=== PATIENT | female | born 1995 | race Caucasian/White ===

== ENCOUNTER 2020-10-10 13:52 | Observation (INO) | payer OTHER, SELFPAY ==
[2020-10-10 14:13] VITALS: BP 113/64; PULSE 85
[2020-10-10 14:16] VITALS: BP 109/61; PULSE 84
[2020-10-10 14:18] VITALS: BMI 27.6
--- NOTE | 2020-10-10 14:19 | OBADM ---
This patient, Mili Palm, admitted to the OB room OB Post 115 for observation. Patient/family oriented to hospital policies and general routines including ID bracelet, bed and alarms, visiting hours, pain management, procedures, bathroom and other care routines, personal items, smoking policy, room service/diet, and visiting hours. Patient/Family are encouraged to report perceived risks to care and to ask questions if they do not understand what they are told or what they should do.
[2020-10-10 14:26] LABS: Add Urine Microscopic? NO; Appearance Urine Clear (Clear); Bilirubin Urine Negative (Negative); Blood Urine Negative (Negative); Color Urine Yellow (Yellow); Glucose Urine UA Negative (Negative); Ketones Urine Negative (Negative); Leukocyte Esterase Ur Negative LEU/UL (Negative); Nitrate Urine Negative (Negative); Protein Urine Negative (Negative); Specific Grav Ur 1.015 (1.001-1.035); Urobilinogen Urine Negative mg/dL (<2.0)
[2020-10-10 14:31] VITALS: BP 116/56; PULSE 85
--- NOTE | 2020-10-14 11:19 | PM.OBTRLD ---
OB - Triage/Final Diagnosis Visit Information Comments/Additional reasons for admission: I have assessed the risk for this patient, Mili Palm, and determined that she would benefit from observation care. Evaluation Laboratory results: Laboratory Tests 10/10/20 14:08 Urine Color Yellow Urine Appearance Clear Urine pH 6.0 Ur Specific [place] 1.015 Urine Protein Negative Urine Glucose (UA) Negative Urine Ketones Negative Ur Blood (Man) Negative Urine Nitrate Negative Urine Bilirubin Negative Urine Urobilinogen Negative Leukocyte Esterase Rfl Negative Final Diagnosis (1) False labor: Code(s): O47.9 - False labor, unspecified Status: Acute
== END 2020-10-10 15:02 | disposition home or self-care (01) ==
PROVIDERS: Admitting Provider Obstetrics & Gynecology; PCP Family Medicine; Visit Provider Obstetrics & Gynecology
DX: O47.02 False labor before 37 completed weeks of gestation, second trimester (principal); Z3A.23 23 weeks gestation of pregnancy
CPT/HCPCS: 81003; G0378; G0379

== ENCOUNTER 2020-11-01 13:01 | Observation (INO) | payer OTHER, SELFPAY ==
[2020-11-01] VITALS (19 sets, daily range): BP systolic 107–127; BP diastolic 57–67; PULSE 65–119; TEMP 36.8; O2SAT 88–100; BMI 29.5
[2020-11-01 13:52] LABS: Add Urine Microscopic? NO; Appearance Urine Clear (Clear); Bilirubin Urine Negative (Negative); Blood Urine Negative (Negative); Color Urine Yellow (Yellow); Glucose Urine UA Negative (Negative); Ketones Urine Negative (Negative); Leukocyte Esterase Ur Negative LEU/UL (Negative); Nitrate Urine Negative (Negative); Protein Urine Negative (Negative); Urobilinogen Urine Negative mg/dL (<2.0)
--- NOTE | 2020-11-01 13:58 | OBADM ---
This patient, Mili Palm, admitted to the OB room OB Post 116 for observation. Patient/family oriented to hospital policies and general routines including ID bracelet, bed and alarms, visiting hours, pain management, procedures, bathroom and other care routines, personal items, smoking policy, room service/diet, and visiting hours. Patient/Family are encouraged to report perceived risks to care and to ask questions if they do not understand what they are told or what they should do.
[2020-11-01 15:04] LABS: Fetal Fibronectin Negative
[2020-11-01] MEDS: TERBUTALINE SULFATE 1 MG/ML VIAL 0.25 MG SUB-Q (15:26)
--- NOTE | 2020-11-03 07:43 | PM.OBTRLD ---
OB - Triage/Final Diagnosis Visit Information Date of evaluation: 11/01/20 Reason for evaluation: threatened labor Comments/Additional reasons for admission: I have assessed the risk for this patient, Mili Palm, and determined that she would benefit from observation care. Evaluation Laboratory results: Laboratory Tests 11/01/20 11/01/20 13:40 14:32 Urine Color Yellow Urine Appearance Clear Urine pH 6.0 Ur Specific [place] 1.020 Urine Protein Negative Urine Glucose (UA) Negative Urine Ketones Negative Ur Blood (Man) Negative Urine Nitrate Negative Urine Bilirubin Negative Urine Urobilinogen Negative Leukocyte Esterase Rfl Negative Fibronectin Negative
== END 2020-11-01 16:26 | disposition home or self-care (01) ==
LOC: ANHOBPP 13:08
PROVIDERS: Advanced Practice Midwife; Admitting Provider Obstetrics & Gynecology; PCP Family Medicine; Visit Provider Obstetrics & Gynecology
DX: O47.02 False labor before 37 completed weeks of gestation, second trimester (principal); Z3A.26 26 weeks gestation of pregnancy
CPT/HCPCS: 81003; 82731; 96372; G0378; G0379; J3105

== ENCOUNTER 2020-11-20 13:54 | Observation (INO) | payer OTHER, SELFPAY ==
[2020-11-20 14:21] VITALS: BP 109/66; PULSE 80
[2020-11-20 14:31] VITALS: BP 112/58; PULSE 79
[2020-11-20 14:39] LABS: Add Urine Microscopic? YES; Appearance Urine Cloudy (Clear); Bacteria Urine Trace /hpf; Bilirubin Urine Negative (Negative); Blood Urine Negative (Negative); Color Urine Yellow (Yellow); Glucose Urine UA Negative (Negative); Ketones Urine Negative (Negative); Leukocyte Esterase Ur Negative LEU/UL (NEGATIVE); Mucus Urine Rare /lpf; Nitrate Urine Negative (Negative); Protein Urine Negative (Negative); RBC Urine 0-2 /hpf (0-2); Specific Grav Ur 1.016 (1.001-1.035); Squamous Epithelial Cell Urine Moderate /hpf (Few); Urobilinogen Urine Negative mg/dL (<2.0); WBC Urine 0-3 /hpf (0-3)
[2020-11-20 14:42] VITALS: BMI 29.5
[2020-11-20 15:01] VITALS: BP 110/62; PULSE 82
[2020-11-20] MEDS: TERBUTALINE SULFATE 1 MG/ML VIAL 0.25 MG SUB-Q ×2 (15:55→18:27)
[2020-11-20 17:27] LABS: Fetal Fibronectin Positive
[2020-11-20 18:27] VITALS: BP 129/69; PULSE 89
[2020-11-20] MEDS: NIFEdipine 30 MG TAB.ER.24 PO (19:01)
[2020-11-20 19:03] VITALS: BP 137/80; PULSE 122
[2020-11-20 19:31] VITALS: BP 125/67; PULSE 113
--- NOTE | 2020-12-04 11:28 | PM.OBTRLD ---
OB - Triage/Final Diagnosis Visit Information Comments/Additional reasons for admission: I have assessed the risk for this patient, Mili Palm, and determined that she would benefit from observation care. Evaluation Laboratory results: Laboratory Tests 11/20/20 11/20/20 14:28 16:10 Urine Color Yellow Urine Appearance Cloudy H Urine pH 6.0 Ur Specific [place] 1.016 Urine Protein Negative Urine Glucose (UA) Negative Urine Ketones Negative Ur Blood (Man) Negative Urine Nitrate Negative Urine Bilirubin Negative Urine Urobilinogen Negative Ur Leukocyte Esterase Negative Urine RBC 0-2 Urine WBC 0-3 Ur Squamous Epith Cells Moderate H Urine Bacteria Trace Urine Mucus Rare Fibronectin Positive Final Diagnosis (1) Vaginal bleeding during : Code(s): O46.90 - Antepartum hemorrhage, unspecified, unspecified trimester Status: Acute
== END 2020-11-20 19:55 | disposition home or self-care (01) ==
PROVIDERS: Advanced Practice Midwife; Admitting Provider Obstetrics & Gynecology; PCP Family Medicine; Visit Provider Obstetrics & Gynecology
DX: O46.93 Antepartum hemorrhage, unspecified, third trimester (principal); Z3A.29 29 weeks gestation of pregnancy
CPT/HCPCS: 81001; 82731; 87086; 96372; A9270; G0378; G0379; J3105

== ENCOUNTER 2020-11-21 22:04 | Observation (INO) | payer OTHER, SELFPAY ==
[2020-11-21 22:16] VITALS: BP 119/70; PULSE 90
[2020-11-21 22:17] VITALS: BP 113/74; PULSE 97
[2020-11-21 22:31] VITALS: BP 105/75; PULSE 87
[2020-11-21 22:46] VITALS: BP 117/61; PULSE 91
[2020-11-21 23:01] VITALS: BP 109/65; PULSE 86
[2020-11-21 23:16] VITALS: BP 111/62; PULSE 83
[2020-11-21 23:18] LABS: Add Urine Microscopic? NO; Appearance Urine Clear (Clear); Bilirubin Urine Negative (Negative); Blood Urine Negative (Negative); Color Urine Colorless (Yellow); Glucose Urine UA Negative (Negative); Ketones Urine Negative (Negative); Leukocyte Esterase Ur Negative LEU/UL (Negative); Nitrate Urine Negative (Negative); Protein Urine Negative (Negative); Urobilinogen Urine Negative mg/dL (<2.0)
[2020-11-21 23:28] VITALS: BMI 29.3
--- NOTE | 2020-11-21 23:28 | LDADM ---
This patient, Mili Palm, was admitted to OB Post 116 on 11/21/20 at 22:04. Plans for labor, pain management and were discussed with patient. Patient/family oriented to hospital policies and general routines including ID bracelet, bed and alarms, visiting hours, pain management, procedures, bathroom and other care routines, personal items, smoking policy, room service/diet and guest tray routines, infant security routines, and visiting hours. Patient/Family are encouraged to report perceived risks to care and to ask questions if they do not understand what they are told or what they should do. See OBIX for further documentation.
--- NOTE | 2020-12-04 11:33 | P.PNOB_ITS ---
OB - Triage/Final Diagnosis Visit Information Comments/Additional reasons for admission: I have assessed the risk for this patient, Mili Palm, and determined that she would benefit from observation care. Evaluation Laboratory results: Laboratory Tests 11/21/20 22:41 Urine Color Colorless Urine Appearance Clear Urine pH 7.0 Ur Specific [place] 1.010 Urine Protein Negative Urine Glucose (UA) Negative Urine Ketones Negative Ur Blood (Man) Negative Urine Nitrate Negative Urine Bilirubin Negative Urine Urobilinogen Negative Leukocyte Esterase Rfl Negative Final Diagnosis (1) False labor: Code(s): O47.9 - False labor, unspecified Status: Acute
== END 2020-11-21 23:40 | disposition home or self-care (01) ==
PROVIDERS: Advanced Practice Midwife; Admitting Provider Obstetrics & Gynecology; PCP Family Medicine; Visit Provider Obstetrics & Gynecology
DX: O47.9 False labor, unspecified (principal); Z3A.00 Weeks of gestation of pregnancy not specified
CPT/HCPCS: 81003; G0378; G0379

== ENCOUNTER 2020-11-23 17:35 | Observation (INO) | payer OTHER, SELFPAY ==
[2020-11-23 18:01] VITALS: BP 123/72; PULSE 105
[2020-11-23 19:01] VITALS: BP 118/66; PULSE 80
[2020-11-23] MEDS: CYCLOBENZAPRINE HCL 10 MG TABLET PO (19:15)
--- NOTE | 2020-12-25 10:03 | PM.OBTRLD ---
OB - Triage/Final Diagnosis Visit Information Comments/Additional reasons for admission: I have assessed the risk for this patient, Mili Palm, and determined that she would benefit from observation care. Final Diagnosis (1) False labor: Code(s): O47.9 - False labor, unspecified Status: Acute
== END 2020-11-23 19:50 | disposition home or self-care (01) ==
PROVIDERS: Admitting Provider Obstetrics & Gynecology; PCP Family Medicine; Visit Provider Obstetrics & Gynecology
DX: O47.03 False labor before 37 completed weeks of gestation, third trimester (principal); Z3A.30 30 weeks gestation of pregnancy
CPT/HCPCS: A9270; G0378; G0379

== ENCOUNTER 2020-12-22 17:24 | Observation (INO) | payer OTHER, SELFPAY ==
[2020-12-22] VITALS (12 sets, daily range): BP systolic 75–132; BP diastolic 52–84; PULSE 71–95; RESP 18; TEMP 36.4; BMI 31.8
[2020-12-22 18:35] LABS: Add Urine Microscopic? YES; Appearance Urine Cloudy (Clear); Bacteria Urine Trace /hpf; Bilirubin Urine Negative (Negative); Blood Urine Negative (Negative); Color Urine Yellow (Yellow); Glucose Urine UA Negative (Negative); Ketones Urine Negative (Negative); Leukocyte Esterase Ur Negative LEU/UL (NEGATIVE); Mucus Urine Rare /lpf; Nitrate Urine Negative (Negative); Protein Urine Negative (Negative); RBC Urine 0-2 /hpf (0-2); Specific Grav Ur 1.015 (1.001-1.035); Squamous Epithelial Cell Urine Occasional /hpf (Few); WBC Urine 0-3 /hpf (0-3)
[2020-12-22] MEDS: LACTATED RINGERS 1,000 ML 999 ML IV CONT (20:14)
[2020-12-22] MEDS: BETAMETHASONE SOD PHOS/ACETATE 30 MG/5 ML VIAL 12 MG IM (20:19)
[2020-12-22] MEDS: NIFEdipine 30 MG TAB.ER.24 PO (20:24)
[2020-12-23] VITALS: BP 124/64; PULSE 91
--- NOTE | 2020-12-23 06:15 | PC.NURSE ---
Pt states she has felt a few contractions and also had brown spotting when using the bathroom. Pt also stated she is still feeling the baby move. Pt denies any needs at this time.
--- NOTE | 2020-12-23 08:24 | PM.IMHP ---
H&P: HPI History of Present Illness Date/Time: 12/23/20 08:24 Chief Complaint: contractions at 34 weeks Narrative: Pt presented overnight with contractions as frequent as 4-5 minutes. She has history of a term . Baby is IUGR. Received procardia x1 and got first BMTZ last night. This morning she reports contractions only every 15 minutes. small spotting following exams. Good FM. Review of Systems Review of Systems: All systems reviewed & are unremarkable except as noted in HPI and below (HPI) [facility] Family History Family History (Updated 09/26/17 @ 14:38 by DOCTOR UNKNOWN) Mother Diabetes mellitus Family history of blood dyscrasia Hypertension Father Hypertension Social History Social History Smoking status: Never smoker Second hand tobacco smoke exposure: No Alcohol intake: never Meds Home Medications and Allergies Home Medications Medication Instructions Recorded Confirmed Type Daily 1 pkg PO DAILY 10/10/20 12/22/20 History Allergies Allergy/AdvReac Type Severity Reaction Status Date / Time animal dander Allergy Unknown Verified 09/26/17 14:35 No Known Allergies Allergy Unknown Verified 06/23/19 12:08 No Known Allergies Allergy Uncoded 06/23/19 12:08 Vital Signs Vital Signs - 24 hr 12/22/20 18:15 12/22/20 18:30 12/22/20 18:45 Temperature Pulse Rate 95 93 82 Respiratory Rate Blood Pressure 112/76 97/84 L 108/60 12/22/20 19:01 12/22/20 19:07 12/22/20 20:24 Temperature 97.5 F L Pulse Rate 71 81 79 Respiratory Rate 18 Blood Pressure 75/60 L 109/69 110/55 L 12/22/20 20:42 12/22/20 21:49 12/22/20 22:00 Temperature Pulse Rate 79 92 91 Respiratory Rate Blood Pressure 113/65 129/57 L 119/52 L 12/22/20 22:30 12/22/20 23:00 12/22/20 23:30 Temperature Pulse Rate 89 90 86 Respiratory Rate Blood Pressure 122/52 L 125/60 132/74 12/23/20 00:00 Temperature Pulse Rate 91 Respiratory Rate Blood Pressure 124/64 Exam Narrative: Exam Narrative: NAD, normal affect abdomen soft, uterus soft, nontender H&P: Results Labs Labs: Urine 12/22/20 Range/Units 18:04 Urine Color Yellow (Yellow) Urine Appearance Cloudy H (Clear) Urine pH 6.0 (5.0-9.0) Ur Specific [place] 1.015 (1.001-1.035) Urine Protein Negative (Negative) mg/dL Urine Glucose (UA) Negative (Negative) mg/dL Assessment and Plan Assessment and plan (1) contractions: Code(s): O47.9 - False labor, unspecified Status: Acute Additional Plan Cervical change overnight from 1 to 1.5cm, but now contractions minimal and normal frequency for near term. Received BMTZ #1 Stable for DC home. Precautions given. Return if contractions q5 min or less. Will return for second BMTZ tonight.
== END 2020-12-23 09:37 | disposition home or self-care (01) ==
PROVIDERS: Admitting Provider Obstetrics & Gynecology; PCP Family Medicine; Visit Provider Obstetrics & Gynecology
DX: O47.03 False labor before 37 completed weeks of gestation, third trimester (principal); Z3A.34 34 weeks gestation of pregnancy
CPT/HCPCS: 81001; 87081; 87086; 96372; A9270; G0378; G0379; J0702; J7120

== ENCOUNTER 2020-12-23 20:30 | Observation (INO) | payer OTHER, SELFPAY ==
[2020-12-23 20:50] VITALS: BP 110/71; PULSE 81
[2020-12-23 21:00] VITALS: BP 114/67; PULSE 88
[2020-12-23] MEDS: BETAMETHASONE SOD PHOS/ACETATE 30 MG/5 ML VIAL 12 MG IM (21:15)
--- NOTE | 2021-01-02 07:47 | PM.OBTRLD ---
OB - Triage/Final Diagnosis Visit Information Comments/Additional reasons for admission: I have assessed the risk for this patient, Mili Palm, and determined that she would benefit from observation care. Final Diagnosis (1) contractions: Code(s): O47.9 - False labor, unspecified Status: Acute (2) False labor: Code(s): O47.9 - False labor, unspecified Status: Acute
== END 2020-12-23 22:10 | disposition home or self-care (01) ==
PROVIDERS: Admitting Provider Obstetrics & Gynecology; PCP Family Medicine; Visit Provider Obstetrics & Gynecology
DX: O47.03 False labor before 37 completed weeks of gestation, third trimester (principal); Z3A.34 34 weeks gestation of pregnancy
CPT/HCPCS: 96372; G0378; G0379; J0702

== ENCOUNTER 2021-01-01 21:49 | Observation (INO) | payer OTHER, SELFPAY ==
[2021-01-01 22:03] VITALS: BMI 31.8
--- NOTE | 2021-01-01 22:10 | OBADM ---
This patient, Mili Palm, admitted to the OB room OB Post 116 for observation. Patient/family oriented to hospital policies and general routines including ID bracelet, bed and alarms, visiting hours, pain management, procedures, bathroom and other care routines, personal items, smoking policy, room service/diet, and visiting hours. Patient/Family are encouraged to report perceived risks to care and to ask questions if they do not understand what they are told or what they should do. Pt denies leaking or bleeding. Pt feeling movements.
[2021-01-01 22:12] VITALS: BP 120/76; PULSE 103; TEMP 36.3
[2021-01-01] MEDS: NIFEdipine 30 MG TAB.ER.24 PO (22:41)
[2021-01-02 00:10] VITALS: PULSE 102; O2SAT 98
[2021-01-02] MEDS: TERBUTALINE SULFATE 1 MG/ML VIAL 0.25 MG SUB-Q (00:11)
== END 2021-01-02 01:50 | disposition home or self-care (01) ==
PROVIDERS: Admitting Provider Obstetrics & Gynecology; PCP Family Medicine; Visit Provider Obstetrics & Gynecology
DX: O47.03 False labor before 37 completed weeks of gestation, third trimester (principal); Z3A.35 35 weeks gestation of pregnancy
CPT/HCPCS: 96372; A9270; G0378; G0379; J3105

== ENCOUNTER 2021-01-11 14:11 | Observation (INO) | payer OTHER, SELFPAY ==
[2021-01-11 14:23] VITALS: BP 130/81; PULSE 109
[2021-01-11 14:54] VITALS: TEMP 36.6
[2021-01-11 15:10] VITALS: BMI 32.6
--- NOTE | 2021-01-11 15:14 | OBADM ---
This patient, Mili Palm, admitted to the OB room OB Post 117 for observation. Patient/family oriented to hospital policies and general routines including ID bracelet, bed and alarms, visiting hours, pain management, procedures, bathroom and other care routines, personal items, smoking policy, room service/diet, and visiting hours. Patient/Family are encouraged to report perceived risks to care and to ask questions if they do not understand what they are told or what they should do.
--- NOTE | 2021-02-11 20:31 | PM.OBTRLD ---
OB - Triage/Final Diagnosis Visit Information Comments/Additional reasons for admission: I have assessed the risk for this patient, Mili Palm, and determined that she would benefit from observation care. Final Diagnosis (1) Abdominal pain: Code(s): R10.9 - Unspecified abdominal pain Status: Acute
== END 2021-01-11 15:10 | disposition home or self-care (01) ==
PROVIDERS: Admitting Provider Obstetrics & Gynecology; PCP Family Medicine; Visit Provider Obstetrics & Gynecology
DX: O26.893 Other specified pregnancy related conditions, third trimester (principal); R10.9 Unspecified abdominal pain; Z3A.37 37 weeks gestation of pregnancy
CPT/HCPCS: G0378; G0379

== ENCOUNTER 2021-01-19 21:10 | Observation (INO) | payer OTHER, SELFPAY ==
[2021-01-20 01:05] VITALS: BMI 32.5
--- NOTE | 2021-01-20 01:05 | LDADM ---
This patient, Mili Palm, was admitted to Labor/Delivery/Recovery 103 on 01/19/21 at 21:10. Plans for labor, pain management and were discussed with patient. Patient/family oriented to hospital policies and general routines including ID bracelet, bed and alarms, visiting hours, pain management, procedures, bathroom and other care routines, personal items, smoking policy, room service/diet and guest tray routines, security routines, and visiting hours. Patient/Family are encouraged to report perceived risks to care and to ask questions if they do not understand what they are told or what they should do. See OBIX for further documentation.
== END 2021-01-20 01:12 | disposition home or self-care (01) ==
PROVIDERS: Admitting Provider Obstetrics & Gynecology; PCP Family Medicine; Visit Provider Obstetrics & Gynecology
DX: O47.1 False labor at or after 37 completed weeks of gestation (principal); Z3A.38 38 weeks gestation of pregnancy
CPT/HCPCS: G0378; G0379

== ENCOUNTER 2021-01-25 06:42 | Inpatient (IN) | payer OTHER, SELFPAY ==
[2021-01-25] VITALS (83 sets, daily range): BP systolic 76–133; BP diastolic 51–98; PULSE 70–111; RESP 16–18; TEMP 36–37.2; O2SAT 98–100; BMI 32.7
[2021-01-25 07:20] LABS: Basophils Percent Auto 0.3 % (0.2-1.2); Eosinophils Absolute Auto 0.1 K/mm3 (0-0.3); Eosinophils Percent Auto 0.9 % (0-4.4); Hematocrit 36.9 % (37.0-47.0); Hemoglobin 12.1 g/dL (12.0-15.0); Immature Granulocyte Absolute 0.08 K/mm3 (0.00-0.031); Immature Granulocyte Percent A 0.8 % (0-0.5); Lymphocytes Absolute Auto 1.09 K/mm3 (0.9-3.2); Lymphocytes Percent Auto 10.4 % (18.3-44.2); Mean Corpuscular HGB Conc 32.8 g/dl (32-36); Mean Corpuscular Hemoglobin 27.9 pg (26-34); Mean Corpuscular Volume 85.2 fl (80-100); Mean Platelet Volume 10.7 fl (7.4-10.4); Monocytes Absolute Auto 0.4 K/mm3 (0.1-0.6); Monocytes Percent Auto 3.8 % (2.6-8.5); Neutrophils Absolute Auto 8.8 K/mm3 (1.3-6.7); Neutrophils Percent Auto 83.8 % (45.5-73.1); Platelet Count Result 231 k/mm3 (150-375); Red Blood Count 4.33 M/mm3 (4.2-5.4); White Blood Count 10.4 K/mm3 (4.5-10.0)
[2021-01-25] MEDS: LACTATED RINGERS 1,000 ML 125 ML IV CONT (07:24)
[2021-01-25] MEDS: AMPICILLIN 2 GM/NS 100 ML 2 GM/100 ML BAG IVPB (07:24)
[2021-01-25] MEDS: OXYTOCIN 30 UNITS/NS 500 ML 30 UNITS/500 ML BAG IV CONT (07:29)
--- NOTE | 2021-01-25 07:29 | WPDHPUPDATE1 ---
History and Physical Update Update Date/Time: 01/25/21 07:29 AROM - clear. /, reassuring fht's History and Physical has been reviewed, including an updated exam of the patient. There are NO changes in the patient's condition. Risks, benefits, and alternatives have been discussed and questions answered. Patient agrees to proceed with procedure.
--- NOTE | 2021-01-25 07:34 | LDADM ---
This patient, Mili Palm, was admitted to Labor/Delivery/Recovery 104 on 01/25/21 at 06:42. Plans for labor, pain management and were discussed with patient. Patient/family oriented to hospital policies and general routines including ID bracelet, bed and alarms, visiting hours, pain management, procedures, bathroom and other care routines, personal items, smoking policy, room service/diet and guest tray routines, security routines, and visiting hours. Patient/Family are encouraged to report perceived risks to care and to ask questions if they do not understand what they are told or what they should do. See OBIX for further documentation.
[2021-01-25] MEDS: AMPICILLIN 1 GM/NS 50 ML 1 GM/50 ML BAG IVPB (11:19)
--- NOTE | 2021-01-25 13:14 | PM.OBPRVD ---
OB - Delivery Note Procedure Delivery date: 01/25/21 Procedure: Intrapartal events: None Induction method: AROM and per pitocin protocol Delivery monitor: external FHT and external uterine Route of delivery: Laceration Description: Vaginal - 2nd Degree Delivery repair: vicryl Specimen: Yes Quantitative Blood Loss (ml): 212 Anesthesia type: Epidural Disposition: floor Baby Date of : 01/25/21 Time of : 13:47 Weeks of gestation at delivery: 39 gender: Female Weight (pounds): 5 Weight (ounces): 14 score one minute: 9 score five minutes: 9
[2021-01-25] MEDS: OXYTOCIN 30 UNITS/NS 500 ML 30 UNITS/500 ML BAG 125 UNITS IV CONT (13:23)
[2021-01-25] MEDS: BENZOCAINE 20% AER SPR (*SP) 56 GM CAN 1 SPRAY TOPICAL (15:21)
[2021-01-25] MEDS: WITCH HAZEL 40 PADS 1 PAD TOPICAL (15:21)
--- NOTE | 2021-01-25 16:00 | OBPPTRN ---
Patient transferred to post room # 282 via wheelchair). Support person present. Oriented to unit, room, information board, rooming in, admission packet and security measures. Patient verbalizes understanding. PT education and instructions per one to one discussion, mom baby care guide book, no barriers to learning identified, pt and fob both recipients of the instruction.
[2021-01-25] MEDS: LANOLIN (LANSINOH) 7.5 GM CREAM 1 APPLIC TOPICAL (17:55)
[2021-01-25] MEDS: IBUPROFEN 600 MG TABLET PO (17:55)
[2021-01-25] MEDS: DOCUSATE SODIUM 100 MG CAPSULE PO (17:55)
[2021-01-26] MEDS: ACETAMINOPHEN 325 MG TABLET 650 MG PO ×4 (00:30→23:15)
[2021-01-26] MEDS: IBUPROFEN 600 MG TABLET PO ×4 (00:30→23:16)
[2021-01-26 04:31] VITALS: BP 106/64; PULSE 76; RESP 16; TEMP 36.2; O2SAT 98
[2021-01-26 05:15] LABS: Hematocrit 32.1 % (37.0-47.0); Hemoglobin 10.4 g/dL (12.0-15.0)
--- NOTE | 2021-01-26 07:00 | PC.NURSE ---
PT introductions made and plan of care discussed per post , pain management, breast feeding, daily care activities. PT will receive education and instruction this shift per one to one discussion without any barriers to learning noted. Mom baby care guide used as a resource. Recipients of such instructions are fob and pt. Both verbalized understanding of such care
--- NOTE | 2021-01-26 07:29 | PM.OBPNVD ---
OB - PN: Subj Subjective Date/time seen: 01/26/21 07:29 Patient comments: no complaints baby status: doing well OB - PN: Obj Data Labs CBC & Chem 7: 01/26/21 04:12 Labs: Laboratory Results - last 24 hr 01/25/21 01/26/21 07:12 04:12 Hgb 10.4 L Hct 32.1 L Blood Type O Positive Antibody Screen Negative OB - PN A/P Plan day: 1 Plan: routine care Time Spent With Patient Time: Total time spent is greater than 50% in coordination of care (as documented) at patient's floor/unit and/or counseling patient: Review of Systems Review of Systems: All systems reviewed & are unremarkable except as noted in HPI and below Exam Const: General: cooperative Psych: Affect: normal affect Attitude: cooperative Thought process: Normal thought process present Thought content: Yes Normal thought content present Insight: Good insight present (Psych) Judgement: Good judgement present (Psych)
--- NOTE | 2021-01-26 07:44 | WPDANLDPN2 ---
Anes-Prog Note L&D Date/Time: 01/26/21 07:44 Comfortable throughout: labor and delivery Neuraxial method: spinal Epidural/Spinal procedure site: clean & non-tender Neuro status: Neuro function grossly intact. Cardiovascular status: normal Respiratory status: normal Airway patency: baseline Mental status: baseline Post-Op hydration status: normal Vital Signs: Last Vital Signs Temp 97.2 F L 01/26/21 04:31 Pulse 76 01/26/21 04:31 Resp 16 01/26/21 04:31 BP 106/64 01/26/21 04:31 Pulse Ox 98 01/26/21 04:31 Pain score (VAS): 0 I/O: Intake & Output 01/25/21 01/25/21 01/26/21 15:59 23:59 07:59 Intake Total 650 500 Balance 650 500 Post-procedural complaints: none Patient feedback: Patient satisfied with anesthetic care.
[2021-01-26] MEDS: DOCUSATE SODIUM 100 MG CAPSULE PO ×2 (09:00→17:36)
[2021-01-26] MEDS: MULTIVIT/MIN/PREN/FOL AC/IRON TABLET 1 TAB PO (09:00)
[2021-01-26] MEDS: TETANUS,DIPHTHERIA,AC PERTUSSIS ADULT (0.5 ML) BOOSTRIX IM (09:02)
[2021-01-26 09:15] VITALS: PULSE 81; RESP 16; O2SAT 99
[2021-01-26 09:31] VITALS: BP 119/76; PULSE 81; RESP 16; TEMP 36.6; O2SAT 99
[2021-01-26 12:33] LABS: Rapid Plasma Reagin Non-Reactive (NonReactive)
[2021-01-26 12:35] VITALS: BP 126/69; PULSE 69; RESP 16; TEMP 37.3; O2SAT 100
--- NOTE | 2021-01-26 13:15 | PC.NURSE ---
Mother called out for assist with feeding. Mother reports she was given a nipple shield for first feeding and is now able to latch without. Mother was unsuccessful with first child and . Reviewed feeding cues, frequencies, duration of feedings, feeding elimination flow sheet, and signs of adequate intake. Demonstrated stimulation techniques to wake infant for feeding. Assisted with infant to breast. Reviewed positioning/alignment in cross cradle, holding breast in ?U? hold and guided asymmetrical latch on. able to latch correctly. nursed eagerly, with steady draws and frequent swallowing noted. Reviewed signs of a correct latch, effective nursing and suck swallow ratio. would slip to shallow latch, mother reports tenderness. Demonstrated how to adjust latch more deeply while feeding. Mother reports she can feel change in latch and has no tenderness. Nipple care reviewed of lanolin after feedings, warm compresses as needed for nipple discomfort. Mother will freq allow to continue to nurse in a shallow latch. Suggested if she cannot adjust latch while feeding to break latch and re-latch to deeper latch. Discussed nipples will become sore and shallow latch decreases infant intake. Suggested mother stimulate while feeding to increase stimulate, increase intake and to assist with maintaining deep latch. Instructed mother to call out for RN assistance if she is unable to latch infant for feeding or she has discomfort with nursing. Instructed feeding should be initiated three hours from start of last feeding or if feeding cues are noted before. Mother voiced understanding of information shared. Reviewed transition to breast milk, signs of adequate intake, and engorgement/relief. Instructed to call ICP if intake/output less than required. Reviewed regular medications mother is taking. Information provided per Ce[facility]. Reviewed community resources on the [facility] website and in the Mom/Baby guide. Information on outpatient services provided. Mother has no further questions at this time.
[2021-01-26 20:00] VITALS: BP 125/69; PULSE 75; RESP 18; TEMP 36.2
--- NOTE | 2021-01-26 20:00 | PC.NURSE ---
Patient viewed the discharge video Mother & Baby Care, The First Two Weeks online. Patient was given the opportunity and encouraged to ask questions. Patient verbalized understanding of information shared and has been given the mother/baby guide for home reference.
[2021-01-27] MEDS: IBUPROFEN 600 MG TABLET PO (05:42)
[2021-01-27] MEDS: ACETAMINOPHEN 325 MG TABLET 650 MG PO (05:42)
[2021-01-27 07:30] VITALS: BP 104/63; PULSE 82; RESP 16; TEMP 36.8
--- NOTE | 2021-01-27 08:36 | PM.OBPNVD ---
OB - PN: Subj Subjective Date/time seen: 01/27/21 08:36 Patient comments: no complaints baby status: doing well OB - PN: Obj Data Labs CBC & Chem 7: 01/26/21 04:12 Labs: Laboratory Results - last 24 hr 01/25/21 07:12 RPR Non-reactive OB - PN A/P Plan day: 2 Plan: routine care and discharge home Time Spent With Patient Time: Total time spent is greater than 50% in coordination of care (as documented) at patient's floor/unit and/or counseling patient: Review of Systems Review of Systems: All systems reviewed & are unremarkable except as noted in HPI and below Exam Const: General: cooperative Nutritional Appearance: average body habitus Psych: Speech and movement: Normal speech and movement present Affect: normal affect Attitude: cooperative Thought process: Normal thought process present Thought content: Yes Normal thought content present Insight: Good insight present (Psych) Judgement: Good judgement present (Psych)
--- NOTE | 2021-01-27 08:37 | PM.OBDSVD ---
DS: Admitting Diagnosis Admitting Diagnosis Admitting Diagnosis: DAVID OB - DS: Summary OB Procedures : None OB Procedures Intrapartum: Spontaneous Vag Delivery OB Procedures: : None Time Spent with Patient Time attestation: Total time spent providing and/or coordinating discharge services: DS: Data Data Completed and Pending Labs on day of discharge: Labs from last 24 hours 01/25/21 07:12 RPR Non-reactive Discharge Plan Discharge Attending physician on discharge: Pablo Pantoja Discharging Clinician: Stefany Dunn Patient Disposition: Home, Self-Care Activity: pelvic rest Diet: regular Patient Instructions: Antibiotic Form Stand Alone Forms: General Discharge Information Follow-up/Referrals: Pablo Pantoja MD [Physician] - 4 Weeks Discharge Medications: Continued PNV cmb#95-ferrous fumarate-FA [] 28 mg iron- 800 mcg Tablet 1 tablet PO DAILY RF: 0 Date of admission: 01/25/21 06:42 Primary Care Provider: MoraimaBrenda Admitting Provider: Pablo Pantoja Attending physician on admission: Pablo Pantoja Condition: Stable
[2021-01-29 09:45] VITALS: BP 125/79; PULSE 90; RESP 20; TEMP 36.7; O2SAT 100
== END 2021-01-27 11:28 | disposition home or self-care (01) | DRG 560 ==
LOC: ANHLDR 06:45 → ANHOB2 16:25
PROVIDERS: Admitting Provider Obstetrics & Gynecology; PCP Family Medicine; Visit Provider Obstetrics & Gynecology
DX: O36.5930 Maternal care for other known or suspected poor fetal growth, third trimester, not applicable or unspecified (principal); O70.1 Second degree perineal laceration during delivery; O99.824 Streptococcus B carrier state complicating childbirth; O76 Abnormality in fetal heart rate and rhythm complicating labor and delivery; O69.81X0 Labor and delivery complicated by cord around neck, without compression, not applicable or unspecified; Z3A.39 39 weeks gestation of pregnancy; Z37.0 Single live birth
CPT/HCPCS: 36415; 85014; 85018; 85025; 86592; 86850; 86900; 86901; 88307; 90715; A9270; J0290; J2590; J2795; J7120

== ENCOUNTER 2021-11-14 12:39 | Outpatient (CLI) | payer OTHER, SELFPAY ==
--- NOTE | ~2021-11-14 | US_ITS ---
EXAMINATION: US OB <= 14 weeks fetus DATE: 11/14/2021 13:07 INDICATION: Gestational dating TECHNIQUE: Real-time transabdominal obstetric ultrasound. FINDINGS: No prior studies for comparison. The uterus measures 10.3 x 6.3 x 7.7 cm. There is an intrauterine gestational sac, with pole id entified. There are 2 areas of subchorionic hemorrhage measuring 1.5 x 1.3 x 0.5 and 2.1 x 1.5 x 0.5 cm respectively. The crown rump length measures 3.18 cm, which correlates with a estimated gestationa l age of 10 weeks 1 day. heart tones are identified measuring 193 BPM. There is a 1.6 cm olena us luteal cyst of the right ovary. Left ovary is unremarkable. IMPRESSION: 1. SL IUP with an EGA of 10 weeks, 1 days (EDC by current ultrasound of 06/11/2022). 2: Small subchorionic hemorrhages. Recommend attention to these on subsequent examinations. Reviewed, dictated and finalized at location A. [facility] [employer] PRIMARY IMPRESSION: 1. SL IUP with an EGA of 10 weeks, 1 days (EDC by current ultrasound of 06/11/20 22). 2: Small subchorionic hemorrhages. Recommend attention to these on subsequent examinations.
== END 2021-11-14 12:40 | disposition home or self-care (01) ==
PROVIDERS: PCP Family Medicine; Visit Provider Student in an Organized Health Care Education/Training Program
DX: O36.80X0 Pregnancy with inconclusive fetal viability, not applicable or unspecified (principal); Z3A.10 10 weeks gestation of pregnancy
CPT/HCPCS: 76801

== ENCOUNTER 2021-11-17 22:20 | Emergency (ER) | payer OTHER, SELFPAY ==
--- NOTE | 2021-11-17 22:24 | ED.PREGNANCY ---
HPI - General Chief complaint: OB/Uterine Contractions Stated complaint: 10 weeks , bleeding Time Seen by Provider: 11/17/21 22:24 Source: patient Mode of arrival: ambulatory Limitations: no limitations History of Present Illness HPI Narrative: 26-year-old woman with an LMP of 09/06/2021 comes in this evening complaining of some cramping in her pelvis and bleeding bright red blood. She states that was a small amount (?1/2 pad?). It occurred while she was at home this evening. She has had some moderate nausea and sometimes vomiting during this . Ultrasound on 11/14/2020 showed single parsons IUP with an EGA of 10 weeks 1 day and some small subchorionic hemorrhages. She has had no bleeding or spotting prior to today. She had a D&C on 13 Jan 2019 for miscarriage (approx 8 wks). Complaint: vaginal bleeding Onset (ago): hour(s) (1) Pain Consistency: constant Location: pelvis Severity: mild Quality: Cramping Relieving factors: none Exacerbating factors: none Associated symptoms: vaginal bleeding Vaginal discharge: none Vaginal bleeding: light Date of Last Menstrual Period: 09/06/21 Patient : Yes Expected Date of Delivery: 06/13/22 Number of Weeks : 10 OB History - Previous Pregnancies: miscarriage care: followed by OB and previous ultrasound confirms IUP Related Data : 4 Para: 2 Total number of abortions (spontaneous and elective): 1 Home Medications Medication Instructions Recorded Confirmed PNV cmb#95-ferrous fumarate-FA 1 tablet PO DAILY 01/04/21 01/25/21 [] Allergies Allergy/AdvReac Type Severity Reaction Status Date / Time animal dander Allergy Intermediate Itching Verified 11/17/21 22:46 Review of Systems Review of Systems: All systems reviewed & are unremarkable except as noted in HPI and below Constitutional: Constitutional: Denies chills and Denies fever(s) ENT: Denies dysphagia, Denies nasal congestion and Denies sore throat Cardiovascular: Cardiovascular: Denies chest pain and Denies radiating jaw, neck or arm pain Respiratory: Respiratory: Denies cough, Denies dyspnea and Denies wheezing Gastrointestinal: Gastrointestinal: Denies abdominal pain, Denies diarrhea, Reports nausea and Denies vomiting Genitourinary: Genitourinary: Denies hematuria, Denies nocturia, Denies dysuria, Reports pelvic pain (cramping) and Denies vaginal discharge Musculoskeletal: Musculoskeletal: Denies arthralgias and Denies joint swelling Integumentary/Breasts: Skin/Breast: Denies pruritus, Denies erythema and Denies rash Neurologic: Denies vertigo, Denies dizziness and Denies syncope PMFSH Past Medical History Medical History Anemia Generalized headaches History of miscarriage, currently x 1 History of vaginal delivery x2 IUGR (intrauterine growth restriction) 2nd Surgical History Surgical History History of dilation and curettage x 13 Jan 2019 for Miscarriage Family History Family History (Updated 11/08/21 @ 10:39 by Jocelynn Maloney MA) Mother Diabetes mellitus Family history of blood dyscrasia Hypertension Asthma Father Hypertension Alcoholism Diabetes mellitus Depression Daughter Asthma Grandparent Liver cancer Alcoholism Hypertension Heart disease Social History Social History Smoking status: Never smoker Second hand tobacco smoke exposure: No Alcohol intake: never Substance use: never Gender identity (if verbalized by the patient): Female Spiritual care concerns: No Exam Const: General: no acute distress and alert Orientation/consciousness: patient oriented x3 Resp: Effort & Inspection: normal respiratory effort and not labored Auscultation: clear to auscultation bilaterally, no rales,
[2021-11-17 22:32] VITALS: BP 130/81; PULSE 98; RESP 16; TEMP 37; O2SAT 97
[2021-11-17 22:58] LABS: Basophils Absolute Auto 0.02 K/mm3 (0.00-0.10); Basophils Percent Auto 0.3 % (0.0-1.0); Eosinophils Absolute Auto 0.27 K/mm3 (0.02-0.50); Eosinophils Percent Auto 3.4 % (1.0-6.0); Hematocrit 37.9 % (35.0-49.0); Hemoglobin 12.6 g/dL (12.0-15.0); Immature Granulocyte Absolute 0.02 K/mm3 (0.00-0.00); Immature Granulocyte Percent A 0.3 % (0.0-0.0); Lymphocytes Absolute Auto 1.87 K/mm3 (1.10-4.50); Lymphocytes Percent Auto 23.6 % (18.0-42.0); Mean Corpuscular HGB Conc 33.2 g/dL (32.0-36.0); Mean Corpuscular Hemoglobin 29.2 pg (27.0-31.0); Mean Corpuscular Volume 87.9 fL (78.0-102.0); Mean Platelet Volume 10.1 fl (9.2-11.8); Monocytes Percent Auto 5.1 % (2.0-11.0); Neutrophils Absolute Auto 5.3 K/mm3 (1.7-7.2); Neutrophils Percent Auto 67.3 % (50.0-70.0); Platelet Count Result 192 K/mm3 (150-420); Red Blood Count 4.31 M/mm3 (4.20-5.40); Red Cell Distribution Width 13.1 % (11.6-14.4); White Blood Count 7.9 K/mm3 (4.8-10.8)
--- NOTE | 2021-11-17 23:03 | PC.NURSE ---
pelvic observed by dominick floor nurse
[2021-11-17 23:13] LABS: Alanine Aminotransferase 47 U/L (14-59); Albumin Level 3.2 g/dL (3.4-5.0); Alkaline Phosphatase 100 U/L (46-116); Anion Gap 12 mmol/L (8-16); Aspartate Amino Transferase 19 U/L (15-37); Bilirubin,Total 0.2 mg/dL (0.00-1.00); Blood Urea Nitrogen 9 mg/dL (7-18); Calcium 8.9 mg/dL (8.5-10.1); Carbon Dioxide 24 mmol/L (21-32); Chloride 102 mmol/L (98-108); Estimated CRCL calculation 128 ml/min; Estimated Glomerular Filt Rate > 60; Glucose 98 mg/dL (70-99); Osmolality Calculated 284 mOsm/kg (285-295); Sodium 138 mmol/L (136-145)
[2021-11-17 23:20] LABS: Add Urine Microscopic? YES; Appearance Urine Clear (Clear); Bilirubin Urine Negative (Negative); Blood Urine 3+ (Negative); Color Urine Light Yellow (Yellow); Glucose Urine UA Negative (Negative); Ketones Urine 2+ (Negative); Leukocyte Esterase Ur Negative LEU/UL (Negative); Nitrate Urine Negative (Negative); Protein Urine Negative (Negative); Urobilinogen Urine 0.2 mg/dL (0.2-1.0)
[2021-11-17 23:44] LABS: RBC Urine 0-2 /hpf (0-2); Squamous Epithelial Cell Urine Moderate /hpf (Few)
--- NOTE | 2021-11-17 23:58 | PC.NURSE ---
exchange called for dr santos [id number]
--- NOTE | 2021-11-18 00:05 | PC.NURSE ---
dr hernandez returned call for group
[2021-11-18 00:16] VITALS: BP 126/51; PULSE 87; RESP 16; TEMP 36.9; O2SAT 99
== END 2021-11-18 00:17 | disposition home or self-care (01) ==
PROVIDERS: Emergency Provider Emergency Medicine; PCP Family Medicine
DX: O46.90 Antepartum hemorrhage, unspecified, unspecified trimester (principal)
CPT/HCPCS: 36415; 80053; 81001; 84702; 85025; 86850; 86900; 86901; 99284

== ENCOUNTER 2021-11-19 09:07 | Outpatient (CLI) | payer OTHER, SELFPAY ==
--- NOTE | ~2021-11-19 | US_ITS ---
EXAMINATION: US OB <= 14 weeks fetus DATE: 11/19/2021 09:33 INDICATION: Spotting complicating , first trimester. TECHNIQUE: Real-time transabdominal pelvic ultrasound was performed. COMPARISON: Ultrasound 11/14/2021 FINDINGS: The uterus measures 11.0 x 8.3 x 6.2 cm. There is an intrauterine gestational sac. A yolk sac is iden tified. The crown rump length measures 4.0 cm, which correlates with an estimated gestational age of 10 weeks and 6 day(s) (+/-) 1 week(s) and 0 day(s). heart motion is identified measuring 176 beats per minute (bpm) by M-mode Doppler. The right ovary measures 2.6 x 2.9 x 1.9 cm. The left ovary is not visualized. There is no free fluid in the pelvis. IMPRESSION: 1. Single living intrauterine gestation with estimated date of delivery of 06/11/2022 based on the ul trasound from 11/14/2021. Reviewed, dictated and finalized at location [facility]. [facility] [employer] IMPRESSION: 1. Single living intrauterine gestation with estimated date of delivery of 05/17 based on the ultrasound from 11/14/2021.
== END 2021-11-19 09:08 | disposition home or self-care (01) ==
PROVIDERS: PCP Family Medicine; Visit Provider Student in an Organized Health Care Education/Training Program
DX: O26.851 Spotting complicating pregnancy, first trimester (principal); Z3A.00 Weeks of gestation of pregnancy not specified
CPT/HCPCS: 76801

== ENCOUNTER 2021-11-20 11:13 | Outpatient (CLI) | payer OTHER, SELFPAY ==
[2021-11-20 12:25] LABS: Thyroid Stimulating Hormone 0.318 uIU/mL (0.465-4.680)
[2021-11-20 12:33] LABS: HIV 1/2 Ab P24 Ag Result Negative (Negative)
[2021-11-20 12:41] LABS: Hepatitis B Surface Antigen Negative (Negative); Rubella IgG Antibody 9.4 IU/ML
[2021-11-20 12:54] LABS: Hepatitis C Virus Antibody Negative (Negative)
[2021-11-20 18:32] LABS: Vitamin D 25 Hydroxy 27.3 ng/mL
[2021-11-21 08:25] LABS: Rapid Plasma Reagin Non-Reactive (NonReactive)
== END 2021-11-20 11:14 | disposition home or self-care (01) ==
PROVIDERS: PCP Family Medicine; Visit Provider Student in an Organized Health Care Education/Training Program
DX: Z34.90 Encounter for supervision of normal pregnancy, unspecified, unspecified trimester (principal); Z3A.00 Weeks of gestation of pregnancy not specified
CPT/HCPCS: 36415; 82306; 84443; 86592; 86703; 86762; 86787; 86803; 86850; 86900; 86901; 87086; 87088; 87340; G0432

== ENCOUNTER 2021-12-19 12:41 | Outpatient (CLI) | payer OTHER, SELFPAY ==
[2021-12-19 13:55] LABS: Thyroid Stimulating Hormone Reflex 0.41 u/IU/mL (0.36-3.74)
[2021-12-19 13:56] LABS: Free T4 Free Thyroxine 2.05 ng/dL (0.76-1.46)
== END 2021-12-19 12:42 | disposition home or self-care (01) ==
LOC: CHSLAB 12:43
PROVIDERS: PCP Family Medicine; Visit Provider Student in an Organized Health Care Education/Training Program
DX: R79.89 Other specified abnormal findings of blood chemistry (principal)
CPT/HCPCS: 36415; 84439; 84443

== ENCOUNTER 2022-03-14 10:56 | Outpatient (CLI) | payer OTHER, SELFPAY ==
[2022-03-14 12:09] LABS: Basophils Absolute Auto 0.03 K/mm3 (0.00-0.10); Basophils Percent Auto 0.3 % (0.0-1.0); Eosinophils Absolute Auto 0.16 K/mm3 (0.02-0.50); Eosinophils Percent Auto 1.6 % (1.0-6.0); Hematocrit 38.7 % (35.0-49.0); Hemoglobin 12.8 g/dL (12.0-15.0); Immature Granulocyte Absolute 0.11 K/mm3 (0.00-0.00); Immature Granulocyte Percent A 1.1 % (0.0-0.0); Lymphocytes Absolute Auto 1.12 K/mm3 (1.10-4.50); Lymphocytes Percent Auto 11.3 % (18.0-42.0); Mean Corpuscular HGB Conc 33.1 g/dL (32.0-36.0); Mean Corpuscular Hemoglobin 29.8 pg (27.0-31.0); Mean Corpuscular Volume 90.2 fL (78.0-102.0); Mean Platelet Volume 10.3 fl (9.2-11.8); Neutrophils Absolute Auto 8.1 K/mm3 (1.7-7.2); Neutrophils Percent Auto 81.7 % (50.0-70.0); Platelet Count Result 204 K/mm3 (150-420); Red Blood Count 4.29 M/mm3 (4.20-5.40); Red Cell Distribution Width 13.9 % (11.6-14.4); White Blood Count 9.9 K/mm3 (4.8-10.8)
[2022-03-14 12:29] LABS: Glucose 1 Hour PP 50gm Dose 105 mg/dL (70-130)
== END 2022-03-14 10:57 | disposition home or self-care (01) ==
LOC: CHSLAB 10:58
PROVIDERS: Visit Provider Student in an Organized Health Care Education/Training Program
DX: Z34.82 Encounter for supervision of other normal pregnancy, second trimester (principal)
CPT/HCPCS: 36415; 82947; 85025

== ENCOUNTER 2022-03-20 17:04 | Observation (INO) | payer OTHER, SELFPAY ==
[2022-03-20 17:39] VITALS: BP 128/66; PULSE 91; BMI 30.2
[2022-03-20 17:40] VITALS: TEMP 36.6
--- NOTE | 2022-03-20 17:44 | PC.NURSE ---
Dr. Barrera informed of pt's arrival with c/o back pain since Friday night, has had 4 contractions every 3-4 1/2 mins, pt had a history of labor starting at 28 wks with her other pregnancies, but delivered at term. Denies intercourse in the last 24 hrs.
[2022-03-20 17:48] LABS: Appearance Urine Clear (Clear); Bilirubin Urine Negative (Negative); Blood Urine Negative (Negative); Color Urine Yellow (Yellow); Glucose Urine UA Negative (Negative); Ketones Urine Negative (Negative); Leukocyte Esterase Ur Negative LEU/UL (Negative); Nitrate Urine Negative (Negative); Protein Urine Negative (Negative); Specific Grav Ur 1.015 (1.001-1.035); Urobilinogen Urine 0.2 mg/dL (<2.0)
[2022-03-20 17:53] LABS: Squamous Epithelial Cell Urine Rare /hpf (Few); WBC Urine 0-3 /hpf
[2022-03-20 18:00] VITALS: BP 120/63; PULSE 87
[2022-03-20] MEDS: NIFEdipine 10 MG CAPSULE PO (18:02)
[2022-03-20 18:11] LABS: Add Urine Microscopic? NO
[2022-03-20 19:12] VITALS: BP 119/57; PULSE 94
[2022-03-20 19:44] LABS: Fetal Fibronectin Positive
[2022-03-20 20:01] VITALS: BP 100/45; PULSE 87
--- NOTE | 2022-03-20 20:12 | PM.IMHP ---
H&P: HPI History of Present Illness Date/Time: 03/20/22 20:12 Chief Complaint: Contractions Narrative: patient is a 27-year-old para 2 at 27 weeks and 5 days presented to Labor and delivery with complaints of contractions every 5 minutes starting at 2:00 p.m.. Denies any leaking of fluid. Reports positive movement. No bleeding. Her course is significant for having a history of contractions her children were delivered at term. She denied any urinary dysuria. She had been drinking her fluids well. On arrival at labor and delivery she was having contractions which she described as moderate uncomfortable every 4-5 minutes. heart tracing reassuring. She was ordered a fibronectin and her cervix was checked which was external os 1/50% high. She was given a dose of Procardia 10 mg orally. This did decrease the frequency of contractions initially but then she started feeling them again especially in her lower back. Urinalysis normal. She was informed that the fibronectin test was positive and she was informed that this does not predict the incidence of labor. She states that she did have a positive fibronectin In the early 3rd trimester with her last . Review of Systems Review of Systems: All systems reviewed & are unremarkable except as noted in HPI and below Constitutional: Constitutional: Reports no additional constitutional complaints and Denies headache(s) Eyes: Eyes: Denies spots in vision ENT: Reports system reviewed and no additional complaints, except as documented and Denies headache(s) Cardiovascular: Cardiovascular: Denies chest pain and Denies dyspnea Respiratory: Respiratory: Denies dyspnea Gastrointestinal: Gastrointestinal: Reports no additional gastrointestinal complaints Genitourinary: Genitourinary: Reports amenorrhea Musculoskeletal: Musculoskeletal: Reports no additional musculoskeletal complaints Integumentary/Breasts: Skin/Breast: Denies breast mass and Denies rash Neurologic: Denies headache(s) Psychiatric: Psychiatric: Reports no additional psychiatric complaints PMFSH Past Medical History Medical History Anemia Generalized headaches History of miscarriage, currently x 1 History of vaginal delivery x2 IUGR (intrauterine growth restriction) 2nd Vaginal discharge Surgical History Surgical History History of dilation and curettage x 13 Jan 2019 for Miscarriage Family History Family History Mother Diabetes mellitus Family history of blood dyscrasia Hypertension Asthma Father Hypertension Alcoholism Diabetes mellitus Depression Daughter Asthma Grandparent Liver cancer Alcoholism Hypertension Heart disease Social History Social History Smoking status: Never smoker Second hand tobacco smoke exposure: No Alcohol intake: never Substance use: never Gender identity (if verbalized by the patient): Female Spiritual care concerns: No Meds Home Medications and Allergies Home Medications Medication Instructions Recorded Confirmed Type vit no.95-ferrous 1 tablet PO DAILY 01/04/21 03/20/22 History fumarate 28 mg-folic acid 800 mcg tablet () famotidine 20 mg tablet 20 mg PO BID PRN Heartburn 03/20/22 03/20/22 History Allergies Allergy/AdvReac Type Severity Reaction Status Date / Time animal dander Allergy Intermediate Itching Verified 03/13/22 11:04 Vital Signs Vital Signs - 24 hr 03/20/22 17:39 03/20/22 17:39 03/20/22 18:00 Pulse Rate 91 87 Blood Pressure 128/66 120/63 Oxygen Delivery Room Air 03/20/22 19:12 03/20/22 20:01 Pulse Rate 94 87 Blood Pressure 119/57 L 100/45 L Oxygen Delivery
[2022-03-20] MEDS: TERBUTALINE SULFATE 1 MG/ML VIAL 0.25 MG SUB-Q (20:27)
[2022-03-20] MEDS: ACETAMINOPHEN 500 MG TABLET 1000 MG PO (20:27)
[2022-03-20 22:01] VITALS: BP 115/55; PULSE 93
--- NOTE | 2022-04-15 08:32 | P.PNOB_ITS ---
OB - Triage/Final Diagnosis Visit Information Comments/Additional reasons for admission: I have assessed the risk for this patient, Mili Palm, and determined that she would benefit from observation care. Evaluation Laboratory results: Laboratory Tests 03/20/22 03/20/22 17:41 18:06 Urine Color Yellow Urine Appearance Clear Urine pH 7.0 Ur Specific [place] 1.015 Urine Protein Negative Urine Glucose (UA) Negative Urine Ketones Negative Ur Blood (Man) Negative Urine Nitrate Negative Urine Bilirubin Negative Urine Urobilinogen 0.2 Leukocyte Esterase Rfl Negative Urine WBC 0-3 Ur Squamous Epith Cells Rare Fibronectin Positive Final Diagnosis (1) Threatened labor, antepartum: Code(s): O47.00 - False labor before 37 completed weeks of gestation, unspecified trimester Status: Acute
== END 2022-03-20 22:34 | disposition home or self-care (01) ==
PROVIDERS: Obstetrics & Gynecology; Admitting Provider Student in an Organized Health Care Education/Training Program; Visit Provider Student in an Organized Health Care Education/Training Program
DX: O47.02 False labor before 37 completed weeks of gestation, second trimester (principal); Z3A.27 27 weeks gestation of pregnancy
CPT/HCPCS: 81003; 82731; 96372; A9270; G0378; G0379; J3105

== ENCOUNTER 2022-04-02 12:16 | Observation (INO) | payer OTHER, SELFPAY ==
[2022-04-02] VITALS (8 sets, daily range): BP systolic 118; BP diastolic 68; PULSE 88–110; RESP 18; TEMP 36.6; O2SAT 98–100; BMI 29.4
[2022-04-02] MEDS: NIFEdipine 10 MG CAPSULE PO (13:19)
[2022-04-02 13:37] LABS: Appearance Urine Clear (Clear); Bilirubin Urine Negative (Negative); Blood Urine Negative (Negative); Color Urine Yellow (Yellow); Glucose Urine UA Negative (Negative); Ketones Urine Negative (Negative); Leukocyte Esterase Ur Trace LEU/UL (Negative); Nitrate Urine Negative (Negative); Protein Urine Negative (Negative); Urobilinogen Urine 0.2 mg/dL (<2.0)
[2022-04-02 13:42] LABS: Mucus Urine Rare /lpf; RBC Urine 0-2 /hpf (0-2); Squamous Epithelial Cell Urine Rare /hpf (Few); WBC Urine 0-3 /hpf
[2022-04-02 13:53] LABS: Add Urine Microscopic? YES
[2022-04-02] MEDS: TERBUTALINE SULFATE 1 MG/ML VIAL 0.25 MG SUB-Q ×2 (14:23→14:53)
[2022-04-02] MEDS: ACETAMINOPHEN 500 MG TABLET 1000 MG PO (14:52)
[2022-04-02 16:11] LABS: Fetal Fibronectin Negative
--- NOTE | 2022-04-23 17:06 | P.PNOB_ITS ---
OB - Triage/Final Diagnosis Visit Information Comments/Additional reasons for admission: I have assessed the risk for this patient, Mili Palm, and determined that she would benefit from observation care. Evaluation Laboratory results: Laboratory Tests 04/02/22 04/02/22 13:21 15:35 Urine Color Yellow Urine Appearance Clear Urine pH 7.0 Ur Specific [place] 1.020 Urine Protein Negative Urine Glucose (UA) Negative Urine Ketones Negative Ur Blood (Man) Negative Urine Nitrate Negative Urine Bilirubin Negative Urine Urobilinogen 0.2 Leukocyte Esterase Rfl Trace H Urine RBC 0-2 Urine WBC 0-3 Ur Squamous Epith Cells Rare Urine Mucus Rare Fibronectin Negative Final Diagnosis (1) contractions: Code(s): O47.00 - False labor before 37 completed weeks of gestation, unspecified trimester Status: Acute
== END 2022-04-02 16:29 | disposition home or self-care (01) ==
PROVIDERS: Admitting Provider Student in an Organized Health Care Education/Training Program; Visit Provider Student in an Organized Health Care Education/Training Program
DX: O47.03 False labor before 37 completed weeks of gestation, third trimester (principal); Z3A.29 29 weeks gestation of pregnancy
CPT/HCPCS: 81001; 82731; 96372; A9270; G0378; G0379; J3105

== ENCOUNTER 2022-04-17 10:57 | Observation (INO) | payer OTHER, SELFPAY ==
[2022-04-17 11:16] VITALS: BP 122/69; PULSE 116
[2022-04-17 11:21] VITALS: TEMP 36.7
[2022-04-17] MEDS: DEXTROSE 5%/0.45% SOD CHL 1,000 ML 999 ML IV CONT (11:21)
[2022-04-17] MEDS: ONDANSETRON INJ 4 MG/2 ML VIAL IV PUSH (11:22)
[2022-04-17 11:31] VITALS: BP 112/61; PULSE 93
[2022-04-17 11:32] LABS: Appearance Urine Clear (Clear); Bilirubin Urine Negative (Negative); Blood Urine Negative (Negative); Color Urine Yellow (Yellow); Glucose Urine UA Negative (Negative); Ketones Urine Negative (Negative); Leukocyte Esterase Ur Negative LEU/UL (Negative); Nitrate Urine Negative (Negative); Protein Urine Negative (Negative); Specific Grav Ur 1.025 (1.001-1.035); Urobilinogen Urine 0.2 mg/dL (<2.0)
[2022-04-17 11:43] VITALS: BMI 31.0
[2022-04-17 11:46] VITALS: BP 112/51; PULSE 89
[2022-04-17 11:56] LABS: Add Urine Microscopic? NO
--- NOTE | 2022-04-17 12:19 | PC.NURSE ---
1220- Spoke with Dr. Evans, orders to discharge to home as long as patient can keep crackers and water down.
--- NOTE | 2022-04-17 12:20 | PC.NURSE ---
1115- Spoke with Dr. Evans, orders for IV access, fluid bolus and Zofran IV.
--- NOTE | 2022-05-10 13:11 | PM.OBTRLD ---
OB - Triage/Final Diagnosis Visit Information Comments/Additional reasons for admission: I have assessed the risk for this patient, Mili Palm, and determined that she would benefit from observation care. Evaluation Laboratory results: Laboratory Tests 04/17/22 11:13 Urine Color Yellow Urine Appearance Clear Urine pH 6.0 Ur Specific [place] 1.025 Urine Protein Negative Urine Glucose (UA) Negative Urine Ketones Negative Ur Blood (Man) Negative Urine Nitrate Negative Urine Bilirubin Negative Urine Urobilinogen 0.2 Leukocyte Esterase Rfl Negative Final Diagnosis (1) Gastroenteritis: Code(s): K52.9 - Noninfective gastroenteritis and colitis, unspecified Status: Acute
== END 2022-04-17 13:39 | disposition home or self-care (01) ==
PROVIDERS: Admitting Provider Student in an Organized Health Care Education/Training Program; Visit Provider Student in an Organized Health Care Education/Training Program
DX: O99.613 Diseases of the digestive system complicating pregnancy, third trimester (principal); K52.9 Noninfective gastroenteritis and colitis, unspecified; Z3A.31 31 weeks gestation of pregnancy
CPT/HCPCS: 81003; 96361; 96374; G0378; G0379; J2405

== ENCOUNTER 2022-05-05 13:23 | Observation (INO) | payer OTHER, SELFPAY ==
[2022-05-05 13:40] VITALS: BMI 31.4
[2022-05-05 13:46] VITALS: BP 112/63; PULSE 91
[2022-05-05 13:53] LABS: Appearance Urine Clear (Clear); Bilirubin Urine Negative (Negative); Blood Urine Negative (Negative); Color Urine Yellow (Yellow); Glucose Urine UA Negative (Negative); Ketones Urine Negative (Negative); Leukocyte Esterase Ur Negative LEU/UL (Negative); Nitrate Urine Negative (Negative); Protein Urine Negative (Negative)
[2022-05-05 13:55] LABS: Add Urine Microscopic? NO
[2022-05-05 14:01] VITALS: BP 107/51; PULSE 85
[2022-05-05] MEDS: NIFEdipine 10 MG CAPSULE PO (14:25)
[2022-05-05 14:30] VITALS: TEMP 36.6
[2022-05-05 15:17] LABS: Fetal Fibronectin Positive
--- NOTE | 2022-05-24 10:01 | P.PNOB_ITS ---
OB - Triage/Final Diagnosis Visit Information Comments/Additional reasons for admission: I have assessed the risk for this patient, Mili Palm, and determined that she would benefit from observation care. Evaluation Laboratory results: Laboratory Tests 05/05/22 05/05/22 13:47 14:32 Urine Color Yellow Urine Appearance Clear Urine pH 7.0 Ur Specific [place] 1.020 Urine Protein Negative Urine Glucose (UA) Negative Urine Ketones Negative Ur Blood (Man) Negative Urine Nitrate Negative Urine Bilirubin Negative Urine Urobilinogen 1.0 Leukocyte Esterase Rfl Negative Fibronectin Positive Final Diagnosis (1) contractions: Code(s): O47.00 - False labor before 37 completed weeks of gestation, unspecified trimester Status: Acute
== END 2022-05-05 16:19 | disposition home or self-care (01) ==
PROVIDERS: Admitting Provider Student in an Organized Health Care Education/Training Program; Visit Provider Student in an Organized Health Care Education/Training Program
DX: O47.03 False labor before 37 completed weeks of gestation, third trimester (principal); Z3A.34 34 weeks gestation of pregnancy
CPT/HCPCS: 81003; 82731; A9270; G0378; G0379

== ENCOUNTER 2022-05-13 12:24 | Outpatient (CLI) | payer OTHER, SELFPAY ==
[2022-05-13 12:39] LABS: Basophils Absolute Auto 0.03 K/mm3 (0.00-0.10); Basophils Percent Auto 0.3 % (0.0-1.0); Eosinophils Absolute Auto 0.15 K/mm3 (0.02-0.50); Eosinophils Percent Auto 1.5 % (1.0-6.0); Hematocrit 35.9 % (35.0-49.0); Hemoglobin 11.7 g/dL (12.0-15.0); Immature Granulocyte Absolute 0.12 K/mm3 (0.00-0.00); Immature Granulocyte Percent A 1.2 % (0.0-0.0); Lymphocytes Absolute Auto 1.29 K/mm3 (1.10-4.50); Mean Corpuscular HGB Conc 32.6 g/dL (32.0-36.0); Mean Corpuscular Hemoglobin 28.7 pg (27.0-31.0); Mean Corpuscular Volume 88.2 fL (78.0-102.0); Mean Platelet Volume 10.4 fl (9.2-11.8); Monocytes Absolute Auto 0.38 K/mm3 (0.10-0.90); Monocytes Percent Auto 3.8 % (2.0-11.0); Neutrophils Percent Auto 80.2 % (50.0-70.0); Platelet Count Result 211 K/mm3 (150-420); Red Blood Count 4.07 M/mm3 (4.20-5.40); White Blood Count 9.9 K/mm3 (4.8-10.8)
[2022-05-13 13:17] LABS: HIV 1 P24 AG Negative (Negative); HIV 1/2 AB Negative (Negative)
[2022-05-15 16:07] LABS: RPR Screen Non-Reactive (Non-Reactive)
== END 2022-05-13 12:25 | disposition home or self-care (01) ==
PROVIDERS: PCP Student in an Organized Health Care Education/Training Program; Visit Provider Student in an Organized Health Care Education/Training Program
DX: Z34.83 Encounter for supervision of other normal pregnancy, third trimester (principal)
CPT/HCPCS: 36415; 85025; 86592; 86703

== ENCOUNTER 2022-06-06 06:34 | Inpatient (IN) | payer OTHER, SELFPAY ==
[2022-06-06] VITALS (51 sets, daily range): BP systolic 107–118; BP diastolic 45–72; PULSE 58–91; RESP 15–18; TEMP 36.2–37; O2SAT 96–100; BMI 32.1
--- OUTSIDE RECORDS SUMMARY | 2022-06-06 06:40 | XMS_ITS ---
:1995 Author Care Team Providers Name Role Phone SHABBIR SOUSA MD Primary Care Provider [phone] Allergies Code Code System Name Reaction Severity Status Onset NKDA ? Medications Name Status Start Date Stop Date ? ? Aviane 0.1 mg-20 mcg tablet Completed 02/02/20190 12/2020 take 1 tablet by oral route every day [id number]-bygfvpmvrdpxx-jfpquyej 50 mg-325 mg-40 mg tablet Comp leted ? 04/10/2021 TAKE 1-2 TABLET BY MOUTH EVERY 6 HOURS NEEDED HEADACHE N OT TO EXCEED 6/24H cephalexin 500 mg capsule Completed ? 2020 TAKE 1 CAPSULE BY MOUTH TWICE DAILY FOR 7 DAYS Fioricet 50 mg-300 mg-40 mg capsule Completed ? 04/10/2021 Take 1 capsule every 4 hours by oral route. Fiorinal 50 mg-325 mg-40 mg capsule Completed 08/18/2020 04/10/2021 Take 1 capsule every 4 hours by oral route. fluticasone propionate 50 mcg/actuation nasal Completed ? 06/22/2020 spray,suspension ID NOW COVID-19 Test Kit Active ? Not rocio ilable DIRECTED [id number] methylprednisolone 4 mg tablets in a dose pack Completed ? 06/22/2020 metoclopramide 5 mg tablet Active ? Not a vailable TAKE 1 TABLET BY MOUTH EVERY 6 TO 8 HOURS NEEDED nifedipine ER 30 mg tablet,extended release Completed ? 04/10/2021 TAKE 1 TABLET BY MOUTH EVERY DAY nitrofurantoin monohydrate/macrocrystals 100 mg Completed ? 06/22/2020 capsule ondansetron 4 mg disintegrating tablet Active ? Not available DISSOLVE 1 TABLET ON THE TONGUE EVERY 6 HOURS NEED ED FOR NAUSEA OR VOMITING oxycodone-acetaminophen 5 mg-325 mg tablet Completed 01/29
--- OUTSIDE RECORDS SUMMARY | 2022-06-06 06:40 | XMS_ITS ---
:1995 Author Care Team Providers Name Role Phone SHABBIR SOUSA MD Primary Care Provider [phone] Allergies Code Code System Name Reaction Severity Status Onset NKDA ? Medications Name Status Start Date Stop Date ? ? acyclovir 800 mg tablet Completed ? 01/12/20 16 Take 1 tablet every day by oral route. Depo-Provera 150 mg/mL intramuscular suspension Completed ? 01/12/2016 Inject 1 mL every 3 months by intramuscular route. ergocalciferol (vitamin D2) 1,250 mcg (50,000 unit) capsule Comp leted ? 06/04/2019 Take 1 capsule every week by oral route. ferrous sulfate 325 mg (65 mg iron) tablet Completed ? 06/04/2019 Take 1 tablet every day by oral route. Flagyl 500 mg tablet Unknown ? Not availab le Take 1 tablet twice a day by oral route for 7 days. fluconazole 150 mg tablet Unknown ? Not av ailable Take 1 tablet by oral route. fluoxetine 20 mg capsule Completed ? 019 Take 1 capsule every day by oral route. nystatin 100,000 unit/gram topical cream Completed ? 06/04/2019 APPLY TO THE AFFECTED AREA(S) BY TOPICAL ROUTE 2 TIMES PER DAY sertraline 50 mg tablet Completed ? 06/04/20 19 Take 1 tablet every day by oral route. triamcinolone acetonide 0.1 % topical cream Completed ? 06/04/2019 APPLY A THIN LAYER TO THE AFFECTED AREA(S) BY TOPICAL ROUTE 2 T IMES PER DAY Problems Name Status Onset Date Source ? Bacterial Vaginosis Active ? Encounter Herpes Simplex Active ? Encounter Candidiasis Active ? Encounter Vitamin D Deficiency Active ? Encounter
--- OUTSIDE RECORDS SUMMARY | 2022-06-06 06:40 | XMS_ITS ---
:1995 Author Care Team Providers Name Role Phone [place] Florence Primary Care Provider Unavailable Allergies Code Code System Name Reaction Severity Status Onset NKDA ? Medications No Medications Reported Problems Name Status Onset Date Source ? Ecchymosis Active ? Encounter Complicated Ovarian Cyst Active ? Encount er Pain in Pelvis Active ? Encounter Procedures Date Name Performed by ? 02/21/2014 Ultrasound, Pelvic Transabdominal & Info rmation not available Transvaginal 05/02/2014 Ultrasound, Pelvic Transabdominal & Info rmation not available Transvaginal Notes: none Results Lab Results Date Name Specimen Result Interpretation Description Value Range Status Address ? 02/16/2014 Cbc ? Wbc 8.6 3.4-10.8 Final [facility] x10e3/uL x10e3/uL [facility]: [address] [place], [place] ? ? ? Rbc 4.51 3.77-5.28 Final [facility] x10e6/uL x10e6/uL [facility]: [address] [place], [place] ? ? ? Hemoglobin 13.8 g/dL 11.1-15.9 Final [facility] g/dL [facility]: [address] [place], [place] ? ? ? Hematocrit 40.7 % 34.0-46.6 Final [facility]
--- NOTE | 2022-06-06 07:06 | LDADM ---
This patient, Mili Palm, was admitted to Labor/Delivery/Recovery 119 on 06/06/22 at 06:34. Plans for labor, pain management and were discussed with patient. Patient/family oriented to hospital policies and general routines including ID bracelet, bed and alarms, visiting hours, pain management, procedures, bathroom and other care routines, personal items, smoking policy, room service/diet and guest tray routines, security routines, and visiting hours. Patient/Family are encouraged to report perceived risks to care and to ask questions if they do not understand what they are told or what they should do. See [facility] for further documentation.
[2022-06-06] MEDS: LACTATED RINGERS 1,000 ML 125 ML IV CONT (07:11)
[2022-06-06 07:14] LABS: Basophils Absolute Auto 0.1 K/mm3 (0.0-0.1); Basophils Percent Auto 0.5 % (0.2-1.2); Eosinophils Absolute Auto 0.2 K/mm3 (0-0.3); Eosinophils Percent Auto 1.5 % (0-4.4); Hematocrit 36.4 % (37.0-47.0); Immature Granulocyte Absolute 0.11 K/mm3 (0.00-0.031); Immature Granulocyte Percent A 1.1 % (0-0.5); Lymphocytes Absolute Auto 1.35 K/mm3 (0.9-3.2); Lymphocytes Percent Auto 13.3 % (18.3-44.2); Mean Corpuscular Hemoglobin 28.8 pg (26-34); Mean Corpuscular Volume 87.3 fl (80-100); Mean Platelet Volume 10.6 fl (7.4-10.4); Monocytes Absolute Auto 0.5 K/mm3 (0.1-0.6); Monocytes Percent Auto 4.9 % (2.6-8.5); Neutrophils Percent Auto 78.7 % (45.5-73.1); Platelet Count Result 201 k/mm3 (150-375); Red Blood Count 4.17 M/mm3 (4.2-5.4); Red Cell Distribution Width 14.7 % (11.5-14.5); White Blood Count 10.2 K/mm3 (4.5-10.0)
--- NOTE | 2022-06-06 08:37 | PM.IMHP ---
H&P: HPI History of Present Illness Date/Time: 06/06/22 08:37 Chief Complaint: Scheduled elective primary section Narrative: Patient is a 27-year-old LMP 09/06/2021 currently 39 weeks gestation with JUAN ALBERTO 06/13/2022. Patient is dated by LMP consistent with ultrasound on 11/14/2021 at 10 weeks gestation. Patient presents for scheduled elective primary section. During last delivery, patient sustained extensive vaginal lacerations that required prolonged recovery. Patient states that it took her approximately two months to recover and she had significant pain with sitting for a long time afterwards. Despite counseling regarding risks and benefits, patient does not wish to experience a similar situation following this delivery and would like to proceed with a C/S. In general, patient doing well. Reports occasional contractions. Denies vaginal bleeding, leakage of fluid. Reports good movement. Review of Systems Review of Systems: All systems reviewed & are unremarkable except as noted in HPI and below Constitutional: Constitutional: Reports as per HPI and Reports no additional constitutional complaints Eyes: Eyes: Reports as per HPI and Reports no additional eye complaints ENT: Reports system reviewed and no additional complaints, except as documented and Reports as per HPI Cardiovascular: Cardiovascular: Reports as per HPI and Reports no additional cardiovascular complaints Respiratory: Respiratory: Reports as per HPI and Reports no additional respiratory complaints Gastrointestinal: Gastrointestinal: Reports as per HPI and Reports no additional gastrointestinal complaints Genitourinary: Genitourinary: Reports no additional female genitourinary complaints and Reports as per HPI Musculoskeletal: Musculoskeletal: Reports no additional musculoskeletal complaints and Reports as per HPI Integumentary/Breasts: Skin/Breast: Reports system reviewed and no additional complaints, except as docu and Reports as per HPI Neurologic: Reports system reviewed and no additional complaints, except as documented and Reports as per HPI Psychiatric: Psychiatric: Reports no additional psychiatric complaints and Reports as per HPI Endocrine: Endocrine: Reports no additional endocrine complaints and Reports as per HPI Hematologic/Lymphatic: Hematologic/Lymphatic: Reports no additional hematologic/lymphatic complaints and Reports as per HPI Allergic/Immunologic: Allergic/Immunologic: Reports no additional allergic/immunologic complaints and Reports as per HPI PMFSH Past Medical History Medical History Anemia Generalized headaches History of miscarriage, currently x 1 History of vaginal delivery x2 IUGR (intrauterine growth restriction) 2nd Vaginal discharge Surgical History Surgical History History of dilation and curettage x 13 Jan 2019 for Miscarriage Family History Family History Mother Diabetes mellitus Family history of blood dyscrasia Hypertension Asthma Father Hypertension Alcoholism Diabetes mellitus Depression Daughter Asthma Grandparent Liver cancer Alcoholism Hypertension Heart disease Social History Social History Smoking status: Former smoker Second hand tobacco smoke exposure: No Alcohol intake: never Substance use: never Gender identity (if verbalized by the patient): Female Spiritual care concerns: No Meds Home Medications and Allergies Home Medications Medication Instructions Recorded Confirmed Type vit no.95-ferrous 1 tablet PO DAILY 01/04/21 06/06/22 History fumarate 28 mg-folic acid 800 mcg tablet () famotidine 20 mg tablet 20 mg PO BID PRN Heartburn 03/20/22 06/06/22 History acetamin
--- NOTE | 2022-06-06 08:45 | WPDHPUPDATE1 ---
History and Physical Update Update Date/Time: 06/06/22 08:45 History and Physical has been reviewed, including an updated exam of the patient. There are NO changes in the patient's condition. Risks, benefits, and alternatives have been discussed and questions answered. Patient agrees to proceed with procedure.
--- NOTE | 2022-06-06 08:48 | WPDANESEPPF ---
Anes - Initial Pre Proc Eval Procedure: Operation Date: 06/06/22 09:00 Proposed Procedures p Primary Section - Marjan Evans MD Date/Time: 06/06/22 08:48 Surgeon: Marjan Evans MD Pre Op Diagnosis: c/s Patient Data Age: 27 Gender: F Height: 1.63 m Weight: 85 kg Last Vital Signs Temp 36.2 C L 06/06/22 08:34 Pulse 77 06/06/22 08:16 Resp 16 06/06/22 08:34 BP 113/59 L 06/06/22 08:16 O2 Del Method Room Air 06/06/22 07:05 Allergies Allergy/AdvReac Type Severity Reaction Status Date / Time animal dander Allergy Intermediate Itching Verified 06/06/22 06:53 Home Medications Medication Instructions Recorded Confirmed Type vit no.95-ferrous 1 tablet PO DAILY 01/04/21 06/06/22 History fumarate 28 mg-folic acid 800 mcg tablet () famotidine 20 mg tablet 20 mg PO BID PRN Heartburn 03/20/22 06/06/22 History acetaminophen 325 mg tablet 650 mg PO Q6H PRN Pain 04/02/22 06/06/22 History (Tylenol) ondansetron 4 mg disintegrating 4 mg PO PRN 06/06/22 06/06/22 History tablet Laboratory Tests 06/06/22 06/06/22 06/06/22 07:03 07:03 07:03 WBC 10.2 K/mm3 H K/mm3 (4.5-10.0) RBC 4.17 M/mm3 L M/mm3 (4.2-5.4) Hgb 12.0 g/dL g/dL (12.0-15.0) Hct 36.4 % L % (37.0-47.0) MCV 87.3 fl fl (80-100) MCH 28.8 pg pg (26-34) MCHC 33.0 g/dl g/dl (32-36) RDW 14.7 % H % (11.5-14.5) Plt Count 201 k/mm3 k/mm3 (150-375) MPV 10.6 fl H fl (7.4-10.4) Immature Gran % (Auto) 1.1 % H % (0-0.5) Neut % (Auto) 78.7 % H % (45.5-73.1) Lymph % (Auto) 13.3 % L % (18.3-44.2) [place] % (Auto) 4.9 % % (2.6-8.5) Eos % (Auto) 1.5 % % (0-4.4) Baso % (Auto) 0.5 % % (0.2-1.2) Lymph # (Auto) 1.35 K/mm3 K/mm3 (0.9-3.2) [place] # (Auto) 0.5 K/mm3 K/mm3 (0.1-0.6) Eos # (Auto) 0.2 K/mm3 K/mm3 (0-0.3) Baso # (Auto) 0.1 K/mm3 K/mm3 (0.0-0.1) Abs Immat Gran (auto) 0.11 K/mm3 H K/mm3 (0.00-0.031) Absolute Neuts (auto) 8.0 K/mm3 H K/mm3 (1.3-6.7) Absolute Nucleated RBC 0.0 K/mm3 K/mm3 (0.0-0.012) Nucleated RBC % 0.0 % % (0.0-0.2) RPR Pending Blood Type O Positive Antibody Screen Negative Patient hx anesthesia problems: none Family hx anesthesia problems: none Results Review: All pre-operative results and documents have been reviewed as part of the pre-operative evaluation. [facility] Past Medical History Medical History Anemia Generalized headaches History of miscarriage, currently x 1 History of vaginal delivery x2 IUGR (intrauterine growth restriction) 2nd Vaginal discharge Surgical History Surgical History History of dilation and curettage x 13 Jan 2019 for Miscarriage Family History Family History Mother Diabetes mellitus Family history of blood dyscrasia Hypertension Asthma Father Hypertension Alcoholism Diabetes mellitus Depression Daughter Asthma Grandparent Liver cancer Alcoholism Hypertension Heart disease Social History Social History Smoking status: Former smoker Second hand tobacco smoke exposure: No Alcohol intake: never Substance use: never Gender identity (if verbalized by the patient): Female Spiritual care concerns: No Anes - Eval Final PreProcedure Day of Procedure 06/06/22 08:48 Patient weight: obese Heart: regular rate and rhythm Lungs: clear to auscultation Airway: Mallampati scale class II Neurological: alert and oriented Last oral intake: >/= 8 hours ASA classification: II
[2022-06-06] MEDS: ceFAZolin 2 GM/D5W 50 ML 2 GM/50 ML BAG IVPB (09:12)
[2022-06-06] MEDS: KETOROLAC 30 MG/ML VIAL (*BKC) IV PUSH ×2 (10:21→14:05)
--- NOTE | 2022-06-06 10:48 | W.PM.PROC2 ---
Procedure Note - Detailed Date of Procedure 06/06/22 Pre-op Diagnosis IUP at 39w gestation Desires elective primary section Post-op Diagnosis Same Procedure Performed Primary low transverse section via Pfannenstiel Surgeon Marjan Evans MD Insulation Technician Annie Cassidy Anesthesia Spinal Findings Live female in cephalic, right occiput transverse presentation, apgars 8/9, weighing 6 lbs. 3 oz., clear amniotic fluid, normal appearing uterus, ovaries, and fallopian tubes bilaterally Description of Procedure The patient was taken to the operating room, where she self-transferred to the operating room table. Spinal anesthesia was administered and found to be adequate. The patient was placed in dorsal supine position with a leftward tilt. She was prepped and draped in the usual sterile fashion. Spinal anesthesia was tested and found to be adequate. A Pfannenstiel skin incision was made with a scalpel and carried through to underlying layer of fascia with the Bovie. The fascia was incised in the midline and the incision was extended laterally with the use of forceps and Durant scissors. The inferior aspect of the fascial incision was grasped with Jacqui clamps, elevated, and the underlying rectus muscle were dissected off with Durant scissors. Attention was then turned to the superior aspect of the fascial incision, which in a similar manner, was grasped with Jacqui clamps, elevated, and the underlying rectus muscles were also dissected off with Durant scissors. The rectus muscles were in the midline and the peritoneal cavity was entered bluntly. This incision was extended superiorly and inferiorly with good visualization of the bladder and care was taken to avoid blood vessels. A bladder blade was inserted. The vesicouterine peritoneum was identified and incised sharply with Metzenbaum scissors. This incision was extended laterally with Metzenbaum scissors and a bladder flap was created digitally. The bladder blade was replaced. A low-transverse uterine incision was made with a scalpel. This incision was extended laterally with bandage scissors. Amniotomy was performed. Clear amniotic fluid was noted. The infant's head was grasped and gently guided to the level of the uterine incision. The 's head was delivered easily and atraumatically without difficulty followed by the neck, shoulders, and rest of body with gentle fundal pressure. The infant's nose and mouth were suctioned with bulb suction. The was crying spontaneously. The cord was clamped and cut and the was handed off to awaiting nursing staff. A segment of cord was collected for cord gases. Cord blood was also collected. The placenta was then delivered manually with gentle uterine massage. Uterus was left in situ and cleared of all clots and debris. The uterine incision was reapproximated with 0 Vicryl in a running, locked fashion. A second imbricating layer using 0 Monocryl performed. A few pinpoint areas of bleeding were noted inferior to incisio. These areas were made hemostatic with two figure of eight sutures using 2-0 Monocryl and bovie. Excellent hemostasis was noted. On inspection, the uterus, ovaries, and fallopian tubes appeared to be normal bilaterally. The gutters were cleared of all clots and debris. The uterine incision was inspected again and noted to be hemostatic. Hemaderm was applied across the uterine incision. Interceed was also applied across the uterine incision and anterior surface of the uterus. The peritoneum was reapproximated with 2-0 Monocryl. The fascia was then closed with 0 Vicryl in a running fashion. The subcutaneous layer was irrigated with water. Pinpoint areas of bleeding were made hemostatic with Bovie. The subcutaneous layer was reapproximated with 2-0 plain and the skin was then closed with 4-0 Monocryl in a subcuticular fashion. The skin was cleansed and dried. Dermaflex skin adhesive was applied across the incision. A pressure dressing was a
--- NOTE | 2022-06-06 10:54 | PM.OBPRVD ---
OB - Delivery Note Procedure Delivery date: 06/06/22 Procedure: Procedures Operation Date: 06/06/22 09:00 <No data on this case meets the specified criteria> Events: Positive Group B Strep (GBS) Route of delivery: Specimen: Yes (cord blood and cord gases) Quantitative Blood Loss (ml): 270 Anesthesia type: Spinal Disposition: PACU Complications: No immediate complications Baby Date of : 06/06/22 Time of : 09:48 Weeks of gestation at delivery: 39 Infant gender: Female Weight (pounds): 6 Weight (ounces): 3 presentation: vertex position: Right Occiput Transverse Placenta delivery description: Manual Removal Cord Vessel Description: 3 Vessels score one minute: 8 score five minutes: 9 AMG Delivery Billing Delivery Delivery: Delivery Charge
[2022-06-06] MEDS: fentaNYL CITRATE INJ (*CRX) 100 MCG/2 ML VIAL 25 MCG IV PUSH ×3 (11:28→12:07)
[2022-06-06] MEDS: ONDANSETRON INJ 4 MG/2 ML VIAL IV PUSH (11:28)
--- NOTE | 2022-06-06 13:02 | PC.NURSE ---
Report given to RICARDO Basilio
--- NOTE | 2022-06-06 13:05 | PC.NURSE ---
Terese Peralta, SALES INCENTIVE ANALYST gave orders for IV phenegran for 12.5 mg for continued nausea
[2022-06-06] MEDS: PROMETHAZINE HCL 25 MG/ML AMPUL 12.5 MG IV PUSH (13:10)
--- NOTE | 2022-06-06 13:21 | OBPPTRN ---
Patient transferred to post room # 287 via stretcher and moved to bed via maxi air. and Support person present. Oriented to unit, room, information board, rooming in, admission packet and security measures. Pt introductions made and plan of care discussed per post op c section, pain management, breast feeding, daily care activities. PT and spouse both recipients of such instructions and no barriers to learning identified at this time. PT to receive such instructions this shift via one to one discussion, mom baby care guide and demonstrations. Patient verbalizes understanding.
[2022-06-06] MEDS: SIMETHICONE 80 MG TAB.CHEW PO (14:05)
[2022-06-06] MEDS: LANOLIN (LANSINOH) 7.5 GM CREAM 1 APPLIC TOPICAL (14:07)
--- NOTE | 2022-06-06 15:46 | PC.NURSE ---
[id number] Introductions were made, then consulted with patient to assess needs related to . Mother led the conversation with her?plans to feed?her infant and that she is unable to hold her infant to breastfeed or do hand expression related to pain after a section. Resources provided for inpatient and outpatient services using a resource guide and mom/baby guide. Mother voiced understanding of information but doesn't want assistance with skin to skin, hand expression or at this time. Mother pumped her breast and fed her other children and may do that with this one. Encouraged patient to communicate with her nurse if she would like to use a pump. RN encouraged skin to skin with her infant and there was no efforts to place infant skin to skin and visitor held the .
[2022-06-06 15:52] LABS: Rapid Plasma Reagin Non-Reactive (NonReactive)
[2022-06-06] MEDS: HYDROcodone/acetaminophen (*CRX) 5-325 MG TABLET 1 TAB PO ×2 (16:44→20:43)
[2022-06-06] MEDS: DOCUSATE SODIUM 100 MG CAPSULE PO (16:45)
[2022-06-06] MEDS: DEXTROSE 5%/0.45% SOD CHL 1,000 ML 125 ML IV CONT (18:47)
[2022-06-07] MEDS: HYDROcodone/acetaminophen (*CRX) 5-325 MG TABLET 1 TAB PO ×4 (03:04→23:10)
[2022-06-07] MEDS: IBUPROFEN 600 MG TABLET PO ×4 (03:04→23:10)
[2022-06-07] MEDS: SIMETHICONE 80 MG TAB.CHEW PO ×2 (03:05→10:45)
[2022-06-07 05:49] LABS: Basophils Percent Auto 0.4 % (0.2-1.2); Eosinophils Absolute Auto 0.1 K/mm3 (0-0.3); Eosinophils Percent Auto 1.2 % (0-4.4); Hematocrit 30.8 % (37.0-47.0); Hemoglobin 9.6 g/dL (12.0-15.0); Immature Granulocyte Absolute 0.11 K/mm3 (0.00-0.031); Lymphocytes Percent Auto 15.1 % (18.3-44.2); Mean Corpuscular HGB Conc 31.2 g/dl (32-36); Mean Corpuscular Hemoglobin 28.4 pg (26-34); Mean Corpuscular Volume 91.1 fl (80-100); Mean Platelet Volume 11.3 fl (7.4-10.4); Monocytes Absolute Auto 0.7 K/mm3 (0.1-0.6); Monocytes Percent Auto 6.8 % (2.6-8.5); Neutrophils Percent Auto 75.5 % (45.5-73.1); Platelet Count Result 170 k/mm3 (150-375); Red Blood Count 3.38 M/mm3 (4.2-5.4); Red Cell Distribution Width 14.7 % (11.5-14.5); White Blood Count 10.6 K/mm3 (4.5-10.0)
[2022-06-07 08:00] VITALS: PULSE 86; RESP 16; O2SAT 100
[2022-06-07 08:45] VITALS: BP 105/49; PULSE 86; RESP 16; TEMP 36.3; O2SAT 100
[2022-06-07] MEDS: MULTIVIT/MIN/PREN/FOL AC/IRON TABLET 1 TAB PO (10:45)
[2022-06-07] MEDS: POLYSACCHARIDE IRON COMPLEX 150 MG CAPSULE PO ×2 (10:45→16:41)
[2022-06-07] MEDS: DOCUSATE SODIUM 100 MG CAPSULE PO ×2 (10:45→16:41)
--- NOTE | 2022-06-07 11:49 | WPDANLDPN2 ---
Anes-Prog Note L&D Date/Time: 06/07/22 11:49 Comfortable throughout: section Neuraxial method: spinal Epidural/Spinal procedure site: clean & non-tender Neuro status: Neuro function grossly intact. Cardiovascular status: normal Respiratory status: normal Airway patency: baseline Mental status: baseline Post-Op hydration status: normal Vital Signs: Last Vital Signs Temp 36.3 C L 06/07/22 08:45 Pulse 86 06/07/22 08:45 Resp 16 06/07/22 08:45 BP 105/49 L 06/07/22 08:45 Pulse Ox 100 06/07/22 08:45 O2 Del Method Room Air 06/06/22 20:44 Pain score (VAS): 3 I/O: Intake & Output 06/06/22 06/07/22 06/07/22 23:59 07:59 15:59 Intake Total 1720 700 Output Total 1625 1400 Balance 95 -700 Post-procedural complaints: none Patient feedback: Patient satisfied with anesthetic care.
--- NOTE | 2022-06-07 11:49 | WPDANLDNPN2 ---
Anes-Prog Note L&D-Neuraxial Date/Time: 06/07/22 11:49 Neuraxial medications: intrathecal PF morphine Opiod-related complaints: pruritis mild, no treatment Patient feedback: Patient satisfied with post-operative pain management. Comments: Patient stated some nausea after procedure, but was effectively treated with medication
--- NOTE | 2022-06-07 12:08 | PC.NURSE ---
Report received this morning that mother is pumping and only wants to bottle feed today.
--- NOTE | 2022-06-07 15:49 | PM.OBPNVD ---
OB - PN: Subj Subjective Date/time seen: 06/07/22 15:49 Patient doing well. Reports a bit more pain after spinal wore off. Pain reasonably control with pain medications. Patient denies any headache, chest pain, shortness of breath, nausea, or vomiting. Tolerating p.o. diet. Ambulating without difficulty. Voiding well. Passing flatus. Minimal lochia. OB - PN: Obj Data Labs CBC & Chem 7: 06/07/22 04:29 Labs: Laboratory Results - last 24 hr 06/06/22 06/07/22 07:03 04:29 WBC 10.6 H RBC 3.38 L Hgb 9.6 L Hct 30.8 L MCV 91.1 MCH 28.4 MCHC 31.2 L RDW 14.7 H Plt Count 170 MPV 11.3 H Immature Gran % (Auto) 1.0 H Neut % (Auto) 75.5 H Lymph % (Auto) 15.1 L [place] % (Auto) 6.8 Eos % (Auto) 1.2 Baso % (Auto) 0.4 Lymph # (Auto) 1.60 [place] # (Auto) 0.7 H Eos # (Auto) 0.1 Baso # (Auto) 0.0 Abs Immat Gran (auto) 0.11 H Absolute Neuts (auto) 8.0 H Absolute Nucleated RBC 0.0 Nucleated RBC % 0.0 RPR Non-reactive OB - PN A/P Assessment and Plan (1) Delivery by section of full-term : Code(s): O82 - Encounter for delivery without indication Status: Acute Assessment and Plan: POD#1 doing well continue routine postoperative care encourage ambulation and use of IS possible dc home tomorrow Time Spent With Patient Time: Total time spent is greater than 50% in coordination of care (as documented) at patient's floor/unit and/or counseling patient: Review of Systems Review of Systems: All systems reviewed & are unremarkable except as noted in HPI and below Exam Const: General: cooperative, healthy appearing, comfortable and no acute distress GI: Inspection: non-distended GI Palp: Yes Soft to palpation and Yes Tenderness to palpation present (GI) (appropriately) Other: inc covered with bandage, bandage c/d/i Extrem: Right lower extremity: no edema Left lower extremity: no edema Other: no calf tenderness
[2022-06-07 19:40] VITALS: BP 113/70; PULSE 88; RESP 16; TEMP 36.6
[2022-06-07] MEDS: HYDROcodone/acetaminophen (*CRX) 10-325 MG TABLET 1 TAB PO (19:43)
[2022-06-08] MEDS: IBUPROFEN 600 MG TABLET PO ×2 (04:37→13:22)
[2022-06-08] MEDS: HYDROcodone/acetaminophen (*CRX) 5-325 MG TABLET 1 TAB PO ×3 (04:37→13:22)
[2022-06-08 08:00] VITALS: BP 117/63; PULSE 86; RESP 16; TEMP 36.7; O2SAT 100
[2022-06-08] MEDS: DOCUSATE SODIUM 100 MG CAPSULE PO (08:16)
[2022-06-08] MEDS: MULTIVIT/MIN/PREN/FOL AC/IRON TABLET 1 TAB PO (08:16)
[2022-06-08] MEDS: POLYSACCHARIDE IRON COMPLEX 150 MG CAPSULE PO (08:16)
[2022-06-08] MEDS: MEASLES,MUMPS,RUBELLA VACCINE 0.5 ML VIAL SUB-Q (10:26)
--- NOTE | 2022-06-08 11:14 | P.PNOB_ITS ---
OB - PN: Subj Subjective Date/time seen: 06/08/22 11:14 Patient doing well. Minimal pain reasonably controlled medication. Patient denies any headache, chest pain, shortness of breath, nausea, or vomiting. Tolerating p.o. diet. Voiding without difficulty. Ambulating well. Passing flatus. Scant lochia. OB - PN: Obj Data Labs CBC & Chem 7: 06/07/22 04:29 OB - PN A/P Assessment and Plan (1) Delivery by section of full-term infant: Code(s): O82 - Encounter for delivery without indication Status: Acute Assessment and Plan: POD#2 doing well continue routine postoperative care encourage ambulation and use of IS dc home today in stable condition emergency precautions reviewed f/u in office in 2 weeks for postoperative visit Time Spent With Patient Time: Total time spent is greater than 50% in coordination of care (as documented) at patient's floor/unit and/or counseling patient: Review of Systems Review of Systems: All systems reviewed & are unremarkable except as noted in HPI and below Exam Const: General: cooperative, healthy appearing, comfortable and no acute distress GI: Inspection: non-distended GI Palp: Yes Soft to palpation and No Ten derness to palpation present (GI) Other: fundus firm below umbilicus inc well healing, c/d/i Extrem: Right lower extremity: no edema Left lower extremity: no edema Other: no calf tenderness
--- NOTE | 2022-06-08 11:18 | P.DS_ITS ---
DS: Admitting Diagnosis Discharge Date Admitting Diagnosis IUP at 39w gestation DS: Discharge Diagnosis Discharge Diagnosis (1) Delivery by section of full-term infant: Code(s): O82 - Encounter for delivery without indication Status: Acute OB - DS: Summary OB Procedures : None OB Procedures Intrapartum: OB Procedures: : None Peripartum Data Procedures: Procedures Operation Date: 06/06/22 09:00 Actual Procedure Side Surgeon p Section Not Applicable Marjan Evans MD Time Spent with Patient Time attestation: Total time spent providing and/or coordinating discharge services: Discharge Plan Discharge Attending physician on discharge: Marjan Evans Discharging Clinician: Marjan Evans Anticipated Discharge Date/Time: 06/08/22 11:18 Patient Disposition: Home, Self-Care Activity: as tolerated and pelvic rest Diet: regular Discharge Instructions: Call office ([phone]) to schedule the following appointments: 1. Postoperative/wound check in 2 weeks. 2. visit in 4-6 weeks. You may take Ibuprofen 600mg every 6 hours as needed for pain. I have sent a prescription for a stronger pain medication, [place], to your pharmacy. You may take this as prescribed for breakthrough pain (pain that is not controlled with Ibuprofen). No driving for at least two weeks. You also may not drive while taking narcotics. Pain medication may make you constipated. It may be helpful to take an [id number]-[id number] stool softener, such as Colace and/or Senokot, along with the pain medication to help lessen constipation. Call office or go to ED for pain not controlled with medication, headache, chest pain, shortness of breath, fever, chills, persistent nausea or vomiting, severe abdominal pain, heavy vaginal bleeding >2 pads/hour, foul vaginal discharge or odor, any redness near incision, severe pain, pus or drainage from incision site, or problems with your breasts. Patient Instructions: Antibiotic Form Stand Alone Forms: General Discharge Information Follow-up/Referrals: Marjan Evans MD [Primary Care Provider] - Discharge Medications: New hydrocodone-acetaminophen 5-325 mg Tablet 1 - 2 tablet PO Q4-6H PRN (Reason: Moderate Pain (4-6)) Qty: 30 0RF Continued famotidine 20 mg tablet 20 mg PO BID PRN (Reason: Heartburn) PNV cmb#[id number]-ferrous fumarate-FA [] 28 mg iron- 800 mcg Tablet 1 tablet PO DAILY Discontinued ondansetron 4 mg tablet,disintegrating 4 mg PO PRN acetaminophen [Tylenol] 325 mg Tablet 650 mg PO Q6H PRN (Reason: Pain) Date of admission: 06/06/22 06:34 Primary Care Provider: Marjan Evans Admitting Provider: Marjan Evans Attending physician on admission: Marjan Evans Condition: Stable
[2022-06-11 10:55] VITALS: BP 113/68; PULSE 91; RESP 16; TEMP 36.5; O2SAT 99
== END 2022-06-08 13:45 | disposition home or self-care (01) | DRG 540 ==
LOC: ANHLDR 06:38 → ANHOB2 13:30
PROVIDERS: Admitting Provider Student in an Organized Health Care Education/Training Program; PCP Student in an Organized Health Care Education/Training Program; Visit Provider Student in an Organized Health Care Education/Training Program
PROC: 10D00Z1 Extraction of Products of Conception, Low, Open Approach (ICD-10-PCS; CPT 59514; principal; 2022-06-06 09:00)
DX: O82 Encounter for cesarean delivery without indication (principal); Z37.0 Single live birth; Z87.59 Personal history of other complications of pregnancy, childbirth and the puerperium; Z3A.39 39 weeks gestation of pregnancy; Z87.891 Personal history of nicotine dependence
CPT/HCPCS: 36415; 85025; 86592; 86850; 86900; 86901; 90710; A9270; J0131; J0690; J1100; J1885; J2274; J2370; J2405; J2550; J2590; J3010; J7120

== ENCOUNTER 2023-02-18 16:55 | Emergency (ER) | payer OTHER, SELFPAY ==
--- NOTE | ~2023-02-18 | XR_ITS ---
EXAMINATION: XR wrist RT min 3V INDICATION: Right wrist pain TECHNIQUE: Four views of the right wrist are obtained. COMPARISON: None available FINDINGS: No fracture, dislocation, or subluxation. The bones, soft tissues, and joint spaces are nor mal. IMPRESSION: 1. No acute osseous abnormality. Reviewed, dictated and finalized at location F.
[2023-02-18 16:55] VITALS: BP 135/95; PULSE 86; RESP 16; TEMP 36.5; O2SAT 99
--- NOTE | 2023-02-18 17:01 | ED.UPPEXIN ---
HPI - Extremity Injury (Upper) General Chief Complaint: Extremity Injury, Upper Stated Complaint: right wrist pain Time Seen by Provider: 02/18/23 17:00 History of Present Illness HPI narrative: Pt presents with pain in right wrist for a couple of months. Pt says it is worse with certain movements and better in certain positions. Pt denies recent injury. Pt says she broke her right wrist several years ago. Related Data Home Medications Medication Instructions Recorded Confirmed levonorgestrel 21 mcg/24 hours (8 1 device intrauterine ONCE 01/01/23 02/18/23 yrs) 52 mg intrauterine device (Mirena) Allergies Allergy/AdvReac Type Severity Reaction Status Date / Time animal dander Allergy Intermediate Itching Verified 02/18/23 17:12 Review of Systems Review of Systems: All systems reviewed & are unremarkable except as noted in HPI and below PMFSH Past Medical History Medical History Anemia Generalized headaches History of miscarriage, currently x 1 History of vaginal delivery x3 IUGR (intrauterine growth restriction) 2nd Vaginal discharge Surgical History Surgical History History of dilation and curettage x 13 Jan 2019 for Miscarriage Family History Family History Mother Diabetes mellitus Family history of blood dyscrasia Hypertension Asthma Father Hypertension Alcoholism Diabetes mellitus Depression Daughter Asthma Grandparent Liver cancer Alcoholism Hypertension Heart disease Social History Social History Smoking status: Former smoker Second hand tobacco smoke exposure: No Alcohol intake: never Substance use: never Lack of Transportation: No Lack of Food: Never True Current Housing: I Have Housing Concerned About Future Housing: No Difficulty Paying Gas/Electric Bills: No Difficulty Paying for Meds: No Currently Unemployed: No Education: Bachelor's Degree Difficulty w/ Childcare or Family Care: No Gender identity (if verbalized by the patient): Female Spiritual care concerns: No Exam Const: General: healthy appearing and no acute distress Nutritional Appearance: well nourished Orientation/consciousness: patient oriented x3 Limitations: no limitations Neck: Neck: normal visual inspection Resp: Effort & Inspection: normal respiratory effort Cardio: Rate: regular rate Extrem: General: normal to inspection and no clubbing, cyanosis or edema Other: no swelling or bruising or deformity noted. Pt has tenderness to palpation in ulnar wrist and proximal hand. Psych: Mental Status: mental status grossly normal Affect: normal affect Attitude: cooperative Course Vital Signs Vital signs: Vital Signs Temperature 97.7 F 02/18/23 16:55 Pulse Rate 86 02/18/23 16:55 Respiratory Rate 16 02/18/23 16:55 Blood Pressure 135/95 H 02/18/23 16:55 Pulse Oximetry 99 02/18/23 16:55 Oxygen Delivery Room Air 02/18/23 16:55 Temperature 97.7 F 02/18/23 16:55 Pulse Rate 86 02/18/23 16:55 Respiratory Rate 16 02/18/23 16:55 Blood Pressure 135/95 H 02/18/23 16:55 Pulse Oximetry 99 02/18/23 16:55 Oxygen Delivery Room Air 02/18/23 16:55 MDM - Extremity Injury (Upper) MDM Narrative Medical decision making narrative: no recent injury so fx unlikely but should check x ray to rule out occult fx or something structural. If negative will treat as tendonitis and place in splint and immobilize with course of NSAIDS and follow up for further imaging if not improved. Imaging Data My impression: no fx or acute process Discharge Plan Discharge Clinical Impression: Tendonitis Patient Disposition: Home, Self-Care Condition: Stable Instruction
--- NOTE | 2023-02-18 17:33 | PC.NURSE ---
Wrist splint applied as ordered. Distal CMS intact post placement. Pt verbalized understanding of use.
== END 2023-02-18 17:54 | disposition home or self-care (01) ==
PROVIDERS: Emergency Provider Emergency Medicine
DX: M77.8 Other enthesopathies, not elsewhere classified (principal); Z87.891 Personal history of nicotine dependence
CPT/HCPCS: 29125; 73110; 99283

== ENCOUNTER 2023-03-04 13:00 | Outpatient (CLI) | payer OTHER, SELFPAY ==
--- NOTE | ~2023-03-04 | US_ITS ---
EXAMINATION: US pelvic complete w TV DATE: 03/04/2023 13:45 INDICATION: Intra-abdominal and pelvic swelling. Mass. Comparison:No prior studies for comparison. TECHNIQUE: Multiple transabdominal and endovaginal sonographic images of the pelvis performed. FINDINGS: The uterus measures 9.8 x 3.9 x 5.7 cm. The endometrial complex measures 1.7 mm. The right ovary measures 3.6 x 1.6 x 1.8 cm and the left ovary measures 2.3 x 1.3 x 2.9 cm. There ar e small follicles in each ovary. There are small right ovarian cysts, largest measuring 1.8 cm. Wanda l doppler signal in both ovaries. There is no free fluid in the pelvis. There are no abnormal masses seen on either side. IMPRESSION: 1. Small right ovarian cysts, largest measuring 1.8 cm. Reviewed, dictated and finalized at location L.
== END 2023-03-04 13:01 | disposition home or self-care (01) ==
LOC: ANHIMG 13:02
PROVIDERS: Visit Provider Registered Nurse
DX: R19.00 Intra-abdominal and pelvic swelling, mass and lump, unspecified site (principal); N83.201 Unspecified ovarian cyst, right side
CPT/HCPCS: 76830; 76856

== ENCOUNTER 2024-06-30 10:56 | Outpatient (CLI) | payer OTHER, SELFPAY | END 2024-06-30 10:57 | disposition home or self-care (01) | LOC: ANHLAB 11:01 | PROVIDERS: Visit Provider Obstetrics & Gynecology | DX: N91.2 Amenorrhea, unspecified (principal) | CPT/HCPCS: 36415; 84702 ==

== ENCOUNTER 2024-07-02 13:01 | Outpatient (CLI) | payer OTHER, SELFPAY | END 2024-07-02 13:02 | disposition home or self-care (01) | LOC: ANHLAB 13:02 | PROVIDERS: Visit Provider Obstetrics & Gynecology | DX: N91.2 Amenorrhea, unspecified (principal) | CPT/HCPCS: 36415; 84702 ==

== ENCOUNTER 2024-09-14 13:42 | Emergency (ER) | payer OTHER, SELFPAY ==
[2024-09-14 13:43] VITALS: BP 113/56; PULSE 102; RESP 16; TEMP 36.6; O2SAT 99
== END 2024-09-14 19:03 | disposition left against medical advice (07) ==
DX: H92.01 Otalgia, right ear (principal); J02.9 Acute pharyngitis, unspecified; R11.2 Nausea with vomiting, unspecified
CPT/HCPCS: 99199

== ENCOUNTER 2024-09-14 14:17 | Emergency (ER) | payer OTHER, SELFPAY ==
--- NOTE | 2024-09-14 14:21 | ED.URI ---
HPI - URI/Sore Throat General Chief Complaint: Upper Respiratory Infection Stated Complaint: flu symptoms/ear pain Time Seen by Provider: 09/14/24 14:20 Source: patient Mode of arrival: ambulatory Limitations: no limitations History of Present Illness HPI Narrative: Mili is a 29 year old female patient presenting to the clinic today with complaints of flu-like symptoms and right ear pain. She reports her symptoms started 2 days ago. She is 16 weeks . States she is having body aches, chills, cough, sore throat, nasal congestion, nausea, vomiting, and right ear pain. Denies any vaginal discharge or bleeding. Denies any abdominal pain. MD elicited complaint: fever, cough, sore throat, nasal congestion and other (Nausea vomiting) Related Data Home Medications ?Medication ?Instructions ?Recorded ?Confirmed ?Last Taken ?Type levonorgestrel (Mirena) 1 device intrauterine ONCE 01/01/23 02/18/23 01/01/23 History Allergies Allergy/AdvReac Type Severity Reaction Status Date / Time animal dander Allergy Intermediate Itching Verified 09/14/24 13:47 Review of Systems Review of Systems: Pertinent positives per HPI. Patient denies any rash, headache, visual changes, dizziness, cough, shortness of breath, chest pain, palpitations, diarrhea, constipation, abdominal pain, or any urinary issues. [facility] Past Medical History Medical History Anemia Generalized headaches History of miscarriage, currently x 1 History of vaginal delivery x3 IUGR (intrauterine growth restriction) 2nd Vaginal discharge Surgical History Surgical History History of dilation and curettage x 13 Jan 2019 for Miscarriage Family History Family History Mother Diabetes mellitus Family history of blood dyscrasia Hypertension Asthma Father Hypertension Alcoholism Diabetes mellitus Depression Daughter Asthma Grandparent Liver cancer Alcoholism Hypertension Heart disease Social History Social History Smoking status: Former smoker Second hand tobacco smoke exposure: No Alcohol intake: never Substance use: never Lack of Transportation: No Lack of Food: Never True Current Housing: I Have Housing Concerned About Future Housing: No Difficulty Paying Gas/Electric Bills: No Difficulty Paying for Meds: No Currently Unemployed: No Education: Bachelor's Degree Difficulty w/ Childcare or Family Care: No Gender identity (if verbalized by the patient): Female Spiritual care concerns: No Comments At the time of my signature, I reviewed and agree with the nursing past medical, surgical, social, and family history. There is no relevant family history pertinent to the patient complaint. Exam Narrative: General: Well-developed, well nourished, in no apparent distress Head: Normocephalic, atraumatic Eyes: Pupils equally round and reactive to light bilaterally, EOM intact, sclera and conjunctive clear, no discharge, lids normal Ears: Left TMs intact and clear, right TM intact, bulging, red, ear canals clear, no drainage, grossly hearing normal. Nose: Nares patent, clear nasal discharge, no inflammation, no sinus tenderness. Mouth: Oral pharynx red without lesions or masses, good dentition, MMM. Neck: Supple, trachea midline, no enlargement of anterior or posterior cervical nodes, no thyroid masses or goiter palpable. Cardio: Regular rate and rhythm, s1 and s2 normal, no murmur appreciated. Resp: Clear to auscultation bilaterally, no rhonchi, rales, wheezing or rubs Course Course Emergency Course: Portions of this record may have been created with voice recognition software. Level of Care: Express Care Visit Vital Signs Vital signs: Vital Signs Temperature 36.8 C 09/14/24 14:25 Pulse Rate 111 H 09/14/24 14:25 Respiratory Rate 16 09/14/24 14:25 Blood Pressure 117/64 09/14/24 14:25 Pulse Oximetry 99 09/14/24 14:25 Oxygen Delivery Room Air 09/14/24 14:25 Temperature 36.8 C 09/14/24 14:25 Pulse Rate 111 H 09/14/24 14:25 Respiratory Rate 16 09/14/24 14:25 Blood Pressure 117/64 09/14/24 14:25 Pulse Oximetry 99 09/14/24 14:25 Oxygen Delivery Room Air 09/14/24 14:25 Vital signs reviewed MDM - URI/Sore Throat MDM Narrative Medical decision making narrative: At the time of visit patient is resting comfortably on the exam table. Patient appears to be nontoxic. Labs: COVID and influenza testing was performed. Influenza a was positive. COVID testing was negative. Plan: Patient has right otitis media and is influenza A positive. Prescription for amoxicillin and Tamiflu was sent to the pharmacy. Supportive measures were discussed with the patient and they voiced understanding discharge instructions and agrees to treatment plan. Return precautions reviewed Differential Diagnosis Differential diagnosis: Likely upper respiratory infection, otitis media, sinusitis, viral infection, bronchitis, influenza, pharyngitis and other (COVID) Lab Data Labs: Lab Results 09/14/24 Range/Units 14:39 POC Influenza A Ag Positive (Negative) POC Influenza B Ag Negative (Negative) POC SARS CoV-2 Ag Negative (Negative) Discharge Plan Discharge Clinical Impression: Influenza A, Acute right otitis media Patient Disposition: Home, Self-Care Condition: Stable Instructions: Antibiotic Form, Influenza (ED), Ear Infection (ED) Additional Instructions: Influenza A testing is positive in the clinic today. COVID testing was negative Take prescription medications only as prescribed-amoxicillin and Tamiflu Increase fluids and stay well hydrated Tylenol for pain/fever Flonase and OTC antihistamines such as Zyrtec or Claritin as directed Vicks vapor rub to open sinuses Sinus rinses for congestion Cepacol spray, cough drops, throat lozenges, warm tea with honey/lemon, gargle salt water to soothe throat BRAT diet for diarrhea Clear liquids x 24 hours then advance as tolerated for nausea/vomiting Go to the ED if you develop a worsening in your condition- high fever not controlled by Tylenol or Motrin, dehydration, weakness, lethargy, shortness of breath, or chest pain. Follow up with your PCP in 3-5 days if symptoms persist. Approved Medications for Patients Cold and Flu Symptoms --Tylenol (regular or extra Strength) Fever (call if over 101?)--Tylenol (regular or extra Strength) Nasal Drainage/Head Congestion--Chlor-Trimeton, Sudafed, Tavist,Tylenol Sinus Cough--Robitussin, Delsym, Mucinex Sore Throat--Chloraseptic, Cepacol lozenges Allergy Symptoms--Bendryl, Zyrtec, Zyrtec D, Claritin, Claritin D Nausea--Emetrol, Vitamin B6 Tablets, Brittany, Brittany Tea, Preggie Pops, B- Suckers Constipation--Milk of Magnesia, Metamucil, Fiberall, Konsyl, Colace (Docusate Sodium) Diarrhea--Imodium, Kaopectate, Follow BRAT diet: bananas, rice, applesauce, tea/toast Heartburn--Maalox, Mylanta, TUMS, Prilosec OTC, Zantac, Tagamet, Prevacid, Pepcid Hemorrhoids--Tucks Pads, Anusol, Preparation H, warm sitz baths Patient Language: [place] Prescriptions: New amoxicillin 875 mg tablet 875 mg PO Q12H 10 Days Qty: 20 0RF oseltamivir [Tamiflu] 75 mg capsule 75 mg PO Q12H 5 Days Qty: 10 0RF No Action naproxen [Naprosyn] 500 mg tablet 500 mg PO BID Qty: 20 0RF Mirena 21 mcg/24 hours (8 yrs) 52 mg intrauterine device 1 device intrauterine ONCE Patient Comments: Inserted 01/01/23 Rx Instructions: Inserted 01/01/2023 Follow-up/Referrals: PHYSICIAN,SECURITY PATROL OFFICER [Primary Care Provider] - Stand Alone Forms: Work/School Release IP Time of Disposition: 14:34 Quality NIHSS Nursing Documentation ED NIHSS nursing documentation: reviewed/agree
[2024-09-14 14:25] VITALS: BP 117/64; PULSE 111; RESP 16; TEMP 36.8; O2SAT 99
[2024-09-14 14:41] LABS: EDCOVIDSCREEN Negative (Negative); EDINFLUASCREEN Positive (Negative); EDINFLUBSCREEN Negative (Negative)
== END 2024-09-14 14:40 | disposition home or self-care (01) ==
PROVIDERS: Emergency Provider Nurse Practitioner Family
DX: J10.1 Influenza due to other identified influenza virus with other respiratory manifestations (principal); H66.91 Otitis media, unspecified, right ear; Z20.822 Contact with and (suspected) exposure to COVID-19; Z87.891 Personal history of nicotine dependence
CPT/HCPCS: 87426; 87804; 99213; G0463

== ENCOUNTER 2024-12-16 17:28 | Observation (INO) | payer OTHER, SELFPAY ==
[2024-12-16] VITALS (11 sets, daily range): BP systolic 112–133; BP diastolic 60–66; PULSE 79–100; RESP 16; TEMP 37.1; O2SAT 99–100; BMI 31.9
--- OUTSIDE RECORDS SUMMARY | 2024-12-16 17:35 | XMS_ITS | Data Portability ---
Author Organization SHANDA Sergei HERNANDEZ Address [address] [place] [address] Care Team Providers Care Manager Insurance Name Role Phone BRENDA SOUSA Primary Care Provider Assessment Encounter Date Assessment Date Assessment LastModified by Organization Details LastModified Time 06/04/2019 06/04/2019 Patient advised to call prn and was reminded to get a flu shot this fall. [email or web address] Not available 06/05/2019 23:37:38 Plan of Treatment Reminders Order Date Submit Date Provider Last Modified By Organization Details Last Modified Time Details Appointments None recorded. Lab CBC w/ auto diff 2018 019 [facility], [facility] [address], [place], [address], 9 20:09:11 iron + total iron-bindin g capacity (TIBC), serum 2018 019 LANDRY LABTOBY, [facility] [place], [facility] [address], [place], [address], 9 20:09:12 lipid panel, serum 2015 016 LANDRY [facility]TOBY, [facility] Adonis, [address], [place], [address], 6 06:19:31 CMP, serum or plasma 2015 016 LANDRY LABTOBY, [facility] tr[facility] Lamb, [address], [place], [address], 6 06:19:30 CBC 2015 016 LANDRY [facility], [facility] [facility], [address], [place], [address], 6 06:19:29 vitamin D, 25-hydroxy, total, serum 2015 016 [facility], [address] [place] [address], [address], [place], [address], 6 06:19:32 TSH, serum or plasma 2015 016 [facility], [address] [facility], [address], [place], [address], 6 06:19:32 Referral general surgeon referral 2018 019 maileva Not available 9 14:27:34 Procedures None recorded. Surgeries None recorded. Imaging None recorded. Medication Orders sertraline 50 mg tablet 2018 019 [facility] [address] [facility][id number], [address] [facility], [place], [place], [id number], 9 16:37:53 fluoxetine 20 mg capsule 2018 019 [facility] #[id number], [address] [facility], [place], [place], [id number], 9 16:38:01 ferrous sulfate 325 mg (65 mg iron) tablet 2018 019 [facility] [address] [facility] #[id number], [address] [facility], [place], [place], [id number], 9 16:38:09 nystatin 100,000 unit/gram topical cream 2015 016 [facility] Not available 9 16:38:49 triamcinolo ne acetonide 0.1 % topical cream 2015 016 con[facility] 63 Not available 9 16:38:44 Patient TargetsNo targets recorded. Patient Instructions Encounter Date Encounter Id Patient Instructions Last Modified By Organization Details Last Modified Time 11/18/2018 [id number] hemorrhoids: car e instructions [email or web address] Not available 11/18/2018 15:23:11 iron deficiency anemia: care instructions [email or web address] Not available 11/18/2018 15:23:11 01/29/2019 [id number] learning about mood disorders [email or web address] Not available 01/29/2019 16:52:11 Reason for Referral General Surgeon Referral for Hemorrhoids Referring Physician: Brenda Sousa, Family Medicine, Encounter Date: 11/18/2018 Results Created Date Observation Date Name Description Value Unit Range Abnormal Flag Note LastModifiedBy Organization Detail LastModifiedTime 01/12/20 16 01/13/2016 CBC WBC 6.4 x10e3 /uL 3.4-10 .8 Not Available [facility] ([facility]) [address] [place], [address], 01/13/2016 06:19:29 01/12/20 16 01/13/2016 CBC RBC 4.52 x10e6 /uL 3.77-5 .28 Not Available [facility] ([facility]) [address] [place], [address], 01/13/2016 06:19:29 01/12/20 16 01/13/2016 CBC hemoglobin 13.8 g/dL 11.1-1 5.9 Not Available [facility] ([facility]) [address] [place], [address], 01/13/2016 06:19:29 01/12/20 16 01/13/2016 CBC hematocrit 40.6 % 34.0-4 6.6 Not Available [facility] ([facility]) [address] [place], [address], 01/13/2016 06:19:29 01/12/20 16 01/13/2016 CBC MCV 90 fL 79-97 Not Available [facility] ([facility]) [address] [place], [address], 01/13/2016 06:19:29 01/12/20 16 01/13/2016 CBC MCH 30.5 pg 26.6-3 3.0 Not Available [facility] ([facility]) [address] [place], [address], 01/13/2016 06:19:29 01/12/20 16 01/13/2016 CBC MCHC 34.0 g/dL 31.5-3 5.7 Not Available [facility] ([facility]) [address] [place], [address], 01/13/2016 06:19:29 01/12/20 16 01/13/2016 CBC RDW 12.5 % 12.3-1 5.4 Not Available [facility] ([facility]) [address] [place], [address], 01/13/2016 06:19:29 01/12/20 16 01/13/2016 CBC platelets 194 x10e3 /uL 150-37 9 Not Available [facility] ([facility]) [address] [place], [address], 01/13/2016 06:19:29 01/12/20 16 01/13/2016 CBC neutrophils 72 % Not Avai lable [facility] ([facility]) [address] [place], [address], 01/13/2016 06:19:29 01/12/20 16 01/13/2016 CBC lymphs 18 % Not Available [facility] ([facility]) [address] [place], [address], 01/13/2016 06:19:29 01/12/20 16 01/13/2016 CBC monocytes 5 % Not Availa ble [facility] ([facility]) [address] [place], [address], 01/13/2016 06:19:29 01/12/20 16 01/13/2016 CBC eos 4 % Not Available [facility] ([facility]) [address] [facility] [place], [address], 01/13/2016 06:19:29 01/12/20 16 01/13/2016 CBC basos 1 % Not Available [facility] ([facility]) [address] [facility] [place], [address], 01/13/2016 06:19:29 01/12/20 16 01/13/2016 CBC immature cells SERVICE DISPATCHER Not Available [facility]) [address] [facility] [place], [address], 01/13/2016 06:19:29 01/12/20 16 01/13/2016 CBC neutrophils (absolute) 4.6 x10e3 /uL 1.4-7. 0 Not Available [facility] ([facility]) [address] [facility] [place], [address], 01/13/2016 06:19:29 01/12/20 16 01/13/2016 CBC lymphs (absolute) 1.2 x10e3 /uL 0.7-3. 1 Not Available [facility] ([facility]) [address] [facility] [place], [address], 01/13/2016 06:19:29 01/12/2001/13/2016 CBC monocytes(ab solute) 0.3 x10e3 /uL 0.1-0. 9 Not Available [facility] ([facility]) [address] [facility] [place], [address], 01/13/2016 06:19:29 01/12/20 16 01/13/2016 CBC eos (absolute) 0.3 x10e3 /uL 0.0-0. 4 Not Available [facility] ([facility]) [address] [place], [address], 01/13/2016 06:19:29 01/12/20 16 01/13/2016 CBC baso (absolute) 0.0 x10e3 /uL 0.0-0. 2 Not Available [facility] ([facility]) [address] [place], [address], 01/13/2016 06:19:29 01/12/20 16 01/13/2016 CBC immature granulocytes 0 % Not Available [facility] ([facility]) [address] [place], [address], 01/13/2016 06:19:29 01/12/20 16 01/13/2016 CBC immature grans (abs) 0.0 x10e3 /uL 0.0-0. 1 Not Available [facility] ([facility]) [address] [place], [address], 01/13/2016 06:19:29 01/12/20 16 01/13/2016 CBC NRBC SERVICE DISPATCHER Not Available [facility] ([facility]) [address] [place], [address], 01/13/2016 06:19:29 01/12/2001/13/2016 CBC hematology comments: SERVICE DISPATCHER Not Available [facility] ([facility]) [address] [place], [address], 01/13/2016 06:19:29 01/12/2001/13/2016 CMP, serum or plasm a glucose, serum 85 mg/dL 65-99 Not Available [facility] ([facility]) [address] [place], [address], 01/13/2016 06:19:30 01/12/2001/13/2016 CMP, serum or plasm a BUN 8 mg/dL 6-20 Not Available [facility] ([facility]) [address] [place], [address], 01/13/2016 06:19:30 01/12/2001/1201/13/2016 CMP, serum or plasm a creatinine, serum 0.61 mg/dL 0.57-1 .00 Not Available [facility] ([facility]) [address] [place], [address], 01/13/2016 06:19:30 01/12/20 16 01/13/2016 CMP, serum or plasm a eGFR if nonafricn AM 129 mL/mi n/1.7 3 >59 Not Available [facility] ([facility]) [address] [place], [address], 01/13/2016 06:19:30 01/12/20 16 01/13/2016 CMP, serum or plasm a eGFR if africn AM 149 mL/mi n/1.7 3 >59 Not Available [facility] ([facility]) [address] [place], [address], 01/13/2016 06:19:30 01/12/20 16 01/13/2016 CMP, serum or plasm a BUN/creatini ne ratio 13 8-20 Not Available [facility] ([facility]) [address] [place], [address], 01/13/2016 06:19:30 01/12/20 16 01/13/2016 CMP, serum or plasm a sodium, serum 140 mmol/ L 134-14 4 Not Available [facility] ([facility]) [address] [place], [address], 01/13/2016 06:19:30 01/12/2001/13/2016 CMP, serum or plasm a potassium, serum 4.0 mmol/ L 3.5-5. 2 Not Available [facility] ([facility]) [address] [place], [address], 01/13/2016 06:19:30 01/12/20 16 01/13/2016 CMP, serum or plasm a chloride, serum 102 mmol/ L 97-108 Not Available [facility] ([facility]) [address] [facility], [address], 01/13/2016 06:19:30 01/12/20 16 01/13/2016 CMP, serum or plasm a carbon dioxide, total 21 mmol/ L 18 Not Available [facility] [address] [facility] [place], [address], 01/13/2016 06:19:30 01/12/2001/13/2016 CMP, serum or plasm a calcium, serum 9.3 mg/dL 8.7-10 .2 Not Available [facility] ([facility]) [address] [facility] [place], [address], 01/13/2016 06:19:30 01/12/20 16 01/13/2016 CMP, serum or plasm a protein, total, serum 6.9 g/dL 6.0-8. 5 Not Available [facility] ([facility]) [address] [facility] [place], [address], 01/13/2016 06:19:30 01/12/2001/13/2016 CMP, serum or plasm a albumin, serum 4.3 g/dL 3.5-5. 5 Not Available [facility] ([facility]) [address] [facility], [place], [address], 01/13/2016 06:19:30 01/12/2001/13/2016 CMP, serum or plasm a globulin, total 2.6 g/dL 1.5-4. 5 Not Available [facility] ([facility]) [address] [facility] [place], [address], 01/13/2016 06:19:30 01/12/2001/13/2016 CMP, serum or plasm a A/G ratio 1.7 1.1-2. 5 Not Available [facility] ([facility]) [address] [facility] [place], [address], 01/13/2016 06:19:30 01/12/2001/13/2016 CMP, serum or plasm a bilirubin, total 0.7 mg/dL 0.0-1. 2 Not Available [facility] ([facility]) [address] [facility] [place], [address], 01/13/2016 06:19:30 01/12/20 16 01/13/2016 CMP, serum or plasm a alkaline phosphatase, S 86 IU/L 39-117 Not Available [facility] ([facility]) [address] [facility], [place], [address], 01/13/2016 06:19:30 01/12/20 16 01/13/2016 CMP, serum or plasm a AST (SGOT) 20 IU/L 0-40 Not Available [facility] ([facility] [address] [facility], [place], [address], 01/13/2016 06:19:30 01/12/2001/13/2016 CMP, serum or plasm a ALT (SGPT) 21 IU/L 0-32 Not Available [facility] ([facility] [address] [facility], [place], [address], 01/13/2016 06:19:30 01/12/20 16 01/13/2016 lipid panel , serum cholesterol, total 173 mg/dL 100-19 9 Not Available [facility] ([facility]) [address] [facility] [place], [address], 01/13/2016 06:19:31 01/12/2001/13/2016 lipid panel , serum triglyceride s 68 mg/dL 0-149 Not Available [facility] ([facility]) [address] [facility] [place], [address], 01/13/2016 06:19:31 01/12/2001/13/2016 lipid panel , serum HDL cholesterol 49 mg/dL >39 ACCOR DING TO ATP-I II GUIDE LINES , HDL-C >59 MG/DL IS CONSI DERED A NEGAT WHITNEY RISK FACTO R FOR CHD. Not Available [facility] ([facility]) [address] [place], [address], 01/13/2016 06:19:31 01/12/20 16 01/13/2016 lipid panel , serum VLDL cholesterol yousif 14 mg/dL 5-40 Not Available [facility] ([facility] [address] [place], [address], 01/13/2016 06:19:31 01/12/20 16 01/13/2016 lipid panel , serum LDL cholesterol calc 110 mg/dL 0-99 above high normal Not Available [facility] ([facility]) [address] [place], [address], 01/13/2016 06:19:31 01/12/20 16 01/13/2016 lipid panel , serum comment: SERVICE DISPATCHER Not Available [facility] ([facility]) [address] [facility] [place], [address], 01/13/2016 06:19:31 01/12/2001/13/2016 lipid panel , serum T. chol/HDL ratio 3.5 ratio _unit s 0.0-4. 4 T. CHOL/ HDL RATIO MEN WOMEN 1/2 AVG.R ISK 3.4 3.3 AVG.R ISK 5.0 4.4 2X AVG.R ISK 9.6 7.1 3X AVG.R ISK 23.4 11.0 Not Available [facility] ([facility]) [address] [facility] [place], [address], 01/13/2016 06:19:31 01/12/20 16 01/13/2016 TSH, serum or plasm a TSH 1.100 uIU/m L 0.450- 4.500 Not Available [facility] ([facility]) [address] [facility] [place], [address], 01/13/2016 06:19:32 01/12/20 16 01/13/2016 vitam in D, 25-hy droxy , total , serum vitamin D, 25-hydroxy 9.7 NG/mL 30.0-1 00.0 below low normal VITAM IN D DEFIC IENCY HAS BEEN DEFIN ED BY THE INSTI T[facility] OF MEDIC INE AND AN ENDOC RINE SOCIE TY PRACT ICE GUIDE LINE A LEVEL OF SERUM 25-OH VITAM IN D LESS THAN 20 NG/ML (1,2) . THE ENDOC RINE SOCIE TY WENT ON TO FURTH ER DEFIN E VITAM IN D INSUF FICIE NCY A LEVEL BETWE EN 21 AND 29 NG/ML (2). 1. IOM (INST IT[facility] OF MEDIC INE). 2009. DIETA RY REFER ENCE INTAK ES FOR CALCI UM AND D. ZAHRA ARREOLA DC: THE [facility] PRESS . 2. MARITZA Davis MF, AVELINA DACOSTA NC, YAMIL OFF-F ERRAR I ZAMBRANO, ET AL. EVALU ATION , TREAT MENT, AND PREVE NTION OF VITAM IN D DEFIC IENCY : AN ENDOC RINE SOCIE TY CLINI YOUSIF PRACT ICE GUIDE LINE. JCEM. 2010; 96(7) :1911 -30. Not Available [facility] ([facility]) [address] [facility], [place], [address], 01/13/2016 06:19:32 11/19/19 19 11/19/2018 CBC w/ auto diff WBC TNP x10e3 /uL No laven aicha top tube submi tted. Not Available [facility] ([facility]) [address] [facility], [place], [address], 11/19/2018 20:09:11 11/19/1911/19/2018 CBC w/ auto diff RBC TNP Test not perfo rmed Not Available [facility] ([facility]) [address] [place], [address], 11/19/2018 20:09:11 11/19/1911/19/2018 CBC w/ auto diff hemoglobin TNP Test not perfo rmed Not Available [facility] ([facility]) [address] [facility], [place], [address], 11/19/2018 20:09:11 11/19/19 19 11/19/2018 CBC w/ auto diff hematocrit TNP Test not perfo rmed Not Available [facility] ([facility]) [address] [place], [address], 11/19/2018 20:09:11 11/19/19 19 11/19/2018 CBC w/ auto diff MCV SERVICE DISPATCHER Not Available [facility] ([facility]) [address] [place], [address], 11/19/2018 20:09:11 11/19/19 19 11/19/2018 CBC w/ auto diff MCH SERVICE DISPATCHER Not Available [facility] ([facility]) [address] [place], [address], 11/19/2018 20:09:11 11/19/19 19 11/19/2018 CBC w/ auto diff MCHC SERVICE DISPATCHER Not Available [facility] ([facility]) [address] [place], [address], 11/19/2018 20:09:11 11/19/19 19 11/19/2018 CBC w/ auto diff RDW SERVICE DISPATCHER Not Available [facility] ([facility]) [address] [place], [address], 11/19/2018 20:09:11 11/19/19 19 11/19/2018 CBC w/ auto diff platelets TNP Test not perfo rmed Not Available [facility] ([facility]) [address] [place], [address], 11/19/2018 20:09:11 11/19/19 19 11/19/2018 CBC w/ auto diff neutrophils TNP Test not perfo rmed Not Available [facility] ([facility]) [address] [place] [address], [address], 11/19/2018 20:09:11 11/19/19 19 11/19/2018 CBC w/ auto diff lymphs TNP Test not perfo rmed Not Available [facility] ([facility]) [address] [place], [address], 11/19/2018 20:09:11 11/19/19 19 11/19/2018 CBC w/ auto diff monocytes TNP Test not perfo rmed Not Available [facility] ([facility]) [address] [place], [address], 11/19/2018 20:09:11 11/19/19 19 11/19/2018 CBC w/ auto diff eos TNP Test not perfo rmed Not Available [facility] ([facility]) [address] [place], [address], 11/19/2018 20:09:11 11/19/1911/19/2018 CBC w/ auto diff basos SERVICE DISPATCHER Not Available [facility] ([facility]) [address] [place], [address], 11/19/2018 20:09:11 11/19/1911/19/2018 CBC w/ auto diff immature cells SERVICE DISPATCHER Not Available [facility] ([facility]) [address] [place], [address], 11/19/2018 20:09:11 11/19/1911/19/2018 CBC w/ auto diff neutrophils (absolute) SERVICE DISPATCHER Not Available [facility] [address] [place], [address], 11/19/2018 20:09:11 11/19/1911/19/2018 CBC w/ auto diff lymphs (absolute) TNP Test not perfo rmed Not Available [facility] ([facility]) [address] [place], [address], 11/19/2018 20:09:11 11/19/1911/19/2018 CBC w/ auto diff monocytes(ab solute) SERVICE DISPATCHER Not Available [facility] ([facility]) [address] [place], [address], 11/19/2018 20:09:11 11/19/19 19 11/19/2018 CBC w/ auto diff eos (absolute) TNP Test not perfo rmed Not Available [facility] ([facility]) [address] [place], [address], 11/19/2018 20:09:11 11/19/19 19 11/19/2018 CBC w/ auto diff baso (absolute) TNP Test not perfo rmed Not Available [facility] ([facility]) [address] [place], [address], 11/19/2018 20:09:11 11/19/1911/19/2018 CBC w/ auto diff immature granulocytes SERVICE DISPATCHER Not Available [facility] [address] [place], [address], 11/19/2018 20:09:11 11/19/19 19 11/19/2018 CBC w/ auto diff immature grans (abs) SERVICE DISPATCHER Not Available [facility] [address] [place], [address], 11/19/2018 20:09:11 11/19/1911/19/2018 CBC w/ auto diff NRBC SERVICE DISPATCHER Not Available [facility] ([facility]) [address] [place], [address], 11/19/2018 20:09:11 11/19/1911/19/2018 CBC w/ auto diff hematology comments: SERVICE DISPATCHER Not Available [facility] ([facility]) [address] [place], [address], 11/19/2018 20:09:11 11/19/1911/19/2018 iron + total iron- taylor ng capac ity (TIBC ), serum iron bind.cap.(TI BC) 319 ug/dL 250-45 0 Not Available [facility] ([facility]) [address] [place], [address], 11/19/2018 20:09:12 11/19/19 19 11/19/2018 iron + total iron- taylor ng capac ity (TIBC ), serum UIBC 277 ug/dL 131-42 5 Not Available [facility] ([facility]) [address] [place], [address], 11/19/2018 20:09:12 11/19/19 19 11/19/2018 iron + total iron- taylor ng capac ity (TIBC ), serum iron 42 ug/dL 27-159 Not Available [facility] ([facility]) [address] [place], [address], 11/19/2018 20:09:12 11/19/19 19 11/19/2018 iron + total iron- taylor ng capac ity (TIBC ), serum iron saturation 13 % 15-55 below low normal Not Available [facility] ([facility]) [address] [place], [address], 11/19/2018 20:09:12 11/19/19 19 11/19/2018 speci men statu s repor t specimen status report TNP No laven aicha top tube submi tted. TEST: [id number] CBC With Diffe renti al/Pl atele t Not Available [facility] ([facility]) [address] [place], [address], 11/19/2018 20:09:12 11/26/1911/26/2018 CBC w/ auto diff WBC 6.9 x10e3 /uL 3.4-10 .8 Not Available [facility] ([facility]) [address] [place], [address], 11/26/2018 09:22:29 11/26/1911/26/2018 CBC w/ auto diff RBC 4.64 x10e6 /uL 3.77-5 .28 Not Available [facility] ([facility]) [address] [place], [address], 11/26/2018 09:22:29 11/26/19 19 11/26/2018 CBC w/ auto diff hemoglobin 13.1 g/dL 11.1-1 5.9 Not Available [facility] ([facility]) [address] [place], [address], 11/26/2018 09:22:29 11/26/19 19 11/26/2018 CBC w/ auto diff hematocrit 39.0 % 34.0-4 6.6 Not Available [facility] ([facility] [address] [facility], [place], [address], 11/26/2018 09:22:29 11/26/19 19 11/26/2018 CBC w/ auto diff MCV 84 fL 79-97 Not Available [facility] ([facility] [address] [place], [address], 11/26/2018 09:22:29 11/26/19 19 11/26/2018 CBC w/ auto diff MCH 28.2 pg 26.6-3 3.0 Not Available [facility] ([facility]) [address] [place], [address], 11/26/2018 09:22:29 11/26/19 19 11/26/2018 CBC w/ auto diff MCHC 33.6 g/dL 31.5-3 5.7 Not Available [facility] ([facility]) [address] [place], [address], 11/26/2018 09:22:29 11/26/19 19 11/26/2018 CBC w/ auto diff RDW 14.5 % 12.3-1 5.4 Not Available [facility] ([facility] [address] [place], [address], 11/26/2018 09:22:29 11/26/19 19 11/26/2018 CBC w/ auto diff platelets 241 x10e3 /uL 150-37 9 Not Available [facility] ([facility]) [address] [place], [address], 11/26/2018 09:22:29 11/26/19 19 11/26/2018 CBC w/ auto diff neutrophils 70 % not estab. Not Available [facility] ([facility] [address] [facility], [place], [address], 11/26/2018 09:22:29 11/26/19 19 11/26/2018 CBC w/ auto diff lymphs 19 % not estab. Not Available [facility] ([facility] [address] [facility], [place], [address], 11/26/2018 09:22:29 11/26/19 19 11/26/2018 CBC w/ auto diff monocytes 6 % not estab. Not Available [facility] ([facility] [address] [facility], [place], [address], 11/26/2018 09:22:29 11/26/19 19 11/26/2018 CBC w/ auto diff eos 5 % not estab. Not Available [facility] ([facility] [address] [facility], [place], [address], 11/26/2018 09:22:29 11/26/19 19 11/26/2018 CBC w/ auto diff basos 0 % not estab. Not Available [facility] ([facility] [address] [facility], [place], [address], 11/26/2018 09:22:29 11/26/1911/26/2018 CBC w/ auto diff immature cells SERVICE DISPATCHER Not Available [facility] [address] [facility], [place], [address], 11/26/2018 09:22:29 11/26/1911/26/2018 CBC w/ auto diff neutrophils (absolute) 4.8 x10e3 /uL 1.4-7. 0 Not Available [facility] ([facility] [address] [facility], [place], [address], 11/26/2018 09:22:29 11/26/19 19 11/26/2018 CBC w/ auto diff lymphs (absolute) 1.3 x10e3 /uL 0.7-3. 1 Not Available [facility] ([facility] [address] [facility], [place], [address], 11/26/2018 09:22:29 11/26/19 19 11/26/2018 CBC w/ auto diff monocytes(ab solute) 0.4 x10e3 /uL 0.1-0. 9 Not Available [facility] ([facility] [address] [place], [address], 11/26/2018 09:22:29 11/26/19 19 11/26/2018 CBC w/ auto diff eos (absolute) 0.3 x10e3 /uL 0.0-0. 4 Not Available [facility] ([facility] [address] [facility], [place], [address], 11/26/2018 09:22:29 11/26/19 19 11/26/2018 CBC w/ auto diff baso (absolute) 0.0 x10e3 /uL 0.0-0. 2 Not Available [facility] ([facility] [address] [place], [address], 11/26/2018 09:22:29 11/26/19 19 11/26/2018 CBC w/ auto diff immature granulocytes 0 % not estab. Not Available [facility] ([facility] [address] [place], [address], 11/26/2018 09:22:29 11/26/1911/26/2018 CBC w/ auto diff immature grans (abs) 0.0 x10e3 /uL 0.0-0. 1 Not Available [facility] ([facility] [address] [place], [address], 11/26/2018 09:22:29 11/26/19 19 11/26/2018 CBC w/ auto diff NRBC SERVICE DISPATCHER Not Available [facility] ([facility] [address] [facility], [place], [address], 11/26/2018 09:22:29 11/26/19 19 11/26/2018 CBC w/ auto diff hematology comments: SERVICE DISPATCHER Not Available [facility] ([facility] [address] [facility], [place], [address], 11/26/2018 09:22:29 09/25/19 17 XR, knee No observ ation record ed. [email or web address] Not Available 09/15 17:43:46 11/15/19 22 11/14/2021 US, abdom en No observ ation record ed. 57 [address] [facility], [place], [address], 11/15/2021 08:45:40 11/20/19 22 11/19/2021 US, obste tric No observ ation record ed. [address], [place], [address], 11/19/2021 11:01:58 Result Notes None recorded. Problems Name Problem SNOMED Code Status Onset Date Resolution Date Notes Provider Name and Address Organization Details Recorded Time Superficial injury of wrist 733642341 Active Elmer Terrell PA-C Attn: Accounting ,[address] [facility], [place], [address] , [facility] 5 17:39:20 Eruption 852141075 Active Little Hernandez PA-C Attn: Accounting ,[address] [facility], [place], [address] , [facility] 6 11:08:56 Fatigue 34083017 Active Little Hernandez PA-C Attn: Accounting ,[address] [facility], [place], [address] , [facility] 6 11:08:56 Vitamin D deficiency 95540200 Active Little Hernandez PA-C Attn: Accounting ,[address] [facility], [place], [address] , [place] [facility] 6 13:29:43 Pain in pelvis 83181391 Active Angelesoscar Leger [place] null, [place] - [facility] 5 10:27:55 Bacterial vaginosis 101090246 Active [place] momin[place] [facility] 5 14:40:42 Candidiasis 22723494 Active Milton momin, [place] - [facility] 5 21:55:19 Herpes simplex 33812182 Active [place] momin[place] [facility] 5 21:55:19 Problem Notes None recorded. Procedures Surgical History Date Name Laterality Status Provider Name and Address Organization Details Recorded Time 5 Depo Injection completed Milton Carrero [place] - [facility] 10/04/2014 10:57:26 Imaging Results Imaging Date Name Status LastModified by Organiz ation Details LastModified Time 09/25/2016 XR, knee completed [email or web address] Information n ot available 09/25/2016 17:43:46 11/14/2021 US, abdomen completed [facility] [address] [facility] [address], [place], [address], 11/15/2021 08:45:40 11/19/2021 US, obstetric completed [facility] [address] [facility] [address], [place], [address], 11/19/2021 11:01:58 Procedure Notes None recorded. Medical Equipment None Reported. Allergies No known drug allergies Medications Name Sig Start Date Stop Date Status Note LastModified by Organization Details LastModified Time Prescriptio n - New active Not Available Not Available Not Available fluconazole 150 mg tablet Take 1 tablet by oral route. 2014 active Not Available Not Available Not Avai lable triamcinolo ne acetonide 0.1 % topical cream APPLY A THIN LAYER TO THE AFFECTED AREA(S) BY TOPICAL ROUTE 2 TIMES PER DAY 06/04 completed Not Available Not Available Not Available acyclovir 800 mg tablet Take 1 tablet every day by oral route. 01/11 completed Not Available Not Available Not Available Depo-Spinning Doffer a 150 mg/mL intramuscul ar suspension Inject 1 mL every 3 months by intramusc ular route. 01/11 completed Not Available Not Available Not Available Flagyl 500 mg tablet Take 1 tablet twice a day by oral route for 7 days. 2014 active Not Available Not Available Not Avai lable ferrous sulfate 325 mg (65 mg iron) tablet Take 1 tablet every day by oral route. 06/04 completed Not Available Not Available Not Available nystatin 100,000 unit/gram topical cream APPLY TO THE AFFECTED AREA(S) BY TOPICAL ROUTE 2 TIMES PER DAY 06/04 completed Not Available Not Available Not Available ergocalcife rol (vitamin D2) 1,250 mcg (50,000 unit) capsule Take 1 capsule every week by oral route. 06/04 completed Not Available Not Available Not Available fluoxetine 20 mg capsule Take 1 capsule every day by oral route. 06/04 completed Not Available Not Available Not Available sertraline 50 mg tablet Take 1 tablet every day by oral route. 06/04 completed Not Available Not Available Not Available Vitals Date Recorded Body height Body mass index (BMI) Body weight Oxygen saturation Oxygen saturation in Arterial blood by Pulse oximetry Heart rate Systolic blood pressure Diastolic blood pressure Provider Name and Address Organization Details Last Updated DateTime 9 162.56 cm 25.1 kg/m2 18031.5 9 g 99 % 99 % 59 /min 102 mm[Hg] 62 mm[Hg] Betty Pollock MA [place] - [facility] 9 14:47:22 Date Recorded Body height Oxygen saturation Oxygen saturation in Arterial blood by Pulse oximetry Heart rate Body temperature Systolic blood pressure Diastolic blood pressure Provider Name and Address Organization Details Last Updated DateTime 9 162.56 cm 98 % 98 % 85 /min 98.6 [degF] 106 mm[Hg] 58 mm[Hg] Betty Pollock MA [place] - [facility] 9 16:21:58 Date Recorded Body height Oxygen saturation Oxygen saturation in Arterial blood by Pulse oximetry Heart rate Respiratory rate Body temperature Systolic blood pressure Diastolic blood pressure Provider Name and Address Organization Details Last Updated DateTime 9 162.56 cm 96 % 96 % 104 /min 18 /min 98.4 [degF] 110 mm[Hg] 62 mm[Hg] Virginia Zamudio RN [facility] 9 16:28:56 Date Recorded Body temperature Heart rate Respiratory rate Body mass index (BMI) Body height Body weight Systolic blood pressure Diastolic blood pressure Provider Name and Address Organization Details Last Updated DateTime 6 98 [degF] 76 /min 18 /min 21.9 kg/m2 163.83 cm 93426.6 50393 g 84 mm[Hg] 44 mm[Hg] Elke Medel MA [facility] 6 10:41:06 Social History Question Answer Notes LastModified by Organizat ion Details LastModified Time Tobacco Smoking Status Never Smoker Angeles Leger MA [facility], [facility] 10/04/2014 10:32:59 Do You Have An Advance Directive? No [email or web address] Information not available 10/04/2014 What Is Your Level Of Alcohol Consumption? Occasional Information not available 10/04/2014 Is Blood Transfusion Acceptable In An Emergency? Yes [email or web address] Information not available 10/04/2014 What Is Your Level Of Caffeine Consumption? Moderate [email or web address] Information not available 10/04/2014 Are You Currently Employed? Yes Information not available 10/04/2014 What Type Of Diet Are You Following? 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 With Others [email or web address] Information not available 10/04/2014 Marital Status Single Informatio n not available 01/12/2016 What Was The Date Of Your Most Recent Tobacco Screening? 01/29/2019 Information not available 04/08/2019 How Many Children Do You Have? 0 [email or web address] Information not available 10/04/2014 Performs Monthly Self-breast Exam? Yes [email or web address] Information not available 10/04/2014 Do You Use Protection During Sex? No [email or web address] Information not available 10/04/2014 What Is Your Relationship Status? Single [email or web address] Information not available 10/04/2014 Seat Belts Used Routinely Yes Information not available 10/04/2014 Are You Sexually Active? Yes [email or web address] Information not available 10/04/2014 Smoke Alarm In Home Yes Information not available 01/12/2016 General Stress Level High [email or web address] Information not available 10/04/2014 Do You Use Sunscreen Routinely? Yes [email or web address] Information not available 10/04/2014 Sex: Unknown Functional Status Question Answer Note LastModified by Organizat ion Details LastModified Time What is your exercise level? Occasional [email or web address] Information not available 10/04/2014 Mental Status None recorded. Family History Relationship Description Onset Age of this Age Resolved Age Notes LastModified by Organization Details LastModified Time Mother Diabetes mellitus [email or web address] Not available 2015 10:51:04 Maternal Grandmother Heart disease [email or web address] Not available 2015 10:51:04 Medical History Condition Response Coronary Artery Disease N Kidney Cyst N Blood Diseases N Hyperthyroidism N Blood disorders N Blood Transfusion N MRSA N Emphysema N Depression N COPD N Blood Clots N Pneumonia N Premature N Peripheral Arterial Disease N Edema N TIA N Headaches/Migraines N Anxiety Disorder N Obesity N Polyps N Infertility N Acid Reflux (GERD) N Hematuria N Stroke N Neck Injury N Polio N Hospital Admission other than N Neurologic Disorder N Other Sleep Disorders N Rheumatoid Arthritis N Fibromyalgia N Abdominal Aortic Aneurysm Repair N Kidney Disease N Heart Conditions N Heart Disease/Heart Problems N Hospitalizations N Brain Tumors N Acne N Skin Problems N Eating Disorder N Meningitis N Constipation N Tuberculosis N Cerebral Palsy N Myocardial Infarction N Asthma N Substance Abuse N Peripheral Vascular Disease N Vertigo Y Sleep Disorder N Cirrhosis N Pulmonary Embolism N Chicken Pox Y Hematologic Disease N Flomax Use Past or Present N Anxiety/Depression N Thyroid Disease N Colon Cancer N Lung Disease N Glaucoma N Developmental or Behavioral Disorders N Bipolar N Pacemaker N Diverticulitis/Diverticulosis N Orthopedic Problems N Anesthesia Complications N Orthotics N Head Injury/Concussion N Congenital Anomalies N Fischer Bite N Chronic Kidney Disease N Endometriosis N Liver Disease N Schizophrenia N Dialysis N Speech Delay N Chronic Obstructive Pulmonary Disease N Parkinson's Disease N Thyroid Problems N GI Problems Y Developmental Delay N Anemia N Multiple Sclerosis N Immune System Disorder N Colon Polyps N Heart Attack (IA) N Diabetes N Cardiomyopathy N Blood Transfusions N Heart Problems/Murmur N Eye Trauma N Congestive Heart Failure (CHF) N Valvular Heart Disease N Hyperlipidemia N Double Vision N Abuse/Domestic Violence N Hepatitis B N Lupus N Epilepsy/Seizures N Reflux/GERD N Aneurysm N Heart Disease N Bronchitis N Pre-Eclampsia N Hypertension N Heart Failure N Other N Gout N High Blood Pressure N Atrial Fibrillation N Kidney Stones N Head Trauma/Injury Y Congenital Heart Disease N Spine Problems N Gastrointestinal Disease N Lung Mass N Sinusitis N Obstructive Sleep Apnea N Muscle, Joint, or Bone Problems N Autoimmune disease N Vision or Eye Problems N Arthritis N Blood Clot N Cancer N Seasonal allergies N Leg or Foot Ulcers N Raynaud's Disease N Aortic Aneurysm N Arrhythmia N Headaches Y Heart Problems N Ambloypia N Ear or Hearing Problems Y Hyperparathyroidism N Migraines N Artificial Joints N Kidney or Bladder Problems N NSAID Use Y Encephalitis N PTSD N Ulcers N Prostate Hypertrophy N Bleeding Disorder N AIDS/HIV N Urinary Tract Infection Y Back Problems N Allergies N Atrial Flutter N GERD/Reflux N Hepatitis N Autism Spectrum Disorder (ASD) N Breast Cancer N Hernia N Hypothyroidism N Breast Problem N Genitourinary Disease N Deep Vein Thrombosis N Varicose Veins N Cystic Fibrosis N Hearing Loss N Developmental Problems N Carotid Disease N Vitamin D Deficiency N ADHD N Bladder or Kidney Problems N High Cholesterol N Meniers N Valvular Abnormalities N Psychiatric/Mental Health Condition N Organ Transplant N Foot Deformity N Allergies/Hayfever N Dyslipidemia N Hyponatremia N Diabetic Eye Disease N Osteoporosis/Osteopenia N Back Pain N Proteinuria N Mental Illness N Neurological Problems N Ovarian Cancer N Bedwetting N Seizures/Epilepsy N Kidney Failure N Ocular trauma N Diverticulitis N Dementia N Sleep Apnea N Mental Problems N Warfarin Management N Osteoporosis N Gynecological History Statement/Question Response Flow Moderate Sexually Active? Y Menses Monthly Y STIs/STDs N Duration of Flow (days) 5 Sexual Problems? N Age at Menarche 11 Current Control Method Condoms LMP Definite Desired Control Method Other Obstetrics History GPAL:G 0 P 0 0 0 0 Type Value Multiple Births 0 Full Term 0 Induced 0 Spontaneous 0 Premature 0 Living 0 Ectopics 0 Total 0 Immunizations Vaccine Type Date Status Note Provider Nam e and Address Organization Details Recorded Time Influenza, split virus, quadrivalent, PF 06/15/2014 completed SHANDA Christianson - [facility] 10/04/2014 10:46:43 Past Encounters Encounter ID Performer Location Encounter Start Date Encounter Closed Date Diagnosis/Indication Diagnosis SNOMED-CT Code Diagnosis ICD10 Code Diagnosis Note [id number] 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) [address] [place] [address] 10/04/2014 10:00:57 10/04/2014 12:51:38 Bacterial vaginosis 499218187 -Flagyl 500mg BID x 7d -Advise against douching, limit number of sexual partners, encourage safe sex practices, ie condom use -Education regarding BV signs and symptoms Family sulema nning surveillance 073339368 Contracept ion education 599399269 Contraception care 234110925 [id number] [facility] (Adult Med) [address] [place] [address] 01/12/2016 10:26:45 01/12/2016 11:09:44 Eruption 211742012 R21 Advised to mix creams together and apply BID x 7 days and then stop for 4 days and can reapply for another 7 days RTC if no improvemen t Fatigue 99484068 R53.83 Adult heal th examination 854512674 Z00.01 21YO female here to establish care. [id number] Brenda Sousa MD [facility] [address] [place] [address] 11/18/2018 14:24:47 11/23/2018 08:08:38 Hemorrhoids 46080936 K64.9 Iron defic iency anemia 80359071 D50.9 Moderate r ecurrent major depression 93241116 F33.1 [id number] Crystal Rolle MA [facility] [address] [place] [address] 11/25/2018 10:33:13 12/08/2018 03:46:20 [id number] Brenda Sousa MD [facility] [address] [place] [address] 01/29/2019 15:51:25 02/09/2019 10:03:42 Depressive disorder 10505088 F32.89 will stop fluoxetine and start sertraline [id number] Brenda Sousa MD [facility] [address] [place] [address] 06/04/2019 16:03:28 06/07/2019 10:59:13 Adult health examination 731325419 Z00.00 Standardiz ed adult depression screening tool completed [id number] 51196 Z13.89 Health Concerns Section Related Observation LastModified by Organization Detai ls LastModified Time None Recorded Concern Status LastModified by Organization Details LastModified Time None Recorded Advance Directives Directive N: Payers Encounter Date Sequence Insurance Name Policy Number Policy Moralez Covered Member ID Moralez Member ID Guarantor Name 01/12/2016 1 [facility] PRIOR TO 03/15/2021 (MEDICAID REPLACEMENT - HMO) Mili Mcmahon [id number] Mili Mcmahon 11/18/2018 1 [facility] PRIOR TO 03/15/2021 (MEDICAID REPLACEMENT - HMO) Mili Mcmahon [id number] Mili Mcmahon 11/25/2018 1 [facility] PRIOR TO 03/15/2021 (MEDICAID REPLACEMENT - HMO) Mili Mcmahon [id number] Mili Mcmahon 01/29/2019 1 [facility] PRIOR TO 03/15/2021 (MEDICAID REPLACEMENT - HMO) Mili Mcmahon [id number] Mili Mcmahon 06/04/2019 1 [facility] PRIOR TO 03/15/2021 (MEDICAID REPLACEMENT - HMO) Mili Mcmahon [id number] iMli Mcmahon Notes Date Note Type Note Provider Name and Address Organization Details Recorded Time 01/12/2016 text/html Rash/Skin LesionReported bypatient.Location:a renetta (back of left arm by shoulder); thighs (right upper thigh) Quality:itchy;red;fl aking;single(one in each spot);increasing in size Severity:mild Duration:has noted for >3 months Onset/Timing:abrupt onset Context:no new detergents or skin products; no one else with similar rash;scratching Associated Symptoms:no fever; no cold symptoms; no nausea; no vomiting; no diarrhea; no urinary symptoms; no chills; no fatigue; no change in weight Here to establish care Little Hernandez PA-C Attn: Accounting,[address] [place], [address], [place] - [facility] 01/12/2016 11:09:35 11/18/2018 text/html Discussed causes and treatment for hemorrhoids, and will refer patient for surgical excision. Brenda Sousa MD Attn: Accounting,[address] [place], [address], [facility] 11/22/2018 23:39:16 11/18/2018 text/html AnemiaReported bypatient.Severity:M icrocytic (MCV<80) Duration:constant Timing:gradual Context:patient of menstruating age; could also have GI blood loss. Associated Symptoms:no chest pain; no vomiting; no melena; no blood in stool; no excessive sweating; normal nails; tolerant of cold; no nonfood cravings; no behavior problems; no symptoms of peripheral neuropathy; normal balance; no jaundice; no pallor; no weight loss;shortness of breath;shortness of breath during exertion;nausea mild;weakness;fatigu e;general malaise;poor concentrationAnxiety /DepressionReported bypatient.Quality:mo od worse;increased anxiety Severity:denies suicidal ideations; able to maintain relationships;interf erence with household activities;interfere nce with sleep;interference with work Duration:symptoms lasting over 2 weeks Onset/Timing:gradual Context:family problems;trouble at work;ETOH use Modifying Factors:social support; medications as directed Associated Symptoms:denies homicidal ideations; no visual/auditory hallucinations;emoti onal lability;depression; anhedonia;feeling guilty;inability to make decisions;low self-esteem;pessimis m;decreased effectiveness/produc tivity;shortness of breath Brenda Sousa MD Attn: Accounting,[address] [facility], [place], [address], [facility] 11/22/2018 23:39:16 01/29/2019 text/html Anxiety/Depressi onRe ported bypatient.Quality:mo od worse Severity:denies suicidal ideations; able to maintain relationships;interf erence with household activities;interfere nce with sleep Duration:symptoms lasting over 2 weeks Onset/Timing:gradual Context:major life stressors;family problems;trouble at work Modifying Factors:counselling; medications as directed Associated Symptoms:denies homicidal ideations; no crying spells;anxiety;depre ssion;restlessness/a gitation;sleep disturbances;anhedon ia;anxiety with muscle tension Brenda Sousa MD Attn: Accounting,[address] [place], [address], [facility] 02/09/2019 01:30:30 OBGyn Episode No OBEpisode recorded.
--- OUTSIDE RECORDS SUMMARY | 2024-12-16 17:35 | XMS_ITS | Clinical Summary ---
Author Organization [facility] Address [address] [place] [address] Care Team Providers Care Retail Inventory Control Clerk Name Role Phone Brenda Fisher MD Primary Care Provider [phone] [facility] [place],non-owned Affiliates and Associated Physician Practices is amultiple site organization consisting of ambulatory clinics and hospital sitesin [place], [place], [place] and [place]. This disclosure is being madepursuant to the Care Everywhere program and may not contain all information available regarding this patient. Last updated 18.[employer] [place] Allergies No known active allergies Medications * Be aware that medications may not be up to date on this document. Alwaysverify current medications with the patient. Medication Sig Dispensed Refills Start Date End Date Status Levonorgest-Eth Estrad 91-Day (LOSEASONIQUE PO) Take by mouth daily. 08/21/2010 Active Active Problems Problem Noted Date Diagnosed Date Murmur 08/21/2010 Social History Tobacco Use Types Packs/Day Years Used Date Smoking Tobacco: Never Assessed Sex and Gender Information Value Date Recorded Sex Assigned at Not on file Gender Identity Not on file Sexual Orientation Not on file Last Filed Vital Signs Vital Sign Reading Time Taken Comments Blood Pressure 106/58 08/21/2010 10:46 AM [facility] Pulse 88 08/21/2010 10:46 AM [facility] Temperature - - Respiratory Rate 28 08/21/2010 10:46 AM [facility] Oxygen Saturation - - Inhaled Oxygen Concentration - - Weight 54.7 kg (120 lb 9.5 oz) 08/21/2010 10:46 AM [facility] Height 164.3 cm (5' 4.69 ) 08/21/2010 10:46 AM [facility] Body Mass Index 20.26 08/21/2010 10:46 AM [facility] Plan of Treatment Health Maintenance Due Date Last Done Comments HIV SCREENING 2009 HEPATITIS C SCREENING 01/02/2012 DTAP/TDAP/TD VACCINES (1 - Tdap) 2013 HEPATITIS B VACCINE (1 of 3 - 19+ 3-dose series) 2013 COVID-19 VACCINE (1 - 2023-2 5 season) 2024 DEPRESSION SCREENING 09/15/2024 INFLUENZA VACCINE (Season Ended) 2025 ZOSTER VACCINE (1 of 2) 01/07/2044 HIB VACCINE Aged Out No longer eligi ble based on patient's age to complete this topic HPV VACCINE Aged Out No longer eligi ble based on patient's age to complete this topic MENINGOCOCCAL (Group B) VACC INE SHARED DECISION-MAKING Aged Out No longer eligibl e based on patient's age to complete this topic MENINGOCOCCAL GROUPS A/C/Y/W VACCINE Aged Out No longer eligible b ased on patient's age to complete this topic PNEUMOCOCCAL VACCINE Aged Out No long er eligible based on patient's age to complete this topic Care Teams Retail Inventory Control Clerk Relationship Specialty Start Date End Date Brenda Fisher MD [address] [place] [address] [facility] - General 04/02/21
--- OUTSIDE RECORDS SUMMARY | 2024-12-16 17:36 | XMS_ITS | Clinical Summary ---
Author Organization [facility] Address [address] [place] [address] Phone Care Team Providers Care Cloth Wire Weaver Name Role Phone Unavailable Primary Care Provider Unavailabl e Social History Tobacco Use Types Packs/Day Years Used Date Smoking Tobacco: Never Assessed Comments Unknown Sex and Gender Information Value Date Recorded Sex Assigned at Not on file Legal Sex Female 10:52 PM CDT Gender Identity Not on file Sexual Orientation Not on file Plan of Treatment Health Maintenance Due Date Last Done Comments DTAP/TDAP/TD VACCINES (1 - Tdap) 2013 HEPATITIS B VACCINES (1 of 3 - 19+ 3-dose series) 2013 PAP SMEAR 2015 CERVICAL CANCER SCREENING 01/07/2024 HPV/Cotest (30-65) 01/07/2024 PAP SMEAR 01/07/2024 INFLUENZA VACCINE (#1) 2024 HPV VACCINES Aged Out No longer eligi ble based on patient's age to complete this topic Insurance [facility] MEDICAID
--- OUTSIDE RECORDS SUMMARY | 2024-12-16 17:36 | XMS_ITS | Data Portability ---
Author Organization [facility] Address [address] [place] [address] [place] [address] Care Team Providers Care Moss Gatherer Name Role Phone SHABBIR SOUSA Primary Care Provider Assessment Encounter Date Assessment Date Assessment LastModified by Organization Details LastModified Time 09/23/2024 09/23/2024 Patient is ___weeks . Discussed plan. Not available 09/23/2024 10:00:38 10/15/2024 10/15/2024 Patient is ___weeks . Discussed plan. Not available 10/15/2024 12:10:47 11/09/2024 11/09/2024 Patient is ___weeks . Discussed plan. Not available 11/09/2024 10:05:51 12/06/2024 12/06/2024 Patient is ___weeks . Discussed plan. Not available 12/06/2024 09:40:15 Plan of Treatment Reminders Order Date Submit Date Provider Last Modified By Organization Details Last Modified Time Details Appointments U/S OB GROWTH 2024 09:00A M ULTRASOUND Not available Not available Not available OB ROUTINE 2024 09:30A M Pablo PANTOJA MD Not available Not available Not available Lab None recorde d. Referral None recorde d. Procedures None recorde d. Surgeries None recorde d. Imaging US, obstetr ic, 2nd or 3rd trimest er 2024 025 [email or web address] [address], [address], [place], [address], 10/14/2024 20:48:58 Medication Orders None recorde d. Patient TargetsNo targets recorded. Patient InstructionsNo instructions recorded. Reason for Referral None Reported. Results Created Date Observation Date Name Description Value Unit Range Abnormal Flag Note LastModifiedBy Organization Detail LastModifiedTime 09/02/20 24 09/02/2024 [UNIT Y] ANEUP LOIDY NIPT fraction 10.2% normal Not Available [facility] [address] [facility], [place], [address], 09/02/2024 02:39:33 09/02/20 24 09/02/2024 [UNIT Y] ANEUP LOIDY NIPT 22Q11.2 microdeletio n LOW RISK <1 in 10,000 normal Not Available [facility] [address] [facility], [place], [address], 09/02/2024 02:39:33 09/02/20 24 09/02/2024 [UNIT Y] ANEUP LOIDY NIPT sex chromosome aneuploidy NOT DETECT ED normal Not Available [facility] [address] [facility], [place], [address], 09/02/2024 02:39:33 09/02/20 24 09/02/2024 [UNIT Y] ANEUP LOIDY NIPT monosomy X LOW RISK <1 in 10,000 normal Not Available [facility] [address] [facility], [place], [address], 09/02/2024 02:39:33 09/02/20 24 09/02/2024 [UNIT Y] ANEUP LOIDY NIPT trisomy 13 LOW RISK <1 in 10,000 normal Not Available [facility] [address] [place], [address], 09/02/2024 02:39:33 09/02/20 24 09/02/2024 [UNIT Y] ANEUP LOIDY NIPT trisomy 18 LOW RISK <1 in 10,000 normal Not Available [facility] [address] [place], [address], 09/02/2024 02:39:33 09/02/20 24 09/02/2024 [UNIT Y] ANEUP LOIDY NIPT trisomy 21 LOW RISK <1 in 10,000 normal Not Available [facility] [address], [place], [address], 09/02/2024 02:39:33 09/02/20 24 09/02/2024 [UNIT Y] ANEUP LOIDY NIPT sex FEMALE normal Not Available [facility] [address], [place], [address], 09/02/2024 02:39:33 09/02/20 24 09/02/2024 [UNIT Y] ANEUP LOIDY NIPT gestation SINGLE TON normal Not Available [facility] [address] [facility], [place], [address], 09/02/2024 02:39:33 09/02/20 24 09/02/2024 [UNIT Y] ANEUP LOIDY NIPT for detailed report, see pdf See PDF normal Not Available [facility] [address] [facility], [place], [address], 09/02/2024 02:39:33 09/06/20 24 09/06/2024 [UNIT Y] TEA Charles sickle cell disease/beta -thalassemia /hemoglobino pathies carrier screen NEGATI VE normal Not Available [facility] [address] [facility], [place], [address], 09/06/2024 22:05:17 09/06/20 24 09/06/2024 [UNIT Y] TEA Charles alpha-thalas semia carrier screen NEGATI VE normal Not Available [facility] [address] [facility], [place], [address], 09/06/2024 22:05:17 09/06/20 24 09/06/2024 [UNIT Y] TEA Charles cystic fibrosis carrier screen NEGATI VE normal Not Available [facility] [address] [facility], [place], [address], 09/06/2024 22:05:17 09/06/20 24 09/06/2024 [UNIT Y] TEA Charles spinal muscular atrophy carrier screen NEGATI VE 2 SMN1 copies , SNP not presen t normal Not Available [facility] [address], [place], [address], 09/06/2024 22:05:17 09/06/20 24 09/06/2024 [UNIT Y] TEA Charles for detailed report, see pdf See PDF normal Not Available [facility], [place], [address], 09/06/2024 22:05:17 08/26/20 24 08/26/2024 CBC W/DIF F WBC 10.9 10'3/ uL 3.5-10 .5 high Not Available [facility] (Lab) [address] , [place], [address], 08/27/2024 13:32:48 08/26/20 24 08/26/2024 CBC W/DIF F RBC 4.64 10'6/ uL (based on docume nted legal sex) 3.80-5 .20 Not Available [facility] (Lab) [address], [place], [address], 08/27/2024 13:32:48 08/26/20 24 08/26/2024 CBC W/DIF F HGB 13.2 g/dL (based on docume nted legal sex) 11.6-1 5.4 Not Available [facility] (Lab) [address] [facility], [place], [address], 08/27/2024 13:32:48 08/26/20 24 08/26/2024 CBC W/DIF F HCT 40.9 % (based on docume nted legal sex) 34.0-4 5.0 Not Available [facility] (Lab) [address] , [place], [address], 08/27/2024 13:32:48 08/26/20 24 08/26/2024 CBC W/DIF F MCV 88.1 fL 80.0-9 9.0 Not Available [facility] (Lab) [address], [place], [address], 08/27/2024 13:32:48 08/26/20 24 08/26/2024 CBC W/DIF F MCH 28.4 pg 27.0-3 4.0 Not Available [facility] (Lab) [address], [place], [address], 08/27/2024 13:32:48 08/26/20 24 08/26/2024 CBC W/DIF F MCHC 32.3 g/dL 32.0-3 5.5 Not Available [facility] (Lab) [address], [place], [address], 08/27/2024 13:32:48 08/26/20 24 08/26/2024 CBC W/DIF F RDW 13.1 % 11.0-1 5.0 Not Available [facility] (Lab) [address], [place], [address], 08/27/2024 13:32:48 08/26/20 24 08/26/2024 CBC W/DIF F plt 249 10'3/ uL 150-40 0 Not Available [facility] (Lab) [address], [place], [address], 08/27/2024 13:32:48 08/26/20 24 08/26/2024 CBC W/DIF F MPV 11.6 fL 8.8-12 .1 Not Available [facility] (Lab) [address], [place], [address], 08/27/2024 13:32:48 08/26/20 24 08/26/2024 CBC W/DIF F NRBC's 0.0 % 0.0 Not Available [facility] (Lab) [address] [facility], [place], [address], 08/27/2024 13:32:48 08/26/20 24 08/26/2024 CBC W/DIF F absolute NRBCs 0.0 10'3/ uL no refere nce range establ ished Not Available [facility] (Lab) [address] [facility], [place], [address], 08/27/2024 13:32:48 08/26/20 24 08/26/2024 CBC W/DIF F neutrophils 82.1 % 34.0-7 3.0 high Not Available [facility] (Lab) [address] [facility], [place], [address], 08/27/2024 13:32:48 08/26/20 24 08/26/2024 CBC W/DIF F lymphocytes 11.9 % 15.0-5 0.0 low Not Available [facility] (Lab) [address] [facility], [place], [address], 08/27/2024 13:32:48 08/26/20 24 08/26/2024 CBC W/DIF F monocytes 3.9 % 1.0-15 .0 Not Available [facility] (Lab) [address] [facility], [place], [address], 08/27/2024 13:32:48 08/26/20 24 08/26/2024 CBC W/DIF F eosinophils 1.6 % 0.0-8. 0 Not Available [facility] (Lab) [address] [facility], [place], [address], 08/27/2024 13:32:48 08/26/20 24 08/26/2024 CBC W/DIF F basophils 0.3 % 0.0-2. 0 Not Available [facility] (Lab) [address] [place], [address], 08/27/2024 13:32:48 08/26/20 24 08/26/2024 CBC W/DIF F immature granulocytes 0.2 % no define d refere nce range Not Available [facility] (Lab) [address] [facility], [place], [address], 08/27/2024 13:32:48 08/26/20 24 08/26/2024 CBC W/DIF F absolute neutrophils 9.0 10'3/ uL 1.5-8. 0 high Not Available [facility] (Lab) [address] [facility], [place], [address], 08/27/2024 13:32:48 08/26/20 24 08/26/2024 CBC W/DIF F absolute lymphocytes 1.3 10'3/ uL 1.0-4. 0 Not Available [facility] (Lab) [address] [facility], [place], [address], 08/27/2024 13:32:48 08/26/20 24 08/26/2024 CBC W/DIF F absolute monocytes 0.4 10'3/ uL 0.2-1. 0 Not Available [facility] (Lab) [address] [facility], [place], [address], 08/27/2024 13:32:48 08/26/20 24 08/26/2024 CBC W/DIF F absolute eosinophils 0.2 10'3/ uL 0.0-0. 6 Not Available [facility] (Lab) [address] [place], [address], 08/27/2024 13:32:48 08/26/20 24 08/26/2024 CBC W/DIF F absolute basophils 0.0 10'3/ uL 0.0-0. 3 Not Available [facility] (Lab) [address] [place], [address], 08/27/2024 13:32:48 08/26/20 24 08/26/2024 CBC W/DIF F absolute immature granulocytes 0.0 10'3/ uL 0.00-0 .10 08/27 2:25 AM: P indic ates parti al resul ts on a panel have been relea sed. Addit ional resul ts will follo w. 08/27 2:25 AM: This resul t has been final verif ied. No addit ional or nuñez ed resul ts are expec amanda. Not Available [facility] (Lab) [address], [place], [address], 08/27/2024 13:32:48 08/26/20 24 08/26/2024 HEPAT ITIS C ANTIB FRANSISCO SCREE N, REFLE X TO CONFI RMATI ON hepatitis C antibody Non-re active non-re active Antib odies to HCV Not Detec amanda, does not exclu de the possi bilit y of expos ure to HCV. Not Available [facility] (Lab) [address], [place], [address], 08/27/2024 13:32:48 08/26/20 24 08/26/2024 HEPAT ITIS B SURFA CE ANTIG EN hepatitis B surface antigen Non-re active non-re active This assay was perfo rmed using [employer] ratio n reage nts and test kits. Value s obtai dilip with other assay metho ds or kits canno t be used inter joaquin gainesy . Not Available [facility] (Lab) [address], [place], [address], 08/27/2024 13:32:49 08/26/20 24 08/26/2024 HIV 1/2 ANTIG EN/AN TIBOD Y, REFLE X CONFI RMATI ON HIV antigen/anti body Nonrea ctive nonrea ctive HIV-1 antig en and HIV-1 /HIV- 2 antib odies were not detec amanda. No labor atory evide nce of HIV infec tion. Not Available [facility] (Lab) [address], [place], [address], 08/27/2024 13:32:49 08/26/20 24 08/26/2024 RUBEL LA IGG ANTIB FRANSISCO, QUANT rubella antibodies, IgG Reacti ve reacti ve Not Available [facility] (Lab) [address], [place], [address], 08/27/2024 13:32:49 08/26/20 24 08/26/2024 RUBEL LA IGG ANTIB FRANSISCO, QUANT rubella antibodies, IgG quant 18.3 IU/mL >=10 Non-r eacti ve (Non- Immun e) <10 IU/mL React kelly (Immu ne) > or = 10 IU/mL Not Available [facility] (Lab) [address] [facility], [place], [address], 08/27/2024 13:32:49 08/26/20 24 08/26/2024 HEMOG LOBIN A1C hemoglobin A1C 5.2 % 4.0-5. 6 The Ameri can [employer] [facility] [employer] i[employer] n recom mends that a prima ry goal of thera py shoul d be a HBA1C of < 7% and that physi cians shoul d reeva luate the treat ment regim en in patie nts with HBA1C value s consi stent ly > 8%. <5.7% Wanda l 5.7 - 6.4% Incre ased risk for diabe shelby >=6.5 % Diagn ostic of diabe shelby <7.0% Goal of thera py >8.0% Actio n sugge sted Not Available [facility] (Lab) [address] [facility], [place], [address], 08/27/2024 13:32:50 08/26/20 24 08/26/2024 TYPE/ RH/SC REEN ABO/Rh type O POS Not Available [facility] (Lab) [address] [facility], [place], [address], 08/27/2024 13:32:50 08/26/20 24 08/26/2024 TYPE/ RH/SC REEN antibody screen NEG Not Available [facility] (Lab) [address] [facility], [place], [address], 08/27/2024 13:32:50 08/26/20 24 08/26/2024 TYPE/ RH/SC REEN exp date 2023 23:59 Not Available [facility] (Lab) [address] [facility], [place], [address], 08/27/2024 13:32:50 08/26/20 24 08/26/2024 RPR SCREE N, REFLE X TITER /CONF IRMAT ION RPR screen Nonrea ctive nonrea ctive Not Available [facility] (Lab) [address] [facility], [place], [address], 08/27/2024 13:32:50 08/26/20 24 08/26/2024 CULTU RE: URINE result report SEE RESULT S BELOW Test: Cultu re: Urine Speci men Sourc e: Urine - Clean Catch Speci men Type: Urine Speci men Date: 08/26 1014 Resul t Date: 08/28 0614 Resul t Statu s: Final resul t Abnor mal: No Resul ting Lab: [facility] [address] [facility] [place] [address] Tel: CULTU RE ----- ----- ----- --- No growt h in 1 day (dete ction level of 10,00 0 colon ies / ml.) Not Available [facility] (Lab) [address] [facility], [place], [address], 08/28/2024 07:20:51 08/26/20 24 08/26/2024 drug scree n, urine Amphetamines : negati ve Not Available [facility] [address], [place], [address], 08/26/2024 10:37:34 08/26/20 24 08/26/2024 drug scree n, urine Cannabinoids : negati ve Not Available [facility] [address], [place], [address], 08/26/2024 10:37:34 08/26/20 24 08/26/2024 drug scree n, urine Cocaine: negati ve Not Available [facility] [address], [place], [address], 08/26/2024 10:37:34 08/26/20 24 08/26/2024 drug scree n, urine Opiates: negati ve Not Available [facility] [address], [place], [address], 08/26/2024 10:37:34 08/26/20 24 08/26/2024 drug scree n, urine Phenocyclidi ne: negati ve Not Available [facility] [address], [place], [address], 08/26/2024 10:37:34 08/26/20 24 08/26/2024 drug scree n, urine Barbiturates : negati ve Not Available [facility] [address], [place], [address], 08/26/2024 10:37:34 08/26/20 24 08/26/2024 drug scree n, urine Benzodiazepi chris: negati ve Not Available [facility] [address], [place], [address], 08/26/2024 10:37:34 08/26/20 24 08/26/2024 drug scree n, urine Ethanol: negati ve Not Available [facility] [address], [place], [address], 08/26/2024 10:37:34 08/26/20 24 08/26/2024 drug scree n, urine Hallucinogen s: negati ve Not Available [facility] [address], [place], [address], 08/26/2024 10:37:34 08/26/20 24 08/26/2024 drug scree n, urine Inhalants: negati ve Not Available [facility] [address], [place], [address], 08/26/2024 10:37:34 08/26/20 24 08/26/2024 drug scree n, urine Anabolic Steroids: negati ve Not Available [facility] [address], [place], [address], 08/26/2024 10:37:34 12/07/19 25 12/06/2024 HEMAT OCRIT (HCT) HCT 35.8 % (based on docume nted legal sex) 34.0-4 5.0 Not Available [facility] (Lab) [address] [facility], [place], [address], 12/07/2024 12:58:43 12/07/19 25 12/06/2024 HEMOG LOBIN (HGB) HGB 11.2 g/dL (based on docume nted legal sex) 11.6-1 5.4 low Not Available [facility] (Lab) [address] [facility], [place], [address], 12/07/2024 12:58:44 12/07/19 25 12/06/2024 GTT - GESTA BOBBI L LES Charles, ACOG OB glucose, 1 hour screen 102 mg/dL 70-135 Not Available [facility] (Lab) [address] [place], [address], 12/07/2024 12:58:44 12/07/19 25 12/06/2024 HIV 1/2 ANTIG EN/AN TIBOD Y, REFLE X CONFI RMATI ON HIV antigen/anti body Nonrea ctive nonrea ctive HIV-1 antig en and HIV-1 /HIV- 2 antib odies were not detec amanda. No labor atory evide nce of HIV infec tion. Not Available [facility] (Lab) [address] [facility], [place], [address], 12/07/2024 12:58:45 12/07/19 25 12/06/2024 RPR SCREE N, REFLE X TITER /CONF IRMAT ION RPR qualitative Nonrea ctive nonrea ctive Not Available [facility] (Lab) [address], [place], [address], 12/07/2024 12:58:45 08/26/20 24 08/26/2024 US, obste tric, nucha l trans lucen cy No observ ation record ed. [email or web address] [facility] [address], [place], [address], 08/26/2024 12:20:16 08/26/20 24 08/26/2024 US, obste tric, nucha l trans lucen cy No observ ation record ed. [email or web address] [address], [place], [address], 08/26/2024 20:51:22 10/14/19 25 10/14/2024 US, obste tric, 2nd or 3rd trime ster No observ ation record ed. [email or web address] [facility] [address], [place], [address], 10/14/2024 12:36:34 10/14/19 25 10/14/2024 US, obste tric, 2nd or 3rd trime ster No observ ation record ed. [email or web address] [address], [place], [address], 10/14/2024 21:46:52 Result Notes None recorded. Problems Name Problem SNOMED Code Status Onset Date Resolution Date Notes Provider Name and Address Organization Details Recorded Time Complica tion of pregnanc y, childbir th and/or puerperi [id number] Completed 201709/19/2020 Oth diseases and conditio ns compl preg/chl dbrth;Re corded Elsewher e: No Locat ion: [facility] S ource: EHR Behavioral Geneticist ramírez: N Practi ce ID: [id number] Bernard lable Time: 03:45:00 PM Annie Lehman MD [address], [place], [address], [facility] 1 11:19:26 Antenata l screenin g Completed 201709/19/2020 Encounte r for antenata l screenin g for nuchal transluc ency;Rec orded Elsewher e: No Locat ion: [facility] S ource: EHR Behavioral Geneticist ramírez: Araceli Kelly ce ID: [id number] Bernard lable Time: 02:30:00 PM Annie Lehman MD [address], [place], [address], [facility] 1 11:19:56 Bartholi nitis [id number] Completed 201809/19/2020 Other diseases of Bartholi n's gland;Re corded Elsewher e: No [facility]at [facility] S ource: EHR Behavioral Geneticist ramírez: Araceli Kelly ce ID: [id number] Bernard lable Time: 11:00:00 AM Annie Lehman MD [address], [place], [address], [facility] 1 11:17:48 Pregnanc y, childbir th and puerperi um finding Completed 201709/19/2020 Encntr for suprvsn of normal first preg, third trimeste r;Record ed Elsewher e: No Locat ion: [facility] S ource: EHR Behavioral Geneticist ramírez: Araceli Kelly ce ID: [id number] Bernard lable Time: 04:00:00 PM Annie Lehman MD [address], [place], [address], [facility] 1 11:19:01 Pregnanc y, childbir th and puerperi um finding Completed 201709/19/2020 Encounte r for supervis ion of normal 1st pregnanc y, 1st trimeste r;Record ed Elsewher e: No [facility]at [facility] S ource: EHR Behavioral Geneticist ramírez: Araceli Kelly ce ID: [id number] Bernard lable Time: 03:00:00 PM Annie Lehman MD [address], [place], [address], [facility] 11:18:57 Missed miscarri age [id number] Completed 201809/19/2020 Missed ;Recorde d Elsewher e: No Locat ion: [facility] S ource: EHR Behavioral Geneticist ramírez: N Josieti ce ID: [id number] Bernard lable Time: 02:00:00 PM Annie Lehman MD [address], [place], [address], [facility] 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 11:19:14 Spotting per vagina in pregnanc y [id number] Completed 201709/19/2020 Spotting complica ting pregnanc y, second trimeste r;Record ed Elsewher e: No Locat ion: [facility] S ource: EHR Behavioral Geneticist ramírez: N Josieti ce ID: 0001 Bernard lable Time: 02:15:00 PM Annie Lehman MD [address], [place], [address], [facility] 11:19:16 Placenta previa [id number] Completed 201709/19/2020 Placenta previa specifie d as w/o hemor, second trimeste r;Record ed Elsewher e: No Locat ion: [facility] S ource: EHR Behavioral Geneticist ramírez: N Practi ce ID: [id number] Bernard lable Time: 01:00:00 PM Annie Lehman MD [address], [place], [address], [facility] 11:18:52 Increase d frequenc y of urinatio n [id number] Completed 201909/19/2020 Frequenc y of micturit ion;Amandeep rded Elsewher e: No Locat ion: [facility] S ource: EHR Behavioral Geneticist ramírez: N Practi ce ID: [id number] Bernard lable Time: 02:30:00 PM Annie Lehman MD [address], [place], [address], [facility] 11:18:33 Gestatio n period, 8 weeks [id number] Completed 201809/19/2020 8 weeks gestatio n of pregnanc y;Record ed Elsewher e: No Locat ion: [facility] S ource: EHR Behavioral Geneticist ramírez: N Practi ce ID: [id number] Bernard lable Time: 02:00:00 PM Annie Lehman MD [address], [place], [address], [facility] 11:18:28 Normal pregnanc y in multigra andrzej [id number] 20311 Completed 201709/19/2020 Encounte r for supervis ion of other normal pregnanc y, 3rd trimeste r;Record ed Elsewher e: No Locat ion: [facility] S ource: EHR Behavioral Geneticist ramírez: N Practi ce ID: [id number] Bernard lable Time: 02:00:00 PM Annie Lehman MD [address], [place], [address], [facility] 11:18:49 Antenata l screenin g for malforma tion Completed 201709/19/2020 Encounte r for antenata l screenin g for malforma tions;Pr actice ID: [id number] Annie Lehman MD [address], [place], [address], [facility] 11:19:53 Gestatio n period, 18 weeks [id number] Completed 201709/19/2020 18 weeks gestatio n of pregnanc y;Practi ce ID: 0001 Annie Lehman MD [address], [place], [address], [facility] 11:18:12 Gestatio n period, 17 weeks [id number] Completed 201709/19/2020 17 weeks gestatio n of pregnanc y;Practi ce ID: 0001 Annie Lehman MD [address], [place], [address], [facility] 11:18:10 Pregnanc y, childbir th and puerperi um finding Completed 201709/19/2020 Encntr for suprvsn of normal first preg, second trimeste r;Practi ce ID: 0001 Annie Lehman MD [address], [place], [address], [facility] 11:18:59 Gestatio n period, 24 weeks [id number] Completed 201709/19/2020 24 weeks gestatio n of pregnanc y;Record ed Elsewher e: No Locat ion: [facility] S ource: EHR Behavioral Geneticist ramírez: N Practi ce ID: [id number] Bernard lable Time: 01:00:00 PM Annie Lehman MD [address], [place], [address], [facility] 11:18:15 Gestatio n period, 27 weeks [id number] Completed 201709/19/2020 27 weeks gestatio n of pregnanc y;Record ed Elsewher e: No Locat ion: [facility] S ource: EHR Behavioral Geneticist ramírez: N Josieti ce ID: 0001 Bernard lable Time: 03:15:00 PM Annie Lehman MD [address], [place], [address], [facility] 11:18:19 Pregnanc y detectio n examinat ion Completed 201809/19/2020 Encounte r for pregnanc y test, result positive ;Recorde d Elsewher e: No Locat ion: [facility] S ource: E[facility] Behavioral Geneticist ramírez: N Josieti ce ID: [id number] Bernard lable Time: 02:00:00 PM Annie Lehman MD [address], [place], [address], [facility] 11:18:54 Uses combined oral contrace ption [id number] Completed 201809/19/2020 Encounte r for surveill ance of contrace ptive pills;Re corded Elsewher e: No Locat ion: [facility] S ource: E[facility] Behavioral Geneticist ramírez: N Josieti ce ID: [id number] Bernard lable Time: 10:45:00 AM Annie Lehman MD [address], [place], [address], [facility] 11:18:02 Lochia finding Completed 201709/19/2020 Encounte r for routine postpart um follow-u p;Record ed Elsewher e: No Locat ion: [facility] S ource: EHR Behavioral Geneticist ramírez: N Practi ce ID: [id number] Bernard lable Time: 01:15:00 PM Annie Lehman MD [address], [place], [address], [facility] 11:18:43 Rubella screenin g status [id number] Completed 201709/19/2020 Encounte r for antenata l screenin g, unspecif ied;Amandeep rded Elsewher e: No [facility]at [facility]: [facility] S ource: EHR Behavioral Geneticist ramírez: N Practi ce ID: 0001 Bernard lable Time: 03:30:00 PM Annie Lehman MD [address], [place], [address], [facility] 11:19:07 Prematur e labor [id number] Completed 201709/19/2020 labor without delivery , second trimeste r;Practi ce ID: 0001 Annie Lehman MD [address], [place], [address], [facility] 11:19:05 False labor before 37 complete d weeks of gestatio n [id number] 0315899 Completed 201709/19/2020 False labor before 37 complete d weeks of gest, second tri;Prac michel ID: 0001 Annie Lehman MD [address], [place], [address], [facility] 11:18:07 Gestatio n period, 26 weeks [id number] Completed 201709/19/2020 26 weeks gestatio n of pregnanc y;Practi ce ID: 0001 Annie Lehman MD [address], [place], [address], [facility] 11:18:17 Syphilis test finding [id number] Completed 201809/19/2020 Encntr screen for infectio ns w sexl mode of transmis s;Record ed Elsewher e: No Locat ion: [facility] S ource: EHR Behavioral Geneticist ramírez: N Practi ce ID: 0001 Bernard lable Time: 02:00:00 PM Annie Lehman MD [address], [place], [address], [facility] 11:19:18 Disorder of perineum Completed 201709/19/2020 Anogenit al (venerea l) warts;Re corded Elsewher e: No [facility]: EHR Behavioral Geneticist ramírez: N Practi ce ID: 0001 Bernard lable Time: 08:45:00 AM Annie Lehman MD [address], [place], [address], [facility] 1 11:19:29 Cardiac arrhythm ia Completed 201709/19/2020 Prematur e contract ion;Amandeep rded Elsewher e: No Locat ion: [facility] S ource: EHR Behavioral Geneticist ramírez: N Practi ce ID: 0001 Bernard lable Time: 08:45:00 AM Annie Lehman MD [address], [place], [address], [facility] 1 11:17:56 Pregnanc y, childbir th and puerperi um finding Completed 201709/19/2020 Oth pregnanc y related conditio ns, second trimeste r;Practi ce ID: 0001 Annie Lehman MD [address], [place], [address], [facility] 11:17:54 Infectio n screenin g Completed 201809/19/2020 Encounte r for screenin g for oth infec/pa rastc diseases ;Recorde d Elsewher e: No Locat ion: [facility] S ource: EHR Behavioral Geneticist ramírez: N Practi ce ID: 0001 Bernard lable Time: 02:00:00 PM Annie Lehman MD [address], [place], [address], [facility] 11:18:36 Pregnanc y, childbir th and puerperi um finding Completed 201709/19/2020 Oth pregnanc y related conditio ns, third trimeste r;Practi ce ID: 0001 Annie Lehman MD [address], [place], [address], [facility] 11:17:59 Gestatio n period, 36 weeks [id number] Completed 201709/19/2020 36 weeks gestatio n of pregnanc y;Practi ce ID: 0001 Annie Lehman MD [address], [place], [address], [facility] 11:18:22 False labor at or after 37 complete d weeks of gestatio n [id number] Completed 201709/19/2020 False labor at or after 37 complete d weeks of gestatio n;Practi ce ID: 0001 Annie Lehman MD [address], [place], [address], [facility] 11:18:04 Gestatio n period, 37 weeks 29889064 Completed 201709/19/2020 37 weeks gestatio n of pregnanc y;Practi ce ID: 0001 Annie Lehman MD [address], [place], [address], [facility] 11:18:24 Lacerati on of female perineum Completed 201709/19/2020 Second degree perineal lacerati on during delivery ;Practic e ID: 0001 Annie Lehman MD [address], [place], [address], [facility] 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 13:56:59 Single live [id number] Completed 201709/19/2020 Single live ;Pr actice ID: 0001 Annie Lehman MD [address], [place], [address], [facility] 11:19:11 Gestatio n period, 39 weeks 22715875 Completed 201709/19/2020 39 weeks gestatio n of pregnanc y;Practi ce ID: 0001 Annie Lehman MD [address], [place], [address], [facility] 11:18:26 Secondar y amenorrh ea [id number] Completed 201809/19/2020 Secondar y amenorrh ea;Recor ded Elsewher e: No [facility]: EHR Behavioral Geneticist ramírez: N Practi ce ID: 0001 Bernard lable Time: 02:00:00 PM Annie Lehman MD [address], [place], [address], [facility] 11:19:09 Pregnanc y 96806588 Completed 201902/01/2021 Mary Moreland [facility], [facility] 4 10:07:10 growth restrict ion 33293239 Completed 2020 weekly doppler, antenata l testing at 32wks Eneida [facility]enstieh l [facility], [facility] 10:52:12 False labor 288021117 Completed Procardi a 30mg Eneida [facility]enstieh l [facility], [facility] 10:52:12 Abdomina l pain 71461825 Completed Eneida Bohnenstieh l [facility], [facility] 10:52:12 growth restrict ion 21629238 Completed 202003/14/2021 weekly doppler, antenata l testing at 32wks Jayna Rivas [facility] 1 13:57:01 Pregnanc y 26098786 Active 2023 Mary Moreland [facility] 4 10:07:10 Deliveri es by 231432230 Active to repeat Israel Pantoja MD [address], [place], [address], [facility] 4 10:34:35 Migraine 43711716 Active Israel Pantoja MD [address], [place], [address], [facility] 4 10:34:47 Problem Notes None recorded. Procedures Surgical History Date Name Laterality Status Provider Name and Address Organization Details Recorded Time 3 Date of Last Pap Smear completed Mary Moreland [facility] 07/27/2024 14:36:52 2 Caesarean Section completed Mary Moreland [facility] 07/27/2024 14:40:18 9 Dilation and Curettage completed Sharri Monahan [facility] 06/22/2020 11:59:28 Imaging Results Imaging Date Name Status LastModified by Organization Details LastModified Time 08/26/2024 US, obstetric, nuchal translucency completed [email or web address] [address], [place], [address], 08/26/2024 12:20:16 08/26/2024 US, obstetric, nuchal translucency completed [email or web address], [place], [address], 08/26/2024 20:51:22 10/14/2024 US, obstetric, 2nd or 3rd trimester completed [email or web address] [address], [place], [address], 10/14/2024 12:36:34 10/14/2024 US, obstetric, 2nd or 3rd trimester completed [email or web address], [place], [address], 10/14/2024 21:46:52 Procedure Notes None recorded. Medical Equipment None Reported. Allergies No known drug allergies Medications Name Sig Start Date Stop Date Status Note LastModified by Organization Details LastModified Time Aviane 0.1 mg-20 mcg tablet take 1 tablet by oral route every day 11/16 completed Prescrib ed Elsewher e: No Locat ion: [facility] odify By: jones perera DateTime : 02/03/20 02:30:00 PM Not Available Not Available Not Available Fiorinal 50 mg-325 mg-40 mg capsule Take 1 capsule every 4 hours by oral route. 04/10 completed Stefany gave patient written script Not Available Not Available Not Available nifedipin e ER 30 mg tablet,ex tended release TAKE 1 TABLET BY MOUTH EVERY DAY 04/10 completed Not Available Not Available Not Available sulfameth oxazole 800 mg-trimet hoprim 160 mg tablet take 1 tablet by oral route every 12 hours 06/22 completed Not Available Not Available Not Available butalbita l-acetami nophen-ca ffeine 50 mg-325 mg-40 mg tablet TAKE 1 TABLET BY MOUTH EVERY 4 HOURS NEEDED active Not Available Not Available No t Available Macrobid 100 mg capsule take 1 capsule by oral route every 12 hours for 7 days with food 2024 active Not Available Not Available Not Avai lable oxycodone -acetamin ophen 5 mg-325 mg tablet take 1 tablet by oral route every 4-6 hours as needed 11/16 completed Prescrib ed Elsewher e: No Locat ion: [facility] odify By: yusuf Fajardo er DateTime : 01/30/20 10:10:19 AM Not Available Not Available Not Available amoxicill in 875 mg tablet TAKE 1 TABLET BY MOUTH EVERY 12 HOURS FOR 10 DAYS 10/15 completed Not Available Not Available Not Available metoclopr amide 5 mg tablet TAKE 1 TABLET BY MOUTH EVERY 6 TO 8 HOURS NEEDED 07/27 completed Not Available Not Available Not Available phenazopy ridine 100 mg tablet take 1 tablet by oral route 3 times every day after meals as needed 06/22 completed Not Available Not Available Not Available cephalexi n 500 mg capsule TAKE 1 CAPSULE BY MOUTH TWICE DAILY FOR 7 DAYS 11/16 completed Not Available Not Available Not Available Tylenol 325 mg tablet take 1 tablet by oral route every 4 hours as needed 01/29 completed Prescrib elliott greenberg: Yes Loca tion: [facility] odify By: yusuf pack DateTime : 10/23/19 03:30:00 PM Not Available Not Available Not Available methylpre dnisolone 4 mg tablets in a dose pack 06/22 completed Not Available Not Available Not Available ondansetr on 4 mg disintegr ating tablet DISSOLVE 1 TABLET ON THE TONGUE EVERY 6 HOURS NEEDED FOR NAUSEA OR VOMITING 07/27 completed Not Available Not Available Not Available fluticaso ne propionat e 50 mcg/actua tion nasal spray,vineet pension 06/22 completed Not Available Not Available Not Available sertralin e 50 mg tablet TAKE 1 TABLET BY MOUTH EVERY DAY 07/27 completed Not Available Not Available Not Available metoclopr amide 10 mg tablet TAKE 1 TABLET BY MOUTH FOUR TIMES DAILY active Not Available Not Available No t Available Tylenol active Not Available Not Avail able Not Available active Not Available Not Avai lable Not Available Fioricet 50 mg-300 mg-40 mg capsule Take 1 capsule every 4 hours by oral route. 04/10 completed Not Available Not Available Not Available ID NOW COVID-19 Test Kit DIRECTED [id number] 07/27 completed Not Available Not Available Not Available Vitals Date Recorded Body height Body mass index (BMI) Body weight Systolic blood pressure Diastolic blood pressure Provider Name and Address Organization Details Last Updated DateTime 09/23/2024 162.56 cm 28.7 kg/m2 21008.92 579 g 115 mm[Hg] 69 mm[Hg] [facility] 10:01:46 Date Recorded Body height Body mass index (BMI) Body weight Systolic blood pressure Diastolic blood pressure Provider Name and Address Organization Details Last Updated DateTime 10/15/2024 162.56 cm 30.2 kg/m2 50242.25 712 g 114 mm[Hg] 71 mm[Hg] [facility] 12:11:32 Date Recorded Body weight Systolic blood pressure Diastolic blood pressure Provider Name and Address Organization Details Last Updated DateTime 11/09/2024 58598.8113 4 g 110 mm[Hg] 71 mm[Hg] [facility] 11/09/2024 10:06:30 Date Recorded Body height Body mass index (BMI) Body weight Systolic blood pressure Diastolic blood pressure Provider Name and Address Organization Details Last Updated DateTime 12/06/2024 162.56 cm 33 kg/m2 45765.74 g 124 mm[Hg] 80 mm[Hg] [facility] 09:42:02 Social History Question Answer Notes LastModified by Organizat ion Details LastModified Time Tobacco Smoking Status Never Smoker Bertha Merchant [facility] 11/23/2020 18:10:39 Do You Have An Advance Directive? No Information not available 11/23/2020 What Is Your Level Of Alcohol Consumption? None [id number] Information not available 07/18/2020 Are You Blind Or Do You Have Difficulty Seeing? No Information not available 11/23/2020 What Is Your Level Of Caffeine Consumption? Occasional Information not available 07/27/2024 How Much Tobacco Do You Chew? None Information not available 11/23/2020 In The 14 Days Before Symptom Onset, Have You Had Close Contact With A Laboratory-[facility] COVID-19 While That Case Was Ill? No Information not available 11/23/2020 In The 14 Days Before Symptom Onset, Have You Had Close Contact With A Person Who Is Under Investigation For COVID-19 While That Person Was Ill? No Information not available 11/23/2020 Have You Been To An Area Known To Be High Risk For COVID-19? No Information not available 11/23/2020 Are You Deaf Or Do You Have Serious Difficulty Hearing? No Information not available 11/23/2020 What Type Of Diet Are You Following? REGULAR Information not available 11/23/2020 Do You Or Have You Ever Used E-cigarettes Or Vape? Never Used Electronic Cigarettes Information not available 11/23/2020 What Is The Highest Grade Or Level Of School You Have Completed Or The Highest Degree You Have Received? [id number] Information not available 11/23/2020 What Is Your Occupation? None Information not available 11/23/2020 Are There Any Guns Present In Your Home? Yes Information not available 11/23/2020 What Was The Date Of Your Most Recent Tobacco Screening? 04/10/2021 [email or web address] Information not available 04/10/2021 Do You Use Protection During Sex? No Information not available 07/27/2024 Do You Use Your Seat Belt Or Car Seat Routinely? Yes Information not available 11/23/2020 Do You Have Smoke And Carbon Monoxide Detectors In Your Home? Yes Information not available 11/23/2020 Do You Or Have You Ever Used Smokeless Tobacco? Never Used Smokeless Tobacco Information not available 11/23/2020 How Much Tobacco Do You Smoke? No [email or web address] Information not available 08/18/2020 Do You Feel Stressed (tense, Restless, Nervous, Or Anxious, Or Unable To Sleep At Night)? [id number] Information not available 11/23/2020 Do You Use Any Illicit Or Recreational Drugs? No Information not available 11/23/2020 Do You Use Sunscreen Routinely? Yes Information not available 11/23/2020 Have You Used IV Drugs? No Information not available 11/23/2020 Sex: Unknown Functional Status Question Answer Note LastModified by Organizat ion Details LastModified Time Are you able to walk? YESWOREST [email or web address] Information not available 11/23/2020 What is your exercise level? Occasional Information not available 07/27/2024 Mental Status None recorded. Family History Relationship Description Onset Age of this Age Resolved Age Notes LastModified by Organization Details LastModified Time Mother Diabetes mellitus jgumber Not available 2019 11:58:11 Mother Hypercholest erolemia jgumber Not available 2019 11:58:27 Mother Asthma jgumber Not available 11:58:38 Mother Hypertensive disorder jgumber Not available 2019 11:58:51 Father Diabetes mellitus jgumber Not available 2019 11:58:11 Father Hypercholest erolemia jgumber Not available 2019 11:58:27 Father Hypertensive disorder jgumber Not available 2019 11:58:51 Medical History Condition Response Allergies (Food, seasonal, environmental ) N Other Y Drug/Latex Allergies/Reactions N Blood Transfusion N Breast Cancer N Dermatologic Disorders N Lung Disease N Defects or Inherited Disease N Breast Problem N Gestational Diabetes N Hematologic disorders N Anesthesia Complications N History of STI N Deep Vein Thrombosis N Polycystic ovary syndrome N Anxiety Disorder N Autoimmune disease N Arthritis N Polyps N Infertility N Acid Reflux (GERD) N History of abnormal pap N Cancer N Varicosities N Stroke N Neurologic/Epilepsy N Endometriosis N High Cholesterol N Fibromyalgia N Headaches N Kidney Disease N Heart Problems N Thyroid Problems N Kidney or Bladder Problems N GI Problems N Eating Disorder N Anemia N Art (IVF or FET) N Psychiatric Illness N Ovarian Cancer N Diabetes N Pulmonary (TB, Asthma) N Hepatitis/Liver Disease N No Past Medical History N Eczema N Urinary Tract Infection N Abuse/Domestic Violence N Asthma N Trauma/Violence N Depression/ depression N Heart Disease N Pre-Eclampsia N Hypertension N Osteoporosis N Thrombophilias N Gynecological History Statement/Question Response Abnormal Pap N Date of LMP On BCP's at Conception? N N Was last menstrual period normal N STIs/STDs N HPV Vaccine N Duration of Flow (days) 5 Current Control Method Age at First Child 24 Are cycles usually normal Y Sexually Active? Y BCPs Menses Monthly Y Age of first menstrual cycle 12 Date of Last Pap Smear 09/15/2022 Sexual Problems? N Desired Control Method None LMP Unknown N Obstetrics History GPAL:G 6 P 3 0 2 3 Type Value Full Term 3 Spontaneous 2 Living 3 Total 6 Past Encounters Encounter ID Performer Location Encounter Start Date Encounter Closed Date Diagnosis/Indication Diagnosis SNOMED-CT Code Diagnosis ICD10 Code Diagnosis Note [id number] [address],[place] [address] 06/15/2020 10:20:01 06/15/2020 14:43:05 [id number] Sofía Thurman [facility] [address],[place] [address] 06/22/2020 16:23:42 06/23/2020 15:45:21 Gynecologic examination 63605348 Z01.419 test positive 741164383 Z32.01 Risk factors addressed: Tobacco Cessation, Safe Sexual Practices, environmen lisa, work hazards, travel restrictio ns, seat belt use.Eat a health well balanced diet, avoid alcohol, tobacco, and street drugs. Engage in daily low impact exercise, avoid temperatur e extremes, and cat, rodent, and bird feces.Avoi d travel to areas where zika virus is a concern.Fi rst look offered to patient. First look accepted by patient and will be scheduled. Sequential Screen handout given and discussed with patient.Ch ildbirth classes recommende d.New OB sheet given. If previous , counseling .Pt verbalizes that she understand s the importance of above instructio ns.All questions were answered. Patient reminded to have annual well woman examinatio n and address [place] . [id number] [facility] [address],[place] [address] 07/18/2020 16:32:57 07/18/2020 17:24:28 screening 190115335 Z36.82 Z36.0 Z36.89 [id number] Israel Pantoja MD [facility] [address],[place] [address] 07/18/2020 16:34:01 07/20/2020 15:12:33 Routine care 585471044 Z34.90 [id number] Stefany Dunn CNM [facility] [address],[place] [address] 08/18/2020 15:50:48 08/18/2020 17:07:09 Routine care 375214064 Z34.92 [id number] [facility] [address],[place] [address] 08/18/2020 15:51:57 08/21/2020 09:09:37 [id number] [facility] [address],[place] [address] 09/19/2020 09:30:24 09/19/2020 12:49:24 screening for malformation 194182115 Z36.3 [id number] Annie Lehman MD [facility] [address],[place] [address] 09/19/2020 09:30:56 09/19/2020 11:51:19 Routine care 269425412 Z34.92 [id number] [facility] [address],[place] [address] 10/26/2020 10:28:47 10/26/2020 11:27:30 Small for gestational age fetus 592865696 O36.5920 Z3A.26 [id number] Israel Pantoja MD [facility] [address],[place] [address] 10/26/2020 10:29:24 10/26/2020 12:33:48 Routine care 005563369 Z34.90 [id number] [facility] [address],[place] [address] 11/02/2020 16:25:34 11/03/2020 12:03:37 Small for gestational age fetus 107426506 O36.5920 Z3A.27 [id number] [facility] [address],[place] [address] 11/09/2020 16:47:44 11/09/2020 17:49:54 Small for gestational age fetus 085330373 O36.5920 [id number] [facility] [address],[place] [address] 11/16/2020 16:34:04 11/16/2020 17:26:44 Poor growth affecting management 394271239 O36.5930 Z3A.29 [id number] Israel Pantoja MD [facility] [address],[place] [address] 11/16/2020 16:34:20 11/17/2020 19:03:36 Routine care 022078960 Z34.90 [id number] [facility] [address],[place] [address] 11/23/2020 16:23:32 11/24/2020 14:38:24 Poor growth affecting management 689954682 O36.5930 Z3A.30 [id number] Israel Pantoja MD [facility] [address],[place] [address] 11/23/2020 16:24:03 11/24/2020 14:38:55 Routine care 035887585 Z34.90 [id number] [facility] [address],[place] [address] 11/30/2020 16:49:04 11/30/2020 17:25:15 Poor growth affecting management 858110599 O36.5930 Z3A.31 [id number] Israel Pantoja MD [facility] [address],[place] [address] 11/30/2020 16:49:26 12/01/2020 15:25:48 Routine care 443655037 Z34.90 [id number] [facility] [address],[place] [address] 12/07/2020 16:08:59 12/07/2020 17:00:30 Poor growth affecting management 700951103 O36.5930 Z3A.32 [id number] Eneida Fung [facility] [address],[place] [address] 12/07/2020 16:09:19 12/07/2020 17:29:59 growth restriction 16401676 O35.8XX9 [id number] [facility] [address],[place] [address] 12/07/2020 16:09:36 12/09/2020 15:24:29 Routine care 602938608 Z34.90 [id number] Eneida Fung [facility] [address],[place] [address] 12/11/2020 16:59:41 12/13/2020 09:34:50 growth restriction 29532412 O35.8XX9 [id number] Megan [facility] [address],[place] [address] 12/14/2020 15:44:09 12/14/2020 16:36:54 Poor growth affecting management 304724952 O36.5930 Z3A.33 [id number] Eneida Fung [facility] [address],[place] [address] 12/14/2020 15:44:31 12/14/2020 17:19:55 growth restriction 29213019 O35.8XX9 [id number] Israel Pantoja MD [facility] [address],[place] [address] 12/14/2020 15:44:47 12/18/2020 13:50:18 Routine care 129903729 Z34.90 [id number] Eneida Fung [facility] [address],[place] [address] 12/21/2020 16:22:14 12/21/2020 17:10:49 growth restriction 64016257 O35.8XX9 [id number] [facility] [address],[place] [address] 12/21/2020 16:22:28 12/24/2020 21:37:00 Small for gestational age fetus 465280900 O36.5930 Z3A.34 [id number] Israel Pantoja MD [facility] [address],[place] [address] 12/21/2020 16:22:59 12/24/2020 21:37:30 Routine care 726100824 Z34.90 [id number] Eneida Fung [facility] [address],[place] [address] 12/25/2020 16:51:50 12/25/2020 17:59:43 growth restriction 57505980 O35.8XX9 [id number] Eneida Fung [facility] [address],[place] [address] 12/28/2020 16:15:35 12/28/2020 17:19:26 growth restriction 60761801 O35.8XX9 [id number] [facility] [address],[place] [address] 12/28/2020 16:16:08 12/28/2020 17:25:29 Small for gestational age fetus 134499214 O36.5930 Z3A.35 [id number] Israel Pantoja MD [facility] [address],[place] [address] 12/28/2020 16:16:32 12/29/2020 14:52:26 Routine care 266526446 Z34.90 [id number] Eneida Fung [facility] [address],[place] [address] 01/01/2021 16:58:49 01/01/2021 18:11:56 growth restriction 06329930 O35.8XX9 [id number] Eneida Fung [facility] [address],[place] [address] 01/04/2021 16:07:28 01/04/2021 17:20:24 growth restriction 36217377 O35.8XX9 [id number] [facility] [address],[place] [address] 01/04/2021 16:07:46 01/04/2021 17:13:46 Small for gestational age fetus 696598931 O36.5930 Z3A.36 [id number] Israel Pantoja MD [facility] [address],[place] [address] 01/04/2021 16:07:58 01/05/2021 09:53:26 Routine care [id number] Z34.90 [id number] [facility] [address],[place] [address] 01/11/2021 16:17:56 01/11/2021 17:07:33 Small for gestational age fetus [id number] O36.5930 Z3A.37 [id number] [facility] [address],[place] [address] 01/15/2021 17:03:59 01/15/2021 22:05:32 growth restriction [id number] O35.8XX9 [id number] [facility] [address],[place] [address] 01/18/2021 16:33:29 01/18/2021 17:05:26 growth restriction [id number] O35.8XX9 [id number] [facility] [address],[place] [address] 01/18/2021 16:34:27 01/19/2021 14:56:37 Small for gestational age fetus [id number] O36.5930 Z3A.38 [id number] Israel Pantoja MD [facility] [address],[place] [address] 01/18/2021 16:34:52 01/19/2021 14:57:18 Routine care [id number] Z34.90 [id number] [facility] [address],[place] [address] 01/19/2021 14:23:41 01/19/2021 15:15:00 Small for gestational age fetus [id number] O36.5930 Z3A.38 [id number] [facility] [address],[place] [address] 1 01/22/2021 13:57:45 01/22/2021 14:46:08 growth restriction [id number] O35.8XX9 [id number] Sofía Thurman [facility] [address],[place] [address] 03/01/2021 16:08:40 03/02/2021 15:27:21 state [id number] Z39.2 Continue to watch for signs/symp toms of post depression . Return one year from last pap smear for a well woman exam. Not interested in contracept ion at this time. Patient received above instructio ns, and questions have been answered. If you have any questions please call or respond to this email. Patient was made aware of the patient portal and may obtain a paper copy of today's plan if desired Mixed anxi ety and depressive disorder [id number] F41.8 Discussed options and pt would like to start zoloft. No thoughts of harming herself or others. If any worsening of symptoms she will notify us right away. RTC in 2 weeks for med check. [id number] [facility] [address],[place] [address] 03/15/2021 11:58:16 03/15/2021 12:22:02 Mixed anxiety and depressive disorder [id number] F41.8 Pt unsure if there is any improvemen t but definitely not worse. No thoughts of harming herself or others. Pt would like to continue at current dose and see how she is doing at 1 month. Will plan return visit in [id number] [facility] [address],[place] [address] 04/10/2021 12:47:01 04/12/2021 14:14:59 Mixed anxiety and depressive disorder [id number] F41.8 Pt very happy with improvemen t and would like to continue with current dose of zoloft. She will let us know if any worsening of symptoms. [id number] Megan Kearns [facility] [address],[place] [address] 07/27/2024 13:44:10 07/27/2024 14:10:06 screening [id number] Z36.87 Z3A.08 [id number] Israel Pantoja MD [facility] [address],[place] [address] 07/27/2024 13:45:40 07/27/2024 15:05:53 Amenorrhea [id number] N91.2 this patient is a 29-year-ol d female who presents for amenorrhea . She is a positive test. Ultrasound revealed a 1st trimester gestation. Patient has no complaints . We talked about early care. Talked about genetic screening. We talked about her ultrasound results. We talked about the 12 week ultrasound that has genetic screening components . She was given recommenda tions on exercise, diet, over-the-c ounter medication s. We reviewed her obstetric history. We reviewed her medical history. We reviewed her social history. She will begin routine care at her next visit. [id number] Megan Kearns [facility] [address],[place] [address] 08/26/2024 09:19:11 08/26/2024 09:52:33 screening [id number] Z36.82 Z3A.13 [id number] Israel Pantoja MD [facility] [address],[place] [address] 08/26/2024 09:19:23 08/26/2024 10:53:29 Migraine [id number] G43.909 Routine an tenatal care [id number] Z34.90 [id number] Israel Pantoja MD [facility] [address],[place] [address] 09/23/2024 09:34:38 09/23/2024 10:25:36 Routine care [id number] Z34.90 [id number] Madhavi Tapia [facility] [address],[place] [address] 10/14/2024 09:27:39 10/14/2024 10:46:12 screening for malformation [id number] Z36.3 Z3A.20 [id number] Israel Pantoja MD [facility] [address],[place] [address] 10/15/2024 12:02:23 10/15/2024 12:39:49 Routine care [id number] Z34.90 [id number] Israel Pantoja MD [facility] [address],[place] [address] 11/09/2024 09:31:35 11/09/2024 10:13:11 Routine care [id number] Z34.90 [id number] Israel Pantoja MD [facility] [address],[place] [address] 12/06/2024 09:25:31 12/06/2024 10:05:53 Routine care [id number] Z34.90 Health Concerns Section Related Observation LastModified by Organization Detai ls LastModified Time None Recorded Concern Status LastModified by Organization Details LastModified Time None Recorded Advance Directives Directive N: Payers Encounter Date Sequence Insurance Name Policy Number Policy Moralez Covered Member ID Moralez Member ID Guarantor Name 09/23/2024 1 [facility] ON OR AFTER 03/15/21 (MEDICAID REPLACEMENT - HMO) Mili Mcmahon [id number] Mili Mcmahon 10/14/2024 1 [facility] - DOS ON OR AFTER 21 (MEDICAID REPLACEMENT - HMO) Mili Mcmahon [id number] Mili Mcmahon 10/15/2024 1 [facility] - DOS ON OR AFTER 21 (MEDICAID REPLACEMENT - HMO) Mili Mcmhaon [id number] Mili Mcmahon 11/09/2024 1 [facility] - DOS ON OR AFTER 21 (MEDICAID REPLACEMENT - HMO) Mili Mcmahon [id number] Mili Mcmahon 12/06/2024 1 [facility] - DOS ON OR AFTER 21 (MEDICAID REPLACEMENT - HMO) Mili Mcmahon [id number] Mili Mcmahon OBGyn Episode Ob Episode Information Episode Created Date Number of Fetuses Patient Bloodtype Patient rh Status Prepregnancy Weight lbs Domestic Partner Domestic Partner Phone Father Name Bilingual Office Assistant Status 06/22/20 20 1 CLOSED Fetus Data First Name Last Name Admitted to NICU Weight (g) Sex Living Outcome Pediatric Complications Fetus ID Race Codes Race Delivery Type 2891.64 9 F Full Term [id number] Vaginal Delivery Nico Calculation Initial Nico Date Initial Exam Date Initial Exam Provider Initial Ultrasound Date Last Menstrual Period Date Ultra Sound Weeks Gestation 0 Eighteen To Twenty Week Nico Update Ultra Sound Date Fundal Height At Umbil Quickening Date Ultra Sound Latest Weeks Gestation Final Nico Confirmed By Final Nico Confirmed Date Final Nico Date Ultra Sound Latest Days Gestation 0 0 Menstrual History Last Menstrual Date Menses Monthly On Bcp Conception Prior Menses Frequency Hcg Plus Date Menarche Onset Age Delivery Information Delivery Date Delivery Type Labor Anesthesia Weeks Gestation Incision Type Labor Labor Length Hrs Delivered By Post Complications Tubal Sterilization Discharge Date Comments 8 39 Amylia + GBS Discharge Information Feeding Method Contraceptive Method Maternal HG B and HCT Levels Ob Episode Information Episode Created Date Number of Fetuses Patient Bloodtype Patient rh Status Prepregnancy Weight lbs Domestic Partner Domestic Partner Phone Father Name Bilingual Office Assistant Status 06/22/20 20 1 CLOSED Fetus Data First Name Last Name Admitted to NICU Weight (g) Sex Living Outcome Pediatric Complications Fetus ID Race Codes Race Delivery Type , Spontane ous [id number] Nico Calculation Initial Nico Date Initial Exam Date Initial Exam Provider Initial Ultrasound Date Last Menstrual Period Date Ultra Sound Weeks Gestation 0 Eighteen To Twenty Week Nico Update Ultra Sound Date Fundal Height At Umbil Quickening Date Ultra Sound Latest Weeks Gestation Final Nico Confirmed By Final Nico Confirmed Date Final Nico Date Ultra Sound Latest Days Gestation 0 0 Menstrual History Last Menstrual Date Menses Monthly On Bcp Conception Prior Menses Frequency Hcg Plus Date Menarche Onset Age Delivery Information Delivery Date Delivery Type Labor Anesthesia Weeks Gestation Incision Type Labor Labor Length Hrs Delivered By Post Complications Tubal Sterilization Discharge Date Comments 9 Discharge Information Feeding Method Contraceptive Method Maternal HG B and HCT Levels Ob Episode Information Episode Created Date Number of Fetuses Patient Bloodtype Patient rh Status Prepregnancy Weight lbs Domestic Partner Domestic Partner Phone Father Name Bilingual Office Assistant Status 07/18/20 20 1 O Positive 165 CLOSED Fetus Data First Name Last Name Admitted to NICU Weight (g) Sex Living Outcome Pediatric Complications Fetus ID Race Codes Race Delivery Type 2608.15 4 F true Full Term 5868 Vaginal Delivery Problems Problem Notes possible hemorrha ge Problem Name Start Date End Date Resolution Snomed Code Not e growth restriction 10/26/2020 [id number] weekly doppler, testing at 32wks False labor [id number] Procardi a 30mg Abdominal pain [id number] Nico Calculation Initial Nico Date Initial Exam Date Initial Exam Provider Initial Ultrasound Date Last Menstrual Period Date Ultra Sound Weeks Gestation 02/01/2021 07/18/2020 06/15/202004/2704/27/2020 7 Eighteen To Twenty Week Nico Update Ultra Sound Date Fundal Height At Umbil Quickening Date Ultra Sound Latest Weeks Gestation Final Nico Confirmed By Final Nico Confirmed Date Final Nico Date Ultra Sound Latest Days Gestation 0 [email or web address] 09/19/2020 02/02/20 21 0 Pre- Flowsheet Flowsheet Date 06/15/2020 Donahue Score Blood Edema Fundus Height Fundus Units Glucose Ketones Leukocytes Nitrite Labor Signs Protein Cervic Dilation Cervic Effacement Cervic Station Type Weight in lbs Pre/Post Dialysis Refused BP Diastolic BP Location Tested BP Systolic BP Type Fetus Heart Rate Present Fetus Movement Comments Flowsheet Date 07/18/2020 Donahue Score Blood Edema Fundus Height Fundus Units Glucose Ketones Leukocytes Nitrite Labor Signs Protein Cervic Dilation Cervic Effacement Cervic Station 12 Type Weight in lbs Pre/Post Dialysis Refused Weight 162.114908601660 BP Diastolic BP Location Tested BP Systolic BP Type 81 R arm 126 sitting Fetus Heart Rate Present A 173 Fetus Movement Comments this patient is a 25-year-ol d 3 para 1011 at 11 weeks and 5 days gestation who presents for initial care. She had a genetic screening ultrasound today. That was normal. She had her blood drawn. She has no worrisome history is. She had a term vaginal previously. We will begin routine care. Flowsheet Date 08/18/2020 Donahue Score Blood Edema Fundus Height Fundus Units Glucose Ketones Leukocytes Nitrite Labor Signs Protein Cervic Dilation Cervic Effacement Cervic Station Type Weight in lbs Pre/Post Dialysis Refused BP Diastolic BP Location Tested BP Systolic BP Type Fetus Heart Rate Present Fetus Movement Comments Flowsheet Date 08/18/2020 Donahue Score Blood Edema Fundus Height Fundus Units Glucose Ketones Leukocytes Nitrite Labor Signs Protein Cervic Dilation Cervic Effacement Cervic Station neg none trace Type Weight in lbs Pre/Post Dialysis Refused Weight 161.600136936165 BP Diastolic BP Location Tested BP Systolic BP Type 77 123 Fetus Heart Rate Present Fetus Movement A Yes Comments patient is having cramping, migraines, nausea and vomiting, gender us (female) martinez not resolved with tylenol will try fioricet rx given copy in chart doing well reviewed precautions Flowsheet Date 09/19/2020 Donahue Score Blood Edema Fundus Height Fundus Units Glucose Ketones Leukocytes Nitrite Labor Signs Protein Cervic Dilation Cervic Effacement Cervic Station Type Weight in lbs Pre/Post Dialysis Refused BP Diastolic BP Location Tested BP Systolic BP Type Fetus Heart Rate Present Fetus Movement Comments Flowsheet Date 09/19/2020 Donahue Score Blood Edema Fundus Height Fundus Units Glucose Ketones Leukocytes Nitrite Labor Signs Protein Cervic Dilation Cervic Effacement Cervic Station neg none 22 trace Type Weight in lbs Pre/Post Dialysis Refused Weight 163.611210106296 BP Diastolic BP Location Tested BP Systolic BP Type 72 110 Fetus Heart Rate Present A 155 Fetus Movement A Yes Comments Doing well. Anatomy US today complete and wnl except sacral spine suboptimal, will repeat next visit to complete. Repeating urine culture and sequential 2 today. Flowsheet Date 10/26/2020 Donahue Score Blood Edema Fundus Height Fundus Units Glucose Ketones Leukocytes Nitrite Labor Signs Protein Cervic Dilation Cervic Effacement Cervic Station Type Weight in lbs Pre/Post Dialysis Refused BP Diastolic BP Location Tested BP Systolic BP Type Fetus Heart Rate Present Fetus Movement Comments Flowsheet Date 10/26/2020 Donahue Score Blood Edema Fundus Height Fundus Units Glucose Ketones Leukocytes Nitrite Labor Signs Protein Cervic Dilation Cervic Effacement Cervic Station 26 trace Type Weight in lbs Pre/Post Dialysis Refused Weight 173.416460884234 BP Diastolic BP Location Tested BP Systolic BP Type 72 R arm 114 sitting Fetus Heart Rate Present A 145 Fetus Movement A Yes Comments mild, early onset growth res triction, to do Weekly Doppler flow studies and repeat growth in 3 weeks. Flowsheet Date 11/02/2020 Donahue Score Blood Edema Fundus Height Fundus Units Glucose Ketones Leukocytes Nitrite Labor Signs Protein Cervic Dilation Cervic Effacement Cervic Station Type Weight in lbs Pre/Post Dialysis Refused BP Diastolic BP Location Tested BP Systolic BP Type Fetus Heart Rate Present Fetus Movement Comments Flowsheet Date 11/09/2020 Donahue Score Blood Edema Fundus Height Fundus Units Glucose Ketones Leukocytes Nitrite Labor Signs Protein Cervic Dilation Cervic Effacement Cervic Station Type Weight in lbs Pre/Post Dialysis Refused BP Diastolic BP Location Tested BP Systolic BP Type Fetus Heart Rate Present Fetus Movement Comments Flowsheet Date 11/16/2020 Donahue Score Blood Edema Fundus Height Fundus Units Glucose Ketones Leukocytes Nitrite Labor Signs Protein Cervic Dilation Cervic Effacement Cervic Station Type Weight in lbs Pre/Post Dialysis Refused BP Diastolic BP Location Tested BP Systolic BP Type Fetus Heart Rate Present Fetus Movement Comments Flowsheet Date 11/16/2020 Donahue Score Blood Edema Fundus Height Fundus Units Glucose Ketones Leukocytes Nitrite Labor Signs Protein Cervic Dilation Cervic Effacement Cervic Station 29 trace Type Weight in lbs Pre/Post Dialysis Refused Weight 178.483026264598 BP Diastolic BP Location Tested BP Systolic BP Type 84 R arm 126 sitting Fetus Heart Rate Present A 147 Fetus Movement Comments occasional cramping, normal BPP, normal Dopplers, to follow up in 1 week Flowsheet Date 11/23/2020 Donahue Score Blood Edema Fundus Height Fundus Units Glucose Ketones Leukocytes Nitrite Labor Signs Protein Cervic Dilation Cervic Effacement Cervic Station Type Weight in lbs Pre/Post Dialysis Refused BP Diastolic BP Location Tested BP Systolic BP Type Fetus Heart Rate Present Fetus Movement Comments Flowsheet Date 11/23/2020 Donahue Score Blood Edema Fundus Height Fundus Units Glucose Ketones Leukocytes Nitrite Labor Signs Protein Cervic Dilation Cervic Effacement Cervic Station 30 trace Type Weight in lbs Pre/Post Dialysis Refused Weight 178.354008690114 BP Diastolic BP Location Tested BP Systolic BP Type 77 R arm 134 sitting Fetus Heart Rate Present A 144 Fetus Movement A Yes Comments patient is experience intens e cramping and abdominal pain. She was sent to Labor and delivery and evaluated there. Flowsheet Date 11/30/2020 Donahue Score Blood Edema Fundus Height Fundus Units Glucose Ketones Leukocytes Nitrite Labor Signs Protein Cervic Dilation Cervic Effacement Cervic Station Type Weight in lbs Pre/Post Dialysis Refused BP Diastolic BP Location Tested BP Systolic BP Type Fetus Heart Rate Present Fetus Movement Comments Flowsheet Date 11/30/2020 Donahue Score Blood Edema Fundus Height Fundus Units Glucose Ketones Leukocytes Nitrite Labor Signs Protein Cervic Dilation Cervic Effacement Cervic Station 31 trace Type Weight in lbs Pre/Post Dialysis Refused Weight 179.872241603750 BP Diastolic BP Location Tested BP Systolic BP Type 74 R arm 136 sitting Fetus Heart Rate Present A 145 Fetus Movement A Yes Comments has appropriate follow-up fo r growth restriction, continue testing, weekly Dopplers, growth ultrasound Flowsheet Date 12/07/2020 Donahue Score Blood Edema Fundus Height Fundus Units Glucose Ketones Leukocytes Nitrite Labor Signs Protein Cervic Dilation Cervic Effacement Cervic Station Type Weight in lbs Pre/Post Dialysis Refused BP Diastolic BP Location Tested BP Systolic BP Type Fetus Heart Rate Present Fetus Movement Comments Flowsheet Date 12/07/2020 Donahue Score Blood Edema Fundus Height Fundus Units Glucose Ketones Leukocytes Nitrite Labor Signs Protein Cervic Dilation Cervic Effacement Cervic Station Type Weight in lbs Pre/Post Dialysis Refused BP Diastolic BP Location Tested BP Systolic BP Type Fetus Heart Rate Present Fetus Movement Comments Flowsheet Date 12/07/2020 Donahue Score Blood Edema Fundus Height Fundus Units Glucose Ketones Leukocytes Nitrite Labor Signs Protein Cervic Dilation Cervic Effacement Cervic Station neg trace 32 trace Type Weight in lbs Pre/Post Dialysis Refused Weight 180.265930603394 BP Diastolic BP Location Tested BP Systolic BP Type 83 127 Fetus Heart Rate Present A 145 Fetus Movement A Yes Comments Persisting contractions, irr egular, considered increasing Procardia, did not given the growth restriction issue. Good movement, weekly Dopplers, serial growth. Flowsheet Date 12/11/2020 Donahue Score Blood Edema Fundus Height Fundus Units Glucose Ketones Leukocytes Nitrite Labor Signs Protein Cervic Dilation Cervic Effacement Cervic Station Type Weight in lbs Pre/Post Dialysis Refused BP Diastolic BP Location Tested BP Systolic BP Type Fetus Heart Rate Present Fetus Movement Comments Flowsheet Date 12/14/2020 Donahue Score Blood Edema Fundus Height Fundus Units Glucose Ketones Leukocytes Nitrite Labor Signs Protein Cervic Dilation Cervic Effacement Cervic Station Type Weight in lbs Pre/Post Dialysis Refused BP Diastolic BP Location Tested BP Systolic BP Type Fetus Heart Rate Present Fetus Movement Comments Flowsheet Date 12/14/2020 Donahue Score Blood Edema Fundus Height Fundus Units Glucose Ketones Leukocytes Nitrite Labor Signs Protein Cervic Dilation Cervic Effacement Cervic Station Type Weight in lbs Pre/Post Dialysis Refused BP Diastolic BP Location Tested BP Systolic BP Type Fetus Heart Rate Present Fetus Movement Comments Flowsheet Date 12/14/2020 Donahue Score Blood Edema Fundus Height Fundus Units Glucose Ketones Leukocytes Nitrite Labor Signs Protein Cervic Dilation Cervic Effacement Cervic Station 33 trace Type Weight in lbs Pre/Post Dialysis Refused Weight 183.844254363656 BP Diastolic BP Location Tested BP Systolic BP Type 75 118 Fetus Heart Rate Present A 145 Fetus Movement A Yes Comments +1 GLUCOSE. Flowsheet Date 12/21/2020 Donahue Score Blood Edema Fundus Height Fundus Units Glucose Ketones Leukocytes Nitrite Labor Signs Protein Cervic Dilation Cervic Effacement Cervic Station Type Weight in lbs Pre/Post Dialysis Refused BP Diastolic BP Location Tested BP Systolic BP Type Fetus Heart Rate Present Fetus Movement Comments Flowsheet Date 12/21/2020 Donahue Score Blood Edema Fundus Height Fundus Units Glucose Ketones Leukocytes Nitrite Labor Signs Protein Cervic Dilation Cervic Effacement Cervic Station Type Weight in lbs Pre/Post Dialysis Refused BP Diastolic BP Location Tested BP Systolic BP Type Fetus Heart Rate Present Fetus Movement Comments Flowsheet Date 12/21/2020 Donahue Score Blood Edema Fundus Height Fundus Units Glucose Ketones Leukocytes Nitrite Labor Signs Protein Cervic Dilation Cervic Effacement Cervic Station neg trace 34 trace Type Weight in lbs Pre/Post Dialysis Refused Weight 184.938831681948 BP Diastolic BP Location Tested BP Systolic BP Type 77 120 Fetus Heart Rate Present A 145 Fetus Movement A Yes Comments Normal Dopplers, normal BPP, Normal nst Flowsheet Date 12/25/2020 Donahue Score Blood Edema Fundus Height Fundus Units Glucose Ketones Leukocytes Nitrite Labor Signs Protein Cervic Dilation Cervic Effacement Cervic Station Type Weight in lbs Pre/Post Dialysis Refused BP Diastolic BP Location Tested BP Systolic BP Type Fetus Heart Rate Present Fetus Movement Comments Flowsheet Date 12/28/2020 Donahue Score Blood Edema Fundus Height Fundus Units Glucose Ketones Leukocytes Nitrite Labor Signs Protein Cervic Dilation Cervic Effacement Cervic Station Type Weight in lbs Pre/Post Dialysis Refused BP Diastolic BP Location Tested BP Systolic BP Type Fetus Heart Rate Present Fetus Movement Comments Flowsheet Date 12/28/2020 Donahue Score Blood Edema Fundus Height Fundus Units Glucose Ketones Leukocytes Nitrite Labor Signs Protein Cervic Dilation Cervic Effacement Cervic Station Type Weight in lbs Pre/Post Dialysis Refused BP Diastolic BP Location Tested BP Systolic BP Type Fetus Heart Rate Present Fetus Movement Comments Flowsheet Date 12/28/2020 Donahue Score Blood Edema Fundus Height Fundus Units Glucose Ketones Leukocytes Nitrite Labor Signs Protein Cervic Dilation Cervic Effacement Cervic Station 36 trace Type Weight in lbs Pre/Post Dialysis Refused Weight 185.789692460696 BP Diastolic BP Location Tested BP Systolic BP Type 87 R arm 131 sitting Fetus Heart Rate Present A 140 Fetus Movement A Yes Comments BP, normal SHASTA, normal Doppl er flow study of umbilical artery Flowsheet Date 01/01/2021 Donahue Score Blood Edema Fundus Height Fundus Units Glucose Ketones Leukocytes Nitrite Labor Signs Protein Cervic Dilation Cervic Effacement Cervic Station Type Weight in lbs Pre/Post Dialysis Refused BP Diastolic BP Location Tested BP Systolic BP Type Fetus Heart Rate Present Fetus Movement Comments Flowsheet Date 01/04/2021 Donahue Score Blood Edema Fundus Height Fundus Units Glucose Ketones Leukocytes Nitrite Labor Signs Protein Cervic Dilation Cervic Effacement Cervic Station Type Weight in lbs Pre/Post Dialysis Refused BP Diastolic BP Location Tested BP Systolic BP Type Fetus Heart Rate Present Fetus Movement Comments Flowsheet Date 01/04/2021 Donahue Score Blood Edema Fundus Height Fundus Units Glucose Ketones Leukocytes Nitrite Labor Signs Protein Cervic Dilation Cervic Effacement Cervic Station Type Weight in lbs Pre/Post Dialysis Refused BP Diastolic BP Location Tested BP Systolic BP Type Fetus Heart Rate Present Fetus Movement Comments Flowsheet Date 01/04/2021 Donahue Score Blood Edema Fundus Height Fundus Units Glucose Ketones Leukocytes Nitrite Labor Signs Protein Cervic Dilation Cervic Effacement Cervic Station 36 trace Type Weight in lbs Pre/Post Dialysis Refused Weight 190.364564529770 BP Diastolic BP Location Tested BP Systolic BP Type 75 R arm 125 sitting Fetus Heart Rate Present A 133 Fetus Movement A Yes Comments Flowsheet Date 01/11/2021 Donahue Score Blood Edema Fundus Height Fundus Units Glucose Ketones Leukocytes Nitrite Labor Signs Protein Cervic Dilation Cervic Effacement Cervic Station Type Weight in lbs Pre/Post Dialysis Refused BP Diastolic BP Location Tested BP Systolic BP Type Fetus Heart Rate Present Fetus Movement Comments Flowsheet Date 01/15/2021 Donahue Score Blood Edema Fundus Height Fundus Units Glucose Ketones Leukocytes Nitrite Labor Signs Protein Cervic Dilation Cervic Effacement Cervic Station Type Weight in lbs Pre/Post Dialysis Refused BP Diastolic BP Location Tested BP Systolic BP Type Fetus Heart Rate Present Fetus Movement Comments Flowsheet Date 01/18/2021 Donahue Score Blood Edema Fundus Height Fundus Units Glucose Ketones Leukocytes Nitrite Labor Signs Protein Cervic Dilation Cervic Effacement Cervic Station Type Weight in lbs Pre/Post Dialysis Refused BP Diastolic BP Location Tested BP Systolic BP Type Fetus Heart Rate Present Fetus Movement Comments Flowsheet Date 01/18/2021 Donahue Score Blood Edema Fundus Height Fundus Units Glucose Ketones Leukocytes Nitrite Labor Signs Protein Cervic Dilation Cervic Effacement Cervic Station Type Weight in lbs Pre/Post Dialysis Refused BP Diastolic BP Location Tested BP Systolic BP Type Fetus Heart Rate Present Fetus Movement Comments Flowsheet Date 01/18/2021 Donahue Score Blood Edema Fundus Height Fundus Units Glucose Ketones Leukocytes Nitrite Labor Signs Protein Cervic Dilation Cervic Effacement Cervic Station 38 trace Type Weight in lbs Pre/Post Dialysis Refused Weight 190.160766492137 BP Diastolic BP Location Tested BP Systolic BP Type 81 R arm 127 sitting Fetus Heart Rate Present A 145 Fetus Movement A Yes Comments Growth restricted, normal BP P today. Membrane stripped, induction scheduled for 39 weeks. Flowsheet Date 01/19/2021 Donahue Score Blood Edema Fundus Height Fundus Units Glucose Ketones Leukocytes Nitrite Labor Signs Protein Cervic Dilation Cervic Effacement Cervic Station Type Weight in lbs Pre/Post Dialysis Refused BP Diastolic BP Location Tested BP Systolic BP Type Fetus Heart Rate Present Fetus Movement Comments Flowsheet Date 01/22/2021 Donahue Score Blood Edema Fundus Height Fundus Units Glucose Ketones Leukocytes Nitrite Labor Signs Protein Cervic Dilation Cervic Effacement Cervic Station Type Weight in lbs Pre/Post Dialysis Refused BP Diastolic BP Location Tested BP Systolic BP Type Fetus Heart Rate Present Fetus Movement Comments Menstrual History Last Menstrual Date Menses Monthly On Bcp Conception Prior Menses Frequency Hcg Plus Date Menarche Onset Age 0804/27/2020 Genetic Screening And Infection History Question Response Note Mental Retardation/Autism false Patient's Age Will Be 35 Years Or Older At Estim ated Date of Delivery false Thalassemia (Comoran, Mozambican, Mediterranean, Or Background): MCV < 80 false Neural Tube Defect (Meningomyelocele, Spina Bifi da, Or Anencephaly) false Congenital Heart Defect false Down Syndrome false Kevin-Sachs (eg, Congregation, Cajun, Romansh-Sutton) f alse Sj Disease false Sickle Cell Disease Or Trait () false Hemophilia Or Other Blood Disorders false Muscular Dystrophy false Cystic Fibrosis false Traverse's Chorea false Intellectual Disability/Autism false If Yes, Was Person Tested For Fragile X? false Other Inherited Genetic Or Chromosomal Disorder false Maternal Metabolic Disorder (eg, Type 1 Diabetes , PKU) false Patient Or Baby's Father Had A Child With Defects Not Listed Above false Recurrent Loss, Or A Stillbirth false Medications (including Suppl ements, Vitamins, Herbs, OTC Drugs), Illicit/Recreational Drugs, Alcohol false If Yes, Agent(s) And Strength/Dosage false Any Other Genetic History false Live With Someone With TB Or Exposed To TB false Patient Or Partner Has History Of Genital Herpes false Rash Or Viral Illness Since Last Menstrual Perio d false History Of STD, Gonorrhea, Chlamydia, HPV, Syphi lis false Other Infection History false History of HIV false History of Hepatitis false Prior GBS-infected child false Hemoglobinopathy Or Carrier false Other Structural Defect false Recent Travel History Outside of Country false Delivery Information Delivery Date Delivery Type Labor Anesthesia Weeks Gestation Incision Type Labor Labor Length Hrs Delivered By Post Complications Tubal Sterilization Discharge Date Comments 1 Induce d Regional-Ep idural 39 false Israel Pantoja MD IUGR & Gbs+ Discharge Information Feeding Method Contraceptive Method Maternal HG B and HCT Levels Breast Ob Episode Information Episode Created Date Number of Fetuses Patient Bloodtype Patient rh Status Prepregnancy Weight lbs Domestic Partner Domestic Partner Phone Father Name Bilingual Office Assistant Status 07/27/20 24 1 CLOSED Fetus Data First Name Last Name Admitted to NICU Weight (g) Sex Living Outcome Pediatric Complications Fetus ID Race Codes Race Delivery Type M Full Term [id number] Primary Nico Calculation Initial Nico Date Initial Exam Date Initial Exam Provider Initial Ultrasound Date Last Menstrual Period Date Ultra Sound Weeks Gestation 0 Eighteen To Twenty Week Nico Update Ultra Sound Date Fundal Height At Umbil Quickening Date Ultra Sound Latest Weeks Gestation Final Nico Confirmed By Final Nico Confirmed Date Final Nico Date Ultra Sound Latest Days Gestation 0 0 Menstrual History Last Menstrual Date Menses Monthly On Bcp Conception Prior Menses Frequency Hcg Plus Date Menarche Onset Age Delivery Information Delivery Date Delivery Type Labor Anesthesia Weeks Gestation Incision Type Labor Labor Length Hrs Delivered By Post Complications Tubal Sterilization Discharge Date Comments 2 Discharge Information Feeding Method Contraceptive Method Maternal HG B and HCT Levels Ob Episode Information Episode Created Date Number of Fetuses Patient Bloodtype Patient rh Status Prepregnancy Weight lbs Domestic Partner Domestic Partner Phone Father Name Bilingual Office Assistant Status 08/26/20 24 1 O Positive 171 Moise OPEN Fetus Data First Name Last Name Admitted to NICU Weight (g) Sex Living Outcome Pediatric Complications Fetus ID Race Codes Race Delivery Type [id number] Problems Problem Notes Problem Name Start Date End Date Resolution Snomed Code Not e Deliveries by [id number] to repeat Migraine [id number] Nico Calculation Initial Nico Date Initial Exam Date Initial Exam Provider Initial Ultrasound Date Last Menstrual Period Date Ultra Sound Weeks Gestation 03/02/2025 08/26/2024 07/27/2024 8 Eighteen To Twenty Week Nico Update Ultra Sound Date Fundal Height At Umbil Quickening Date Ultra Sound Latest Weeks Gestation Final Nico Confirmed By Final Nico Confirmed Date Final Nico Date Ultra Sound Latest Days Gestation 0 03/02/20 25 0 Pre-danii Flowsheet Flowsheet Date 08/26/2024 Donahue Score Blood Edema Fundus Height Fundus Units Glucose Ketones Leukocytes Nitrite Labor Signs Protein Cervic Dilation Cervic Effacement Cervic Station Type Weight in lbs Pre/Post Dialysis Refused Weight 169.708628253797 BP Diastolic BP Location Tested BP Systolic BP Type 78 L arm 129 sitting Fetus Heart Rate Present Fetus Movement A No Comments this patient is a 29-year-ol d multiparous female at 12 weeks' gestation who presents for initial care. She has a history of term vaginal births. Her medical, surgical, obstetric history is unremarkable. She is vaccinated. She was given precautions recommendations for . We talked about vaccines in . Talked about care in detail. She is having genetic testing. She had a normal 12 week ultrasound. To begin routine care. Flowsheet Date 09/23/2024 Donahue Score Blood Edema Fundus Height Fundus Units Glucose Ketones Leukocytes Nitrite Labor Signs Protein Cervic Dilation Cervic Effacement Cervic Station Type Weight in lbs Pre/Post Dialysis Refused 167.748614132601 BP Diastolic BP Location Tested BP Systolic BP Type 69 L arm 115 sitting Fetus Heart Rate Present A 145 Fetus Movement A No Comments no complaints, no problems, routine care, no contractions, no vaginal bleeding, no loss of fluid, no cramping Flowsheet Date 10/14/2024 Donahue Score Blood Edema Fundus Height Fundus Units Glucose Ketones Leukocytes Nitrite Labor Signs Protein Cervic Dilation Cervic Effacement Cervic Station Type Weight in lbs Pre/Post Dialysis Refused BP Diastolic BP Location Tested BP Systolic BP Type Fetus Heart Rate Present Fetus Movement Comments Flowsheet Date 10/15/2024 Donahue Score Blood Edema Fundus Height Fundus Units Glucose Ketones Leukocytes Nitrite Labor Signs Protein Cervic Dilation Cervic Effacement Cervic Station Type Weight in lbs Pre/Post Dialysis Refused 176.955399025308 BP Diastolic BP Location Tested BP Systolic BP Type 71 L arm 114 sitting Fetus Heart Rate Present A 144 Fetus Movement A Yes Comments no complaints, no problems, routine care, no contractions, no vaginal bleeding, no loss of fluid, no cramping Flowsheet Date 11/09/2024 Donahue Score Blood Edema Fundus Height Fundus Units Glucose Ketones Leukocytes Nitrite Labor Signs Protein Cervic Dilation Cervic Effacement Cervic Station 24 cm Type Weight in lbs Pre/Post Dialysis Refused 182.410929418126 BP Diastolic BP Location Tested BP Systolic BP Type 71 L arm 110 sitting Fetus Heart Rate Present A 155 Present Fetus Movement A Yes Comments no complaints, no problems, routine care, no contractions, no vaginal bleeding, no loss of fluid, no cramping Flowsheet Date 12/06/2024 Donahue Score Blood Edema Fundus Height Fundus Units Glucose Ketones Leukocytes Nitrite Labor Signs Protein Cervic Dilation Cervic Effacement Cervic Station Type Weight in lbs Pre/Post Dialysis Refused Weight 192.250602764270 BP Diastolic BP Location Tested BP Systolic BP Type 80 L arm 124 sitting Fetus Heart Rate Present A 152 Present Fetus Movement A Yes Comments no complaints, no problems, routine care, no contractions, no vaginal bleeding, no loss of fluid, no cramping periumbilical pain, given precautions/aa remedies Menstrual History Last Menstrual Date Menses Monthly On Bcp Conception Prior Menses Frequency Hcg Plus Date Menarche Onset Age true Delivery Information Delivery Date Delivery Type Labor Anesthesia Weeks Gestation Incision Type Labor Labor Length Hrs Delivered By Post Complications Tubal Sterilization Discharge Date Comments Discharge Information Feeding Method Contraceptive Method Maternal HG B and HCT Levels Ob Episode Information Episode Created Date Number of Fetuses Patient Bloodtype Patient rh Status Prepregnancy Weight lbs Domestic Partner Domestic Partner Phone Father Name Bilingual Office Assistant Status 07/27/20 24 1 CLOSED Fetus Data First Name Last Name Admitted to NICU Weight (g) Sex Living Outcome Pediatric Complications Fetus ID Race Codes Race Delivery Type , Spontane ous [id number] Nico Calculation Initial Nico Date Initial Exam Date Initial Exam Provider Initial Ultrasound Date Last Menstrual Period Date Ultra Sound Weeks Gestation 0 Eighteen To Twenty Week Nico Update Ultra Sound Date Fundal Height At Umbil Quickening Date Ultra Sound Latest Weeks Gestation Final Nico Confirmed By Final Nico Confirmed Date Final Nico Date Ultra Sound Latest Days Gestation 0 0 Menstrual History Last Menstrual Date Menses Monthly On Bcp Conception Prior Menses Frequency Hcg Plus Date Menarche Onset Age Delivery Information Delivery Date Delivery Type Labor Anesthesia Weeks Gestation Incision Type Labor Labor Length Hrs Delivered By Post Complications Tubal Sterilization Discharge Date Comments 4 Discharge Information Feeding Method Contraceptive Method Maternal HG B and HCT Levels
--- NOTE | 2024-12-16 18:09 | OBADM ---
This patient, Mili Palm, admitted to the OB room 116 for observation. Patient/family oriented to hospital policies and general routines including ID bracelet, bed and alarms, visiting hours, pain management, procedures, bathroom and other care routines, personal items, smoking policy, room service/diet, and visiting hours. Patient/Family are encouraged to report perceived risks to care and to ask questions if they do not understand what they are told or what they should do.
[2024-12-16 18:46] LABS: OBXCEM ROM Plus Negative (Negative)
[2024-12-16 19:23] LABS: Add Urine Microscopic? NO; Appearance Urine Clear (Clear); Bilirubin Urine Negative (Negative); Blood Urine Negative (Negative); Color Urine Yellow (Yellow); Glucose Urine UA Negative (Negative); Ketones Urine Negative (Negative); Leukocyte Esterase Ur Negative LEU/UL (Negative); Nitrate Urine Negative (Negative); Protein Urine Negative (Negative); Specific Grav Ur 1.014 (1.001-1.035); Urobilinogen Urine 0.2 mg/dL (<2.0)
--- NOTE | 2024-12-16 19:27 | PC.NURSE ---
1926- RN called MD and notified him of pts arrival to unit. RN reported that pt is a with a due date of 03/02, pts c/o contractions/cramping for that past week that have become increasingly more uncomfortable since approx 1500 today, rated 8/10 by patient. RN reported pt is currently being treated for a UTI with macrobid. RN reported FHT's and contraction pattern. Orders received.
[2024-12-16] MEDS: TERBUTALINE SULFATE 1 MG/ML VIAL 0.25 MG SUB-Q (19:40)
[2024-12-16] MEDS: NIFEdipine 30 MG TAB.ER.24 PO (19:40)
--- NOTE | 2025-01-12 09:13 | PM.OBTRLD ---
OB - Triage/Final Diagnosis Visit Information Comments/Additional reasons for admission: I have assessed the risk for this patient, Mili Palm, and determined that she would benefit from observation care. Evaluation Laboratory results: Laboratory Tests 12/16/24 12/16/24 18:19 18:45 Urine Color Yellow Urine Appearance Clear Urine pH 6.0 Ur Specific [place] 1.014 Urine Protein Negative Urine Glucose (UA) Negative Urine Ketones Negative Ur Blood (Man) Negative Urine Nitrate Negative Urine Bilirubin Negative Urine Urobilinogen 0.2 Ur Leukocyte Esterase Negative Membranes Rupture Rom plus negative Final Diagnosis (1) False labor: Code(s): O47.9 - False labor, unspecified Status: Acute
== END 2024-12-16 20:22 | disposition home or self-care (01) ==
PROVIDERS: Admitting Provider Obstetrics & Gynecology; Visit Provider Obstetrics & Gynecology
DX: O47.03 False labor before 37 completed weeks of gestation, third trimester (principal); Z3A.39 39 weeks gestation of pregnancy
CPT/HCPCS: 81003; 84112; 96372; A9270; G0378; G0379; J3105

== ENCOUNTER 2024-12-17 16:03 | Outpatient (RCR) | payer OTHER, SELFPAY ==
--- NOTE | ~2024-12-17 | US_ITS ---
EXAMINATION: US OB BPP wo non-stress DATE: 12/17/2024 18:31 CDT INDICATION: Decelerations TECHNIQUE: Real-time transabdominal obstetric ultrasound. FINDINGS: There is a single intrauterine gestation in vertex presentation. The placenta is posterior. The tip of the placenta measures 4.7 cm from the cervix. cardiac activity and movement is noted with a heart rate of 141 beats per minute. Biophysical profile: breathin of 2 movement: 2 of 2 tone: 2 of 2 Amniotic fluid pocket: 2 of 2 Total score: 8 of 8 Deepest vertical pocket of amniotic fluid measures 5.8 cm IMPRESSION: 1. Single intrauterine gestation in vertex presentation. 2: Total biophysical profile score of 8 out of 8. Reviewed, dictated and finalized at location A.
[2024-12-17 17:11] VITALS: BP 112/58; PULSE 95
--- NOTE | 2024-12-17 18:00 | PC.NURSE ---
Called Dr. Pantoja with pt status. Informed of BPP of 04/22 and reactive tracing. January D/C home.
== END 2025-02-07 08:29 | disposition home or self-care (01) ==
LOC: ANHOBOP 16:03
PROVIDERS: Visit Provider Obstetrics & Gynecology
DX: O36.8310 Maternal care for abnormalities of the fetal heart rate or rhythm, first trimester, not applicable or unspecified (principal); Z3A.00 Weeks of gestation of pregnancy not specified
CPT/HCPCS: 59025; 76819

== ENCOUNTER 2024-12-24 13:41 | Observation (INO) | payer OTHER, SELFPAY ==
--- OUTSIDE RECORDS SUMMARY | 2024-12-24 13:49 | XMS_ITS | Clinical Summary ---
Author Organization [facility] Address [address] [place] [address] Care Team Providers Care Industrial Maintenance Repairer Helper Name Role Phone Brenda Fisher MD Primary Care Provider [phone] Source Comments [facility],non-owned Affiliates and Associated Physician Practices is amultiple site organization consisting of ambulatory clinics and hospital sitesin [place], [place], [place] and [place]. This disclosure is being madepursuant to the Care Everywhere program and may not contain all information available regarding this patient. Last updated 18.[facility] Allergies No known active allergies Medications * [...] Comments Blood Pressure 106/58 08/21/2010 10:46 AM CHIEF YEOMAN Pulse 88 08/21/2010 10:46 AM CHIEF YEOMAN Temperature - - Respiratory Rate 28 08/21/2010 10:46 AM CHIEF YEOMAN Oxygen Saturation - - Inhaled Oxygen Concentration - - Weight 54.7 kg (120 lb 9.5 oz) 08/21/2010 10:46 AM CHIEF YEOMAN Height 164.3 cm (5' 4.69 ) 08/21/2010 10:46 AM Lazara [place] Body Mass Index 20.26 08/21/2010 10:46 AM CHIEF YEOMAN Plan of Treatment Health Maintenance Due Date [...] age to complete this topic Care Teams Industrial Maintenance Repairer Helper Relationship Specialty Start Date End Date Brenda Fisher MD [address] [place] [id number] [facility] - General 04/02/21
--- OUTSIDE RECORDS SUMMARY | 2024-12-24 13:49 | XMS_ITS | Data Portability ---
Author Organization SHANDA Sergei HERNANDEZ Address [address] [place] [address] Care Team Providers Care Platinumsmith Name Role Phone BRENDA SOUSA Primary Care Provider Assessment Encounter Date Assessment Date Assessment LastModified by Organization Details LastModified Time 06/04/2019 06/04/2019 Patient advised to call prn and was reminded to get a flu shot this fall. [email or web address] Not available 06/05/2019 23:37:38 Plan of Treatment Reminders Order Date Submit Date Provider Last Modified By Organization Details Last Modified Time Details Appointments None recorded. Lab CBC w/ auto diff 2018 019 [facility], [facility], [facility] [address], [place], [address], 9 20:09:11 iron + total iron-bindin g capacity (TIBC), serum 2018 019 LANDRY LABTOBY, [facility] Adon[facility], [facility] [address], [place], [address], 9 20:09:12 lipid panel, serum 2015 016 [facility], [facility] Adonis, [address], [place], [address], 6 06:19:31 CMP, serum or plasma 2015 016 LANDRY [facility]TOBY, [facility] [address], [address], [place], [address], 6 06:19:30 CBC 2015 016 [facility], [facility], [address], [place], [address], 6 06:19:29 vitamin D, 25-hydroxy, total, serum 2015 016 [facility], [address] [place] [address], [address], [place], [address], 6 06:19:32 TSH, serum or plasma 2015 016 [facility], [address] [facility], [address], [place], [address], 6 06:19:32 Referral general surgeon referral 2018 019 mailede Not available 9 14:27:34 Procedures None recorded. Surgeries None recorded. Imaging None recorded. Medication Orders sertraline 50 mg tablet 2018 019 connor [id number], [address], [place], [place], [id number], 9 16:37:53 fluoxetine 20 mg capsule 2018 019 [facility]6477, [address], [place], [place], [id number], 9 16:38:01 ferrous sulfate 325 mg (65 mg iron) tablet 2018 019 connor 63 [facility]57111, [address], [place], [place], [id number], 9 16:38:09 nystatin 100,000 unit/gram topical cream 2015 016 laur[facility]attle 63 Not available 9 16:38:49 triamcinolo ne acetonide 0.1 % topical cream 2015 016 connor 63 Not available 9 16:38:44 Patient TargetsNo targets recorded. Patient Instructions Encounter Date Encounter Id Patient Instructions Last Modified By Organization Details Last Modified Time 11/18/2018 [id number] hemorrhoids: car e instructions [email or web address] Not available 11/18/2018 15:23:11 iron deficiency anemia: care instructions [email or web address] Not available 11/18/2018 15:23:11 01/29/2019 [id number] learning about mood disorders [email or web address] Not available 01/29/2019 16:52:11 Reason for Referral General Surgeon Referral for Hemorrhoids Referring Physician: Brenda Sousa, Family Medicine, Encounter Date: 11/18/2018 Results Created Date Observation Date Name Description Value Unit Range Abnormal Flag Note LastModifiedBy Organization Detail LastModifiedTime 01/12/20 16 01/13/2016 CBC WBC 6.4 x10e3 /uL 3.4-10 .8 Not Available [facility] ([facility]) [address] [place], [address], 01/13/2016 06:19:29 01/12/20 16 01/13/2016 CBC RBC 4.52 x10e6 /uL 3.77-5 .28 Not Available [facility] ([facility]) [address] [place], [address], 01/13/2016 06:19:29 01/12/20 16 01/13/2016 CBC hemoglobin 13.8 g/dL 11.1-1 5.9 Not Available [facility] ([facility]) [address] [place], [address], 01/13/2016 06:19:29 01/12/20 16 01/13/2016 CBC hematocrit 40.6 % 34.0-4 6.6 Not Available [facility] ([facility]) [address] [place], [address], 01/13/2016 06:19:29 01/12/20 16 01/13/2016 CBC MCV 90 fL 79-97 Not Available [facility] ([facility]) [address] [place], [address], 01/13/2016 06:19:29 01/12/20 16 01/13/2016 CBC MCH 30.5 pg 26.6-3 3.0 Not Available [facility] ([facility]) [address] [place], [address], 01/13/2016 06:19:29 01/12/20 16 01/13/2016 CBC MCHC 34.0 g/dL 31.5-3 5.7 Not Available [facility] ([facility]) [address] [place], [address], 01/13/2016 06:19:29 01/12/20 16 01/13/2016 CBC RDW 12.5 % 12.3-1 5.4 Not Available [facility] ([facility]) [address] [place], [address], 01/13/2016 06:19:29 01/12/20 16 01/13/2016 CBC platelets 194 x10e3 /uL 150-37 9 Not Available [facility] ([facility]) [address] [place], [address], 01/13/2016 06:19:29 01/12/20 16 01/13/2016 CBC neutrophils 72 % Not Avai lable [facility] ([facility]) [address] [place], [address], 01/13/2016 06:19:29 01/12/20 16 01/13/2016 CBC lymphs 18 % Not Available [facility] ([facility]) [address] [place], [address], 01/13/2016 06:19:29 01/12/20 16 01/13/2016 CBC monocytes 5 % Not Availa ble [facility] ([facility]) [address] [place], [address], 01/13/2016 06:19:29 01/12/20 16 01/13/2016 CBC eos 4 % Not Available [facility] ([facility]) [address] [facility] [place], [address], 01/13/2016 06:19:29 01/12/20 16 01/13/2016 CBC basos 1 % Not Available [facility] ([facility]) [address] [facility] [place], [address], 01/13/2016 06:19:29 01/12/20 16 01/13/2016 CBC immature cells SHELF FILLER Not Available [facility] ([facility]) [address] [facility] [place], [address], 01/13/2016 06:19:29 01/12/20 16 01/13/2016 CBC neutrophils (absolute) 4.6 x10e3 /uL 1.4-7. 0 Not Available [facility] ([facility]) [address] [facility] [place], [address], 01/13/2016 06:19:29 01/12/20 16 01/13/2016 CBC lymphs (absolute) 1.2 x10e3 /uL 0.7-3. 1 Not Available [facility] ([facility]) [address] [facility] [place], [address], 01/13/2016 06:19:29 01/12/2001/13/2016 CBC monocytes(ab solute) 0.3 x10e3 /uL 0.1-0. 9 Not Available [facility] ([facility]) [address] [facility] [place], [address], 01/13/2016 06:19:29 01/12/20 16 01/13/2016 CBC eos (absolute) 0.3 x10e3 /uL 0.0-0. 4 Not Available [facility] ([facility]) [address] [place], [address], 01/13/2016 06:19:29 01/12/20 16 01/13/2016 CBC baso (absolute) 0.0 x10e3 /uL 0.0-0. 2 Not Available [facility] ([facility]) [address] [place], [address], 01/13/2016 06:19:29 01/12/20 16 01/13/2016 CBC immature granulocytes 0 % Not Available [facility] ([facility]) [address] [place], [address], 01/13/2016 06:19:29 01/12/20 16 01/13/2016 CBC immature grans (abs) 0.0 x10e3 /uL 0.0-0. 1 Not Available [facility] ([facility]) [address] [place], [address], 01/13/2016 06:19:29 01/12/20 16 01/13/2016 CBC NRBC SHELF FILLER Not Available [facility] ([facility]) [address] [place], [address], 01/13/2016 06:19:29 01/12/2001/13/2016 CBC hematology comments: SHELF FILLER Not Available [facility] ([facility]) [address] [place], [address], 01/13/2016 06:19:29 01/12/2001/13/2016 CMP, serum or plasm a glucose, serum 85 mg/dL 65-99 Not Available [facility] ([facility]) [address] [place], [address], 01/13/2016 06:19:30 01/12/2001/13/2016 CMP, serum or plasm a BUN 8 mg/dL 6-20 Not Available [facility] ([facility]) [address] [place], [address], 01/13/2016 06:19:30 01/12/2001/1201/13/2016 CMP, serum or plasm a creatinine, serum 0.61 mg/dL 0.57-1 .00 Not Available [facility] ([facility]) [address] [place], [address], 01/13/2016 06:19:30 01/12/20 16 01/13/2016 CMP, serum or plasm a eGFR if nonafricn AM 129 mL/mi n/1.7 3 >59 Not Available [facility] ([facility]) [address] [place], [address], 01/13/2016 06:19:30 01/12/20 16 01/13/2016 CMP, serum or plasm a eGFR if africn AM 149 mL/mi n/1.7 3 >59 Not Available [facility] ([facility]) [address] [place], [address], 01/13/2016 06:19:30 01/12/20 16 01/13/2016 CMP, serum or plasm a BUN/creatini ne ratio 13 8-20 Not Available [facility] ([facility]) [address] [place], [address], 01/13/2016 06:19:30 01/12/20 16 01/13/2016 CMP, serum or plasm a sodium, serum 140 mmol/ L 134-14 4 Not Available [facility] ([facility]) [address] [place], [address], 01/13/2016 06:19:30 01/12/2001/13/2016 CMP, serum or plasm a potassium, serum 4.0 mmol/ L 3.5-5. 2 Not Available [facility] ([facility]) [address] [place], [address], 01/13/2016 06:19:30 01/12/20 16 01/13/2016 CMP, serum or plasm a chloride, serum 102 mmol/ L 97-108 Not Available [facility] ([facility]) [address] [place], [address], 01/13/2016 06:19:30 01/12/20 16 01/13/2016 CMP, serum or plasm a carbon dioxide, total 21 mmol/ L 18 Not Available [facility] ([facility]) [address] [facility] [place], [address], 01/13/2016 06:19:30 01/12/2001/13/2016 CMP, serum or plasm a calcium, serum 9.3 mg/dL 8.7-10 .2 Not Available [facility] ([facility]) [address] [facility] [place], [address], 01/13/2016 06:19:30 01/12/20 16 01/13/2016 CMP, serum or plasm a protein, total, serum 6.9 g/dL 6.0-8. 5 Not Available [facility] ([facility]) [address] [facility] [place], [address], 01/13/2016 06:19:30 01/12/2001/13/2016 CMP, serum or plasm a albumin, serum 4.3 g/dL 3.5-5. 5 Not Available [facility] ([facility]) [address] [facility] [place], [address], 01/13/2016 06:19:30 01/12/2001/13/2016 CMP, serum or plasm a globulin, total 2.6 g/dL 1.5-4. 5 Not Available [facility] ([facility]) [address] [facility] [place], [address], 01/13/2016 06:19:30 01/12/2001/13/2016 CMP, serum or plasm a A/G ratio 1.7 1.1-2. 5 Not Available [facility] ([facility]) [address] [facility] [place], [address], 01/13/2016 06:19:30 01/12/2001/13/2016 CMP, serum or plasm a bilirubin, total 0.7 mg/dL 0.0-1. 2 Not Available [facility] ([facility]) [address] [facility] [place], [address], 01/13/2016 06:19:30 01/12/20 16 01/13/2016 CMP, serum or plasm a alkaline phosphatase, S 86 IU/L 39-117 Not Available [facility] ([facility]) [address] [facility] [place], [address], 01/13/2016 06:19:30 01/12/20 16 01/13/2016 CMP, serum or plasm a AST (SGOT) 20 IU/L 0-40 Not Available [facility] ([facility]) [address] [facility] [place], [address], 01/13/2016 06:19:30 01/12/2001/13/2016 CMP, serum or plasm a ALT (SGPT) 21 IU/L 0-32 Not Available [facility] ([facility]) [address] [facility] [place], [address], 01/13/2016 06:19:30 01/12/20 16 01/13/2016 lipid panel , serum cholesterol, total 173 mg/dL 100-19 9 Not Available [facility] ([facility]) [address] [facility] [place], [address], 01/13/2016 06:19:31 01/12/2001/13/2016 lipid panel , serum triglyceride s 68 mg/dL 0-149 Not Available [facility] ([facility]) [address] [facility] [place], [address], 01/13/2016 06:19:31 01/12/2001/13/2016 lipid panel , serum HDL cholesterol 49 mg/dL >39 ACCOR DING TO ATP-I II GUIDE LINES , HDL-C >59 MG/DL IS CONSI DERED A NEGAT WHITNEY RISK FACTO R FOR CHD. Not Available [facility] ([facility]) [address] [place], [address], 01/13/2016 06:19:31 01/12/20 16 01/13/2016 lipid panel , serum VLDL cholesterol yousif 14 mg/dL 5-40 Not Available [facility] ([facility]) [address] [place], [address], 01/13/2016 06:19:31 01/12/20 16 01/13/2016 lipid panel , serum LDL cholesterol calc 110 mg/dL 0-99 above high normal Not Available [facility] ([facility]) [address] [place], [address], 01/13/2016 06:19:31 01/12/20 16 01/13/2016 lipid panel , serum comment: SHELF FILLER Not Available [facility] ([facility]) [address] [facility] [place], [address], 01/13/2016 06:19:31 01/12/2001/13/2016 lipid panel , serum T. chol/HDL ratio 3.5 ratio _unit s 0.0-4. 4 T. CHOL/ HDL RATIO MEN WOMEN 1/2 AVG.R ISK 3.4 3.3 AVG.R ISK 5.0 4.4 2X AVG.R ISK 9.6 7.1 3X AVG.R ISK 23.4 11.0 Not Available [facility] ([facility]) [address] [facility] [place], [address], 01/13/2016 06:19:31 01/12/20 16 01/13/2016 TSH, serum or plasm a TSH 1.100 uIU/m L 0.450- 4.500 Not Available [facility] ([facility]) [address] [facility] [place], [address], 01/13/2016 06:19:32 01/12/20 16 01/13/2016 vitam in [...] [facility]OL[facility] [place]: [facility] PR[facility] . 2. MARITZA Davis MF, AVELINA DACOSTA [place], YAMIL OFF-F ERRAR I ZAMBRANO, ET AL. EVALU ATION , TREAT MENT, AND PREVE NTION OF VITAM IN D DEFIC IENCY : AN ENDOC RINE SOCIE TY CLINI YOUSIF PRACT ICE GUIDE LINE. JCEM. 2010; 96(7) :1911 -30. Not Available [facility] ([facility]) [address] [facility] [place], [address], 01/13/2016 06:19:32 11/19/19 19 11/19/2018 CBC w/ auto diff WBC TNP x10e3 /uL No laven aicha top tube submi tted. Not Available [facility] ([facility]) [address] [facility] [place], [address], 11/19/2018 20:09:11 11/19/1911/19/2018 CBC w/ auto diff RBC TNP Test not perfo rmed Not Available [facility] ([facility]) [address] [place], [address], 11/19/2018 20:09:11 11/19/1911/19/2018 CBC w/ auto diff hemoglobin TNP Test not perfo rmed Not Available [facility] ([facility]) [address] [facility] [place], [address], 11/19/2018 20:09:11 11/19/19 19 11/19/2018 CBC w/ auto diff hematocrit TNP Test not perfo rmed Not Available [facility] ([facility]) [address] [place], [address], 11/19/2018 20:09:11 11/19/19 19 11/19/2018 CBC w/ auto diff MCV SHELF FILLER Not Available [facility] ([facility]) [address] [place], [address], 11/19/2018 20:09:11 11/19/19 19 11/19/2018 CBC w/ auto diff MCH SHELF FILLER Not Available [facility] ([facility]) [address] [place], [address], 11/19/2018 20:09:11 11/19/19 19 11/19/2018 CBC w/ auto diff MCHC SHELF FILLER Not Available [facility] ([facility]) [address] [place], [address], 11/19/2018 20:09:11 11/19/19 19 11/19/2018 CBC w/ auto diff RDW SHELF FILLER Not Available [facility] ([facility]) [address] [place], [address], 11/19/2018 20:09:11 11/19/19 19 11/19/2018 CBC w/ auto diff platelets TNP Test not perfo rmed Not Available [facility] ([facility]) [address] [place], [address], 11/19/2018 20:09:11 11/19/19 19 11/19/2018 CBC w/ auto diff neutrophils TNP Test not perfo rmed Not Available [facility] ([facility]) [address] [place] [address], [address], 11/19/2018 20:09:11 11/19/19 19 11/19/2018 CBC w/ auto diff lymphs TNP Test not perfo rmed Not Available [facility] ([facility]) [address] [place], [address], 11/19/2018 20:09:11 11/19/19 19 11/19/2018 CBC w/ auto diff monocytes TNP Test not perfo rmed Not Available [facility] ([facility]) [address] [place], [address], 11/19/2018 20:09:11 11/19/19 19 11/19/2018 CBC w/ auto diff eos TNP Test not perfo rmed Not Available [facility] ([facility]) [address] [place], [address], 11/19/2018 20:09:11 11/19/1911/19/2018 CBC w/ auto diff basos SHELF FILLER Not Available [facility] ([facility]) [address] [place], [address], 11/19/2018 20:09:11 11/19/1911/19/2018 CBC w/ auto diff immature cells SHELF FILLER Not Available [facility] ([facility]) [address] [place], [address], 11/19/2018 20:09:11 11/19/1911/19/2018 CBC w/ auto diff neutrophils (absolute) SHELF FILLER Not Available [facility] ([facility]) [address] [place], [address], 11/19/2018 20:09:11 11/19/1911/19/2018 CBC w/ auto diff lymphs (absolute) TNP Test not perfo rmed Not Available [facility] ([facility]) [address] [place], [address], 11/19/2018 20:09:11 11/19/1911/19/2018 CBC w/ auto diff monocytes(ab solute) SHELF FILLER Not Available [facility] ([facility]) [address] [place], [address], 11/19/2018 20:09:11 11/19/19 19 11/19/2018 CBC w/ auto diff eos (absolute) TNP Test not perfo rmed Not Available [facility] ([facility]) [address] [place], [address], 11/19/2018 20:09:11 11/19/19 19 11/19/2018 CBC w/ auto diff baso (absolute) TNP Test not perfo rmed Not Available [facility] ([facility]) [address] [place], [address], 11/19/2018 20:09:11 11/19/1911/19/2018 CBC w/ auto diff immature granulocytes SHELF FILLER Not Available [facility] ([facility]) [address] [place], [address], 11/19/2018 20:09:11 11/19/19 19 11/19/2018 CBC w/ auto diff immature grans (abs) SHELF FILLER Not Available [facility] ([facility]) [address] [place], [address], 11/19/2018 20:09:11 11/19/1911/19/2018 CBC w/ auto diff NRBC SHELF FILLER Not Available [facility] ([facility]) [address] [place], [address], 11/19/2018 20:09:11 11/19/1911/19/2018 CBC w/ auto diff hematology comments: SHELF FILLER Not Available [facility] ([facility]) [address] [place], [address], 11/19/2018 20:09:11 11/19/1911/19/2018 iron + total iron- taylor ng capac ity (TIBC ), serum iron bind.cap.(TI BC) 319 ug/dL 250-45 0 Not Available [facility] ([facility]) [address] [place], [address], 11/19/2018 20:09:12 11/19/19 19 11/19/2018 iron + total iron- taylor ng capac ity (TIBC ), serum UIBC 277 ug/dL 131-42 5 Not Available [facility] ([facility]) [address] [place], [address], 11/19/2018 20:09:12 11/19/19 19 11/19/2018 iron + total iron- taylor ng capac ity (TIBC ), serum iron 42 ug/dL 27-159 Not Available [facility] ([facility]) [address] [place], [address], 11/19/2018 20:09:12 11/19/19 19 11/19/2018 iron + total iron- taylor ng capac ity (TIBC ), serum iron saturation 13 % 15-55 below low normal Not Available [facility] ([facility]) [address] [place], [address], 11/19/2018 20:09:12 11/19/19 19 11/19/2018 speci men statu s repor t specimen status report TNP No laven aicha top tube submi tted. TEST: 61592 [id number] CBC With Diffe renti al/Pl atele t Not Available [facility] ([facility]) [address] [place], [address], 11/19/2018 20:09:12 11/26/1911/26/2018 CBC w/ auto diff WBC 6.9 x10e3 /uL 3.4-10 .8 Not Available [facility] ([facility]) [address] [place], [address], 11/26/2018 09:22:29 11/26/1911/26/2018 CBC w/ auto diff RBC 4.64 x10e6 /uL 3.77-5 .28 Not Available [facility] ([facility]) [address] [place], [address], 11/26/2018 09:22:29 11/26/19 19 11/26/2018 CBC w/ auto diff hemoglobin 13.1 g/dL 11.1-1 5.9 Not Available [facility] ([facility]) [address] [place], [address], 11/26/2018 09:22:29 11/26/19 19 11/26/2018 CBC w/ auto diff hematocrit 39.0 % 34.0-4 6.6 Not Available [facility] ([facility]) [address] [facility] [place], [address], 11/26/2018 09:22:29 11/26/19 19 11/26/2018 CBC w/ auto diff MCV 84 fL 79-97 Not Available [facility] ([facility]) [address] [place], [address], 11/26/2018 09:22:29 11/26/19 19 11/26/2018 CBC w/ auto diff MCH 28.2 pg 26.6-3 3.0 Not Available [facility] ([facility]) [address] [place], [address], 11/26/2018 09:22:29 11/26/19 19 11/26/2018 CBC w/ auto diff MCHC 33.6 g/dL 31.5-3 5.7 Not Available [facility] ([facility]) [address] [place], [address], 11/26/2018 09:22:29 11/26/19 19 11/26/2018 CBC w/ auto diff RDW 14.5 % 12.3-1 5.4 Not Available [facility] ([facility]) [address] [place], [address], 11/26/2018 09:22:29 11/26/19 19 11/26/2018 CBC w/ auto diff platelets 241 x10e3 /uL 150-37 9 Not Available [facility] ([facility]) [address] [place], [address], 11/26/2018 09:22:29 11/26/19 19 11/26/2018 CBC w/ auto diff neutrophils 70 % not estab. Not Available [facility] ([facility]) [address] [facility] [place], [address], 11/26/2018 09:22:29 11/26/19 19 11/26/2018 CBC w/ auto diff lymphs 19 % not estab. Not Available [facility] ([facility]) [address] [facility] [place], [address], 11/26/2018 09:22:29 11/26/19 19 11/26/2018 CBC w/ auto diff monocytes 6 % not estab. Not Available [facility] ([facility]) [address] [facility] [place], [address], 11/26/2018 09:22:29 11/26/19 19 11/26/2018 CBC w/ auto diff eos 5 % not estab. Not Available [facility] ([facility]) [address] [facility] [place], [address], 11/26/2018 09:22:29 11/26/19 19 11/26/2018 CBC w/ auto diff basos 0 % not estab. Not Available [facility] ([facility]) [address] [facility] [place], [address], 11/26/2018 09:22:29 11/26/1911/26/2018 CBC w/ auto diff immature cells SHELF FILLER Not Available [facility] ([facility]) [address] [facility] [place], [address], 11/26/2018 09:22:29 11/26/1911/26/2018 CBC w/ auto diff neutrophils (absolute) 4.8 x10e3 /uL 1.4-7. 0 Not Available [facility] ([facility]) [address] [facility] [place], [address], 11/26/2018 09:22:29 11/26/19 19 11/26/2018 CBC w/ auto diff lymphs (absolute) 1.3 x10e3 /uL 0.7-3. 1 Not Available [facility] ([facility]) [address] [facility] [place], [address], 11/26/2018 09:22:29 11/26/19 19 11/26/2018 CBC w/ auto diff monocytes(ab solute) 0.4 x10e3 /uL 0.1-0. 9 Not Available [facility] ([facility]) [address] [place], [address], 11/26/2018 09:22:29 11/26/19 19 11/26/2018 CBC w/ auto diff eos (absolute) 0.3 x10e3 /uL 0.0-0. 4 Not Available [facility] ([facility]) [address] [facility] [place], [address], 11/26/2018 09:22:29 11/26/19 19 11/26/2018 CBC w/ auto diff baso (absolute) 0.0 x10e3 /uL 0.0-0. 2 Not Available [facility] ([facility]) [address] [place], [address], 11/26/2018 09:22:29 11/26/19 19 11/26/2018 CBC w/ auto diff immature granulocytes 0 % not estab. Not Available [facility] ([facility]) [address] [place], [address], 11/26/2018 09:22:29 11/26/1911/26/2018 CBC w/ auto diff immature grans (abs) 0.0 x10e3 /uL 0.0-0. 1 Not Available [facility] ([facility]) [address] [place], [address], 11/26/2018 09:22:29 11/26/19 19 11/26/2018 CBC w/ auto diff NRBC SHELF FILLER Not Available [facility] ([facility]) [address] [facility], [place], [address], 11/26/2018 09:22:29 11/26/19 19 11/26/2018 CBC w/ auto diff hematology comments: SHELF FILLER Not Available [facility] ([facility]) [address] [facility], [place], [address], 11/26/2018 09:22:29 09/25/19 17 XR, knee No observ ation record ed. [email or web address] Not Available 09/15 17:43:46 11/15/19 22 11/14/2021 US, abdom en No observ ation record ed. [address] [facility], [place], [address], 11/15/2021 08:45:40 11/20/19 22 11/19/2021 US, obste tric No observ ation record ed. [address], [place], [address], 11/19/2021 11:01:58 Result Notes None recorded. Problems Name Problem SNOMED Code Status Onset Date Resolution Date Notes Provider Name and Address Organization Details Recorded Time Superficial injury of wrist 401870341 Active Elmer Terrell PA-C Attn: Accounting ,[address] [facility], [place], [address] , [facility] 5 17:39:20 Eruption 967791874 Active Little Hernandez PA-C Attn: Accounting ,[address] [facility], [place], [address] , [facility] 6 11:08:56 Fatigue 96166717 Active Little Hernandez PA-C Attn: Accounting ,[address] [facility], [place], [address] , [facility] 6 11:08:56 Vitamin D deficiency 21881891 Active Little Hernandez PA-C Attn: Accounting ,[address] [facility], [place], [address] , [place] - [facility] 6 13:29:43 Pain in pelvis 98957528 Active Angelesoscar Leger MA null, [place] - [facility] 5 10:27:55 Bacterial vaginosis 422078450 Active [place] momin[place] [facility] 5 14:40:42 Candidiasis 39465640 Active Milton momin, [place] - [facility] 5 21:55:19 Herpes simplex 16310207 Active [place] momin[place] [facility] 5 21:55:19 Problem Notes None recorded. Procedures Surgical History Date Name Laterality Status Provider Name and Address Organization Details Recorded Time 5 Depo Injection completed [place] Carrero [place] [facility] 10/04/2014 10:57:26 Imaging Results Imaging Date Name Status LastModified by Organiz ation Details LastModified Time 09/25/2016 XR, knee completed [email or web address] Information n ot available 09/25/2016 17:43:46 11/14/2021 US, abdomen completed [facility] [address] [facility] [address], [address], 11/15/2021 08:45:40 11/19/2021 US, obstetric completed [facility] [address] [facility] [address], [place], [address], 11/19/2021 11:01:58 Procedure Notes None recorded. Medical [...] completed Not Available Not Available Not Available Depo-Deputy Bailiff a 150 mg/mL intramuscul ar suspension Inject [...] Updated DateTime 9 162.56 cm 25.1 kg/m2 31116.5 9 g 99 % 99 % 59 /min 102 mm[Hg] 62 mm[Hg] Betty Pollock [place] - [facility] 9 14:47:22 Date Recorded Body [...] 110 mm[Hg] 62 mm[Hg] Virginia Zamudio RN [facility] 9 16:28:56 Date Recorded Body temperature Heart rate Respiratory rate Body mass index (BMI) Body height Body weight Systolic blood pressure Diastolic blood pressure Provider Name and Address Organization Details Last Updated DateTime 6 98 [degF] 76 /min 18 /min 21.9 kg/m2 163.83 cm 84442.6 82381 g 84 mm[Hg] 44 mm[Hg] Elke Medel MA [facility] 6 10:41:06 Social History Question Answer Notes LastModified by Organizat ion Details LastModified Time Tobacco Smoking Status Never Smoker Angeles Leger MA [facility], [facility] 10/04/2014 10:32:59 Do You Have An Advance Directive? No [email or web address] Information not available 10/04/2014 What Is Your Level Of Alcohol Consumption? Occasional [email or web address] Information not available 10/04/2014 Is Blood Transfusion Acceptable In An Emergency? Yes [email or web address] Information not available 10/04/2014 What Is Your Level Of Caffeine Consumption? Moderate [email or web address] Information not available 10/04/2014 Are You Currently Employed? Yes [email or web address] Information not available 10/04/2014 What Type Of Diet Are You Following? 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 With Others [email or web address] Information not available 10/04/2014 Marital Status Single Informatio n not available 01/12/2016 What Was The Date Of Your Most Recent Tobacco Screening? 01/29/2019 Information not available 04/08/2019 How Many Children Do You Have? 0 [email or web address] Information not available 10/04/2014 Performs Monthly Self-breast Exam? Yes [email or web address] Information not available 10/04/2014 Do You Use Protection During Sex? No [email or web address] Information not available 10/04/2014 What Is Your Relationship Status? Single Information not available 10/04/2014 Seat Belts Used Routinely Yes Information not available 10/04/2014 Are You Sexually Active? Yes [email or web address] Information not available 10/04/2014 Smoke Alarm In Home Yes Information not available 01/12/2016 General Stress Level High [email or web address] Information not available 10/04/2014 Do You Use Sunscreen Routinely? Yes [email or web address] Information not available 10/04/2014 Sex: Unknown Functional Status Question Answer Note LastModified by Organizat ion Details LastModified Time What is your exercise level? Occasional Information not available 10/04/2014 Mental Status None recorded. Family History Relationship Description Onset Age of this Age Resolved Age Notes LastModified by Organization Details LastModified Time Mother Diabetes mellitus [email or web address] Not available 2015 10:51:04 Maternal Grandmother Heart disease [email or web address] Not available 2015 10:51:04 Medical History Condition Response Coronary Artery Disease N Blood Diseases N Kidney Cyst N Hyperthyroidism N Blood Transfusion N MRSA N Blood disorders N Emphysema N COPD N Blood Clots N Depression N Pneumonia N Peripheral Arterial Disease N Premature N Edema N TIA N Headaches/Migraines N Anxiety Disorder N Obesity N Infertility N Polyps N Acid Reflux (GERD) N Hematuria N Stroke N Neck Injury N Polio N Hospital Admission other than N Neurologic Disorder N Other Sleep Disorders N Rheumatoid Arthritis N Fibromyalgia N Abdominal Aortic Aneurysm Repair N Kidney Disease N Heart Conditions N Heart Disease/Heart Problems N Hospitalizations N Brain Tumors N Acne N Eating Disorder N Skin Problems N Constipation N Meningitis N Tuberculosis N Cerebral Palsy N Myocardial Infarction N Asthma N Substance Abuse N Peripheral Vascular Disease N Vertigo Y Sleep Disorder N Cirrhosis N Pulmonary Embolism N Chicken Pox Y Flomax Use Past or Present N Hematologic Disease N Anxiety/Depression N Thyroid Disease N Colon Cancer N Glaucoma N Lung Disease N Developmental or Behavioral Disorders N Bipolar N Pacemaker N Diverticulitis/Diverticulosis N Anesthesia Complications N Orthopedic Problems N Orthotics N Head Injury/Concussion N Congenital Anomalies N Fischer Bite N Chronic Kidney Disease N Endometriosis N Liver Disease N Dialysis N Schizophrenia N Speech Delay N Chronic Obstructive Pulmonary Disease N Parkinson's Disease N Thyroid Problems N GI Problems Y Developmental Delay N Anemia N Immune System Disorder N Multiple Sclerosis N Colon Polyps N Heart Attack ([place]) N Diabetes N Cardiomyopathy N Blood Transfusions N Heart Problems/Murmur N Eye Trauma N Congestive Heart Failure (CHF) N Valvular Heart Disease N Hyperlipidemia N Double Vision N Abuse/Domestic Violence N Hepatitis B N Lupus N Epilepsy/Seizures N Reflux/GERD N Aneurysm N Bronchitis N Heart Disease N Hypertension N Pre-Eclampsia N Heart Failure N Other N Gout [...] N Kidney Failure N Ocular trauma N Dementia N Diverticulitis N Sleep Apnea N Mental Problems N [...] SNOMED-CT Code Diagnosis ICD10 Code Diagnosis Note [id number] Milton Wilkinson (OCCUPATIONAL THERAPIST AIDE) [address] [place] [address] 10/04/2014 10:00:57 10/04/2014 12:51:38 Bacterial vaginosis 450475526 -Flagyl 500mg BID x 7d -Advise against douching, limit number of sexual partners, encourage safe sex practices, ie condom use -Education regarding BV signs and symptoms Family sulema nning surveillance 314193237 Contracept ion education 448003970 Contraception care 872572544 192267 [facility] (Adult Med) [address] [place] [address] 01/12/2016 10:26:45 01/12/2016 11:09:44 Eruption 668776021 R21 Advised to mix creams together and apply BID x 7 days and then stop for 4 days and can reapply for another 7 days RTC if no improvemen t Fatigue 06784100 R53.83 Adult heal th examination 291264418 Z00.01 21YO female here to establish care. [id number] Brenda Sousa MD [facility] [address] [place] [address] 11/18/2018 14:24:47 11/23/2018 08:08:38 Hemorrhoids 52285640 K64.9 Iron defic iency anemia 70623546 D50.9 Moderate r ecurrent major depression 14030643 F33.1 [id number] Crystal Rolle MA [facility] [address] [place] [address] 11/25/2018 10:33:13 12/08/2018 03:46:20 [id number] Brenda Suosa MD [facility] [address] [place] [address] 01/29/2019 15:51:25 02/09/2019 10:03:42 Depressive disorder 31454645 F32.89 will stop fluoxetine and start sertraline [id number] Brenda Sousa MD [facility] [address] [place] [address] 06/04/2019 16:03:28 06/07/2019 10:59:13 Adult health examination 905564100 Z00.00 Standardiz ed adult depression screening tool completed [id number] 64603 Z13.89 Health Concerns Section Related Observation LastModified by Organization Detai ls LastModified Time None Recorded Concern Status LastModified by Organization Details LastModified Time None Recorded Advance Directives Directive N: Payers Encounter Date Sequence Insurance Name Policy Number Policy Moralez Covered Member ID Moralez Member ID Guarantor Name 01/12/2016 1 [facility] PRIOR TO 03/15/2021 (MEDICAID REPLACEMENT - HMO) Mili Mcmahon [id number] Mili Mcmahon 11/18/2018 1 [facility] PRIOR TO 03/15/2021 (MEDICAID REPLACEMENT - HMO) Mili Mcmahon [id number] Mili Mcmahon 11/25/2018 1 [facility] PRIOR TO 03/15/2021 (MEDICAID REPLACEMENT - HMO) Mili Mcmahon [id number] Mili Mcmahon 01/29/2019 1 [facility] PRIOR TO 03/15/2021 (MEDICAID REPLACEMENT - HMO) Mili Mcmahon [id number] Mili Mcmahon 06/04/2019 1 [facility] PRIOR TO 03/15/2021 (MEDICAID REPLACEMENT - HMO) Mili Mcmahon [id number] Mili Mcmahon Notes Date Note Type Note Provider [...] establish care Little Hernandez PA-C Attn: Accounting,[address] [place], [address], [place] [facility] 01/12/2016 11:09:35 11/18/2018 text/html Discussed causes and treatment for hemorrhoids, and will refer patient for surgical excision. Brenda Sousa MD Attn: Accounting,[address] [place], [address], [facility] 11/22/2018 23:39:16 11/18/2018 text/html AnemiaReported bypatient.Severity:M icrocytic [...] of breath Brenda Sousa MD Attn: Accounting,[address] [facility], [place], [address], [facility] 11/22/2018 23:39:16 01/29/2019 text/html Anxiety/Depressi onRe ported bypatient.Quality:mo od worse Severity:denies suicidal ideations; able to maintain relationships;interf erence with household activities;interfere nce with sleep Duration:symptoms lasting over 2 weeks Onset/Timing:gradual Context:major life stressors;family problems;trouble at work Modifying Factors:counselling; medications as directed Associated Symptoms:denies homicidal ideations; no crying spells;anxiety;depre ssion;restlessness/a gitation;sleep disturbances;anhedon ia;anxiety with muscle tension Brenda Sousa MD Attn: Accounting,[address] [place], [address], [facility] 02/09/2019 01:30:30 OBGyn Episode No OBEpisode recorded.
--- OUTSIDE RECORDS SUMMARY | 2024-12-24 13:50 | XMS_ITS | Clinical Summary ---
Author Organization [facility] Address [address] [place] [phone] Phone Care Team Providers Care Rod Greaser Name Role Phone Unavailable Primary Care Provider [...] of 3 - 19+ 3-dose series) 2013 HPV/Cotest (21-29) 2015 PAP SMEAR 2015 CERVICAL CANCER SCREENING 01/07/2024 HPV/Cotest (30-65) 01/07/2024 PAP SMEAR 01/07/2024 INFLUENZA VACCINE (#1) 2024 HPV VACCINES Aged Out No longer eligi ble based on patient's age to complete this topic Insurance [facility] MEDICAID
--- OUTSIDE RECORDS SUMMARY | 2024-12-24 13:50 | XMS_ITS | Data Portability ---
Author Organization 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 Discussed plan. Not available 12/06/2024 09:40:15 12/21/2024 12/21/2024 Patient is ___weeks . Discussed plan. Not available 12/21/2024 10:56:55 Plan of Treatment Reminders Order Date Submit Date Provider Last Modified By Organization Details Last Modified Time Details Appointments OB ROUTINE 2024 11:15A Karmen PANTOJA MD Not available Not available Not available Lab None recorded. Referral None recorded. Procedures None recorded. Surgeries None recorded. Imaging US, obstetric , follow-up 2024 025 [email or web address] [address], [address], [place], [address], 12/21/2024 14:13:15 non-stres s test 2024 025 [email or web address] [address], [address], [place], [address], 12/17/2024 17:44:24 Medication Orders Procardia XL 60 mg tablet,ex tended release 2024 025 [email or web address] [id number], [address], [place], [id number], 12/21/2024 11:35:01 Patient TargetsNo targets recorded. Patient InstructionsNo instructions recorded. Reason for Referral None Reported. Results Created Date Observation Date Name Description Value Unit Range Abnormal Flag Note LastModifiedBy Organization Detail LastModifiedTime 12/07/1912/06/2024 HEMAT OCRIT (HCT) HCT 35.8 % (based on docume nted legal sex) 34.0-[address] [facility] (Lab) [address], [place], [address], 12/07/2024 12:58:43 12/07/19 25 12/06/2024 HEMOG LOBIN (HGB) HGB 11.2 g/dL (based on docume nted legal sex) 11.6-[address] [facility] (Lab) [address] [place], [address], 12/07/2024 12:58:44 12/07/19 25 12/06/2024 GTT - GESTA BOBBI L LES Charles, ACOG OB glucose, 1 hour screen 102 mg/dL 70-135 Not Available [facility] (Lab) [address] [place], [address], 12/07/2024 12:58:44 12/07/1912/06/2024 HIV 1/2 ANTIG EN/AN TIBOD Y, REFLE X CONFI RMATI ON HIV antigen/anti body Nonrea ctive nonrea ctive HIV-1 antig en and HIV-1 /HIV- 2 antib odies were not detec amanda. No labor atory evide nce of HIV infec tion. Not Available [facility] (Lab) [address] [place], [address], 12/07/2024 12:58:45 12/07/19 25 12/06/2024 RPR SCREE N, REFLE X TITER /CONF IRMAT ION RPR qualitative Nonrea ctive nonrea ctive Not Available [facility] (Lab) [address], [place], [address], 12/07/2024 12:58:45 12/18/19 25 12/17/2024 non-s tress test No observ ation record ed. [email or web address] [address], [place], [address], 12/17/2024 17:43:48 12/18/19 25 12/17/2024 non-s tress test No observ ation record ed. [address] [address], [place], [address], 12/21/2024 14:44:42 12/18/19 25 12/17/2024 US, obste tric, bioph ysica l profi le No observ ation record ed. [address] [address], [place], [address], 12/20/2024 15:26:26 12/18/19 25 12/17/2024 US, obste tric, bioph ysica l profi le No observ ation record ed. [address] [address], [place], [address], 12/20/2024 15:26:43 12/22/19 25 12/21/2024 US, obste tric, follo w-up No observ ation record ed. [email or web address] [address], [place], [address], 12/21/2024 14:11:47 12/22/19 25 12/21/2024 US, obste tric, follo w-up No observ ation record ed. [email or web address] [address], [place], [address], 12/21/2024 22:22:13 12/22/19 12/17/2024 non-s tress test No observ ation record ed. [email or web address] [address], [place], [address], 12/21/2024 18:48:58 Result Notes None recorded. Problems Name Problem SNOMED Code Status Onset Date Resolution Date Notes Provider Name and Address Organization Details Recorded Time Complica tion of pregnanc y, childbir th and/or puerperi um [id number] Completed 201709/19/2020 Oth diseases and conditio ns compl preg/chl dbrth;Re corded Elsewher e: No [facility]: EHR Felt Machine Mechanic ramírez: N Practi ce ID: 0001 Bernard lable Time: 03:45:00 PM Annie Lehman MD [address], [place], [address], [facility] 1 11:19:26 Antenata l screenin g Completed 201709/19/2020 Encounte r for antenata l screenin g for nuchal transluc ency;Rec orded Elsewher e: No [facility]at ion: [facility] S ource: EHR Felt Machine Mechanic ramírez: N Practi ce ID: 0001 Bernard lable Time: 02:30:00 PM Annie Lehman MD [address], [place], [address], [facility] 11:19:56 Bartholi nitis 8351249 Completed 201809/19/2020 Other diseases of Bartholi n's gland;Re corded Elsewher e: No Locat ion: [facility] S ource: EHR Felt Machine Mechanic ramírez: N Practi ce ID: 0001 Bernard lable Time: 11:00:00 AM Annie Lehman MD [address], [place], [address], [facility] 1 11:17:48 Pregnanc y, childbir th and puerperi um finding Completed 201709/19/2020 Encntr for suprvsn of normal first preg, third trimeste r;Record ed Elsewher e: No Locat ion: [facility] greenberg [facility] S ource: EHR Felt Machine Mechanic ramírez: N Josieti ce ID: 0001 Bernard lable Time: 04:00:00 PM Annie Lehman MD [address], [place], [address], [facility] 1 11:19:01 Pregnanc y, childbir th and puerperi um finding Completed 201709/19/2020 Encounte r for supervis ion of normal 1st pregnanc y, 1st trimeste r;Record ed Elsewher e: No Locat ion: [facility] S ource: EHR Felt Machine Mechanic ramírez: N Leticia ce ID: 0001 Bernard lable Time: 03:00:00 PM Annie Lehman MD [address], [place], [address], [facility] 1 11:18:57 Missed miscarri age [id number] Completed 201809/19/2020 Missed ;Recorde d Elsewher e: No Locat ion: [facility] S ource: EHR Felt Machine Mechanic ramírez: N Josieti ce ID: 0001 Bernard lable Time: 02:00:00 PM Annie Lehman MD [address], [place], [address], [facility] [address] 11:18:[address] Concept Completed 201809/19/2020 Encntr for rn obgyn exam (general ) (routine ) w/o abn findings ;Recorde d Elsewher e: No Locat ion: [facility] S ource: EHR Felt Machine Mechanic ramírez: N Practi ce ID: 0001 Bernard lable Time: 02:00:00 PM Annie Lehman MD [address], [place], [address], [facility] 1 11:19:14 Spotting per vagina in pregnanc y 860361060 Completed 201709/19/2020 Spotting complica ting pregnanc y, second trimeste r;Record ed Elsewher e: No [facility]at ion[facility]: EHR Felt Machine Mechanic ramírez: N Practi ce ID: 0001 Bernard lable Time: 02:15:00 PM Annie Lehman MD [address], [place], [address], [facility] 1 11:19:16 Placenta previa 03824534 Completed 201709/19/2020 Placenta previa specifie d as w/o hemor, second trimeste r;Record ed Elsewher e: No Locat ion: [facility] S ource: EHR Felt Machine Mechanic ramírez: N Practi ce ID: 0001 Bernard lable Time: 01:00:00 PM Annie Lehman MD [address], [place], [address], [facility] 11:18:52 Increase d frequenc y of urinatio n 245852205 Completed 201909/19/2020 Frequenc y of micturit ion;Amandeep rded Elsewher e: No Locat ion: [facility] S ource: EHR Felt Machine Mechanic ramírez: N Practi ce ID: 0001 Bernard lable Time: 02:30:00 PM Annie Lehman MD [address], [place], [address], [facility] 1 11:18:33 Gestatio n period, 8 weeks 16069175 Completed 201809/19/2020 8 weeks gestatio n of pregnanc y;Record ed Elsewher e: No Locat ion: [facility] S ource: EHR Felt Machine Mechanic ramírez: N Practi ce ID: 0001 Bernard lable Time: 02:00:[address] PM MD [address], [place], [address], [facility] 11:18:28 Normal pregnanc y in multigra andrzej [id number] 41823 Completed 201709/19/2020 Encounte r for supervis ion of other normal pregnanc y, 3rd trimeste r;Record ed Elsewher e: No Locat ion: [facility] S ource: EHR Felt Machine Mechanic ramírez: N Practi ce ID: 0001 Bernard lable Time: 02:00:00 PM Annie Lehman MD [address], [place], [address], [facility] 11:18:49 Antenata l screenin g for malforma tion Completed 201709/19/2020 Encounte r for antenata l screenin g for malforma tions;Pr actice ID: 0001 Annie Lehman MD [address], [place], [address], [facility] 11:19:53 Gestatio n period, 18 weeks 14251830 Completed 201709/19/2020 18 weeks gestatio n of pregnanc y;Practi ce ID: [address], [place], [address], [facility] 11:18:12 Gestatio n period, 17 weeks 36440484 Completed 201709/19/2020 17 weeks gestatio n of pregnanc y;Practi ce ID: 0001 Annie Lehman MD [address], [place], [address], [facility] 11:18:10 Pregnanc y, childbir th and puerperi um finding Completed 201709/19/2020 Encntr for suprvsn of normal first preg, second trimeste r;Practi ce ID: 0001 Annie Lehman MD [address], [place], [address], [facility] 11:18:59 Gestatio n period, 24 weeks 101058868 Completed 201709/19/2020 24 weeks gestatio n of pregnanc y;Record ed Elsewher e: No Locat ion: [facility] S ource: EHR Felt Machine Mechanic ramírez: N Josieti ce ID: 0001 Bernard lable Time: 01:00:00 PM Annie Lehman MD [address], [place], [address], [facility] 11:18:15 Gestatio n period, 27 weeks 14826719 Completed 201709/19/2020 27 weeks gestatio n of pregnanc y;Record ed Elsewher e: No Locat ion: [facility] S ource: EHR Felt Machine Mechanic ramírez: N Josieti ce ID: 0001 Bernard lable Time: 03:15:00 PM Annie Lehman MD [address], [place], [address], [facility] 11:18:19 Pregnanc y detectio n examinat ion Completed 201809/19/2020 Encounte r for pregnanc y test, result positive ;Recorde d Elsewher e: No Locat ion: [facility] S ource: EHR Felt Machine Mechanic ramírez: N Leticia ce ID: 0001 Bernard lable Time: 02:00:00 PM Annie Lehman MD [address], [place], [address], [facility] 11:18:54 Uses combined oral contrace ption 860362124 Completed 201809/19/2020 Encounte r for surveill ance of contrace ptive pills;Re corded Elsewher e: No Locat ion: [facility] S ource: EHR Felt Machine Mechanic ramírez: N Josieti ce ID: 0001 Bernard lable Time: 10:45:00 AM Annie Lehman MD [address], [place], [address], [facility] 11:18:02 Lochia finding Completed 201709/19/2020 Encounte r for routine postpart um follow-u p;Record ed Elsewher e: No Locat ion: [facility] S ource: EHR Felt Machine Mechanic ramírez: N Josieti ce ID: 0001 Bernard lable Time: 01:15:00 PM Annie Lehman MD [address], [place], [address], [facility] 11:18:43 Rubella screenin g status 004671797 Completed 201709/19/2020 Encounte r for antenata l screenin g, unspecif ied;Amandeep rded Elsewher e: No Locat ion: [facility] S ource: EHR Felt Machine Mechanic ramírez: N Josieti ce ID: 0001 Bernard lable Time: 03:30:[address] PM MD [address], [place], [address], [facility] 11:19:07 Prematur e labor 5044702 Completed 201709/19/2020 labor without delivery , second trimeste r;Practi ce ID: 0001 Annie Lehman MD [address], [place], [address], [facility] 11:19:05 False labor before 37 complete d weeks of gestatio n [id number] 3130869 Completed 201709/19/2020 False labor before 37 complete d weeks of gest, second tri;Prac michel ID: [address], [place], [address], [facility] 11:18:07 Gestatio n period, 26 weeks 44752327 Completed 201709/19/2020 26 weeks gestatio n of pregnanc y;Practi ce ID: 0001 Annie Lehman MD [address], [place], [address], [facility] 11:18:17 Syphilis test finding 302455588 Completed 201809/19/2020 Encntr screen for infectio ns w sexl mode of transmis s;Record ed Elsewher e: No Locat ion: [facility] S ource: EHR Felt Machine Mechanic ramírez: N Practi ce ID: 0001 Bernard lable Time: 02:00:00 PM Annie Lehman MD [address], [place], [address], [facility] 11:19:18 Disorder of perineum Completed 201709/19/2020 Anogenit al (venerea l) warts;Re corded Elsewher e: No [facility]at [facility]: EHR Felt Machine Mechanic ramírez: N Practi ce ID: 0001 Bernard lable Time: 08:45:00 AM Annie Lehman MD [address], [place], [address], [facility] 11:19:29 Cardiac arrhythm ia Completed 201709/19/2020 Prematur e contract ion;Amandeep rded Elsewher e: No Locat ion: [facility] S ource: EHR Felt Machine Mechanic ramírez: N Practi ce ID: 0001 Bernard lable Time: 08:45:00 AM Annie Lehman MD [address], [place], [address], [facility] 11:17:56 Pregnanc y, childbir th and puerperi um finding Completed 201709/19/2020 Oth pregnanc y related conditio ns, second trimeste r;Practi ce ID: 0001 Annie Lehman MD [address], [place], [address], [facility] 11:17:54 Infectio n screenin g Completed 201809/19/2020 Encounte r for screenin g for oth infec/pa rastc diseases ;Recorde d Elsewher e: No Locat ion: [facility]te greenberg [facility] S ource: EHR Felt Machine Mechanic ramírez: N Practi ce ID: 0001 Bernard lable Time: 02:00:00 PM Annie Lehman MD [address], [place], [address], [facility] 11:18:36 Pregnanc y, childbir th and puerperi um finding Completed 201709/19/2020 Oth pregnanc y related conditio ns, third trimeste r;Practi ce ID: [address], [place], [address], [facility] 11:17:59 Gestatio n period, 36 weeks 55336688 Completed 201709/19/2020 36 weeks gestatio n of pregnanc y;Practi ce ID: [address], [place], [address], [facility] 11:18:22 False labor at or after 37 complete d weeks of gestatio n 580192996 Completed 201709/19/2020 False labor at or after 37 complete d weeks of gestatio n;Practi ce ID: [address], [place], [address], [facility] 11:18:04 Gestatio n period, 37 weeks 12551073 Completed 201709/19/2020 37 weeks gestatio n of pregnanc y;Practi ce ID: [address], [place], [address], [facility] 11:18:24 Lacerati on of female perineum Completed 201709/19/2020 Second degree perineal lacerati on during delivery ;Practic e ID: 0001 Annie Lehman MD [address], [place], [address], [facility] 11:18:40 Group B streptoc occus infectio n [facility] [id number] Completed 201703/14/2021 Streptoc occus B carrier state complica [facility];Pract ice ID: 0001 Jayna Rivas merrill, [facility] 13:56:59 Single live [id number] Completed 201709/19/2020 Single live ;Pr actice ID: 0001 Annie Lehman MD [address], [place], [address], [facility] 11:19:11 Gestatio n period, 39 weeks 26612770 Completed 201709/19/2020 39 weeks gestatio n of pregnanc y;Practi ce ID: 0001 Annie Lehman MD [address], [place], [address], [facility] 11:18:26 Secondar y amenorrh ea 425568206 Completed 201809/19/2020 Secondar y amenorrh ea;Recor ded Elsewher e: No Locat ion: [facility]te green[facility] S ource: EHR Felt Machine Mechanic ramírez: N Practi ce ID: 0001 Bernard lable Time: 02:00:00 PM Annie Lehman MD [address], [place], [address], [facility] 01/05/202 1 11:19:09 Pregnanc y 51438726 Completed 201902/01/2021 Mary Moreland null, [facility] 4 10:07:10 growth restrict ion 51384335 Completed 2020 weekly doppler, antenata l testing at 32wks Eneida Howardnstieh l null, [facility] 1 10:52:12 False labor 094943619 Completed Procardi a 30mg Eneida Howardnstieh l null, [facility] 1 10:52:12 Abdomina l pain 51866433 Completed Eneida Leenstieh l null, [facility] 1 10:52:12 growth restrict ion 89409718 Completed 202003/14/2021 weekly doppler, antenata l testing at 32wks Jyana Rivas null, [facility] 1 13:57:01 Pregnanc y 72807538 Active 2023 Mary Moreland [facility], [facility] 4 10:07:10 Deliveri es by 470218156 Active to repeat Israel Pantoja MD [address], [place], [address], [facility] 4 10:34:35 Migraine 77113599 Active Israel Pantoja MD [address], [place], [address], [facility] 4 10:34:47 Problem Notes None recorded. Procedures Surgical History Date Name Laterality Status Provider Name and Address Organization Details Recorded Time 3 Date of Last Pap Smear completed Mary Moreland [facility] 07/27/2024 14:36:52 2 Caesarean Section completed Mary Moreland [facility] 07/27/2024 14:40:18 9 Dilation and Curettage completed Sharri Monahan [facility] 06/22/2020 11:59:28 Imaging Results Imaging Date Name Status LastModified by Organiz ation Details LastModified Time 12/17/2024 non-stress test completed [email or web address] [address], [place], [address], 12/17/2024 17:43:48 12/17/2024 non-stress test completed [address] [place] [address], [address], 12/21/2024 14:44:42 12/17/2024 US, obstetric, biophysical profile completed [address], [address], 12/20/2024 15:26:26 12/17/2024 US, obstetric, biophysical profile completed [address] [place] [address], [address], 12/20/2024 15:26:43 12/21/2024 US, obstetric, follow-up completed [email or web address] [address], [place], [address], 12/21/2024 14:11:47 12/21/2024 US, obstetric, follow-up completed [email or web address] [address], [place], [address], 12/21/2024 22:22:13 12/17/2024 non-stress test completed [email or web address] [address], [place], [address], 12/21/2024 18:48:58 Procedure Notes None recorded. Medical Equipment None Reported. Allergies No known drug allergies Medications Name Sig Start Date Stop Date Status Note LastModified by Organization Details LastModified Time nifedipin e ER 30 mg tablet,ex tended release 24 hr TAKE 1 TABLET BY MOUTH DAILY active Not Available Not Available No t Available Aviane 0.1 mg-20 mcg tablet take 1 tablet by oral route every day 11/16 completed [facility] No Locat ion: [facility] odify By: jones perera DateTime : 02/03/20 [...] Not Available Not Available No t Available oxycodone -acetamin ophen 5 mg-325 mg tablet take 1 tablet by oral route every 4-6 hours as needed 11/16 completed [facility]: No Locat ion: [facility] odify By: yusuf Fajardo er DateTime : 01/30/20 10:10:19 AM Not Available Not Available Not Available amoxicill in 875 mg tablet TAKE 1 TABLET BY MOUTH EVERY 12 HOURS FOR 10 DAYS 10/15 completed Not Available Not Available Not Available Procardia XL 60 mg tablet,ex tended release Take 1 tablet every day by oral route. 2024 active Not Available Not Available Not Avai lable metoclopr amide 5 mg tablet TAKE 1 TABLET BY MOUTH EVERY 6 TO 8 HOURS NEEDED 07/27 completed Not Available Not Available Not Available nifedipin e 10 mg capsule Take 1 capsule every day by oral route. active Not Available Not Available No t Available phenazopy ridine 100 mg tablet take [...] 4 hours as needed 01/29 completed Prescrib ed Elsewher e: Yes Loca tion: [facility] odify By: yusuf pack DateTime : 10/23/19 18 03:30:00 PM Not Available Not Available Not [...] 1 TABLET BY MOUTH FOUR TIMES DAILY 12/21 completed Not Available Not Available Not Available nitrofura ntoin monohydra te/macroc rystals 100 mg capsule TAKE 1 CAPSULE BY MOUTH EVERY 12 HOURS WITH FOOD FOR 7 DAYS 12/21 completed Not Available Not Available Not Available Tylenol active Not Available Not Avail able Not Available active Not Available Not Avai lable Not Available Fioricet 50 mg-300 mg-40 mg capsule Take 1 capsule every 4 hours by oral route. 04/10 completed Not Available Not Available Not Available ID NOW COVID-19 Test Kit DIRECTED [id number] 07/27 completed Not Available Not Available Not Available Vitals Date Recorded Body height Body mass index (BMI) Body weight Systolic blood pressure Diastolic blood pressure Provider Name and Address Organization Details Last Updated DateTime 12/06/2024 162.56 cm 33 kg/m2 12080.74 g 124 mm[Hg] 80 mm[Hg] Mary Moreland [place] - [facility] 5 09:42:02 Date Recorded Body weight Systolic blood pressure Diastolic blood pressure Provider Name and Address Organization Details Last Updated DateTime 12/17/2024 52530.3274 1 g 120 mm[Hg] 71 mm[Hg] [facility] 12/17/2024 16:20:08 Date Recorded Body height Body mass index (BMI) Body weight Systolic blood pressure Diastolic blood pressure Provider Name and Address Organization Details Last Updated DateTime 12/17/2024 162.56 cm 33.1 kg/m2 20256.33 g 120 mm[Hg] 71 mm[Hg] Aubree Encarnaciontz [facility] 17:42:06 Date Recorded Body height Body mass index (BMI) Body weight Systolic blood pressure Diastolic blood pressure Provider Name and Address Organization Details Last Updated DateTime 12/21/2024 162.56 cm 33.3 kg/m2 96524.92 g 122 mm[Hg] 75 mm[Hg] Mary [facility] 11:00:28 Social History Question Answer Notes LastModified by TextDiggerizat ion Details LastModified Time Tobacco Smoking Status Never Smoker Bertha Merchant [facility] 11/23/2020 18:10:39 Do You Have An Advance Directive? No Information not available 11/23/2020 What Is Your Level Of Alcohol Consumption? None [id number] Information not available 07/18/2020 Are You Blind Or Do You Have Difficulty Seeing? No Information not available 11/23/2020 What Is Your Level Of Caffeine Consumption? Occasional Information not available 07/27/2024 How Much Tobacco Do You Chew? None Information not available 11/23/2020 In The 14 Days Before Symptom Onset, Have You Had Close Contact With A Laboratory-confir med COVID-19 While That Case Was Ill? No [...] Or The Highest Degree You Have Received? [id number] Information not available 11/23/2020 What Is Your Occupation? None Information not available 11/23/2020 Are There Any Guns Present In Your Home? Yes Information not available 11/23/2020 What Was The Date Of Your Most Recent Tobacco Screening? 04/10/2021 [email or web address] Information not available 04/10/2021 Do You Use [...] How Much Tobacco Do You Smoke? No [email or web address] Information not available 08/18/2020 Do You Feel Stressed (tense, Restless, Nervous, Or Anxious, Or Unable To Sleep At Night)? [id number] Information not available 11/23/2020 Do You Use Any Illicit Or Recreational Drugs? Yes Information not available 12/21/2024 Do You Use Sunscreen Routinely? Yes Information not available 11/23/2020 Have You Used IV Drugs? No Information not available 11/23/2020 Sex: Unknown Functional Status Question Answer Note LastModified by Organizat ion Details LastModified Time Are you able to walk? YESWOREST Information not available 11/23/2020 What is your [...] (Food, seasonal, environmental ) N Other Y Breast Cancer N Drug/Latex Allergies/Reactions N Blood Transfusion N Dermatologic Disorders N Lung Disease N Defects or Inherited Disease N Breast Problem N Gestational Diabetes N Hematologic disorders N Anesthesia Complications N History of STI N Deep Vein Thrombosis N Polycystic ovary syndrome N Anxiety Disorder N Autoimmune disease N Arthritis N Infertility N Polyps N Acid Reflux (GERD) N History of abnormal pap N Cancer N Stroke N Varicosities N Neurologic/Epilepsy N Endometriosis N High Cholesterol N Headaches N Fibromyalgia N Kidney Disease N Heart Problems N Kidney or Bladder Problems N Thyroid Problems N GI Problems N Eating Disorder [...] SNOMED-CT Code Diagnosis ICD10 Code Diagnosis Note [id number] [facility] [address],[place] [address] 06/15/2020 10:20:01 06/15/2020 14:43:05 [id number] Sofía Thurman [facility] [address],[place] [address] 06/22/2020 16:23:42 06/23/2020 15:45:21 Gynecologic examination 78084661 Z01.419 test positive 773851581 Z32.01 Risk factors addressed: Tobacco Cessation, Safe [...] annual well woman examinatio n and [facility] [id number] [facility] [address],[place] [address] 07/18/2020 16:32:57 07/18/2020 17:24:28 screening 924706425 Z36.82 Z36.0 Z36.89 [id number] Israel Pantoja MD [facility] [address],[place] [address] 07/18/2020 16:34:01 07/20/2020 15:12:33 Routine care [id number] Z34.90 [id number] Stefany Dunn CNM [facility] [address],[place] [address] 08/18/2020 15:50:48 08/18/2020 17:07:09 Routine care 512842636 Z34.92 [id number] [facility] [address],[place] [address] 08/18/2020 15:51:57 08/21/2020 09:09:37 [id number] [facility] [address],[place] [address] 09/19/2020 09:30:24 09/19/2020 12:49:24 screening for malformation 151417998 Z36.3 52036 Annie Lehman MD [facility] [address],[place] [address] 09/19/2020 09:30:56 09/19/2020 11:51:19 Routine care 279469170 Z34.92 [id number] [facility] [address],[place] [address] 10/26/2020 10:28:47 10/26/2020 11:27:30 Small for gestational age fetus 381709487 O36.5920 Z3A.26 [id number] Israel Pantoja MD [facility] [address],[place] [address] 10/26/2020 10:29:24 10/26/2020 12:33:48 Routine care 570285272 Z34.90 [id number] [facility] [address],[place] [address] 11/02/2020 16:25:34 11/03/2020 12:03:37 Small for gestational age fetus 978719757 O36.5920 Z3A.27 10764 [facility] [address],[place] [address] 11/09/2020 16:47:44 11/09/2020 17:49:54 Small for gestational age fetus 216147761 O36.5920 37637 [facility] [address],[place] [address] 11/16/2020 16:34:04 11/16/2020 17:26:44 Poor growth affecting management 747328623 O36.5930 Z3A.29 11024 Israel Pantoja MD [facility] [address],[place] [address] 11/16/2020 16:34:20 11/17/2020 19:03:36 Routine care 386713709 Z34.90 47061 [facility] [address],[place] [address] 11/23/2020 16:23:32 11/24/2020 14:38:24 Poor growth affecting management 585734495 O36.5930 Z3A.30 20335 Israel Pantoja MD [facility] [address],[place] [address] 1 11/23/2020 16:24:03 11/24/2020 14:38:55 Routine care 021904059 Z34.90 [id number] [facility] [address],[place] [address] 11/30/2020 16:49:04 11/30/2020 17:25:15 Poor growth affecting management 075876831 O36.5930 Z3A.31 [id number] Israel Pantoja MD [facility] [address],[place] [address] 11/30/2020 16:49:26 12/01/2020 15:25:48 Routine care 969544578 Z34.90 10135 [facility] [address],[place] [address] 12/07/2020 16:08:59 12/07/2020 17:00:30 Poor growth affecting management 695567233 O36.5930 Z3A.32 [id number] Eneida Fung [facility] [address],[place] [address] 12/07/2020 16:09:19 12/07/2020 17:29:59 growth restriction 13571676 O35.8XX9 80162 [facility] [address],[place] [address] 12/07/2020 16:09:36 12/09/2020 15:24:29 Routine care 847853747 Z34.90 45076 Eneida Fung [facility] [address],[place] [address] 12/11/2020 16:59:41 12/13/2020 09:34:50 growth restriction 02918005 O35.8XX9 41149 Megan Kearns [facility] [address],[place] [address] 12/14/2020 15:44:09 12/14/2020 16:36:54 Poor growth affecting management 420489245 O36.5930 Z3A.33 02846 Eneida Fung [facility] [address],[place] [address] 12/14/2020 15:44:31 12/14/2020 17:19:55 growth restriction 03269278 O35.8XX9 [id number] Israel Pantoja MD [facility] [address],[place] [address] 1 12/14/2020 15:44:47 12/18/2020 13:50:18 Routine care 293063277 Z34.90 [id number] Eneida Fung [facility] [address],[place] [address] 12/21/2020 16:22:14 12/21/2020 17:10:49 growth restriction 59661249 O35.8XX9 [id number] [facility] [address],[place] [address] 12/21/2020 16:22:28 12/24/2020 21:37:00 Small for gestational age fetus [id number] O36.5930 Z3A.34 [id number] Israel Pantoja MD [facility] [address],[place] [address] 12/21/2020 16:22:59 12/24/2020 21:37:30 Routine care 765674201 Z34.90 [id number] Eneida Fung [facility] [address],[place] [address] 12/25/2020 16:51:50 12/25/2020 17:59:43 growth restriction 80513907 O35.8XX9 70668 Eneida Fung [facility] [address],[place] [address] 1 12/28/2020 16:15:35 12/28/2020 17:19:26 growth restriction 43310472 O35.8XX9 71900 [facility] [address],[place] [address] 12/28/2020 16:16:08 12/28/2020 17:25:29 Small for gestational age fetus 231923309 O36.5930 Z3A.35 [id number] Israel Pantoja MD [facility] [address],[place] [address] 1 12/28/2020 16:16:32 12/29/2020 14:52:26 Routine care 441346247 Z34.90 [id number] Eneida Fung [facility] [address],[place] [address] 01/01/2021 16:58:49 01/01/2021 18:11:56 growth restriction 35045512 O35.8XX9 [id number] Eneida Fung [facility] [address],[place] [address] 01/04/2021 16:07:28 01/04/2021 17:20:24 growth restriction 55121921 O35.8XX9 07252 [facility] [address],[place] [address] 01/04/2021 16:07:46 01/04/2021 17:13:46 Small for gestational age fetus 467099159 O36.5930 Z3A.36 [id number] Israel Pantoja MD [facility] [address],[place] [address] 01/04/2021 16:07:58 01/05/2021 09:53:26 Routine care 950350817 Z34.90 13866 Madhavi [facility] [address],[place] [address] 01/11/2021 16:17:56 01/11/2021 17:07:33 Small for gestational age fetus 095086022 O36.5930 Z3A.37 56366 [facility] [address],[place] [address] 01/15/2021 17:03:59 01/15/2021 22:05:32 growth restriction 23358669 O35.8XX9 [id number] [facility] [address],[place] [address] 1 01/18/2021 16:33:29 01/18/2021 17:05:26 growth restriction 93509774 O35.8XX9 [id number] [facility] [address],[place] [address] 01/18/2021 16:34:27 01/19/2021 14:56:37 Small for gestational age fetus 910331479 O36.5930 Z3A.38 53115 Israel Pantoja MD [facility] [address],[place] [address] 01/18/2021 16:34:52 01/19/2021 14:57:18 Routine care 826271120 Z34.90 [id number] [facility] [address],[place] [address] 01/19/2021 14:23:41 01/19/2021 15:15:00 Small for gestational age fetus 101306872 O36.5930 Z3A.38 01202 [facility] [address],[place] [address] 01/22/2021 13:57:45 01/22/2021 14:46:08 growth restriction 44355140 O35.8XX9 50692 Sofía Masonremi [facility] [address],[place] [address] 03/01/2021 16:08:40 03/02/2021 15:27:21 state 54914114 Z39.2 Continue to watch for signs/symp toms [...] desired Mixed anxi ety and depressive disorder 251946278 F41.8 Discussed options and pt would like to start zoloft. No thoughts of harming herself or others. If any worsening of symptoms she will notify us right away. RTC in 2 weeks for med check. [address] [facility] [address],[place] [address] 03/15/2021 11:58:16 03/15/2021 12:22:02 Mixed anxiety and depressive disorder 096197180 F41.8 Pt unsure if there is any improvemen t but definitely not worse. No thoughts of harming herself or others. Pt would like to continue at current dose and see how she is doing at 1 month. Will plan return visit in 2 weeks. [id number] [facility] [address],[place] [address] 04/10/2021 12:47:01 04/12/2021 14:14:59 Mixed anxiety and depressive disorder 462608031 F41.8 Pt very happy with improvemen t and would like to continue with current dose of zoloft. She will let us know if any worsening of symptoms. [id number] Megan eKarns [facility] [address],[place] [address] 07/27/2024 13:44:10 07/27/2024 14:10:06 screening 310329969 Z36.87 Z3A.08 [id number] Israel Pantoja MD [facility] [address],[place] [address] 07/27/2024 13:45:40 07/27/2024 15:05:53 Amenorrhea 04607796 N91.2 this patient is a 29-year-ol d [...] begin routine care at her next visit. [id number] Megan [facility] [address],[place] [address] 08/26/2024 09:19:11 08/26/2024 09:52:33 screening 916188901 Z36.82 Z3A.13 [id number] Israel Pantoja MD [facility] [address],[place] [address] 08/26/2024 09:19:23 08/26/2024 10:53:29 Migraine 44258209 G43.909 Routine an tenatal care 168783567 Z34.90 [id number] Israel Pantoja MD [facility] [address],[place] [address] 09/23/2024 09:34:38 09/23/2024 10:25:36 Routine care 398427962 Z34.90 [id number] Madhavi [facility] [address],[place] [address] 10/14/2024 09:27:39 10/14/2024 10:46:12 screening for malformation 603768440 Z36.3 Z3A.20 [id number] Israel Pantoja MD [facility] [address],[place] [address] 10/15/2024 12:02:23 10/15/2024 12:39:49 Routine care 981838415 Z34.90 [id number] Israel Pantoja MD [facility] [address],[place] [address] 11/09/2024 09:31:35 11/09/2024 10:13:11 Routine care 765366875 Z34.90 [id number] Israel Pantoja MD [facility] [address],[place] [address] 12/06/2024 09:25:31 12/06/2024 10:05:53 Routine care 898337169 Z34.90 [id number] Israel Pantoja MD [facility] [address],[place] [address] 12/17/2024 15:40:56 12/20/2024 15:31:57 [id number] Aubreeevgeny Jones [facility] [address],[place] [address] 12/17/2024 16:40:24 12/20/2024 06:37:18 -induced hypertension 85786758 O13.9 [id number] Madhavi Tapia [facility] [address],[place] [address] 12/21/2024 09:37:11 12/21/2024 10:33:41 Uterine size for dates discrepancy 486984301 O26.843 Z3A.29 [id number] Israel Pantoja MD [facility] [address],[place] [address] 12/21/2024 09:37:30 12/21/2024 11:39:05 labor without delivery [id number] 8305401 O60.03 Health Concerns Section Related Observation LastModified by Organization Detai ls LastModified Time None Recorded Concern Status LastModified by Organization Details LastModified Time None Recorded Advance Directives Directive N: Payers Encounter Date Sequence Insurance Name Policy Number Policy Moralez Covered Member ID Moralez Member ID Guarantor Name 12/06/2024 1 [facility] ON OR AFTER 03/15/21 (MEDICAID REPLACEMENT - HMO) Mili Mcmahon [id number] Mili Mcmahon 12/17/2024 1 [facility] - DOS ON OR AFTER 21 (MEDICAID REPLACEMENT - HMO) Mili Mcmahon [id number] Mili Mcmahon 12/17/2024 1 [facility] - DOS ON OR AFTER 21 (MEDICAID REPLACEMENT - HMO) Mili Mcmahon [id number] Mili Mcmahon 12/21/2024 1 [facility] ON OR AFTER 03/15/21 (MEDICAID REPLACEMENT - HMO) Mili Mcmahon [id number] Mili Mcmahon 12/21/2024 1 [facility] ON OR AFTER 03/15/21 (MEDICAID REPLACEMENT - HMO) Mili Mcmahon [id number] Mili Mcmahon OBGyn Episode Ob Episode Information Episode Created Date Number of Fetuses Patient Bloodtype Patient rh Status Prepregnancy Weight lbs Domestic Partner Domestic Partner Phone Father Name Cissp Status 06/22/20 1 CLOSED Fetus Data First Name Last [...] Domestic Partner Domestic Partner Phone Father Name Cissp Status 06/22/20 20 1 CLOSED Fetus Data [...] Domestic Partner Domestic Partner Phone Father Name Cissp Status 07/18/20 20 1 O Positive 165 CLOSED Fetus Data First Name Last Name Admitted to NICU Weight (g) Sex Living Outcome Pediatric Complications Fetus ID Race Codes Race Delivery Type 2608.15 4 F true Full Term [id number] Vaginal Delivery Problems Problem Notes possible hemorrha ge Problem Name Start Date End Date Resolution Snomed Code Not e growth restriction 10/26/2020 13640717 weekly doppler, testing at 32wks False labor 238430814 Procardi a 30mg Abdominal pain 99566735 Nico Calculation Initial Nico Date Initial Exam Date Initial Exam Provider Initial Ultrasound Date Last Menstrual Period Date Ultra Sound Weeks Gestation 02/01/2021 07/18/2020 06/15/2020 04/27/2020 7 Eighteen To Twenty Week Nico Update Ultra Sound Date Fundal Height At Umbil Quickening Date Ultra Sound Latest Weeks Gestation Final Nico Confirmed By Final Nico Confirmed Date Final Nico Date Ultra Sound Latest Days Gestation 0 [email or web address] 09/19/2020 02/02/20 21 0 Pre- Flowsheet Flowsheet [...] Weight in lbs Pre/Post Dialysis Refused Weight 162.805164036034 BP Diastolic BP Location Tested BP Systolic [...] Weight in lbs Pre/Post Dialysis Refused Weight 161.365133210832 BP Diastolic BP Location Tested BP Systolic [...] Weight in lbs Pre/Post Dialysis Refused Weight 163.079751920876 BP Diastolic BP Location Tested BP Systolic [...] Weight in lbs Pre/Post Dialysis Refused Weight 173.254151823213 BP Diastolic BP Location Tested BP Systolic [...] Weight in lbs Pre/Post Dialysis Refused Weight 178.577069552350 BP Diastolic BP Location Tested BP Systolic [...] Weight in lbs Pre/Post Dialysis Refused Weight 178.085745151483 BP Diastolic BP Location Tested BP Systolic [...] Weight in lbs Pre/Post Dialysis Refused Weight 179.389041357997 BP Diastolic BP Location Tested BP Systolic [...] Weight in lbs Pre/Post Dialysis Refused Weight 180.665296227275 BP Diastolic BP Location Tested BP Systolic [...] Weight in lbs Pre/Post Dialysis Refused Weight 183.831352553402 BP Diastolic BP Location Tested BP Systolic [...] Weight in lbs Pre/Post Dialysis Refused Weight 184.014228780210 BP Diastolic BP Location Tested BP Systolic [...] Weight in lbs Pre/Post Dialysis Refused Weight 185.453615888694 BP Diastolic BP Location Tested BP Systolic [...] Weight in lbs Pre/Post Dialysis Refused Weight 190.364729484878 BP Diastolic BP Location Tested BP Systolic [...] Weight in lbs Pre/Post Dialysis Refused Weight 190.773968144564 BP Diastolic BP Location Tested BP Systolic [...] Estim ated Date of Delivery false Thalassemia (Sinhala, Turkish, Mediterranean, Or Background): MCV < 80 false Neural Tube Defect (Meningomyelocele, Spina Bifi da, Or Anencephaly) false Congenital Heart Defect false Down Syndrome false Kevin-Sachs (eg, Christian, Cajun, Syriac-[place]) f alse Sj Disease false Sickle Cell Disease Or Trait () false Hemophilia Or Other Blood Disorders false Muscular Dystrophy false Cystic Fibrosis false Gilroy's Chorea false Intellectual Disability/Autism false If Yes, [...] Domestic Partner Domestic Partner Phone Father Name Cissp Status 07/27/20 24 1 CLOSED Fetus Data First Name Last Name Admitted to NICU Weight (g) Sex Living Outcome Pediatric Complications Fetus ID Race Codes Race Delivery Type M Full Term [id number] Primary Nico Calculation Initial Nico Date Initial [...] Domestic Partner Domestic Partner Phone Father Name Cissp Status 08/26/20 24 1 O Positive 171 Moise OPEN Fetus Data First Name Last Name Admitted to NICU Weight (g) Sex Living Outcome Pediatric Complications Fetus ID Race Codes Race Delivery Type [id number] Problems Problem Notes Problem Name Start Date End Date Resolution Snomed Code Not e Deliveries by to repeat Migraine [id number] Nico Calculation Initial Nico Date Initial Exam [...] Latest Days Gestation 0 03/02/20 25 0 Pre- Flowsheet Flowsheet Date 08/26/2024 Donahue Score Blood Edema Fundus Height Fundus Units Glucose Ketones Leukocytes Nitrite Labor Signs Protein Cervic Dilation Cervic Effacement Cervic Station Type Weight in lbs Pre/Post Dialysis Refused Weight 169.923056596861 BP Diastolic BP Location Tested BP Systolic [...] Type Weight in lbs Pre/Post Dialysis Refused 167.411384816857 BP Diastolic BP Location Tested BP Systolic [...] Type Weight in lbs Pre/Post Dialysis Refused 176.030630563339 BP Diastolic BP Location Tested BP Systolic [...] Type Weight in lbs Pre/Post Dialysis Refused 182.429734462621 BP Diastolic BP Location Tested BP Systolic [...] Weight in lbs Pre/Post Dialysis Refused Weight 192.444444493537 BP Diastolic BP Location Tested BP Systolic BP Type 80 L arm 124 sitting Fetus Heart Rate Present A 152 Present Fetus Movement A Yes Comments no complaints, no problems, routine care, no contractions, no vaginal bleeding, no loss of fluid, no cramping periumbilical pain, given precautions/aa remedies Flowsheet Date 12/17/2024 Donahue Score Blood Edema Fundus Height Fundus Units Glucose Ketones Leukocytes Nitrite Labor Signs Protein Cervic Dilation Cervic Effacement Cervic Station Type Weight in lbs Pre/Post Dialysis Refused 193.00339994473 BP Diastolic BP Location Tested BP Systolic BP Type 71 L arm 120 sitting Fetus Heart Rate Present Fetus Movement A Yes Comments Flowsheet Date 12/17/2024 Donahue Score Blood Edema Fundus Height Fundus Units Glucose Ketones Leukocytes Nitrite Labor Signs Protein Cervic Dilation Cervic Effacement Cervic Station Type Weight in lbs Pre/Post Dialysis Refused Weight 193.275392341883 BP Diastolic BP Location Tested BP Systolic BP Type 71 120 Fetus Heart Rate Present Fetus Movement Comments Flowsheet Date 12/21/2024 Donahue Score Blood Edema Fundus Height Fundus Units Glucose Ketones Leukocytes Nitrite Labor Signs Protein Cervic Dilation Cervic Effacement Cervic Station Type Weight in lbs Pre/Post Dialysis Refused BP Diastolic BP Location Tested BP Systolic BP Type Fetus Heart Rate Present Fetus Movement Comments Flowsheet Date 12/21/2024 Donahue Score Blood Edema Fundus Height Fundus Units Glucose Ketones Leukocytes Nitrite Labor Signs Protein Cervic Dilation Cervic Effacement Cervic Station Type Weight in lbs Pre/Post Dialysis Refused Weight 194.231717534605 BP Diastolic BP Location Tested BP Systolic BP Type 75 L arm 122 sitting Fetus Heart Rate Present A 145 Fetus Movement A Yes Comments discussed precautions for mo re bleeding, bright red spotting recently. Speculum exam performed. No blood observed. Normal ultrasound today. To increase Procardia for contractions. Menstrual History Last Menstrual Date Menses Monthly [...] Domestic Partner Domestic Partner Phone Father Name Cissp Status 07/27/20 24 1 CLOSED Fetus Data First Name Last Name Admitted to NICU Weight (g) Sex Living Outcome Pediatric Complications Fetus ID Race Codes Race Delivery Type , Spontane ous [id number] Nico Calculation Initial Nico Date Initial Exam [...]
[2024-12-24 14:03] VITALS: BP 124/54; PULSE 97
[2024-12-24 14:16] VITALS: BP 115/59; PULSE 104
[2024-12-24 14:31] VITALS: BP 114/57; PULSE 100
== END 2024-12-24 15:16 | disposition home or self-care (01) ==
PROVIDERS: Admitting Provider Obstetrics & Gynecology; Visit Provider Obstetrics & Gynecology
DX: O47.9 False labor, unspecified (principal); Z3A.00 Weeks of gestation of pregnancy not specified
CPT/HCPCS: 59025; G0378; G0379

== ENCOUNTER 2025-01-01 19:04 | Observation (INO) | payer OTHER, SELFPAY ==
--- OUTSIDE RECORDS SUMMARY | 2025-01-01 19:11 | XMS_ITS | Data Portability ---
Author Organization SHANDA Sergei HERNANDEZ Address [address] [place] [address] Care Team Providers Care Heart Surgeon Name Role Phone BRENDA SOUSA Primary Care Provider Assessment Encounter Date Assessment Date Assessment LastModified by Organization Details LastModified Time 06/04/2019 06/04/2019 Patient advised to call prn and was reminded to get a flu shot this fall. [email or web address] Not available 06/05/2019 23:37:38 Plan of Treatment Reminders Order Date Submit Date Provider Last Modified By Organization Details Last Modified Time Details Appointments None recorded. Lab CBC w/ auto diff 2018 019 [facility], [facility] [address], [place], [address], 9 20:09:11 iron + total iron-bindin g capacity (TIBC), serum 2018 019 LANDRY LABTOBY, [facility] Adon[facility], [facility] [address], [place], [address], 9 20:09:12 lipid panel, serum 2015 016 LANDRY [facility]BY, [facility] Adonis, [address], [place], [address], 6 06:19:31 CMP, serum or plasma 2015 016 LANDRY LABTOBY, [facility] tr[facility] [address], [address], [place], [address], 6 06:19:30 CBC 2015 016 LANDRY [facility] [place], [facility] [facility], [address], [place], [address], 6 06:19:29 vitamin D, 25-hydroxy, total, serum [address] [facility], [address] [place] [address], [address], [place], [address], 6 06:19:32 TSH, serum or plasma [address] [facility], [address] [facility], [address], [place], [address], 6 06:19:32 Referral general surgeon referral 2018 019 [email or web address] Not available 9 14:27:34 Procedures None recorded. Surgeries None recorded. Imaging None recorded. Medication Orders sertraline 50 mg tablet 2018 019 connor [address] [facility] #[id number], [address] [facility], [place], [id number], 9 16:37:53 fluoxetine 20 mg capsule 2018 019 [facility] #[id number], [address] [facility], [place], [place], [id number], 9 16:38:01 ferrous sulfate 325 mg (65 mg iron) tablet 2018 019 connor 63 [facility] #[id number], [address] [facility], [place], [place], [id number], 9 16:38:09 nystatin 100,000 unit/gram topical cream 2015 016 [email or web address] Not available 9 16:38:49 triamcinolo ne acetonide 0.1 % topical cream 2015 016 connor 63 Not available 9 16:38:44 Patient TargetsNo targets recorded. Patient Instructions Encounter Date Encounter Id Patient Instructions Last Modified By Organization Details Last Modified Time 11/18/2018 [id number] hemorrhoids: car e instructions [email or web address] Not available 11/18/2018 15:23:11 iron deficiency anemia: care instructions [email or web address] Not available 11/18/2018 15:23:11 01/29/2019 [id number] learning about mood disorders [email or web address] Not available 01/29/2019 16:52:11 Reason for Referral General Surgeon Referral for Hemorrhoids Referring Physician: Brenda Sousa, Family Medicine, Encounter Date: 11/18/2018 Results Created Date Observation Date Name Description Value Unit Range Abnormal Flag Note LastModifiedBy Organization Detail LastModifiedTime 01/12/20 16 01/13/2016 CBC WBC 6.4 x10e3 /uL 3.4-10 .8 Not Available [facility] ([facility]) [address] [place], [address], 01/13/2016 06:19:29 01/12/20 16 01/13/2016 CBC RBC 4.52 x10e6 /uL 3.77-5 .28 Not Available [facility] ([facility]) [address] [place], [address], 01/13/2016 06:19:29 01/12/20 16 01/13/2016 CBC hemoglobin 13.8 g/dL 11.1-1 5.9 Not Available [facility] ([facility]) [address] [place], [address], 01/13/2016 06:19:29 01/12/20 16 01/13/2016 CBC hematocrit 40.6 % 34.0-4 6.6 Not Available [facility] ([facility]) [address] [place], [address], 01/13/2016 06:19:29 01/12/20 16 01/13/2016 CBC MCV 90 fL 79-97 Not Available [facility] ([facility]) [address] [place], [address], 01/13/2016 06:19:29 01/12/20 16 01/13/2016 CBC MCH 30.5 pg 26.6-3 3.0 Not Available [facility] ([facility]) [address] [place], [address], 01/13/2016 06:19:29 01/12/20 16 01/13/2016 CBC MCHC 34.0 g/dL 31.5-3 5.7 Not Available [facility] ([facility]) [address] [place], [address], 01/13/2016 06:19:29 01/12/20 16 01/13/2016 CBC RDW 12.5 % 12.3-1 5.4 Not Available [facility] ([facility]) [address] [place], [address], 01/13/2016 06:19:29 01/12/20 16 01/13/2016 CBC platelets 194 x10e3 /uL 150-37 9 Not Available [facility] ([facility]) [address] [place], [address], 01/13/2016 06:19:29 01/12/20 16 01/13/2016 CBC neutrophils 72 % Not Avai lable [facility] ([facility]) [address] [place], [address], 01/13/2016 06:19:29 01/12/20 16 01/13/2016 CBC lymphs 18 % Not Available [facility] ([facility]) [address] [place], [address], 01/13/2016 06:19:29 01/12/20 16 01/13/2016 CBC monocytes 5 % Not Availa ble [facility] ([facility]) [address] [place], [address], 01/13/2016 06:19:29 01/12/20 16 01/13/2016 CBC eos 4 % Not Available [facility] ([facility]) [address] [facility] [place], [address], 01/13/2016 06:19:29 01/12/20 16 01/13/2016 CBC basos 1 % Not Available [facility] ([facility]) [address] [facility] [place], [address], 01/13/2016 06:19:29 01/12/20 16 01/13/2016 CBC immature cells EXECUTIVE PRODUCER Not Available [facility] ([facility]) [address] [facility] [place], [address], 01/13/2016 06:19:29 01/12/20 16 01/13/2016 CBC neutrophils (absolute) 4.6 x10e3 /uL 1.4-7. 0 Not Available [facility] ([facility]) [address] [facility] [place], [address], 01/13/2016 06:19:29 01/12/20 16 01/13/2016 CBC lymphs (absolute) 1.2 x10e3 /uL 0.7-3. 1 Not Available [facility] ([facility]) [address] [facility] [place], [address], 01/13/2016 06:19:29 01/12/2001/13/2016 CBC monocytes(ab solute) 0.3 x10e3 /uL 0.1-0. 9 Not Available [facility] ([facility]) [address] [facility] [place], [address], 01/13/2016 06:19:29 01/12/20 16 01/13/2016 CBC eos (absolute) 0.3 x10e3 /uL 0.0-0. 4 Not Available [facility] ([facility]) [address] [place], [address], 01/13/2016 06:19:29 01/12/20 16 01/13/2016 CBC baso (absolute) 0.0 x10e3 /uL 0.0-0. 2 Not Available [facility] ([facility]) [address] [place], [address], 01/13/2016 06:19:29 01/12/20 16 01/13/2016 CBC immature granulocytes 0 % Not Available [facility] ([facility]) [address] [place], [address], 01/13/2016 06:19:29 01/12/20 16 01/13/2016 CBC immature grans (abs) 0.0 x10e3 /uL 0.0-0. 1 Not Available [facility] ([facility]) [address] [place], [address], 01/13/2016 06:19:29 01/12/20 16 01/13/2016 CBC NRBC EXECUTIVE PRODUCER Not Available [facility] ([facility]) [address] [place], [address], 01/13/2016 06:19:29 01/12/2001/13/2016 CBC hematology comments: EXECUTIVE PRODUCER Not Available [facility] ([facility]) [address] [place], [address], 01/13/2016 06:19:29 01/12/2001/13/2016 CMP, serum or plasm a glucose, serum 85 mg/dL 65-99 Not Available [facility] ([facility]) [address] [place], [address], 01/13/2016 06:19:30 01/12/2001/13/2016 CMP, serum or plasm a BUN 8 mg/dL 6-20 Not Available [facility] ([facility]) [address] [place], [address], 01/13/2016 06:19:30 01/12/2001/1201/13/2016 CMP, serum or plasm a creatinine, serum 0.61 mg/dL 0.57-1 .00 Not Available [facility] ([facility]) [address] [place], [address], 01/13/2016 06:19:30 01/12/20 16 01/13/2016 CMP, serum or plasm a eGFR if nonafricn AM 129 mL/mi n/1.7 3 >59 Not Available [facility] ([facility]) [address] [place], [address], 01/13/2016 06:19:30 01/12/20 16 01/13/2016 CMP, serum or plasm a eGFR if africn AM 149 mL/mi n/1.7 3 >59 Not Available [facility] ([facility]) [address] [place], [address], 01/13/2016 06:19:30 01/12/20 16 01/13/2016 CMP, serum or plasm a BUN/creatini ne ratio 13 8-20 Not Available [facility] ([facility]) [address] [place], [address], 01/13/2016 06:19:30 01/12/20 16 01/13/2016 CMP, serum or plasm a sodium, serum 140 mmol/ L 134-14 4 Not Available [facility] ([facility]) [address] [place], [address], 01/13/2016 06:19:30 01/12/2001/13/2016 CMP, serum or plasm a potassium, serum 4.0 mmol/ L 3.5-5. 2 Not Available [facility] ([facility]) [address] [place], [address], 01/13/2016 06:19:30 01/12/20 16 01/13/2016 CMP, serum or plasm a chloride, serum 102 mmol/ L 97-108 Not Available [facility] ([facility]) [address] [place], [address], 01/13/2016 06:19:30 01/12/20 16 01/13/2016 CMP, serum or plasm a carbon dioxide, total 21 mmol/ L 18 Not Available [facility] ([facility] [address] [facility] [place], [address], 01/13/2016 06:19:30 01/12/2001/13/2016 CMP, serum or plasm a calcium, serum 9.3 mg/dL 8.7-10 .2 Not Available [facility] ([facility]) [address] [facility] [place], [address], 01/13/2016 06:19:30 01/12/20 16 01/13/2016 CMP, serum or plasm a protein, total, serum 6.9 g/dL 6.0-8. 5 Not Available [facility] ([facility]) [address] [facility] [place], [address], 01/13/2016 06:19:30 01/12/2001/13/2016 CMP, serum or plasm a albumin, serum 4.3 g/dL 3.5-5. 5 Not Available [facility] ([facility]) [address] [facility] [place], [address], 01/13/2016 06:19:30 01/12/2001/13/2016 CMP, serum or plasm a globulin, total 2.6 g/dL 1.5-4. 5 Not Available [facility] ([facility]) [address] [facility] [place], [address], 01/13/2016 06:19:30 01/12/2001/13/2016 CMP, serum or plasm a A/G ratio 1.7 1.1-2. 5 Not Available [facility] ([facility]) [address] [facility] [place], [address], 01/13/2016 06:19:30 01/12/2001/13/2016 CMP, serum or plasm a bilirubin, total 0.7 mg/dL 0.0-1. 2 Not Available [facility] ([facility]) [address] [facility] [place], [address], 01/13/2016 06:19:30 01/12/20 16 01/13/2016 CMP, serum or plasm a alkaline phosphatase, S 86 IU/L 39-117 Not Available [facility] ([facility]) [address] [facility], [place], [address], 01/13/2016 06:19:30 01/12/20 16 01/13/2016 CMP, serum or plasm a AST (SGOT) 20 IU/L 0-40 Not Available [facility] ([facility]) [address] [facility], [place], [address], 01/13/2016 06:19:30 01/12/2001/13/2016 CMP, serum or plasm a ALT (SGPT) 21 IU/L 0-32 Not Available [facility] ([facility]) [address] [facility] [place], [address], 01/13/2016 06:19:30 01/12/20 16 01/13/2016 lipid panel , serum cholesterol, total 173 mg/dL 100-19 9 Not Available [facility] ([facility]) [address] [facility] [place], [address], 01/13/2016 06:19:31 01/12/2001/13/2016 lipid panel , serum triglyceride s 68 mg/dL 0-149 Not Available [facility] ([facility]) [address] [facility] [place], [address], 01/13/2016 06:19:31 01/12/2001/13/2016 lipid panel , serum HDL cholesterol 49 mg/dL >39 ACCOR DING TO ATP-I II GUIDE LINES , HDL-C >59 MG/DL IS CONSI DERED A NEGAT WHITNEY RISK FACTO R FOR CHD. Not Available [facility] ([facility]) [address] [place], [address], 01/13/2016 06:19:31 01/12/20 16 01/13/2016 lipid panel , serum VLDL cholesterol yousif 14 mg/dL 5-40 Not Available [facility] ([facility]) [address] [place], [address], 01/13/2016 06:19:31 01/12/20 16 01/13/2016 lipid panel , serum LDL cholesterol calc 110 mg/dL 0-99 above high normal Not Available [facility] ([facility]) [address] [place], [address], 01/13/2016 06:19:31 01/12/20 16 01/13/2016 lipid panel , serum comment: EXECUTIVE PRODUCER Not Available [facility] ([facility]) [address] [facility] [place], [address], 01/13/2016 06:19:31 01/12/2001/13/2016 lipid panel , serum T. chol/HDL ratio 3.5 ratio _unit s 0.0-4. 4 T. CHOL/ HDL RATIO MEN WOMEN 1/2 AVG.R ISK 3.4 3.3 AVG.R ISK 5.0 4.4 2X AVG.R ISK 9.6 7.1 3X AVG.R ISK 23.4 11.0 Not Available [facility] ([facility]) [address] [facility] [place], [address], 01/13/2016 06:19:31 01/12/20 16 01/13/2016 TSH, serum or plasm a TSH 1.100 uIU/m L 0.450- 4.500 Not Available [facility] ([facility]) [address] [facility] [place], [address], 01/13/2016 06:19:32 01/12/20 16 01/13/2016 vitam in [...] [facility] ZAHRA ARREOLA DC: [facility] . 2. MARITZA Davis MF, AVELINA DACOSTA NC, YAMIL OFF-F ERRAR I ZAMBRANO, ET AL. EVALU ATION , TREAT MENT, AND PREVE NTION OF VITAM IN D DEFIC IENCY : AN ENDOC RINE SOCIE TY CLINI YOUSIF PRACT ICE GUIDE LINE. JCEM. 2010; 96(7) :1911 -30. Not Available [facility] ([facility]) [address] [facility] [place], [address], 01/13/2016 06:19:32 11/19/19 19 11/19/2018 CBC w/ auto diff WBC TNP x10e3 /uL No laven aicha top tube submi tted. Not Available [facility] ([facility]) [address] [facility] [place], [address], 11/19/2018 20:09:11 11/19/1911/19/2018 CBC w/ auto diff RBC TNP Test not perfo rmed Not Available [facility] ([facility]) [address] [place], [address], 11/19/2018 20:09:11 11/19/1911/19/2018 CBC w/ auto diff hemoglobin TNP Test not perfo rmed Not Available [facility] ([facility]) [address] [facility] [place], [address], 11/19/2018 20:09:11 11/19/19 19 11/19/2018 CBC w/ auto diff hematocrit TNP Test not perfo rmed Not Available [facility] ([facility]) [address] [place], [address], 11/19/2018 20:09:11 11/19/19 19 11/19/2018 CBC w/ auto diff MCV EXECUTIVE PRODUCER Not Available [facility] ([facility]) [address] [place], [address], 11/19/2018 20:09:11 11/19/19 19 11/19/2018 CBC w/ auto diff MCH EXECUTIVE PRODUCER Not Available [facility] ([facility]) [address] [place], [address], 11/19/2018 20:09:11 11/19/19 19 11/19/2018 CBC w/ auto diff MCHC EXECUTIVE PRODUCER Not Available [facility] ([facility]) [address] [place], [address], 11/19/2018 20:09:11 11/19/19 19 11/19/2018 CBC w/ auto diff RDW EXECUTIVE PRODUCER Not Available [facility] ([facility]) [address] [place], [address], 11/19/2018 20:09:11 11/19/19 19 11/19/2018 CBC w/ auto diff platelets TNP Test not perfo rmed Not Available [facility] ([facility]) [address] [place], [address], 11/19/2018 20:09:11 11/19/19 19 11/19/2018 CBC w/ auto diff neutrophils TNP Test not perfo rmed Not Available [facility] ([facility]) [address] [place] [address], [address], 11/19/2018 20:09:11 11/19/19 19 11/19/2018 CBC w/ auto diff lymphs TNP Test not perfo rmed Not Available [facility] ([facility]) [address] [place], [address], 11/19/2018 20:09:11 11/19/19 19 11/19/2018 CBC w/ auto diff monocytes TNP Test not perfo rmed Not Available [facility] ([facility]) [address] [place], [address], 11/19/2018 20:09:11 11/19/19 19 11/19/2018 CBC w/ auto diff eos TNP Test not perfo rmed Not Available [facility] ([facility]) [address] [place], [address], 11/19/2018 20:09:11 11/19/1911/19/2018 CBC w/ auto diff basos EXECUTIVE PRODUCER Not Available [facility] ([facility]) [address] [place], [address], 11/19/2018 20:09:11 11/19/1911/19/2018 CBC w/ auto diff immature cells EXECUTIVE PRODUCER Not Available [facility] ([facility]) [address] [place], [address], 11/19/2018 20:09:11 11/19/1911/19/2018 CBC w/ auto diff neutrophils (absolute) EXECUTIVE PRODUCER Not Available [facility] ([facility]) [address] [place], [address], 11/19/2018 20:09:11 11/19/1911/19/2018 CBC w/ auto diff lymphs (absolute) TNP Test not perfo rmed Not Available [facility] ([facility]) [address] [place], [address], 11/19/2018 20:09:11 11/19/1911/19/2018 CBC w/ auto diff monocytes(ab solute) EXECUTIVE PRODUCER Not Available [facility] ([facility]) [address] [place], [address], 11/19/2018 20:09:11 11/19/19 19 11/19/2018 CBC w/ auto diff eos (absolute) TNP Test not perfo rmed Not Available [facility] ([facility]) [address] [place], [address], 11/19/2018 20:09:11 11/19/19 19 11/19/2018 CBC w/ auto diff baso (absolute) TNP Test not perfo rmed Not Available [facility] ([facility]) [address] [place], [address], 11/19/2018 20:09:11 11/19/1911/19/2018 CBC w/ auto diff immature granulocytes EXECUTIVE PRODUCER Not Available [facility] ([facility]) [address] [place], [address], 11/19/2018 20:09:11 11/19/19 19 11/19/2018 CBC w/ auto diff immature grans (abs) EXECUTIVE PRODUCER Not Available [facility] ([facility]) [address] [place], [address], 11/19/2018 20:09:11 11/19/1911/19/2018 CBC w/ auto diff NRBC EXECUTIVE PRODUCER Not Available [facility] ([facility]) [address] [place], [address], 11/19/2018 20:09:11 11/19/1911/19/2018 CBC w/ auto diff hematology comments: EXECUTIVE PRODUCER Not Available [facility] ([facility]) [address] [place], [address], 11/19/2018 20:09:11 11/19/1911/19/2018 iron + total iron- taylor ng capac ity (TIBC ), serum iron bind.cap.(TI BC) 319 ug/dL 250-45 0 Not Available [facility] ([facility]) [address] [place], [address], 11/19/2018 20:09:12 11/19/19 19 11/19/2018 iron + total iron- taylor ng capac ity (TIBC ), serum UIBC 277 ug/dL 131-42 5 Not Available [facility] ([facility]) [address] [place], [address], 11/19/2018 20:09:12 11/19/19 19 11/19/2018 iron + total iron- taylor ng capac ity (TIBC ), serum iron 42 ug/dL 27-159 Not Available [facility] ([facility]) [address] [place], [address], 11/19/2018 20:09:12 11/19/19 19 11/19/2018 iron + total iron- taylor ng capac ity (TIBC ), serum iron saturation 13 % 15-55 below low normal Not Available [facility] ([facility]) [address] [place], [address], 11/19/2018 20:09:12 11/19/19 19 11/19/2018 speci men statu s repor t specimen status report TNP No laven aicha top tube submi tted. TEST: [id number] CBC With Diffe renti al/Pl atele t Not Available [facility] ([facility]) [address] [place], [address], 11/19/2018 20:09:12 11/26/1911/26/2018 CBC w/ auto diff WBC 6.9 x10e3 /uL 3.4-10 .8 Not Available [facility] ([facility]) [address] [place], [address], 11/26/2018 09:22:29 11/26/1911/26/2018 CBC w/ auto diff RBC 4.64 x10e6 /uL 3.77-5 .28 Not Available [facility] ([facility]) [address] [place], [address], 11/26/2018 09:22:29 11/26/19 19 11/26/2018 CBC w/ auto diff hemoglobin 13.1 g/dL 11.1-1 5.9 Not Available [facility] ([facility]) [address] [place], [address], 11/26/2018 09:22:29 11/26/19 19 11/26/2018 CBC w/ auto diff hematocrit 39.0 % 34.0-4 6.6 Not Available [facility] ([facility]) [address] [facility] [place], [address], 11/26/2018 09:22:29 11/26/19 19 11/26/2018 CBC w/ auto diff MCV 84 fL 79-97 Not Available [facility] ([facility]) [address] [place], [address], 11/26/2018 09:22:29 11/26/19 19 11/26/2018 CBC w/ auto diff MCH 28.2 pg 26.6-3 3.0 Not Available [facility] ([facility]) [address] [place], [address], 11/26/2018 09:22:29 11/26/19 19 11/26/2018 CBC w/ auto diff MCHC 33.6 g/dL 31.5-3 5.7 Not Available [facility] ([facility]) [address] [place], [address], 11/26/2018 09:22:29 11/26/19 19 11/26/2018 CBC w/ auto diff RDW 14.5 % 12.3-1 5.4 Not Available [facility] ([facility]) [address] [place], [address], 11/26/2018 09:22:29 11/26/19 19 11/26/2018 CBC w/ auto diff platelets 241 x10e3 /uL 150-37 9 Not Available [facility] ([facility]) [address] [place], [address], 11/26/2018 09:22:29 11/26/19 19 11/26/2018 CBC w/ auto diff neutrophils 70 % not estab. Not Available [facility] ([facility]) [address] [facility] [place], [address], 11/26/2018 09:22:29 11/26/19 19 11/26/2018 CBC w/ auto diff lymphs 19 % not estab. Not Available [facility] ([facility]) [address] [facility], [place], [address], 11/26/2018 09:22:29 11/26/19 19 11/26/2018 CBC w/ auto diff monocytes 6 % not estab. Not Available [facility] ([facility]) [address] [facility] [place], [address], 11/26/2018 09:22:29 11/26/19 19 11/26/2018 CBC w/ auto diff eos 5 % not estab. Not Available [facility] ([facility]) [address] [facility], [place], [address], 11/26/2018 09:22:29 11/26/19 19 11/26/2018 CBC w/ auto diff basos 0 % not estab. Not Available [facility] ([facility]) [address] [facility], [place], [address], 11/26/2018 09:22:29 11/26/1911/26/2018 CBC w/ auto diff immature cells EXECUTIVE PRODUCER Not Available [facility] ([facility]) [address] [facility], [place], [address], 11/26/2018 09:22:29 11/26/1911/26/2018 CBC w/ auto diff neutrophils (absolute) 4.8 x10e3 /uL 1.4-7. 0 Not Available [facility] ([facility]) [address] [facility] [place], [address], 11/26/2018 09:22:29 11/26/19 19 11/26/2018 CBC w/ auto diff lymphs (absolute) 1.3 x10e3 /uL 0.7-3. 1 Not Available [facility] ([facility]) [address] [facility] [place], [address], 11/26/2018 09:22:29 11/26/19 19 11/26/2018 CBC w/ auto diff monocytes(ab solute) 0.4 x10e3 /uL 0.1-0. 9 Not Available [facility] ([facility]) [address] [place], [address], 11/26/2018 09:22:29 11/26/19 19 11/26/2018 CBC w/ auto diff eos (absolute) 0.3 x10e3 /uL 0.0-0. 4 Not Available [facility] ([facility]) [address] [facility] [place], [address], 11/26/2018 09:22:29 11/26/19 19 11/26/2018 CBC w/ auto diff baso (absolute) 0.0 x10e3 /uL 0.0-0. 2 Not Available [facility] ([facility]) [address] [place], [address], 11/26/2018 09:22:29 11/26/19 19 11/26/2018 CBC w/ auto diff immature granulocytes 0 % not estab. Not Available [facility] ([facility]) [address] [place], [address], 11/26/2018 09:22:29 11/26/1911/26/2018 CBC w/ auto diff immature grans (abs) 0.0 x10e3 /uL 0.0-0. 1 Not Available [facility] ([facility]) [address] [place], [address], 11/26/2018 09:22:29 11/26/19 19 11/26/2018 CBC w/ auto diff NRBC EXECUTIVE PRODUCER Not Available [facility] ([facility]) [address] [facility] [place], [address], 11/26/2018 09:22:29 11/26/19 19 11/26/2018 CBC w/ auto diff hematology comments: EXECUTIVE PRODUCER Not Available [facility] ([facility]) [address] [facility], [place], [address], 11/26/2018 09:22:29 09/25/19 17 XR, knee No observ ation record ed. [email or web address] Not Available 09/15 17:43:46 11/15/19 22 11/14/2021 US, abdom en No observ ation record ed. [address] [facility], [place], [address], 11/15/2021 08:45:40 11/20/19 22 11/19/2021 US, obste tric No observ ation record ed. [address], [place], [address], 11/19/2021 11:01:58 Result Notes None recorded. Problems Name Problem SNOMED Code Status Onset Date Resolution Date Notes Provider Name and Address Organization Details Recorded Time Superficial injury of wrist 618074411 Active Elmer Terrell PA-C Attn: Accounting ,[address] [facility], [place], [address] , [facility] 5 17:39:20 Eruption [id number] Active Little Hernandez PA-C Attn: Accounting ,[address] [facility], [place], [address] , [facility] 6 11:08:56 Fatigue 00815995 Active Little Hernandez PA-C Attn: Accounting ,[address] [facility], [place], [address] , [facility] [facility] 6 11:08:56 Vitamin D deficiency 05495137 Active Little Hernandez PA-C Attn: Accounting ,[address] [facility], [place], [address] , [place] - [facility] 6 13:29:43 Pain in pelvis 31837451 Active Angelesoscar Leger MA null, [place] [facility] 5 10:27:55 Bacterial vaginosis 402827234 Active [place] momin, [place] [facility] 5 14:40:42 Candidiasis 87886749 Active Milton momin, [place] - [facility] 5 21:55:19 Herpes simplex 15131238 Active [place] moimn, [place] [facility] 5 21:55:19 Problem Notes None recorded. Procedures Surgical History Date Name Laterality Status Provider Name and Address Organization Details Recorded Time 5 Depo Injection completed Milton Carrero [place] - [facility] 10/04/2014 10:57:26 Imaging Results Imaging Date Name Status LastModified by Organiz ation Details LastModified Time 09/25/2016 XR, knee completed [email or web address] Information n ot available 09/25/2016 17:43:46 11/14/2021 US, abdomen completed [facility] [address], [address], 11/15/2021 08:45:40 11/19/2021 US, obstetric [facility] [address], [place], [address], 11/19/2021 11:01:58 Procedure Notes None recorded. Medical [...] completed Not Available Not Available Not Available Depo-Budget Specialist a 150 mg/mL intramuscul ar suspension Inject [...] Updated DateTime 9 162.56 cm 25.1 kg/m2 80113.5 9 g 99 % 99 % 59 /min 102 mm[Hg] 62 mm[Hg] Betty Pollock [place] - [facility] 9 14:47:22 Date Recorded Body [...] 110 mm[Hg] 62 mm[Hg] Virginia Zamudio RN [facility] 9 16:28:56 Date Recorded Body temperature Heart rate Respiratory rate Body mass index (BMI) Body height Body weight Systolic blood pressure Diastolic blood pressure Provider Name and Address Organization Details Last Updated DateTime 6 98 [degF] 76 /min 18 /min 21.9 kg/m2 163.83 cm 20335.6 04430 g 84 mm[Hg] 44 mm[Hg] Elke Medel MA [facility] 6 10:41:06 Social History Question Answer Notes LastModified by Organizat ion Details LastModified Time Tobacco Smoking Status Never Smoker Angeles Leger MA [facility], [facility] 10/04/2014 10:32:59 Do You Have An Advance Directive? No [email or web address] Information not available 10/04/2014 What Is Your Level Of Alcohol Consumption? Occasional [email or web address] Information not available 10/04/2014 Is Blood Transfusion Acceptable In An Emergency? Yes [email or web address] Information not available 10/04/2014 What Is Your Level Of Caffeine Consumption? Moderate [email or web address] Information not available 10/04/2014 Are You Currently Employed? Yes [email or web address] Information not available 10/04/2014 What Type Of Diet Are You Following? REGULAR [email or web address] Information not available 10/04/2014 Education 12 [email or web address] Information no t available 10/04/2014 What Is Your Occupation? [employer] [email or web address] Information not available 10/04/2014 Live Alone Or With Others? With Others [email or web address] Information not available 10/04/2014 Marital Status Single Informatio n not available 01/12/2016 What Was The Date Of Your Most Recent Tobacco Screening? 01/29/2019 Information not available 04/08/2019 How Many Children Do You Have? 0 [email or web address] Information not available 10/04/2014 Performs Monthly Self-breast Exam? Yes [email or web address] Information not available 10/04/2014 Do You Use Protection During Sex? No [email or web address] Information not available 10/04/2014 What Is Your Relationship Status? Single Information not available 10/04/2014 Seat Belts Used Routinely Yes [email or web address] Information not available 10/04/2014 Are You Sexually Active? Yes [email or web address] Information not available 10/04/2014 Smoke Alarm In Home Yes Information not available 01/12/2016 General Stress Level High [email or web address] Information not available 10/04/2014 Do You Use Sunscreen Routinely? Yes [email or web address] Information not available 10/04/2014 Sex: Unknown Functional Status Question Answer Note LastModified by Organizat ion Details LastModified Time What is your exercise level? Occasional [email or web address] Information not available 10/04/2014 Mental Status None recorded. Family History Relationship Description Onset Age of this Age Resolved Age Notes LastModified by Organization Details LastModified Time Mother Diabetes mellitus [email or web address] Not available 2015 10:51:04 Maternal Grandmother Heart disease eewig Not available 2015 10:51:04 Medical History Condition Response Coronary Artery Disease N Blood Diseases N Kidney Cyst N Hyperthyroidism N Blood disorders N MRSA N Blood Transfusion N Emphysema N Blood Clots N COPD N Depression N Pneumonia N Peripheral Arterial [...] Sclerosis N Colon Polyps N Heart Attack ([place]) N Diabetes N Cardiomyopathy N Blood Transfusions [...] SNOMED-CT Code Diagnosis ICD10 Code Diagnosis Note [id number] Milton Wilkinson (BLEND TECHNICIAN) [address] [place] [address] 10/04/2014 10:00:57 10/04/2014 12:51:38 Bacterial vaginosis 629165094 -Flagyl 500mg BID x 7d -Advise against douching, limit number of sexual partners, encourage safe sex practices, ie condom use -Education regarding BV signs and symptoms Family sulema nning surveillance 587604480 Contracept ion education 322794411 Contraception care [id number] [id number] [facility] (Adult Med) [address] [place] [address] 01/12/2016 10:26:45 01/12/2016 11:09:44 Eruption 367787399 R21 Advised to mix creams together and apply BID x 7 days and then stop for 4 days and can reapply for another 7 days RTC if no improvemen t Fatigue 94774283 R53.83 Adult heal th examination 607962997 Z00.01 21YO female here to establish care. [id number] Brenda Sousa MD [facility] [address] [place] [address] 11/18/2018 14:24:47 11/23/2018 08:08:38 Hemorrhoids 06151017 K64.9 Iron defic iency anemia 86970493 D50.9 Moderate r ecurrent major depression 87209010 F33.1 [id number] Crystal Rolel MA [facility] [address] [place] [address] 11/25/2018 10:33:13 12/08/2018 03:46:20 [id number] Brenda Sousa MD [facility] [address] [place] [address] 01/29/2019 15:51:25 02/09/2019 10:03:42 Depressive disorder 83742957 F32.89 will stop fluoxetine and start sertraline [id number] Brenda Sousa MD [facility] [address] [place] [address] 06/04/2019 16:03:28 06/07/2019 10:59:13 Adult health examination 157225246 Z00.00 Standardiz ed adult depression screening tool completed [id number] 59970 Z13.89 Health Concerns Section Related Observation LastModified by Organization Detai ls LastModified Time None Recorded Concern Status LastModified by Organization Details LastModified Time None Recorded Advance Directives Directive N: Payers Encounter Date Sequence Insurance Name Policy Number Policy Moralez Covered Member ID Moralez Member ID Guarantor Name 01/12/2016 1 [employer] PRIOR TO 03/15/2021 (MEDICAID REPLACEMENT - HMO) Mili Mcmahon [id number] Mili Mcmahon 11/18/2018 1 [employer] PRIOR TO 03/15/2021 (MEDICAID REPLACEMENT - HMO) Mili Mcmahon [id number] Mili Mcmahon 11/25/2018 1 [employer] PRIOR TO 03/15/2021 (MEDICAID REPLACEMENT - HMO) Mili Mcmahon [id number] Mili Mcmahon 01/29/2019 1 [employer] PRIOR TO 03/15/2021 (MEDICAID REPLACEMENT - HMO) Mili Mcmahon [id number] Mili Mcmahon 06/04/2019 1 [employer] PRIOR TO 03/15/2021 (MEDICAID REPLACEMENT - HMO) Mili Mcmahon [id number] Mili Mcmhaon Notes Date Note Type Note Provider Name [...] establish care Little Hernandez PA-C Attn: Accounting,[address] [place], [address], [place] - [facility] 01/12/2016 11:09:35 11/18/2018 text/html Discussed causes and treatment for hemorrhoids, and will refer patient for surgical excision. Brenda Sousa MD Attn: Accounting,[address] [place], [address], [facility] 11/22/2018 23:39:16 11/18/2018 text/html [...] of breath Brenda Sousa MD Attn: Accounting,[address] [facility], [place], [address], [facility] 11/22/2018 23:39:16 01/29/2019 text/html Anxiety/Depressi onRe ported bypatient.Quality:mo od worse Severity:denies suicidal ideations; able to maintain relationships;interf erence with household activities;interfere nce with sleep Duration:symptoms lasting over 2 weeks Onset/Timing:gradual Context:major life stressors;family problems;trouble at work Modifying Factors:counselling; medications as directed Associated Symptoms:denies homicidal ideations; no crying spells;anxiety;depre ssion;restlessness/a gitation;sleep disturbances;anhedon ia;anxiety with muscle tension Brenda Sousa MD Attn: Accounting,[address] [place], [address], [facility] - [facility] 02/09/2019 01:30:30 OBGyn Episode No OBEpisode recorded.
--- OUTSIDE RECORDS SUMMARY | 2025-01-01 19:11 | XMS_ITS | Clinical Summary ---
Author Organization [facility] Address [address] [place] [address] Care Team Providers Care Security And Compliance Analyst Name Role Phone Brenda Fisher MD Primary Care Provider [phone] Source Comments [facility],non-owned Affiliates and Associated Physician Practices is amultiple site organization consisting of ambulatory clinics and hospital sitesin [place], [place], [place] and [place]. This disclosure is being madepursuant to the Care Everywhere program and may not contain all information available regarding this patient. Last updated [email or web address] Allergies No known active allergies Medications * Be aware that medications may not be up to date on this document. Alwaysverify current medications with the patient. Levonorgest-Eth Estrad 91-Day (LOSEASONIQUE PO) Take by mouth daily. 08/21/2010 Active Active Problems Problem Noted Date Diagnosed Date Murmur 08/21/2010 Social History Tobacco Use Types Packs/Day Years Used Date Smoking Tobacco: Never Assessed Comments Unknown Sex and Gender Information Value Date Recorded Sex Assigned at Not on file Legal Sex Female 8:42 AM TELEPHONE AD TAKER Gender Identity Not on file Sexual Orientation Not on file Last Filed Vital Signs Vital Sign Reading Time Taken Comments Blood Pressure 106/58 08/21/2010 10:46 AM TELEPHONE AD TAKER Pulse 88 08/21/2010 10:46 AM TELEPHONE AD TAKER Temperature - - Respiratory Rate 28 08/21/2010 10:46 AM TELEPHONE AD TAKER Oxygen Saturation - - Inhaled Oxygen Concentration - - Weight 54.7 kg (120 lb 9.5 oz) 08/21/2010 10:46 AM TELEPHONE AD TAKER Height 164.3 cm (5' 4.69 ) 08/21/2010 10:46 AM C Body Mass Index 20.26 08/21/2010 10:46 AM TELEPHONE AD TAKER Plan of Treatment Health Maintenance Due Date [...] patient's age to complete this topic Insurance [place] [facility] [place] [address] [facility] Care Teams Security And Compliance Analyst Relationship Specialty Start Date End Date Brenda Fisher MD [address] [place] [phone] PCP - General 04/02/21
--- OUTSIDE RECORDS SUMMARY | 2025-01-01 19:12 | XMS_ITS | Data Portability ---
Author Organization [facility] Address [address] [place] [address] [place] [address] Care Team Providers Care Weatherization Specialist Name Role Phone SHABBIR SOUSA Primary Care Provider [phone] Assessment Encounter Date Assessment Date Assessment LastModified by Organization Details LastModified Time 12/21/2024 12/21/2024 Patient is ___weeks . Discussed plan. Not available 12/21/2024 10:56:55 12/28/2024 12/28/2024 Patient is ___weeks . Discussed plan. Not available 12/28/2024 12:54:25 Plan of Treatment Reminders Order Date Submit Date Provider Last Modified By Organization Details Last Modified Time Details Appointments OB ROUTINE 2024 03:30P Karmen PANTOJA MD Not available Not available Not available Lab None recorded. Referral None recorded. Procedures None recorded. Surgeries None recorded. Imaging US, obstetric , follow-up 2024 025 [email or web address] [address], [address], [place], [address], 12/21/2024 14:13:15 non-stres s test 2024 025 [email or web address] [address], [address], [place], [address], 12/17/2024 17:44:24 Medication Orders Procardia XL 60 mg tablet,ex tended release 2024 025 [email or web address] [id number], [address], [place], [id number], 12/21/2024 11:35:01 Patient TargetsNo targets recorded. Patient InstructionsNo instructions recorded. Reason for Referral None Reported. Results Created Date Observation Date Name Description Value Unit Range Abnormal Flag Note LastModifiedBy Organization Detail LastModifiedTime 12/07/1912/06/2024 HEMAT OCRIT (HCT) HCT 35.8 % (based on docume nted legal sex) 34.0-4 5.0 Not Available [facility] (Lab) [address], [place], [address], 12/07/2024 12:58:43 12/07/19 25 12/06/2024 HEMOG LOBIN (HGB) HGB 11.2 g/dL (based on docume nted legal sex) 11.6-1 5.4 low Not Available [facility] (Lab) [address] [place], [address], 12/07/2024 12:58:44 12/07/19 25 12/06/2024 GTT - GESTA BOBBI L LES Charles, ACOG OB glucose, 1 hour screen 102 mg/dL 70-135 Not Available [facility] (Lab) [address] [place], [address], 12/07/2024 12:58:44 12/07/1912/06/2024 HIV 1/2 ANTIG EN/AN TIBOD Y, REFLE X CONFI RMATI ON HIV antigen/anti body Nonrea ctive nonrea ctive HIV-1 antig en and HIV-1 /HIV- 2 antib odies were not detec amanda. No labor atory evide nce of HIV infec tion. Not Available [facility] (Lab) [address] [place], [address], 12/07/2024 12:58:45 12/07/19 25 12/06/2024 RPR SCREE N, REFLE X TITER /CONF IRMAT ION RPR qualitative Nonrea ctive nonrea ctive Not Available [facility] (Lab) [address], [place], [address], 12/07/2024 12:58:45 12/18/19 25 12/17/2024 non-s tress test No observ ation record ed. [email or web address] [place] [address], [place], [address], 12/17/2024 17:43:48 12/18/19 25 12/17/2024 non-s tress test No observ ation record ed. [address] [address], [place], [address], 12/21/2024 14:44:42 12/18/19 25 12/17/2024 US, obste tric, bioph ysica l profi le No observ ation record ed. [address] [address], [place], [address], 12/20/2024 15:26:26 12/18/19 25 12/17/2024 US, obste tric, bioph ysica l profi le No observ ation record ed. [address] [address], [place], [address], 12/20/2024 15:26:43 12/22/19 25 12/21/2024 US, obste tric, follo w-up No observ ation record ed. [email or web address] [place] [address], [place], [address], 12/21/2024 14:11:47 12/22/19 25 12/21/2024 US, obste tric, follo w-up No observ ation record ed. [email or web address] [address], [place], [address], 12/21/2024 22:22:13 12/22/19 12/17/2024 non-s tress test No observ ation record ed. [email or web address] [place] [address], [place], [address], 12/21/2024 18:48:58 Result Notes None recorded. Problems Name Problem SNOMED Code Status Onset Date Resolution Date Notes Provider Name and Address Organization Details Recorded Time Complica tion of pregnanc y, childbir th and/or puerperi um [id number] Completed 201709/19/2020 Oth diseases and conditio ns compl preg/chl dbrth;Re corded Elsewher e: No [facility] our[facility]: EHR Crawler Crane Operator ramírez: N Practi ce ID: 0001 Bernard lable Time: 03:45:00 PM Annie Lehman MD [address], [place], [address], [facility] 1 11:19:26 Antenata l screenin g Completed 201709/19/2020 Encounte r for antenata l screenin g for nuchal transluc ency;Rec orded Elsewher e: No [facility]at [facility] S ource: EHR Crawler Crane Operator ramírez: N Practi ce ID: 0001 Bernard lable Time: 02:30:00 PM Annie Lehman MD [address], [place], [address], [facility] 11:19:56 Bartholi nitis 4919120 Completed 201809/19/2020 Other diseases of Bartholi n's gland;Re corded Elsewher e: No Locat ion: [facility] S ource: EHR Crawler Crane Operator ramírez: N Practi ce ID: 0001 Bernard lable Time: 11:00:00 AM Annie Lehman MD [address], [place], [address], [facility] 1 11:17:48 Pregnanc y, childbir th and puerperi um finding Completed 201709/19/2020 Encntr for suprvsn of normal first preg, third trimeste r;Record ed Elsewher e: No Locat ion: Annette green[facility] S ource: EHR Crawler Crane Operator ramírez: N Josieti ce ID: 0001 Bernard lable Time: 04:00:00 PM Annie Lehman MD [address], [place], [address], [facility] 1 11:19:01 Pregnanc y, childbir th and puerperi um finding Completed 201709/19/2020 Encounte r for supervis ion of normal 1st pregnanc y, 1st trimeste r;Record ed Elsewher e: No Locat ion: [facility] S ource: EHR Crawler Crane Operator ramírez: N Leticia ce ID: 0001 Bernard lable Time: 03:00:00 PM Annie Lehman MD [address], [place], [address], [facility] 1 11:18:57 Missed miscarri age [id number] Completed 201809/19/2020 Missed ;Recorde d Elsewher e: No Locat ion: [facility] S ource: EHR Crawler Crane Operator ramírez: N Josieti ce ID: 0001 Bernard lable Time: 02:00:00 PM Annie Lehman MD [address], [place], [address], [facility] 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 1 11:19:14 Spotting per vagina in pregnanc y 649615576 Completed 201709/19/2020 Spotting complica ting pregnanc y, second trimeste r;Record ed Elsewher e: No [facility]: EHR Crawler Crane Operator ramírez: N Practi ce ID: 0001 Bernard lable Time: 02:15:00 PM Annie Lehman MD [address], [place], [address], [facility] 1 11:19:16 Placenta previa 98236357 Completed 201709/19/2020 Placenta previa specifie d as w/o hemor, second trimeste r;Record ed Elsewher e: No Locat ion: [facility] S ource: EHR Crawler Crane Operator ramírez: N Practi ce ID: 0001 Bernard lable Time: 01:00:00 PM Annie Lheman MD [address], [place], [address], [facility] 11:18:52 Increase d frequenc y of urinatio n 899838351 Completed 201909/19/2020 Frequenc y of micturit ion;Amandeep rded Elsewher e: No Locat ion: [facility] S ource: EHR Crawler Crane Operator ramírez: N Practi ce ID: 0001 Bernard lable Time: 02:30:00 PM Annie Lehmna MD [address], [place], [address], [facility] 1 11:18:33 Gestatio n period, 8 weeks 78353450 Completed 201809/19/2020 8 weeks gestatio n of pregnanc y;Record ed Elsewher e: No Locat ion: [facility] S ource: EHR Crawler Crane Operator ramírez: N Practi ce ID: 0001 Bernard lable Time: 02:00:[address] PM MD [address], [place], [address], [facility] 11:18:28 Normal pregnanc y in multigra andrzej [id number] 79058 Completed 201709/19/2020 Encounte r for supervis ion of other normal pregnanc y, 3rd trimeste r;Record ed Elsewher e: No Locat ion: [facility] S ource: EHR Crawler Crane Operator ramírez: N Practi ce ID: 0001 Bernard lable Time: 02:00:00 PM Annie Lehman MD [address], [place], [address], [facility] 11:18:49 Antenata l screenin g for malforma tion Completed 201709/19/2020 Encounte r for antenata l screenin g for malforma tions;Pr actice ID: 0001 Annie Lehman MD [address], [place], [address], [facility] 11:19:53 Gestatio n period, 18 weeks 36073544 Completed 201709/19/2020 18 weeks gestatio n of pregnanc y;Practi ce ID: [address], [place], [address], [facility] 11:18:12 Gestatio n period, 17 weeks 59185627 Completed 201709/19/2020 17 weeks gestatio n of pregnanc y;Practi ce ID: 0001 Annie Lehman MD [address], [place], [address], [facility] 11:18:10 Pregnanc y, childbir th and puerperi um finding Completed 201709/19/2020 Encntr for suprvsn of normal first preg, second trimeste r;Practi ce ID: 0001 Annie Lehman MD [address], [place], [address], [facility] 11:18:59 Gestatio n period, 24 weeks 006205340 Completed 201709/19/2020 24 weeks gestatio n of pregnanc y;Record ed Elsewher e: No Locat ion: [facility] S ource: EHR Crawler Crane Operator ramírez: N Josieti ce ID: 0001 Bernard lable Time: 01:00:00 PM Annie Lehman MD [address], [place], [address], [facility] 11:18:15 Gestatio n period, 27 weeks 40589004 Completed 201709/19/2020 27 weeks gestatio n of pregnanc y;Record ed Elsewher e: No Locat ion: [facility] S ource: EHR Crawler Crane Operator ramírez: N Josieti ce ID: 0001 Bernard lable Time: 03:15:00 PM Annie Lehman MD [address], [place], [address], [facility] 11:18:19 Pregnanc y detectio n examinat ion Completed 201809/19/2020 Encounte r for pregnanc y test, result positive ;Recorde d Elsewher e: No Locat ion: [facility] S ource: EHR Crawler Crane Operator ramírez: N Leticia ce ID: 0001 Bernard lable Time: 02:00:00 PM Annie Lehman MD [address], [place], [address], [facility] 11:18:54 Uses combined oral contrace ption 272107069 Completed 201809/19/2020 Encounte r for surveill ance of contrace ptive pills;Re corded Elsewher e: No Locat ion: [facility] S ource: EHR Crawler Crane Operator ramírez: N Josieti ce ID: 0001 Bernard lable Time: 10:45:00 AM Annei Lehman MD [address], [place], [address], [facility] 11:18:02 Lochia finding Completed 201709/19/2020 Encounte r for routine postpart um follow-u p;Record ed Elsewher e: No Locat ion: [facility] S ource: EHR Crawler Crane Operator ramírez: N Josieti ce ID: 0001 Bernard lable Time: 01:15:00 PM Annie Lehman MD [address], [place], [address], [facility] 11:18:43 Rubella screenin g status 205117593 Completed 201709/19/2020 Encounte r for antenata l screenin g, unspecif ied;Amandeep rded Elsewher e: No Locat ion: [facility] S ource: EHR Crawler Crane Operator ramírez: N Josieti ce ID: 0001 Bernard lable Time: 03:30:[address] PM MD [address], [place], [address], [facility] 11:19:07 Prematur e labor 2708716 Completed 201709/19/2020 labor without delivery , second trimeste r;Practi ce ID: 0001 Annie Lehman MD [address], [place], [address], [facility] 11:19:05 False labor before 37 complete d weeks of gestatio n [id number] 2173782 Completed 201709/19/2020 False labor before 37 complete d weeks of gest, second tri;Prac michel ID: [address], [place], [address], [facility] 11:18:07 Gestatio n period, 26 weeks 20690332 Completed 201709/19/2020 26 weeks gestatio n of pregnanc y;Practi ce ID: 0001 Annie Lehman MD [address], [place], [address], [facility] 11:18:17 Syphilis test finding 020751538 Completed 201809/19/2020 Encntr screen for infectio ns w sexl mode of transmis s;Record ed Elsewher e: No Locat ion: [facility] S ource: EHR Crawler Crane Operator ramírez: N Practi ce ID: 0001 Bernard lable Time: 02:00:00 PM Annie Lehman MD [address], [place], [address], [facility] 11:19:18 Disorder of perineum Completed 201709/19/2020 Anogenit al (venerea l) warts;Re corded Elsewher e: No [facility]: EHR Crawler Crane Operator ramírez: N Practi ce ID: 0001 Bernard lable Time: 08:45:00 AM Annie Lehman MD [address], [place], [address], [facility] 11:19:29 Cardiac arrhythm ia Completed 201709/19/2020 Prematur e contract ion;Amandeep rded Elsewher e: No Locat ion: [facility] S ource: EHR Crawler Crane Operator ramírez: N Practi ce ID: 0001 Bernard lable Time: 08:45:00 AM Annie Lehman MD [address], [place], [address], [facility] 11:17:56 Pregnanc y, childbir th and puerperi um finding Completed 201709/19/2020 Oth pregnanc y related conditio ns, second trimeste r;Practi ce ID: 0001 Annie Lehman MD [address], [place], [address], [facility] 11:17:54 Infectio n screenin g Completed 201809/19/2020 Encounte r for screenin g for oth infec/pa rastc diseases ;Recorde d Elsewher e: No Locat ion: [facility] S ource: EHR Crawler Crane Operator ramírez: N Practi ce ID: 0001 Bernard lable Time: 02:00:00 PM Annie Lehman MD [address], [place], [address], [facility] 11:18:36 Pregnanc y, childbir th and puerperi um finding Completed 201709/19/2020 Oth pregnanc y related conditio ns, third trimeste r;Practi ce ID: [address], [place], [address], [facility] 11:17:59 Gestatio n period, 36 weeks 94087524 Completed 201709/19/2020 36 weeks gestatio n of pregnanc y;Practi ce ID: [address], [place], [address], [facility] 11:18:22 False labor at or after 37 complete d weeks of gestatio n 982236749 Completed 201709/19/2020 False labor at or after 37 complete d weeks of gestatio n;Practi ce ID: [address], [place], [address], [facility] 11:18:04 Gestatio n period, 37 weeks 65922673 Completed 201709/19/2020 37 weeks gestatio n of pregnanc y;Practi ce ID: [address], [place], [address], [facility] 11:18:24 Lacerati on of female perineum Completed 201709/19/2020 Second degree perineal lacerati on during delivery ;Practic e ID: 0001 Annie Lehman MD [address], [place], [address], [facility] 11:18:40 Group B streptoc occus infectio n [facility] [id number] 5678409 Completed 201703/14/2021 Streptoc occus B carrier state complica [facility];Pract ice ID: 0001 Jayna Rivas merrill, [facility] 13:56:59 Single live 880465528 Completed 201709/19/2020 Single live ;Pr actice ID: 0001 Annie Lehman MD [address], [place], [address], [facility] 11:19:11 Gestatio n period, 39 weeks 56650322 Completed 201709/19/2020 39 weeks gestatio n of pregnanc y;Practi ce ID: 0001 Annie Lehman MD [address], [place], [address], [facility] 11:18:26 Secondar y amenorrh ea 268304157 Completed 201809/19/2020 Secondar y amenorrh ea;Recor ded Elsewher e: No Locat ion: [facility]te [facility] S ource: EHR Crawler Crane Operator ramírez: N Practi ce ID: 0001 Bernard lable Time: 02:00:00 PM Annie Lehman MD [address], [place], [address], [facility] 01/05/202 1 11:19:09 Pregnanc y 33150650 Completed 201902/01/2021 Mary Moreland null, [facility] 4 10:07:10 growth restrict ion 99103507 Completed 2020 weekly doppler, antenata l testing at 32wks Eneida Howardnstieh l null, [facility] 1 10:52:12 False labor 438149888 Completed Procardi a 30mg Eneida Howardnstieh l null, [facility] 1 10:52:12 Abdomina l pain 04435300 Completed Eneiad Leenstieh l null, [facility] 1 10:52:12 growth restrict ion 91937620 Completed 202003/14/2021 weekly doppler, antenata l testing at 32wks Jayna Rivas null, [facility] 1 13:57:01 Pregnanc y 65417737 Active 2023 Mary Moreland [facility], [facility] 4 10:07:10 Deliveri es by [id number] Active to repeat Israel Pantoja MD [address], [place], [address], [facility] 4 10:34:35 Migraine 70882247 Active Israel Pantoja MD [address], [place], [address], [facility] 4 10:34:47 Problem Notes None recorded. Procedures Surgical History Date Name Laterality Status Provider Name and Address Organization Details Recorded Time 3 Date of Last Pap Smear completed Mary Moreland [facility] 07/27/2024 14:36:52 2 Caesarean Section completed Mary Moreland [facility] 07/27/2024 14:40:18 9 Dilation and Curettage completed Sharri Monahan [facility] 06/22/2020 11:59:28 Imaging Results Imaging Date Name Status LastModified by Organiz ation Details LastModified Time 12/17/2024 non-stress test completed [email or web address] [place] [address], [place], [address], 12/17/2024 17:43:48 12/17/2024 non-stress test completed [address] [place] [address], [address], 12/21/2024 14:44:42 12/17/2024 US, obstetric, biophysical profile completed [address], [address], 12/20/2024 15:26:26 12/17/2024 US, obstetric, biophysical profile completed [address] [place] [address], [address], 12/20/2024 15:26:43 12/21/2024 US, obstetric, follow-up completed [email or web address] [place] [address], [place], [address], 12/21/2024 14:11:47 12/21/2024 US, obstetric, follow-up completed [email or web address] [address], [place], [address], 12/21/2024 22:22:13 12/17/2024 non-stress test completed [email or web address] [place] [address], [place], [address], 12/21/2024 18:48:58 Procedure Notes None recorded. Medical [...] oral route every day 11/16 completed [facility]: No Locat ion: [facility]te greenberg [facility] odify By: jnoes perera DateTime : 02/03/20 02:30:00 PM Not [...] 4-6 hours as needed 11/16 completed [facility] e: No Locat ion: [facility] odify By: yusuf Fajardo er DateTime [...] Not Available Not Available nifedipin e ER 60 mg tablet,ex tended release 24 hr TAKE 1 TABLET BY MOUTH EVERY DAY active Not Available Not Available No t Available nifedipin e 10 mg capsule Take [...] hours as needed 01/29 completed Prescrib ed Anisaher e: Yes [facility]ify By: yusuf Fajardo er DateTime : 10/23/19 18 03:30:00 PM Not [...] Available ID NOW COVID-19 Test Kit DIRECTED [id number] 32 07/27 completed Not Available Not Available Not Available Vitals Date Recorded Body weight Systolic blood pressure Diastolic blood pressure Provider Name and Address Organization Details Last Updated DateTime 12/17/2024 99583.3274 1 g 120 mm[Hg] 71 mm[Hg] Mary Moreland [place] - [facility] 12/17/2024 16:20:08 Date Recorded Body height Body mass index (BMI) Body weight Systolic blood pressure Diastolic blood pressure Provider Name and Address Organization Details Last Updated DateTime 12/17/2024 162.56 cm 33.1 kg/m2 82177.33 g 120 mm[Hg] 71 mm[Hg] Aubree Jones [facility] 17:42:06 Date Recorded Body height Body mass index (BMI) Body weight Systolic blood pressure Diastolic blood pressure Provider Name and Address Organization Details Last Updated DateTime 12/21/2024 162.56 cm 33.3 kg/m2 20831.92 g 122 mm[Hg] 75 mm[Hg] Mary [facility] 5 11:00:28 Date Recorded Body weight Systolic blood pressure Diastolic blood pressure Provider Name and Address Organization Details Last Updated DateTime 12/28/2024 42797.3274 1 g 123 mm[Hg] 76 mm[Hg] [facility] 12/28/2024 12:55:52 Social History Question Answer Notes LastModified by Organizat ion Details LastModified Time Tobacco Smoking Status Never Smoker Bertha Merchant [facility] 11/23/2020 18:10:39 Do You Have An Advance Directive? No Information not available 11/23/2020 What Is Your Level Of Alcohol Consumption? None [id number] Information not available 07/18/2020 Are You Blind [...] Or The Highest Degree You Have Received? [id number] Information not available 11/23/2020 What Is Your Occupation? None Information not available 11/23/2020 Are There Any Guns Present In Your Home? Yes Information not available 11/23/2020 What Was The Date Of Your Most Recent Tobacco Screening? 04/10/2021 [email or web address] Information not available 04/10/2021 Do You Use [...] How Much Tobacco Do You Smoke? No [email or web address] Information not available 08/18/2020 Do You Feel Stressed (tense, Restless, Nervous, Or Anxious, Or Unable To Sleep At Night)? [id number] Information not available 11/23/2020 Do You Use [...] (Food, seasonal, environmental ) N Other Y Blood Transfusion N Drug/Latex Allergies/Reactions N Breast Cancer N Dermatologic Disorders N [...] SNOMED-CT Code Diagnosis ICD10 Code Diagnosis Note [id number] [facility] [address],[place] [address] 06/15/2020 10:20:01 06/15/2020 14:43:05 [id number] Sofía Thurman [place] [address],[place] [address] 06/22/2020 16:23:42 06/23/2020 15:45:21 Gynecologic examination 34858131 Z01.419 test positive 163307679 Z32.01 Risk factors addressed: Tobacco Cessation, Safe [...] annual well woman examinatio n and address [facility] . [id number] Madhavi [facility] [address],[place] [address] 07/18/2020 16:32:57 07/18/2020 17:24:28 screening 598752344 Z36.82 Z36.0 Z36.89 [id number] Israel Pantoja MD [place] [address],[place] [address] 07/18/2020 16:34:01 07/20/2020 15:12:33 Routine care 189776723 Z34.90 [id number] Stefany Dunn CNM [place] [address],[place] [address] 08/18/2020 15:50:48 08/18/2020 17:07:09 Routine care 804462562 Z34.92 [id number] Megan Kearns [place] [address],[place] [address] 08/18/2020 15:51:57 08/21/2020 09:09:37 [id number] [facility] [address],[place] [address] 09/19/2020 09:30:24 09/19/2020 12:49:24 screening for malformation 065565068 Z36.3 [id number] Annie Lehman MD [place] [address],[place] [address] 09/19/2020 09:30:56 09/19/2020 11:51:19 Routine care 374270957 Z34.92 [id number] [facility] [address],[place] [address] 10/26/2020 10:28:47 10/26/2020 11:27:30 Small for gestational age fetus 374011623 O36.5920 Z3A.26 [id number] Israel Pantoja MD [place] [address],[place] [address] 10/26/2020 10:29:24 10/26/2020 12:33:48 Routine care 118289462 Z34.90 45468 [facility] [address],[place] [address] 11/02/2020 16:25:34 11/03/2020 12:03:37 Small for gestational age fetus 731428736 O36.5920 Z3A.27 [id number] [facility] [address],[place] [address] 11/09/2020 16:47:44 11/09/2020 17:49:54 Small for gestational age fetus 296845845 O36.5920 [id number] Megandenton Kearns [place] [address],[place] [address] 11/16/2020 16:34:04 11/16/2020 17:26:44 Poor growth affecting management [id number] O36.5930 Z3A.29 [id number] Israel Pantoja MD [place] [address],[place] [address] 11/16/2020 16:34:20 11/17/2020 19:03:36 Routine care 462026261 Z34.90 07205 [facility] [address],[place] [address] 11/23/2020 16:23:32 11/24/2020 14:38:24 Poor growth affecting management 157221397 O36.5930 Z3A.30 67171 Israel Pantoja MD [place] [address],[place] [address] 11/23/2020 16:24:03 11/24/2020 14:38:55 Routine care 468769005 Z34.90 20639 [facility] [address],[place] [address] 11/30/2020 16:49:04 11/30/2020 17:25:15 Poor growth affecting management 089934189 O36.5930 Z3A.31 61551 Israel Pantoja MD [place] [address],[place] [address] 11/30/2020 16:49:26 12/01/2020 15:25:48 Routine care 375800582 Z34.90 64295 [facility] [address],[place] [address] 12/07/2020 16:08:59 12/07/2020 17:00:30 Poor growth affecting management 354199490 O36.5930 Z3A.32 19171 Eneida Fung [facility] [address],[place] [address] 12/07/2020 16:09:19 12/07/2020 17:29:59 growth restriction 99911083 O35.8XX9 06249 [place] [address],[place] [address] 12/07/2020 16:09:36 12/09/2020 15:24:29 Routine care 799256994 Z34.90 [id number] Eneida Fung [facility] [address],[place] [address] 12/11/2020 16:59:41 12/13/2020 09:34:50 growth restriction 74300760 O35.8XX9 57096 Megan Kearns [place] [address],[place] [address] 12/14/2020 15:44:09 12/14/2020 16:36:54 Poor growth affecting management 362353838 O36.5930 Z3A.33 13671 Eneida Fung [facility] [address],[place] [address] 12/14/2020 15:44:31 12/14/2020 17:19:55 growth restriction 31869948 O35.8XX9 51972 Israel Pantoja MD [place] [address],[place] [address] 1 12/14/2020 15:44:47 12/18/2020 13:50:18 Routine care 293714358 Z34.90 27486 Eneida Fung [facility] [address],[place] [address] 12/21/2020 16:22:14 12/21/2020 17:10:49 growth restriction 19808238 O35.8XX9 81491 [facility] [address],[place] [address] 12/21/2020 16:22:28 12/24/2020 21:37:00 Small for gestational age fetus 764488362 O36.5930 Z3A.34 32641 Israel Pantoja MD [place] [address],[place] [address] 12/21/2020 16:22:59 12/24/2020 21:37:30 Routine care 607276682 Z34.90 46504 Eneida Fung [facility] [address],[place] [address] 1 12/25/2020 16:51:50 12/25/2020 17:59:43 growth restriction 63592913 O35.8XX9 89598 Eneida Fung [facility] [address],[place] [address] 1 12/28/2020 16:15:35 12/28/2020 17:19:26 growth restriction 27585131 O35.8XX9 12819 [facility] [address],[place] [address] 1 12/28/2020 16:16:08 12/28/2020 17:25:29 Small for gestational age fetus 318850638 O36.5930 Z3A.35 88832 Israel Pantoja MD [place] [address],[place] [address] 1 12/28/2020 16:16:32 12/29/2020 14:52:26 Routine care 520181169 Z34.90 79510 Eneida Fung [facility] [address],[place] [address] 1 01/01/2021 16:58:49 01/01/2021 18:11:56 growth restriction 50865923 O35.8XX9 80284 Eneida Fung [facility] [address],[place] [address] 01/04/2021 16:07:28 01/04/2021 17:20:24 growth restriction 71417000 O35.8XX9 73600 [facility] [address],[place] [address] 01/04/2021 16:07:46 01/04/2021 17:13:46 Small for gestational age fetus 802115725 O36.5930 Z3A.36 19072 Israel Pantoja MD [place] [address],[place] [address] 01/04/2021 16:07:58 01/05/2021 09:53:26 Routine care 486124974 Z34.90 93762 [facility] [address],[place] [address] 01/11/2021 16:17:56 01/11/2021 17:07:33 Small for gestational age fetus 161219707 O36.5930 Z3A.37 82947 [facility] [address],[place] [address] 01/15/2021 17:03:59 01/15/2021 22:05:32 growth restriction 13401096 O35.8XX9 63224 [facility] [address],[place] [address] 01/18/2021 16:33:29 01/18/2021 17:05:26 growth restriction 07242145 O35.8XX9 47201 [facility] [address],[place] [address] 01/18/2021 16:34:27 01/19/2021 14:56:37 Small for gestational age fetus 584154719 O36.5930 Z3A.38 83332 Israel Pantoja MD [place] [address],[place] [address] 01/18/2021 16:34:52 01/19/2021 14:57:18 Routine care 848699432 Z34.90 13183 [facility] [address],[place] [address] 01/19/2021 14:23:41 01/19/2021 15:15:00 Small for gestational age fetus 059739876 O36.5930 Z3A.38 47079 [facility] [address],[place] [address] 1 01/22/2021 13:57:45 01/22/2021 14:46:08 growth restriction 21061781 O35.8XX9 92675 Sofía Thurman [place] [address],[place] [address] 03/01/2021 16:08:40 03/02/2021 15:27:21 state 23111423 Z39.2 Continue to watch for signs/symp toms [...] desired 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 No thoughts of harming herself or others. If any worsening of symptoms she will notify us right away. RTC in 2 weeks for med check. [address] [facility] [address],[place] [address] 03/15/2021 11:58:16 03/15/2021 12:22:02 Mixed anxiety and depressive disorder 806659534 F41.8 Pt unsure if there is any improvemen t but definitely not worse. No thoughts of harming herself or others. Pt would like to continue at current dose and see how she is doing at 1 month. Will plan return visit in 2 weeks. [id number] [facility] [address],[place] [address] 04/10/2021 12:47:01 04/12/2021 14:14:59 Mixed anxiety and depressive disorder 609506995 F41.8 Pt very happy with improvemen t and would like to continue with current dose of zoloft. She will let us know if any worsening of symptoms. [id number] Megan Kearns [place] [address],[place] [address] 07/27/2024 13:44:10 07/27/2024 14:10:06 screening 191179524 Z36.87 Z3A.08 [id number] Israel Pantoja MD [place] [address],[place] [address] 07/27/2024 13:45:40 07/27/2024 15:05:53 Amenorrhea 44181880 N91.2 this patient is a 29-year-ol d [...] begin routine care at her next visit. [id number] Megan Kearns [place] [address],[place] [address] 08/26/2024 09:19:11 08/26/2024 09:52:33 screening 754148587 Z36.82 Z3A.13 [id number] sIrael Pantoja MD [place] [address],[place] [address] 08/26/2024 09:19:23 08/26/2024 10:53:29 Migraine 83475973 G43.909 Routine an tenatal care 902712474 Z34.90 [id number] Israel Pantoja MD [place] [address],[place] [address] 09/23/2024 09:34:38 09/23/2024 10:25:36 Routine care 818984827 Z34.90 [id number] [facility] [address],[place] [address] 10/14/2024 09:27:39 10/14/2024 10:46:12 screening for malformation 495631968 Z36.3 Z3A.20 [id number] Israel Pantoja MD [place] [address],[place] [address] 10/15/2024 12:02:23 10/15/2024 12:39:49 Routine care 568327485 Z34.90 [id number] Israel Pantoja MD [place] [address],[place] [address] 11/09/2024 09:31:35 11/09/2024 10:13:11 Routine care 388815738 Z34.90 [id number] Israel Pantoja MD [place] [address],[place] [address] 12/06/2024 09:25:31 12/06/2024 10:05:53 Routine care 887394268 Z34.90 [id number] Isarel Pantoja MD [place] [address],[place] [address] 12/17/2024 15:40:56 12/20/2024 15:31:57 [id number] Aubree Jones [place] [address],[place] [address] 12/17/2024 16:40:24 12/20/2024 06:37:18 -induced hypertension 89269406 O13.9 [id number] Madhavi Tapia [place] [address],[place] [address] 12/21/2024 09:37:11 12/21/2024 10:33:41 Uterine size for dates discrepancy 016377701 O26.843 Z3A.29 [id number] Israel Pantoja MD [place] [address],[place] [address] 12/21/2024 09:37:30 12/21/2024 11:39:05 labor without delivery [id number] O60.03 [id number] Israel Pantoja MD [place] [address],[place] [address] 12/28/2024 11:53:58 12/28/2024 13:07:59 Routine care 623411234 Z34.90 Health Concerns Section Related Observation LastModified by Organization Detai ls LastModified Time None Recorded Concern Status LastModified by Organization Details LastModified Time None Recorded Advance Directives Directive N: Payers Encounter Date Sequence Insurance Name Policy Number Policy Moralez Covered Member ID Moralez Member ID Guarantor Name 12/17/2024 1 [facility] ON OR AFTER 03/15/21 (MEDICAID REPLACEMENT - HMO) Mili Mcmahon [id number] Mili Mcmahon 12/17/2024 1 [facility] ON OR AFTER 03/15/21 (MEDICAID REPLACEMENT - HMO) Mili Mcmahon [id number] Mili Mcmahon 12/21/2024 1 [facility] ON OR AFTER 03/15/21 (MEDICAID REPLACEMENT - HMO) Mili Mcmahon [id number] Mili Mcmahon 12/21/2024 1 [facility] ON OR AFTER 03/15/21 (MEDICAID REPLACEMENT - HMO) Mili Mcmahon [id number] Mili Mcmahon 12/28/2024 1 [facility] ON OR AFTER 03/15/21 (MEDICAID REPLACEMENT - HMO) Mili Mcmahon [id number] Mili Mcmahon OBGyn Episode Ob Episode Information Episode Created Date Number of Fetuses Patient Bloodtype Patient rh Status Prepregnancy Weight lbs Domestic Partner Domestic Partner Phone Father Name Extruder Operator Horizontal Status 06/22/20 1 CLOSED Fetus Data First [...] Domestic Partner Domestic Partner Phone Father Name Extruder Operator Horizontal Status 06/22/20 20 1 CLOSED Fetus Data [...] Domestic Partner Domestic Partner Phone Father Name Extruder Operator Horizontal Status 07/18/20 20 1 O Positive 165 CLOSED Fetus Data First Name Last Name Admitted to NICU Weight (g) Sex Living Outcome Pediatric Complications Fetus ID Race Codes Race Delivery Type 2608.15 4 F true Full Term 5868 Vaginal Delivery Problems Problem Notes possible hemorrha ge Problem Name Start Date End Date Resolution Snomed Code Not e growth restriction 10/26/2020 [id number] weekly doppler, testing at 32wks False labor 238145068 Procardi a 30mg Abdominal pain 17392764 Nico Calculation Initial Nico Date Initial Exam [...] Date Ultra Sound Latest Days Gestation 0 [email or web address] 09/19/2020 02/02/20 21 0 Pre- Flowsheet Flowsheet [...] Weight in lbs Pre/Post Dialysis Refused Weight 162.266324176609 BP Diastolic BP Location Tested BP Systolic [...] Weight in lbs Pre/Post Dialysis Refused Weight 161.044532383970 BP Diastolic BP Location Tested BP Systolic [...] Weight in lbs Pre/Post Dialysis Refused Weight 163.857519196322 BP Diastolic BP Location Tested BP Systolic [...] Weight in lbs Pre/Post Dialysis Refused Weight 173.710932256959 BP Diastolic BP Location Tested BP Systolic [...] Weight in lbs Pre/Post Dialysis Refused Weight 178.470294968628 BP Diastolic BP Location Tested BP Systolic [...] Weight in lbs Pre/Post Dialysis Refused Weight 178.568014392906 BP Diastolic BP Location Tested BP Systolic [...] Weight in lbs Pre/Post Dialysis Refused Weight 179.136835387602 BP Diastolic BP Location Tested BP Systolic [...] Weight in lbs Pre/Post Dialysis Refused Weight 180.875791351628 BP Diastolic BP Location Tested BP Systolic [...] Weight in lbs Pre/Post Dialysis Refused Weight 183.101666116841 BP Diastolic BP Location Tested BP Systolic [...] Weight in lbs Pre/Post Dialysis Refused Weight 184.380173289139 BP Diastolic BP Location Tested BP Systolic [...] Weight in lbs Pre/Post Dialysis Refused Weight 185.658479081892 BP Diastolic BP Location Tested BP Systolic [...] Weight in lbs Pre/Post Dialysis Refused Weight 190.460684961952 BP Diastolic BP Location Tested BP Systolic [...] Weight in lbs Pre/Post Dialysis Refused Weight 190.478134040607 BP Diastolic BP Location Tested BP Systolic [...] Estim ated Date of Delivery false Thalassemia (Grenadian, Wolof, Mediterranean, Or Background): MCV < 80 false Neural Tube Defect (Meningomyelocele, Spina Bifi da, Or Anencephaly) false Congenital Heart Defect false Down Syndrome false Kvein-Sachs (eg, Roman Catholic, Cajun, Zimbabwean-Sanborn) f alse Sj Disease false Sickle Cell Disease Or Trait () false Hemophilia Or Other Blood Disorders false Muscular Dystrophy false Cystic Fibrosis false Kirill's Chorea false Intellectual Disability/Autism false If Yes, [...] Comments 1 [facility]-Ep idural 39 Israel Taylor MD IUGR & Gbs+ Discharge Information Feeding Method Contraceptive Method Maternal HG B and HCT Levels Breast Ob Episode Information Episode Created Date Number of Fetuses Patient Bloodtype Patient rh Status Prepregnancy Weight lbs Domestic Partner Domestic Partner Phone Father Name Extruder Operator Horizontal Status 07/27/20 24 1 CLOSED Fetus Data First Name Last Name Admitted to NICU Weight (g) Sex Living Outcome Pediatric Complications Fetus ID Race Codes Race Delivery Type M Full Term [id number] Primary Nico Calculation Initial Nico Date Initial [...] Domestic Partner Domestic Partner Phone Father Name Extruder Operator Horizontal Status 08/26/20 24 1 O Positive 171 Moise OPEN Fetus Data First Name Last Name Admitted to NICU Weight (g) Sex Living Outcome Pediatric Complications Fetus ID Race Codes Race Delivery Type 07357 Problems Problem Notes Problem Name Start Date End Date Resolution Snomed Code Not e Deliveries by 04 to repeat Migraine [id number] Nico Calculation Initial Nico Date Initial Exam [...] Weight in lbs Pre/Post Dialysis Refused Weight 169.634358374025 BP Diastolic BP Location Tested BP Systolic [...] Type Weight in lbs Pre/Post Dialysis Refused 167.257961230910 BP Diastolic BP Location Tested BP Systolic [...] Type Weight in lbs Pre/Post Dialysis Refused 176.384119765832 BP Diastolic BP Location Tested BP Systolic [...] Type Weight in lbs Pre/Post Dialysis Refused 182.644883228145 BP Diastolic BP Location Tested BP Systolic [...] Weight in lbs Pre/Post Dialysis Refused Weight 192.068416477528 BP Diastolic BP Location Tested BP Systolic [...] Type Weight in lbs Pre/Post Dialysis Refused 193.59284749684 BP Diastolic BP Location Tested BP Systolic BP Type 71 L arm 120 sitting Fetus Heart Rate Present Fetus Movement A Yes Comments Flowsheet Date 12/17/2024 Donahue Score Blood Edema Fundus Height Fundus Units Glucose Ketones Leukocytes Nitrite Labor Signs Protein Cervic Dilation Cervic Effacement Cervic Station Type Weight in lbs Pre/Post Dialysis Refused Weight 193.753411716992 BP Diastolic BP Location Tested BP Systolic [...] Weight in lbs Pre/Post Dialysis Refused Weight 194.385742707059 BP Diastolic BP Location Tested BP Systolic BP Type 75 L arm 122 sitting Fetus Heart Rate Present A 145 Fetus Movement A Yes Comments discussed precautions for mo re bleeding, bright red spotting recently. Speculum exam performed. No blood observed. Normal ultrasound today. To increase Procardia for contractions. Flowsheet Date 12/28/2024 Donahue Score Blood Edema Fundus Height Fundus Units Glucose Ketones Leukocytes Nitrite Labor Signs Protein Cervic Dilation Cervic Effacement Cervic Station 28 cm Type Weight in lbs Pre/Post Dialysis Refused 193.09475313244 BP Diastolic BP Location Tested BP Systolic BP Type 76 L arm 123 sitting Fetus Heart Rate Present A 144 Fetus Movement A Yes Comments no complaints, no problems, routine care, no contractions, no vaginal bleeding, no loss of fluid, no cramping Menstrual History Last Menstrual Date Menses Monthly [...] Domestic Partner Domestic Partner Phone Father Name Extruder Operator Horizontal Status 07/27/20 24 1 CLOSED Fetus Data First Name Last Name Admitted to NICU Weight (g) Sex Living Outcome Pediatric Complications Fetus ID Race Codes Race Delivery Type , Spontane ous 21243 Nico Calculation Initial Nico Date Initial Exam [...]
--- OUTSIDE RECORDS SUMMARY | 2025-01-01 19:12 | XMS_ITS | Clinical Summary ---
Author Organization [facility] Address [address] [place] [id number] Phone Care Team Providers Care Frame Operator Name Role Phone Unavailable Primary Care Provider [...] patient's age to complete this topic Insurance [facility] MEDICAID
[2025-01-01 19:45] VITALS: BMI 35.9
[2025-01-01 20:15] LABS: Add Urine Microscopic? NO; Appearance Urine Clear (Clear); Bilirubin Urine Negative (Negative); Blood Urine Negative (Negative); Color Urine Yellow (Yellow); Glucose Urine UA Negative (Negative); Ketones Urine Negative (Negative); Leukocyte Esterase Ur Negative LEU/UL (Negative); Nitrate Urine Negative (Negative); Protein Urine Negative (Negative); Specific Grav Ur 1.008 (1.001-1.035); Urobilinogen Urine 0.2 mg/dL (<2.0); pH Urine 6.5 (5.0-9.0)
[2025-01-01] MEDS: TERBUTALINE SULFATE 1 MG/ML VIAL 0.25 MG SUB-Q (20:33)
--- NOTE | 2025-01-24 10:06 | PM.OBTRLD ---
OB - Triage/Final Diagnosis Visit Information Comments/Additional reasons for admission: I have assessed the risk for this patient, Mili Palm, and determined that she would benefit from observation care. Evaluation Laboratory results: Laboratory Tests 01/01/25 19:22 Urine Color Yellow Urine Appearance Clear Urine pH 6.5 Ur Specific [place] 1.008 Urine Protein Negative Urine Glucose (UA) Negative Urine Ketones Negative Ur Blood (Man) Negative Urine Nitrate Negative Urine Bilirubin Negative Urine Urobilinogen 0.2 Leukocyte Esterase Rfl Negative Final Diagnosis (1) Back pain affecting : Code(s): O99.891 - Other specified diseases and conditions complicating ; M54.9 - Dorsalgia, unspecified Status: Acute
== END 2025-01-01 21:51 | disposition home or self-care (01) ==
PROVIDERS: Admitting Provider Obstetrics & Gynecology; Visit Provider Obstetrics & Gynecology
DX: O99.891 Other specified diseases and conditions complicating pregnancy (principal); M54.9 Dorsalgia, unspecified; Z3A.31 31 weeks gestation of pregnancy
CPT/HCPCS: 81003; 96372; G0378; G0379; J3105

== ENCOUNTER 2025-02-03 16:27 | Outpatient (CLI) | payer OTHER, SELFPAY ==
--- OUTSIDE RECORDS SUMMARY | 2025-02-03 16:31 | XMS_ITS | Continuity of Care Document ---
Author Organization [facility] Address [address] [place] [address] Care Team Providers Care Drupal Programmer Name Role Phone SHABBIR SOUSA Primary Care Provider [phone] Assessment Encounter Date Assessment Date Assessment LastModified by Organization Details LastModified Time 02/03/2025 02/03/2025 Patient is ___weeks . Discussed plan. Not available 02/03/2025 12:18:22 Plan of Treatment Reminders Order Date Submit Date Provider Last Modified By Organization Details Last Modified Time Details Appointments U/S OB BPP 2024 10:00A M ULTRASOUND Not available Not available Not available NST 2024 10:30A M NST SCHEDULE Not available Not available Not available OB ROUTINE 2024 11:00A Karmen PANTOJA MD Not available Not available Not available SURG CSectio n 2024 07:30A Karmen PANTOJA MD Not available Not available Not available SURG POST OP 2024 03:15P Karmen PANTOJA MD Not available Not available Not available Lab None recorde d. Referral None recorde d. Procedures None recorde d. Surgeries None recorde d. Imaging None recorde d. Medication Orders None recorde d. Patient TargetsNo targets recorded. Patient InstructionsNo instructions recorded. Reason for Referral None Reported. Results Created Date Observation Date Name Description Value Unit Range Abnormal Flag Note LastModifiedBy Organization Detail LastModifiedTime 08/26/20 24 08/26/2024 US, obste tric, nucha l trans lucen cy No observ ation record ed. [email or web address] [place] [address], [place], [address], 08/26/2024 12:20:16 08/26/20 24 08/26/2024 US, obste tric, nucha l trans lucen cy No observ ation record ed. [email or web address] [address], [place], [address], 08/26/2024 20:51:22 10/14/19 25 10/14/2024 US, obste tric, 2nd or 3rd trime ster No observ ation record ed. [email or web address] [place] [address], [place], [address], 10/14/2024 12:36:34 10/14/19 25 10/14/2024 US, obste tric, 2nd or 3rd trime ster No observ ation record ed. [email or web address] [address], [place], [address], 10/14/2024 21:46:52 12/18/19 25 12/17/2024 non-s tress test No observ ation record ed. [email or web address] [place] [address], [place], [address], 12/17/2024 17:43:48 12/18/19 25 12/17/2024 non-s tress test No observ ation record ed. [email or web address] [address] [place] [address], [address], 12/21/2024 14:44:42 12/18/19 25 12/17/2024 US, obste tric, bioph ysica l profi le No observ ation record ed. [email or web address] [address] [place] [address], [address], 12/20/2024 15:26:26 12/18/19 25 12/17/2024 US, obste tric, bioph ysica l profi le No observ ation record ed. [email or web address] [facility] [address], [place], [address], 12/20/2024 15:26:43 12/22/19 25 12/21/2024 US, obste tric, follo w-up No observ ation record ed. [email or web address] [place] [address], [place], [address], 12/21/2024 14:11:47 12/22/19 25 12/21/2024 US, obste tric, follo w-up No observ ation record ed. [email or web address] [address] [facility], [place], [address], 12/21/2024 22:22:13 12/22/19 25 12/17/2024 non-s tress test No observ ation record ed. [email or web address] [place] [address], [place], [address], 12/21/2024 18:48:58 01/19/20 25 01/18/2025 non-s tress test No observ ation record ed. [place] [address], [place], [address], 01/18/2025 09:26:19 01/21/20 25 01/20/2025 US, josse mcmillan [facility] ysica l profi le + non-s tress test No observ ation record ed. [email or web address] [place] [address], [place], [address], 01/20/2025 15:16:55 01/21/20 25 01/20/2025 US, obste tric, follo w-up No observ ation record ed. [email or web address] [place] [address], [place], [address], 01/20/2025 15:17:06 01/21/20 25 01/20/2025 US, obste tric, follo w-up No observ ation record ed. [address], [place], [address], 01/25/2025 10:18:16 01/21/20 25 01/20/2025 non-s tress test No observ ation record ed. [email or web address] [place] [address], [place], [address], 01/20/2025 14:39:13 01/25/20 25 01/24/2025 non-s tress test No observ ation record ed. [place] [address], [place], [address], 01/24/2025 10:18:52 01/26/20 non-s tress test No observ ation record ed. [place] [address], [place], [address], 01/25/2025 11:49:46 01/28/20 25 01/27/2025 US, obste tric, bioph ysica l profi le + non-s tress test No observ ation record ed. [email or web address] [place] [address], [place], [address], 01/27/2025 12:36:24 01/28/20 25 01/27/2025 US, obste tric, follo w-up No observ ation record ed. [email or web address] [address], [place], [address], 01/28/2025 09:16:33 01/28/20 25 01/27/2025 non-s tress test No observ ation record ed. [email or web address] [place] [address], [place], [address], 01/28/2025 14:16:56 01/28/20 non-s tress test No observ ation record ed. [place] [address], [place], [address], 01/27/2025 16:03:33 02/01/20 25 01/31/2025 non-s tress test No observ ation record ed. [email or web address] [place] [address], [place], [address], 01/31/2025 17:04:57 02/04/20 25 02/03/2025 US, obste tric, bioph ysica l profi le + non-s tress test No observ ation record ed. [email or web address] [place] [address], [place], [address], 02/03/2025 11:33:28 02/04/20 25 02/03/2025 US, obste tric, bioph ysica l profi le + non-s tress test No observ ation record ed. [email or web address], [place], [address], 02/03/2025 11:31:37 02/04/20 25 02/03/2025 non-s tress test No observ ation record ed. [place] [address], [place], [address], 02/03/2025 14:19:23 Result Notes None recorded. Problems Name Problem SNOMED Code Status Onset Date Resolution Date Notes Provider Name and Address Organization Details Recorded Time Complica tion of pregnanc y, childbir th and/or puerperi [id number] Completed 201709/19/2020 Oth diseases and conditio ns compl preg/chl dbrth;Re corded Elsewher e: No Locat ion: [facility] S ource: EHR Organic Chemistry Teacher ramírez: N Practi ce ID: 0001 Bernard lable Time: 03:45:00 PM Annie Lehman MD [address], [place], [address], [facility] 1 11:19:26 Antenata l screenin g Completed 201709/19/2020 Encounte r for antenata l screenin g for nuchal transluc ency;Rec orded Elsewher e: No Locat ion: Annette greenberg [facility] S ource: EHR Organic Chemistry Teacher ramírez: N Practi ce ID: 0001 Bernard lable Time: 02:30:00 PM Annie Lehman MD [address], [place], [address], [facility] 11:19:56 Bartholi nitis [id number] Completed 201809/19/2020 Other diseases of Bartholi n's gland;Re corded Elsewher e: No [facility] S ource: EHR Organic Chemistry Teacher ramírez: N Josieti ce ID: 0001 Bernard lable Time: 11:00:00 AM Annie Lehman MD [address], [place], [address], [facility] 1 11:17:48 Pregnanc y, childbir th and puerperi um finding Completed 201709/19/2020 Encntr for suprvsn of normal first preg, third trimeste r;Record ed Elsewher e: No [facility]ce: EHR Organic Chemistry Teacher ramírez: N Josieti ce ID: 0001 Bernard lable Time: 04:00:00 PM Annie Lehman MD [address], [place], [address], [facility] 1 11:19:01 Pregnanc y, childbir th and puerperi um finding Completed 201709/19/2020 Encounte r for supervis ion of normal 1st pregnanc y, 1st trimeste r;Record ed Elsewher e: No [facility] S ource: EHR Organic Chemistry Teacher ramírez: N Practi ce ID: 0001 Bernard lable Time: 03:00:00 PM Annie Lehman MD [address], [place], [address], [facility] 11:18:57 Missed miscarri age [id number] Completed 201809/19/2020 Missed ;Recorde d Elsewher e: No Locat ion: [facility] S ource: EHR Organic Chemistry Teacher ramírez: N Practi ce ID: 0001 Bernard lable Time: 02:00:00 PM Annie Lehman MD [address], [place], [address], [facility] 11:18:[address] Concept Completed 201809/19/2020 Encntr for weblogic developer exam (general ) (routine ) w/o abn findings ;Recorde d Elsewher e: No Locat ion: [facility] S ource: EHR Organic Chemistry Teacher ramírez: N Practi ce ID: 0001 Bernard lable Time: 02:00:00 PM Annie Lehman MD [address], [place], [address], [facility] 11:19:14 Spotting per vagina in pregnanc y 587193766 Completed 201709/19/2020 Spotting complica ting pregnanc y, second trimeste r;Record ed Elsewher e: No [facility] S ource: EHR Organic Chemistry Teacher ramírez: N Practi ce ID: 0001 Bernard lable Time: 02:15:00 PM Annie Lehman MD [address], [place], [address], [facility] 11:19:16 Placenta previa 74217270 Completed 201709/19/2020 Placenta previa specifie d as w/o hemor, second trimeste r;Record ed Elsewher e: No Locat ion: [facility] S ource: EHR Organic Chemistry Teacher ramírez: N Practi ce ID: 0001 Bernard lable Time: 01:00:00 PM Annie Lehman MD [address], [place], [address], [facility] 1 11:18:52 Increase d frequenc y of urinatio n 583118796 Completed 201909/19/2020 Frequenc y of micturit ion;Amandeep rded Elsewher e: No Locat ion: [facility] S ource: EHR Organic Chemistry Teacher ramírez: N Practi ce ID: 0001 Bernard lable Time: 02:30:00 PM Annie Lehman MD [address], [place], [address], [facility] 1 11:18:33 Gestatio n period, 8 weeks 34063724 Completed 201809/19/2020 8 weeks gestatio n of pregnanc y;Record ed Elsewher e: No Locat ion: [facility] S ource: EHR Organic Chemistry Teacher ramírez: N Practi ce ID: 0001 Bernard lable Time: 02:00:00 PM Annie Lehman MD [address], [place], [address], [facility] 1 11:18:28 Normal pregnanc y in multigra andrzej [id number] 06257 Completed 201709/19/2020 Encounte r for supervis ion of other normal pregnanc y, 3rd trimeste r;Record ed Elsewher e: No Locat ion: [facility] S ource: EHR Organic Chemistry Teacher ramírez: N Practi ce ID: 0001 Bernard lable Time: 02:00:00 PM MD [address], [place], [address], [facility] 1 11:18:49 Antenata l screenin g for malforma tion Completed 201709/19/2020 Encounte r for antenata l screenin g for malforma tions;Pr actice ID: 0001 Annie Lehman MD [address], [place], [address], [facility] 11:19:53 Gestatio n period, 18 weeks 59353670 Completed 201709/19/2020 18 weeks gestatio n of pregnanc y;Practi ce ID: 0001 Annie Lehman MD [address], [place], [address], [facility] 11:18:12 Gestatio n period, 17 weeks 57812241 Completed 201709/19/2020 17 weeks gestatio n of pregnanc y;Practi ce ID: 0001 Annie Lehman MD [address], [place], [address], [facility] 11:18:10 Pregnanc y, childbir th and puerperi um finding Completed 201709/19/2020 Encntr for suprvsn of normal first preg, second trimeste r;Practi ce ID: 0001 Annie Lehman MD [address], [place], [address], [facility] 11:18:59 Gestatio n period, 24 weeks 650992416 Completed 201709/19/2020 24 weeks gestatio n of pregnanc y;Record ed Elsewher e: No Locat ion: Annette greenberg [facility] S ource: EHR Organic Chemistry Teacher ramírez: N Josieti ce ID: 0001 Bernard lable Time: 01:00:00 PM Annie Lehman MD [address], [place], [address], [facility] 11:18:15 Gestatio n period, 27 weeks 41368739 Completed 201709/19/2020 27 weeks gestatio n of pregnanc y;Record ed Elsewher e: No [facility] S ource: EHR Organic Chemistry Teacher ramírez: N Josieti ce ID: 0001 Bernard lable Time: 03:15:00 PM Annie Lehman MD [address], [place], [address], [facility] 1 11:18:19 Pregnanc y detectio n examinat ion Completed 201809/19/2020 Encounte r for pregnanc y test, result positive ;Recorde d Elsewher e: No Locat ion: [facility] S ource: EHR Organic Chemistry Teacher ramírez: N Josieti ce ID: 0001 Bernard lable Time: 02:00:00 PM Annie Lehman MD [address], [place], [address], [facility] 1 11:18:54 Uses combined oral contrace ption 263233434 Completed 201809/19/2020 Encounte r for surveill ance of contrace ptive pills;Re corded Elsewher e: No [facility]ce: EHR Organic Chemistry Teacher ramírez: N Josieti ce ID: 0001 Bernard lable Time: 10:45:00 AM Annie Lehman MD [address], [place], [address], [facility] 1 11:18:02 Lochia finding Completed 201709/19/2020 Encounte r for routine postpart um follow-u p;Record ed Elsewher e: No Locat ion: [facility] S ource: EHR Organic Chemistry Teacher ramírez: N Josieti ce ID: 0001 Bernard lable Time: 01:15:00 PM Annie Lehman MD [address], [place], [address], [facility] 1 11:18:43 Rubella screenin g status 512339334 Completed 201709/19/2020 Encounte r for antenata l screenin g, unspecif ied;Amandeep rded Elsewher e: No Locat ion: [facility] S ource: EHR Organic Chemistry Teacher ramírez: N Practi ce ID: 0001 Bernard lable Time: 03:30:00 PM Annie Lehman MD [address], [place], [address], [facility] 11:19:07 Prematur e labor 9992934 Completed 201709/19/2020 labor without delivery , second trimeste r;Practi ce ID: 0001 Annie Lehman MD [address], [place], [address], [facility] 11:19:05 False labor before 37 complete d weeks of gestatio n 9036528866 1523772 Completed 201709/19/2020 False labor before 37 complete d weeks of gest, second tri;Prac michel ID: 0001 Annie Lehman MD [address], [place], [address], [facility] 11:18:07 Gestatio n period, 26 weeks 23589633 Completed 201709/19/2020 26 weeks gestatio n of pregnanc y;Practi ce ID: 0001 Annie Lehman MD [address], [place], [address], [facility] 11:18:17 Syphilis test finding 623302022 Completed 201809/19/2020 Encntr screen for infectio ns w sexl mode of transmis s;Record ed Elsewher e: No Locat ion: [facility] S ource: EHR Organic Chemistry Teacher ramírez: N Practi ce ID: 0001 Bernard lable Time: 02:00:00 PM Annie Lehman MD [address], [place], [address], [facility] 1 11:19:18 Disorder of perineum Completed 201709/19/2020 Anogenit al (venerea l) warts;Re corded Elsewher e: No Locat ion: Annette greenberg [facility] S ource: EHR Organic Chemistry Teacher ramírez: N Practi ce ID: 0001 Bernard lable Time: 08:45:00 AM Annie Lehman MD [address], [place], [address], [facility] 11:19:29 Cardiac arrhythm ia Completed 201709/19/2020 Prematur e contract ion;Amandeep rded Elsewher e: No [facility] S ource: EHR Organic Chemistry Teacher ramírez: N Practi ce ID: 0001 Bernard lable Time: 08:45:00 AM Annie Lehman MD [address], [place], [address], [facility] 11:17:56 Pregnanc y, childbir th and puerperi um finding Completed 201709/19/2020 Oth pregnanc y related conditio ns, second trimeste r;Practi ce ID: 0001 Annie Lehman MD [address], [place], [address], [facility] 11:17:54 Infectio n screenin g Completed 201809/19/2020 Encounte r for screenin g for oth infec/pa rastc diseases ;Recorde d Elsewher e: No Locat ion: [facility] S ource: EHR Organic Chemistry Teacher ramírez: N Practi ce ID: 0001 Bernard lable Time: 02:00:00 PM Annie Lehman MD [address], [place], [address], [facility] 1 11:18:36 Pregnanc y, childbir th and puerperi um finding Completed 201709/19/2020 Oth pregnanc y related conditio ns, third trimeste r;Practi ce ID: 0001 Annie Lehman MD [address], [place], [address], [facility] 11:17:59 Gestatio n period, 36 weeks 71373650 Completed 201709/19/2020 36 weeks gestatio n of pregnanc y;Practi ce ID: 0001 Annie Lehman MD [address], [place], [address], [facility] 11:18:22 False labor at or after 37 complete d weeks of gestatio n 000738674 Completed 201709/19/2020 False labor at or after 37 complete d weeks of gestatio n;Practi ce ID: 0001 Annie Lehman MD [address], [place], [address], [facility] 11:18:04 Gestatio n period, 37 weeks 14871610 Completed 201709/19/2020 37 weeks gestatio n of pregnanc y;Practi ce ID: 0001 Annie Lehman MD [address], [place], [address], [facility] 11:18:24 Lacerati on of female perineum Completed 201709/19/2020 Second degree perineal lacerati on during delivery ;Practic e ID: 0001 Annie Lehman MD [address], [place], [address], [facility] 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 13:56:59 Single live from singleto n pregnanc y 948619522 Completed 201709/19/2020 Single live ;Pr actice ID: 0001 Annie Lehman MD [address], [place], [address], [facility] 11:19:11 Gestatio n period, 39 weeks 05935617 Completed 201709/19/2020 39 weeks gestatio n of pregnanc y;Practi ce ID: 0001 Annie Lehman MD [address], [place], [address], [facility] 11:18:26 Secondar y amenorrh ea 564784347 Completed 201809/19/2020 Secondar y amenorrh ea;Recor ded Elsewher e: No Locat ion: Annette greenberg [facility] S ource: EHR Organic Chemistry Teacher ramírez: N Practi ce ID: 0001 Bernard lable Time: 02:00:00 PM Annie Lehman MD [address], [place], [address], [facility] 11:19:09 Pregnanc y 95877972 Completed 201902/01/2021 Mary Moreland null, [facility] 4 10:07:10 growth restrict ion 76222967 Completed 2020 weekly doppler, antenata l testing at 32wks Eneida Bohnenstieh l null, [facility] 1 10:52:12 False labor 613680464 Completed Procardi a 30mg Eneida Bohnenstieh l null, [facility] 1 10:52:12 Abdomina l pain 56748108 Completed Eneida Bohnenstieh l null, [facility] 1 10:52:12 growth restrict ion 69267153 Completed 202003/14/2021 weekly doppler, antenata l testing at 32wks Jayna Rivas [facility] 1 13:57:01 Pregnanc y 68515673 Active 2023 Mary Moreland [facility] 4 10:07:10 Deliveri es by 137652964 Active to repeat Israel Pantoja MD [address], [place], [address], [facility] 4 10:34:35 Migraine 89009764 Active Israel Pantoja MD [address], [place], [address], [facility] 4 10:34:47 Pruritic disorder of skin Active 2024 Bile acids 7 Rpt labs, worsenin g pruritus 5 bile acid 2 Aubree Jones [facility] 5 13:32:27 Problem Notes None recorded. Procedures Surgical History Date Name Laterality Status Provider Name and Address Organization Details Recorded Time 3 Date of Last Pap Smear completed [facility] 07/27/2024 14:36:52 2 Caesarean Section completed Mayr Faller [facility] 07/27/2024 14:40:18 9 Dilation and Curettage completed Sharri Monahan [facility] 06/22/2020 11:59:28 Imaging Results None recorded. Procedure Notes None recorded. Medical Equipment None Reported. Allergies No known drug allergies Medications Name Sig Start Date Stop Date Status Note LastModified by Organization Details LastModified Time nifedipin e ER 30 mg tablet,ex tended release 24 hr TAKE 1 TABLET BY MOUTH DAILY 01/12 completed Not Available Not Available Not Available Aviane 0.1 mg-20 mcg tablet take 1 tablet by oral route every day 11/16 completed Prescrib ed Elsewher e: No Locat ion: [facility]angelista yari [facility] M odify By: jones perera DateTime : 02/03/20 [...] Prescrib ed Elsewher e: No Locat ion: [facility]angelista y[facility] odify By: yusuf Fajardo er [...] 1 capsule every day by oral route. 01/12 completed Not Available Not Available Not Available phenazopy ridine 100 mg tablet take 1 tablet by oral route 3 times every day after meals as needed 06/22 completed Not Available Not Available Not Available cephalexi n 500 mg capsule TAKE 1 CAPSULE BY MOUTH TWICE DAILY FOR 7 DAYS 11/16 completed Not Available Not Available Not Available ursodiol 300 mg capsule TAKE ONE CAPSULE BY MOUTH DAILY active Not Available Not Available No t Available Tylenol 325 mg tablet take 1 tablet by oral route every 4 hours as needed 01/29 completed Prescrib ed Elsewher e: Yes Loca tion: [facility] M odify By: yusuf pack DateTime : [...] Available ID NOW COVID-19 Test Kit DIRECTED [id number] 32 07/27 completed Not Available Not Available Not Available Vitals Date Recorded Body weight Systolic blood pressure Diastolic blood pressure Provider Name and Address Organization Details Last Updated DateTime 02/03/2025 28292.0663 7 g 110 mm[Hg] 74 mm[Hg] Mary Moreland [place] - [facility] 02/03/2025 12:19:04 Date Recorded Body height Body mass index (BMI) Body weight Systolic blood pressure Diastolic blood pressure Provider Name and Address Organization Details Last Updated DateTime 02/03/2025 162.56 cm 34.5 kg/m2 92799.07 g 110 mm[Hg] 74 mm[Hg] PRIYANK Howe [facility] 12:27:53 Social History Question Answer Notes LastModified by Organizat ion Details LastModified Time Tobacco Smoking Status Never Smoker Bertha Merchant merrill [facility] 11/23/2020 18:10:39 Do You Have An Advance Directive? No Information n ot available 11/23/2020 Are You Blind Or Do You Have Difficulty Seeing? No Information n ot available 11/23/2020 What Is Your Level Of Caffeine Consumption? Occasional Information not available 07/27/2024 How Much Tobacco Do You Chew? None Information not available 11/23/2020 In The 14 Days Before Symptom Onset, Have You Had Close Contact With A Laboratory-confirm ed COVID-19 While That Case Was Ill? No Information n ot available 11/23/2020 In The 14 Days Before [...] Of Diet Are You Following? REGULAR Information n ot available 11/23/2020 What Is The Highest Grade Or Level Of School You Have Completed Or The Highest Degree You Have Received? [id number] Information not available 11/23/2020 Are There Any Guns Present In Your Home? Yes Information not available 11/23/2020 What Was The Date Of Your Most Recent Tobacco Screening? 04/10/2021 [email or web address] Information not available 04/10/2021 Do You Use Protection During Sex? No Information not available 07/27/2024 Do You Use Your Seat Belt Or Car Seat Routinely? Yes Information not available 11/23/2020 Do You Have Smoke And Carbon Monoxide Detectors In Your Home? Yes Information not available 11/23/2020 How Much Tobacco Do You Smoke? No [email or web address] Information not available 08/18/2020 Do You Use Sunscreen Routinely? Yes Information not available 11/23/2020 Have You Used IV Drugs? No Information not available 11/23/2020 Sex: Unknown Functional Status Question Answer Note LastModified by Organizat ion Details LastModified Time Do you use any illicit or recreational drugs? Yes Information not available 12/21/2024 What is your level of alcohol consumption? None [id number] Information not available 07/18/2020 Do you or have you ever used smokeless tobacco? Never used smokeless tobacco Information not available 11/23/2020 Are you able to walk? YESWOREST Information not available 11/23/2020 What is your occupation? None Information not available 11/23/2020 Do you or have you ever used e-cigarettes or vape? Never used electronic cigarettes Information not available 11/23/2020 What is your exercise level? Occasional Information not available 07/27/2024 Mental Status Question Answer Note LastModified by Organization D etails LastModified Time Do you feel stressed (tense, restless, nervous, or anxious, or unable to sleep at night)? [id number] Information not available 11/23/2020 Family History Relationship Description Onset Age of [...] SNOMED-CT Code Diagnosis ICD10 Code Diagnosis Note [id number] Israel Pantoja MD [place] [address] [address] 01/12/2025 16:21:54 01/12/2025 17:19:02 Cholestasis of [id number] O26.643 [id number] Israel Pantoja MD [place] [address] [address] 01/17/2025 15:04:47 01/17/2025 16:07:11 Cholestasis of [id number] O26.643 [id number] MD Bonita Hollis [address],[place] [address] 01/18/2025 09:23:01 01/18/2025 10:11:04 Cholestasis of 405120603 O26.643 [id number] MD Bonita Hollis [address],[place] [address] 01/20/2025 13:30:45 01/20/2025 14:05:31 Cholestasis of [id number] O26.643 Z3A.34 [id number] Israel Pantoja MD [place] [address],[place] [address] 01/20/2025 13:31:11 01/20/2025 14:43:30 Cholestasis [id number] K83.1 [id number] MD Bonita Hollis [address],[place] [address] 01/24/2025 09:27:20 01/24/2025 10:26:23 Cholestasis 12441153 K83.1 Urinary symptoms [id number] R39.9 [id number] Israel Pantoja MD [place] [address],[place] [address] 01/27/2025 10:34:31 01/27/2025 11:10:54 Cholestasis of [id number] O26.643 Z3A.35 [id number] MD Bonita Hollis [address],[place] [address] 01/27/2025 10:34:44 01/27/2025 16:18:18 Cholestasis of [id number] O26.643 [id number] MD Bonita Hollis [address],[place] [address] 01/27/2025 10:34:58 01/27/2025 12:24:15 Cholestasis of 440100144 O26.643 Past pregn theo history of section [id number] Z98.891 [id number] MD Bonita Hollis [address],[place] [address] 01/31/2025 09:25:24 01/31/2025 17:09:48 Cholestasis 35829313 K83.1 [id number] Israel Pantoja MD [place] [address],[place] [address] 02/03/2025 10:57:28 02/03/2025 11:54:57 Cholestasis of [id number] O26.643 Z3A.36 [id number] Israel Pantoja MD [place] [address],[place] [address] 02/03/2025 10:58:17 02/03/2025 12:42:43 Cholestasis [id number] K83.1 [id number] Israel Pantoja MD [place] [address],[place] [address] 02/03/2025 10:58:39 02/03/2025 12:45:23 Health Concerns Section Related Observation LastModified by Organization Detai ls LastModified Time None Recorded Concern Status LastModified by Organization Details LastModified Time None Recorded Payers Encounter Date Sequence Insurance Name Policy Number Policy Moralez Covered Member ID Moralez Member ID Guarantor Name 02/03/2025 1 [facility] ON OR AFTER 03/15/21 (MEDICAID REPLACEMENT - HMO) Mili Mcmahon [id number] Mili Mcmahon OBGyn Episode Ob Episode Information Episode Created Date Number of Fetuses Patient Bloodtype Patient rh Status Prepregnancy Weight lbs Domestic Partner Domestic Partner Phone Father Name Jewel Bearing Turner Status 08/26/20 24 1 O Positive 171 Moise OPEN Fetus Data First Name Last Name Admitted to NICU Weight (g) Sex Living Outcome Pediatric Complications Fetus ID Race Codes Race Delivery Type [id number] Problems Problem Notes + GBS amp in labor Problem Name Start Date End Date Resolution Snomed Code Not e Deliveries by 04 to repeat Migraine [id number] Pruritic disorder of skin 01/17/2025 [id number] Bile acids 7 Rp t labs, worsening pruritus01/24/2025 bile acid 2 Nico Calculation Initial Nico Date Initial Exam Date Initial Exam Provider Initial Ultrasound Date Last Menstrual Period Date Ultra Sound Weeks Gestation 03/02/2025 08/26/202407/27/2024 8 Eighteen To Twenty Week Nico Update [...] Weight in lbs Pre/Post Dialysis Refused Weight 169.218043641850 BP Diastolic BP Location Tested BP Systolic [...] Type Weight in lbs Pre/Post Dialysis Refused 167.894661679646 BP Diastolic BP Location Tested BP Systolic [...] Type Weight in lbs Pre/Post Dialysis Refused 176.070773535977 BP Diastolic BP Location Tested BP Systolic [...] Type Weight in lbs Pre/Post Dialysis Refused 182.791556284729 BP Diastolic BP Location Tested BP Systolic [...] Weight in lbs Pre/Post Dialysis Refused Weight 192.788049636405 BP Diastolic BP Location Tested BP Systolic [...] Type Weight in lbs Pre/Post Dialysis Refused 193.61700581393 BP Diastolic BP Location Tested BP Systolic BP Type 71 L arm 120 sitting Fetus Heart Rate Present Fetus Movement A Yes Comments reactive NST today, diminish ed uterine contractions after administration of Procardia in labor and delivery yesterday. To continue current dose. . Discussed medication again today. Discussed risks, benefits, and alternatives of the medication. She was given precautions and instructions on the medication. Flowsheet Date 12/17/2024 Donahue Score Blood Edema Fundus Height Fundus Units Glucose Ketones Leukocytes Nitrite Labor Signs Protein Cervic Dilation Cervic Effacement Cervic Station Type Weight in lbs Pre/Post Dialysis Refused Weight 193.317687007612 BP Diastolic BP Location Tested BP Systolic [...] Weight in lbs Pre/Post Dialysis Refused Weight 194.533117334903 BP Diastolic BP Location Tested BP Systolic BP Type 75 L arm 122 sitting Fetus Heart Rate Present A 145 Fetus Movement A Yes Comments discussed precautions for mo re bleeding, bright red spotting recently. Speculum exam performed. No blood observed. Normal ultrasound today. To increase Procardia for contractions. Flowsheet Date 12/28/2024 Donauhe Score Blood Edema Fundus Height Fundus Units Glucose Ketones Leukocytes Nitrite Labor Signs Protein Cervic Dilation Cervic Effacement Cervic Station 28 cm Type Weight in lbs Pre/Post Dialysis Refused 193.98698898374 BP Diastolic BP Location Tested BP Systolic BP Type 76 L arm 123 sitting Fetus Heart Rate Present A 144 Fetus Movement A Yes Comments no complaints, no problems, routine care, no contractions, no vaginal bleeding, no loss of fluid, no cramping Flowsheet Date 01/12/2025 Donahue Score Blood Edema Fundus Height Fundus Units Glucose Ketones Leukocytes Nitrite Labor Signs Protein Cervic Dilation Cervic Effacement Cervic Station Type Weight in lbs Pre/Post Dialysis Refused 200.813611449815 BP Diastolic BP Location Tested BP Systolic BP Type 83 L arm 131 sitting Fetus Heart Rate Present A 148 Present Fetus Movement A Yes Comments patient has diffuse, widespr ead pruritus of the skin. It is focused on her hands and feet and arms and abdomen. We agreed to check for cholestasis. Offered medication. We agreed to hold Flowsheet Date 01/17/2025 Donahue Score Blood Edema Fundus Height Fundus Units Glucose Ketones Leukocytes Nitrite Labor Signs Protein Cervic Dilation Cervic Effacement Cervic Station Type Weight in lbs Pre/Post Dialysis Refused 201.490158828191 BP Diastolic BP Location Tested BP Systolic BP Type 76 L arm 119 sitting Fetus Heart Rate Present A 146 Present Fetus Movement A Yes Comments worsening skin pruritus. To start ursodiol, testing ando, and repeat bile acids today. Good movement. No other complaints. Flowsheet Date 01/17/2025 Donahue Score Blood Edema Fundus Height Fundus Units Glucose Ketones Leukocytes Nitrite Labor Signs Protein Cervic Dilation Cervic Effacement Cervic Station Type Weight in lbs Pre/Post Dialysis Refused Weight 201.115281053303 BP Diastolic BP Location Tested BP Systolic BP Type 76 L arm 119 sitting Fetus Heart Rate Present Fetus Movement Comments Flowsheet Date 01/20/2025 Donahue Score Blood Edema Fundus Height Fundus Units Glucose Ketones Leukocytes Nitrite Labor Signs Protein Cervic Dilation Cervic Effacement Cervic Station Type Weight in lbs Pre/Post Dialysis Refused BP Diastolic BP Location Tested BP Systolic BP Type Fetus Heart Rate Present Fetus Movement Comments Flowsheet Date 01/20/2025 Donahue Score Blood Edema Fundus Height Fundus Units Glucose Ketones Leukocytes Nitrite Labor Signs Protein Cervic Dilation Cervic Effacement Cervic Station Type Weight in lbs Pre/Post Dialysis Refused Weight 202.260658500944 BP Diastolic BP Location Tested BP Systolic BP Type 79 L arm 114 sitting Fetus Heart Rate Present Fetus Movement Comments Flowsheet Date 01/24/2025 Donahue Score Blood Edema Fundus Height Fundus Units Glucose Ketones Leukocytes Nitrite Labor Signs Protein Cervic Dilation Cervic Effacement Cervic Station Type Weight in lbs Pre/Post Dialysis Refused Weight 201.372741790119 BP Diastolic BP Location Tested BP Systolic BP Type 79 L arm 122 sitting Fetus Heart Rate Present Fetus Movement Comments Flowsheet Date 01/27/2025 Donahue Score Blood Edema Fundus Height Fundus Units Glucose Ketones Leukocytes Nitrite Labor Signs Protein Cervic Dilation Cervic Effacement Cervic Station Type Weight in lbs Pre/Post Dialysis Refused BP Diastolic BP Location Tested BP Systolic BP Type Fetus Heart Rate Present Fetus Movement Comments Flowsheet Date 01/27/2025 Donahue Score Blood Edema Fundus Height Fundus Units Glucose Ketones Leukocytes Nitrite Labor Signs Protein Cervic Dilation Cervic Effacement Cervic Station Type Weight in lbs Pre/Post Dialysis Refused BP Diastolic BP Location Tested BP Systolic BP Type Fetus Heart Rate Present Fetus Movement Comments Flowsheet Date 01/27/2025 Donahue Score Blood Edema Fundus Height Fundus Units Glucose Ketones Leukocytes Nitrite Labor Signs Protein Cervic Dilation Cervic Effacement Cervic Station Type Weight in lbs Pre/Post Dialysis Refused Weight 201.495894834870 BP Diastolic BP Location Tested BP Systolic BP Type 79 L arm 128 sitting Fetus Heart Rate Present A 145 Fetus Movement A Yes Comments Increased intensity of her p ruritus on her hands and feet, otherwise, no complaints, no problems, routine care, no contractions, no vaginal bleeding, no loss of fluid, no cramping Flowsheet Date 01/31/2025 Donahue Score Blood Edema Fundus Height Fundus Units Glucose Ketones Leukocytes Nitrite Labor Signs Protein Cervic Dilation Cervic Effacement Cervic Station Type Weight in lbs Pre/Post Dialysis Refused Weight 203.833622760429 BP Diastolic BP Location Tested BP Systolic BP Type 80 L arm 128 sitting Fetus Heart Rate Present Fetus Movement Comments Flowsheet Date 02/03/2025 Donahue Score Blood Edema Fundus Height Fundus Units Glucose Ketones Leukocytes Nitrite Labor Signs Protein Cervic Dilation Cervic Effacement Cervic Station Type Weight in lbs Pre/Post Dialysis Refused BP Diastolic BP Location Tested BP Systolic BP Type Fetus Heart Rate Present Fetus Movement Comments Flowsheet Date 02/03/2025 Donahue Score Blood Edema Fundus Height Fundus Units Glucose Ketones Leukocytes Nitrite Labor Signs Protein Cervic Dilation Cervic Effacement Cervic Station Type Weight in lbs Pre/Post Dialysis Refused Weight 201.958312108982 BP Diastolic BP Location Tested BP Systolic BP Type 74 110 Fetus Heart Rate Present Fetus Movement Comments Flowsheet Date 02/03/2025 Donahue Score Blood Edema Fundus Height Fundus Units Glucose Ketones Leukocytes Nitrite Labor Signs Protein Cervic Dilation Cervic Effacement Cervic Station Type Weight in lbs Pre/Post Dialysis Refused 201.706396203081 BP Diastolic BP Location Tested BP Systolic BP Type 74 110 Fetus Heart Rate Present A 145 Fetus Movement A Yes Comments no complaints, [...]
--- OUTSIDE RECORDS SUMMARY | 2025-02-03 16:31 | XMS_ITS | Data Portability ---
Author Organization SHANDA Sergei HERNANDEZ Address [address] [place] [address] Care Team Providers Care Farm Management Supervisor Name Role Phone BRENDA SOUSA Primary Care Provider Assessment Encounter Date Assessment Date Assessment LastModified by Organization Details LastModified Time 06/04/2019 06/04/2019 Patient advised to call prn and was reminded to get a flu shot this fall. [email or web address] Not available 06/05/2019 23:37:38 Plan of Treatment Reminders Order Date Submit Date Provider Last Modified By Organization Details Last Modified Time Details Appointments None recorded. Lab CBC w/ auto diff 2018 019 [facility], [facility] [address], [place], [address], 9 20:09:11 iron + total iron-bindin g capacity (TIBC), serum 2018 019 [facility], [facility] [address], [place], [address], 9 20:09:12 lipid panel, serum 2015 016 [facility] Adon[facility], [address], [place], [address], 6 06:19:31 CMP, serum or plasma 2015 016 [facility], [facility] [address], [address], [place], [address], 6 06:19:30 CBC 2015 016 LANDRY [facility], [facility], [address], [place], [address], 6 06:19:29 vitamin D, 25-hydroxy, total, serum 2015 016 [facility], [address] [place] [address], [address], [place], [address], 6 06:19:32 TSH, serum or plasma 2015 016 [facility], [address] [facility], [address], [place], [address], 6 06:19:32 Referral general surgeon referral 2018 019 [email or web address] Not available 9 14:27:34 Procedures None recorded. Surgeries None recorded. Imaging None recorded. Medication Orders sertraline 50 mg tablet 2018 019 connor [address] [facility] #[id number], [address] [facility], [place], [place], [id number], 9 16:37:53 fluoxetine 20 mg capsule 2018 019 cox [email or web address] [address] [facility] #[id number], [address] [facility], [place], [place], [id number], 9 16:38:01 ferrous sulfate 325 mg (65 mg iron) tablet 2018 019 connor 63 [facility] #[id number], [address] [facility], [place], [place], [id number], 9 16:38:09 nystatin 100,000 unit/gram topical cream 2015 016 [email or web address] Not available 9 16:38:49 triamcinolo ne acetonide 0.1 % topical cream 2015 016 connor 63 Not available 9 16:38:44 Patient TargetsNo targets recorded. Patient Instructions Encounter Date Encounter Id Patient Instructions Last Modified By Organization Details Last Modified Time 11/18/2018 [id number] hemorrhoids: car e instructions [email or web address] Not available 11/18/2018 15:23:11 iron deficiency anemia: care instructions [email or web address] Not available 11/18/2018 15:23:11 01/29/2019 [id number] learning about mood disorders Not available 01/29/2019 16:52:11 Reason for Referral General Surgeon Referral for Hemorrhoids Referring Physician: Brenda Sousa, Family Medicine, Encounter Date: 11/18/2018 Results Created Date Observation Date Name Description Value Unit Range Abnormal Flag Note LastModifiedBy Organization Detail LastModifiedTime 01/12/20 16 01/13/2016 CBC WBC 6.4 x10e3 /uL 3.4-10 .8 Not Available [facility] ([facility]) [address] [place], [address], 01/13/2016 06:19:29 01/12/20 16 01/13/2016 CBC RBC 4.52 x10e6 /uL 3.77-5 .28 Not Available [facility] ([facility]) [address] [place], [address], 01/13/2016 06:19:29 01/12/20 16 01/13/2016 CBC hemoglobin 13.8 g/dL 11.1-1 5.9 Not Available [facility] ([facility]) [address] [place], [address], 01/13/2016 06:19:29 01/12/20 16 01/13/2016 CBC hematocrit 40.6 % 34.0-4 6.6 Not Available [facility] ([facility]) [address] [place], [address], 01/13/2016 06:19:29 01/12/20 16 01/13/2016 CBC MCV 90 fL 79-97 Not Available [facility] ([facility]) [address] [place], [address], 01/13/2016 06:19:29 01/12/20 16 01/13/2016 CBC MCH 30.5 pg 26.6-3 3.0 Not Available [facility] ([facility]) [address] [place], [address], 01/13/2016 06:19:29 01/12/20 16 01/13/2016 CBC MCHC 34.0 g/dL 31.5-3 5.7 Not Available [facility] ([facility]) [address] [place], [address], 01/13/2016 06:19:29 01/12/20 16 01/13/2016 CBC RDW 12.5 % 12.3-1 5.4 Not Available [facility] ([facility]) [address] [place], [address], 01/13/2016 06:19:29 01/12/20 16 01/13/2016 CBC platelets 194 x10e3 /uL 150-37 9 Not Available [facility] ([facility]) [address] [place], [address], 01/13/2016 06:19:29 01/12/20 16 01/13/2016 CBC neutrophils 72 % Not Avai lable [facility] ([facility]) [address] [place], [address], 01/13/2016 06:19:29 01/12/20 16 01/13/2016 CBC lymphs 18 % Not Available [facility] ([facility]) [address] [place], [address], 01/13/2016 06:19:29 01/12/20 16 01/13/2016 CBC monocytes 5 % Not Availa ble [facility] ([facility]) [address] [place], [address], 01/13/2016 06:19:29 01/12/20 16 01/13/2016 CBC eos 4 % Not Available [facility] ([facility]) [address] [place], [address], 01/13/2016 06:19:29 01/12/20 16 01/13/2016 CBC basos 1 % Not Available [facility] ([facility]) [address] [place], [address], 01/13/2016 06:19:29 01/12/20 16 01/13/2016 CBC immature cells ARRESTING GEAR OPERATOR Not Available [facility] ([facility]) [address] [place], [address], 01/13/2016 06:19:29 01/12/20 16 01/13/2016 CBC neutrophils (absolute) 4.6 x10e3 /uL 1.4-7. 0 Not Available [facility] ([facility]) [address] [place], [address], 01/13/2016 06:19:29 01/12/20 16 01/13/2016 CBC lymphs (absolute) 1.2 x10e3 /uL 0.7-3. 1 Not Available [facility] ([facility]) [address] [place], [address], 01/13/2016 06:19:29 01/12/2001/13/2016 CBC monocytes(ab solute) 0.3 x10e3 /uL 0.1-0. 9 Not Available [facility] ([facility]) [address] [place], [address], 01/13/2016 06:19:29 01/12/20 16 01/13/2016 CBC eos (absolute) 0.3 x10e3 /uL 0.0-0. 4 Not Available [facility] ([facility]) [address] [place], [address], 01/13/2016 06:19:29 01/12/20 16 01/13/2016 CBC baso (absolute) 0.0 x10e3 /uL 0.0-0. 2 Not Available [facility] ([facility]) [address] [place], [address], 01/13/2016 06:19:29 01/12/20 16 01/13/2016 CBC immature granulocytes 0 % Not Available [facility] ([facility]) [address] [place], [address], 01/13/2016 06:19:29 01/12/20 16 01/13/2016 CBC immature grans (abs) 0.0 x10e3 /uL 0.0-0. 1 Not Available [facility] ([facility]) [address] [place], [address], 01/13/2016 06:19:29 01/12/20 16 01/13/2016 CBC NRBC ARRESTING GEAR OPERATOR Not Available [facility] ([facility]) [address] [place], [address], 01/13/2016 06:19:29 01/12/2001/13/2016 CBC hematology comments: ARRESTING GEAR OPERATOR Not Available [facility] ([facility]) [address] [place], [address], 01/13/2016 06:19:29 01/12/2001/13/2016 CMP, serum or plasm a glucose, serum 85 mg/dL 65-99 Not Available [facility] ([facility]) [address] [place], [address], 01/13/2016 06:19:30 01/12/2001/13/2016 CMP, serum or plasm a BUN 8 mg/dL 6-20 Not Available [facility] ([facility]) [address] [place], [address], 01/13/2016 06:19:30 01/12/2001/1201/13/2016 CMP, serum or plasm a creatinine, serum 0.61 mg/dL 0.57-1 .00 Not Available [facility] ([facility]) [address] [place], [address], 01/13/2016 06:19:30 01/12/20 16 01/13/2016 CMP, serum or plasm a eGFR if nonafricn AM 129 mL/mi n/1.7 3 >59 Not Available [facility] ([facility]) [address] [place], [address], 01/13/2016 06:19:30 01/12/20 16 01/13/2016 CMP, serum or plasm a eGFR if africn AM 149 mL/mi n/1.7 3 >59 Not Available [facility] ([facility]) [address] [place], [address], 01/13/2016 06:19:30 01/12/20 16 01/13/2016 CMP, serum or plasm a BUN/creatini ne ratio 13 8-20 Not Available [facility] ([facility]) [address] [place], [address], 01/13/2016 06:19:30 01/12/20 16 01/13/2016 CMP, serum or plasm a sodium, serum 140 mmol/ L 134-14 4 Not Available [facility] ([facility]) [address] [place], [address], 01/13/2016 06:19:30 01/12/2001/13/2016 CMP, serum or plasm a potassium, serum 4.0 mmol/ L 3.5-5. 2 Not Available [facility] ([facility]) [address] [place], [address], 01/13/2016 06:19:30 01/12/20 16 01/13/2016 CMP, serum or plasm a chloride, serum 102 mmol/ L 97-108 Not Available [facility] ([facility]) [address] [place], [address], 01/13/2016 06:19:30 01/12/20 16 01/13/2016 CMP, serum or plasm a carbon dioxide, total 21 mmol/ L 18 Not Available [facility] ([facility]) [address] [place], [address], 01/13/2016 06:19:30 01/12/2001/13/2016 CMP, serum or plasm a calcium, serum 9.3 mg/dL 8.7-10 .2 Not Available [facility] ([facility]) [address] [place], [address], 01/13/2016 06:19:30 01/12/20 16 01/13/2016 CMP, serum or plasm a protein, total, serum 6.9 g/dL 6.0-8. 5 Not Available [facility] ([facility]) [address] [place], [address], 01/13/2016 06:19:30 01/12/2001/13/2016 CMP, serum or plasm a albumin, serum 4.3 g/dL 3.5-5. 5 Not Available [facility] ([facility]) [address], [place], [address], 01/13/2016 06:19:30 01/12/2001/13/2016 CMP, serum or plasm a globulin, total 2.6 g/dL 1.5-4. 5 Not Available [facility] ([facility]) [address] [place], [address], 01/13/2016 06:19:30 01/12/2001/13/2016 CMP, serum or plasm a A/G ratio 1.7 1.1-2. 5 Not Available [facility] ([facility]) [address] [place], [address], 01/13/2016 06:19:30 01/12/2001/13/2016 CMP, serum or plasm a bilirubin, total 0.7 mg/dL 0.0-1. 2 Not Available [facility] ([facility]) [address] [place], [address], 01/13/2016 06:19:30 01/12/20 16 01/13/2016 CMP, serum or plasm a alkaline phosphatase, S 86 IU/L 39-117 Not Available [facility] ([facility]) [address], [place], [address], 01/13/2016 06:19:30 01/12/20 16 01/13/2016 CMP, serum or plasm a AST (SGOT) 20 IU/L 0-40 Not Available [facility] ([place] [facility]) [address], [place], [address], 01/13/2016 06:19:30 01/12/2001/13/2016 CMP, serum or plasm a ALT (SGPT) 21 IU/L 0-32 Not Available [facility] ([place] [facility]) [address], [place], [address], 01/13/2016 06:19:30 01/12/20 16 01/13/2016 lipid panel , serum cholesterol, total 173 mg/dL 100-19 9 Not Available [facility] ([place] [facility]) [address] [place], [address], 01/13/2016 06:19:31 01/12/2001/13/2016 lipid panel , serum triglyceride s 68 mg/dL 0-149 Not Available [facility] ([facility]) [address] [place], [address], 01/13/2016 06:19:31 01/12/2001/13/2016 lipid panel , serum HDL cholesterol 49 mg/dL >39 ACCOR DING TO ATP-I II GUIDE LINES , HDL-C >59 MG/DL IS CONSI DERED A NEGAT WHITNEY RISK FACTO R FOR CHD. Not Available [facility] ([facility]) [address] [place], [address], 01/13/2016 06:19:31 01/12/20 16 01/13/2016 lipid panel , serum VLDL cholesterol yousif 14 mg/dL 5-40 Not Available [facility] ([facility]) [address] [place], [address], 01/13/2016 06:19:31 01/12/20 16 01/13/2016 lipid panel , serum LDL cholesterol calc 110 mg/dL 0-99 above high normal Not Available [facility] ([facility]) [address] [place], [address], 01/13/2016 06:19:31 01/12/20 16 01/13/2016 lipid panel , serum comment: ARRESTING GEAR OPERATOR Not Available [facility] ([facility]) [address] [place], [address], 01/13/2016 06:19:31 01/12/2001/13/2016 lipid panel , serum T. chol/HDL ratio 3.5 ratio _unit s 0.0-4. 4 T. CHOL/ HDL RATIO MEN WOMEN 1/2 AVG.R ISK 3.4 3.3 AVG.R ISK 5.0 4.4 2X AVG.R ISK 9.6 7.1 3X AVG.R ISK 23.4 11.0 Not Available [facility] ([facility]) [address] [place], [address], 01/13/2016 06:19:31 01/12/20 16 01/13/2016 TSH, serum or plasm a TSH 1.100 uIU/m L 0.450- 4.500 Not Available [facility] ([facility]) [address] [place], [address], 01/13/2016 06:19:32 01/12/20 16 01/13/2016 vitam in [...] UM AND D. ZAHRA ARREOLA DC: [facility] . 2. MARITZA Davis MF, AVELINA DACOSTA NC, YAMIL OFF-F ERRAR I ZAMBRANO, ET AL. EVALU ATION , TREAT MENT, AND PREVE NTION OF VITAM IN D DEFIC IENCY : AN ENDOC RINE SOCIE TY CLINI YOUSIF PRACT ICE GUIDE LINE. JCEM. 2010; 96(7) :1911 -30. Not Available [facility] ([facility]) [address], [place], [address], 01/13/2016 06:19:32 11/19/19 19 11/19/2018 CBC w/ auto diff WBC TNP x10e3 /uL No laven aicha top tube submi tted. Not Available [facility] ([facility]) [address], [place], [address], 11/19/2018 20:09:11 11/19/1911/19/2018 CBC w/ auto diff RBC TNP Test not perfo rmed Not Available [facility] ([facility]) [address] [place], [address], 11/19/2018 20:09:11 11/19/1911/19/2018 CBC w/ auto diff hemoglobin TNP Test not perfo rmed Not Available [facility] ([facility]) [address], [place], [address], 11/19/2018 20:09:11 11/19/19 19 11/19/2018 CBC w/ auto diff hematocrit TNP Test not perfo rmed Not Available [facility] ([facility]) [address] [place], [address], 11/19/2018 20:09:11 11/19/19 19 11/19/2018 CBC w/ auto diff MCV ARRESTING GEAR OPERATOR Not Available [facility] ([facility]) [address] [place], [address], 11/19/2018 20:09:11 11/19/19 19 11/19/2018 CBC w/ auto diff MCH ARRESTING GEAR OPERATOR Not Available [facility] ([facility]) [address] [place], [address], 11/19/2018 20:09:11 11/19/19 19 11/19/2018 CBC w/ auto diff MCHC ARRESTING GEAR OPERATOR Not Available [facility] ([facility]) [address] [place], [address], 11/19/2018 20:09:11 11/19/19 19 11/19/2018 CBC w/ auto diff RDW ARRESTING GEAR OPERATOR Not Available [facility] ([facility]) [address] [place], [address], 11/19/2018 20:09:11 11/19/19 19 11/19/2018 CBC w/ auto diff platelets TNP Test not perfo rmed Not Available [facility] ([facility]) [address] [place], [address], 11/19/2018 20:09:11 11/19/19 19 11/19/2018 CBC w/ auto diff neutrophils TNP Test not perfo rmed Not Available [facility] ([facility]) [address] [place] [address], [address], 11/19/2018 20:09:11 11/19/19 19 11/19/2018 CBC w/ auto diff lymphs TNP Test not perfo rmed Not Available [facility] ([facility]) [address] [place], [address], 11/19/2018 20:09:11 11/19/19 19 11/19/2018 CBC w/ auto diff monocytes TNP Test not perfo rmed Not Available [facility] ([facility]) [address] [place], [address], 11/19/2018 20:09:11 11/19/19 19 11/19/2018 CBC w/ auto diff eos TNP Test not perfo rmed Not Available [facility] ([facility]) [address] [place], [address], 11/19/2018 20:09:11 11/19/1911/19/2018 CBC w/ auto diff basos ARRESTING GEAR OPERATOR Not Available [facility] ([facility]) [address] [place], [address], 11/19/2018 20:09:11 11/19/1911/19/2018 CBC w/ auto diff immature cells ARRESTING GEAR OPERATOR Not Available [facility] ([facility]) [address] [place], [address], 11/19/2018 20:09:11 11/19/1911/19/2018 CBC w/ auto diff neutrophils (absolute) ARRESTING GEAR OPERATOR Not Available [facility] ([facility]) [address] [place], [address], 11/19/2018 20:09:11 11/19/1911/19/2018 CBC w/ auto diff lymphs (absolute) TNP Test not perfo rmed Not Available [facility] ([facility]) [address] [place], [address], 11/19/2018 20:09:11 11/19/1911/19/2018 CBC w/ auto diff monocytes(ab solute) ARRESTING GEAR OPERATOR Not Available [facility] ([facility]) [address] [place], [address], 11/19/2018 20:09:11 11/19/19 19 11/19/2018 CBC w/ auto diff eos (absolute) TNP Test not perfo rmed Not Available [facility] ([facility]) [address] [place], [address], 11/19/2018 20:09:11 11/19/19 19 11/19/2018 CBC w/ auto diff baso (absolute) TNP Test not perfo rmed Not Available [facility] ([facility]) [address] [place], [address], 11/19/2018 20:09:11 11/19/1911/19/2018 CBC w/ auto diff immature granulocytes ARRESTING GEAR OPERATOR Not Available [facility] ([facility]) [address] [place], [address], 11/19/2018 20:09:11 11/19/19 19 11/19/2018 CBC w/ auto diff immature grans (abs) ARRESTING GEAR OPERATOR Not Available [facility] ([facility]) [address] [place], [address], 11/19/2018 20:09:11 11/19/1911/19/2018 CBC w/ auto diff NRBC ARRESTING GEAR OPERATOR Not Available [facility] ([facility]) [address] [place], [address], 11/19/2018 20:09:11 11/19/1911/19/2018 CBC w/ auto diff hematology comments: ARRESTING GEAR OPERATOR Not Available [facility] ([facility]) [address] [place], [address], 11/19/2018 20:09:11 11/19/1911/19/2018 iron + total iron- taylor ng capac ity (TIBC ), serum iron bind.cap.(TI BC) 319 ug/dL 250-45 0 Not Available [facility] ([facility]) [address] [place], [address], 11/19/2018 20:09:12 11/19/19 19 11/19/2018 iron + total iron- taylor ng capac ity (TIBC ), serum UIBC 277 ug/dL 131-42 5 Not Available [facility] ([facility]) [address] [place], [address], 11/19/2018 20:09:12 11/19/19 19 11/19/2018 iron + total iron- taylor ng capac ity (TIBC ), serum iron 42 ug/dL 27-159 Not Available [facility] ([facility]) [address] [place], [address], 11/19/2018 20:09:12 11/19/19 19 11/19/2018 iron + total iron- taylor ng capac ity (TIBC ), serum iron saturation 13 % 15-55 below low normal Not Available [facility] ([facility]) [address] [place], [address], 11/19/2018 20:09:12 11/19/19 19 11/19/2018 speci men statu s repor t specimen status report TNP No laven aicha top tube submi tted. TEST: [id number] CBC With Diffe renti al/Pl atele t Not Available [facility] ([facility]) [address] [place], [address], 11/19/2018 20:09:12 11/26/1911/26/2018 CBC w/ auto diff WBC 6.9 x10e3 /uL 3.4-10 .8 Not Available [facility] ([facility]) [address] [place], [address], 11/26/2018 09:22:29 11/26/1911/26/2018 CBC w/ auto diff RBC 4.64 x10e6 /uL 3.77-5 .28 Not Available [facility] ([facility]) [address] [place], [address], 11/26/2018 09:22:29 11/26/19 19 11/26/2018 CBC w/ auto diff hemoglobin 13.1 g/dL 11.1-1 5.9 Not Available [facility] ([facility]) [address] [place], [address], 11/26/2018 09:22:29 11/26/19 19 11/26/2018 CBC w/ auto diff hematocrit 39.0 % 34.0-4 6.6 Not Available [facility] ([facility]) [address], [place], [address], 11/26/2018 09:22:29 11/26/19 19 11/26/2018 CBC w/ auto diff MCV 84 fL 79-97 Not Available [facility] ([facility]) [address] [place], [address], 11/26/2018 09:22:29 11/26/19 19 11/26/2018 CBC w/ auto diff MCH 28.2 pg 26.6-3 3.0 Not Available [facility] ([facility]) [address] [place], [address], 11/26/2018 09:22:29 11/26/19 19 11/26/2018 CBC w/ auto diff MCHC 33.6 g/dL 31.5-3 5.7 Not Available [facility] ([facility]) [address] [place], [address], 11/26/2018 09:22:29 11/26/19 19 11/26/2018 CBC w/ auto diff RDW 14.5 % 12.3-1 5.4 Not Available [facility] ([facility]) [address] [place], [address], 11/26/2018 09:22:29 11/26/19 19 11/26/2018 CBC w/ auto diff platelets 241 x10e3 /uL 150-37 9 Not Available [facility] ([facility]) [address] [place], [address], 11/26/2018 09:22:29 11/26/19 19 11/26/2018 CBC w/ auto diff neutrophils 70 % not estab. Not Available [facility] ([facility]) [address], [place], [address], 11/26/2018 09:22:29 11/26/19 19 11/26/2018 CBC w/ auto diff lymphs 19 % not estab. Not Available [facility] ([facility]) [address], [place], [address], 11/26/2018 09:22:29 11/26/19 19 11/26/2018 CBC w/ auto diff monocytes 6 % not estab. Not Available [facility] ([facility]) [address], [place], [address], 11/26/2018 09:22:29 11/26/19 19 11/26/2018 CBC w/ auto diff eos 5 % not estab. Not Available [facility] ([facility]) [address], [place], [address], 11/26/2018 09:22:29 11/26/19 19 11/26/2018 CBC w/ auto diff basos 0 % not estab. Not Available [facility] ([facility]) [address], [place], [address], 11/26/2018 09:22:29 11/26/1911/26/2018 CBC w/ auto diff immature cells ARRESTING GEAR OPERATOR Not Available [facility] ([facility]) [address], [place], [address], 11/26/2018 09:22:29 11/26/1911/26/2018 CBC w/ auto diff neutrophils (absolute) 4.8 x10e3 /uL 1.4-7. 0 Not Available [facility] ([facility]) [address], [place], [address], 11/26/2018 09:22:29 11/26/19 19 11/26/2018 CBC w/ auto diff lymphs (absolute) 1.3 x10e3 /uL 0.7-3. 1 Not Available [facility] ([facility]) [address], [place], [address], 11/26/2018 09:22:29 11/26/19 19 11/26/2018 CBC w/ auto diff monocytes(ab solute) 0.4 x10e3 /uL 0.1-0. 9 Not Available [facility] ([facility]) [address] [place], [address], 11/26/2018 09:22:29 11/26/19 19 11/26/2018 CBC w/ auto diff eos (absolute) 0.3 x10e3 /uL 0.0-0. 4 Not Available [facility] ([facility]) [address], [place], [address], 11/26/2018 09:22:29 11/26/19 19 11/26/2018 CBC w/ auto diff baso (absolute) 0.0 x10e3 /uL 0.0-0. 2 Not Available [facility] ([facility]) [address] [place], [address], 11/26/2018 09:22:29 11/26/19 19 11/26/2018 CBC w/ auto diff immature granulocytes 0 % not estab. Not Available [facility] ([facility]) [address] [place], [address], 11/26/2018 09:22:29 11/26/1911/26/2018 CBC w/ auto diff immature grans (abs) 0.0 x10e3 /uL 0.0-0. 1 Not Available [facility] ([facility]) [address] [place], [address], 11/26/2018 09:22:29 11/26/19 19 11/26/2018 CBC w/ auto diff NRBC ARRESTING GEAR OPERATOR Not Available [facility] ([facility]) [address], [place], [address], 11/26/2018 09:22:29 11/26/19 19 11/26/2018 CBC w/ auto diff hematology comments: ARRESTING GEAR OPERATOR Not Available [facility] ([facility]) [address], [place], [address], 11/26/2018 09:22:29 09/25/19 17 XR, knee No observ ation record ed. [email or web address] Not Available 09/15 17:43:46 11/15/19 22 11/14/2021 US, abdom en No observ ation record ed. [address], [place], [address], 11/15/2021 08:45:40 11/20/19 22 11/19/2021 US, obste tric No observ ation record ed. [address], [place], [address], 11/19/2021 11:01:58 Result Notes None recorded. Problems Name Problem SNOMED Code Status Onset Date Resolution Date Notes Provider Name and Address Organization Details Recorded Time Superficial injury of wrist 463549729 Active Elmer Terrell PA-C Attn: Accounting ,[address], [place], [address] , [facility] - [facility] 5 17:39:20 Eruption 875888280 Active Little Hernandez PA-C Attn: Accounting ,[address], [place], [address] , [facility] - [facility] 6 11:08:56 Fatigue 42286036 Active Little Hernandez PA-C Attn: Accounting ,[address], [place], [address] , [facility] - [facility] 6 11:08:56 Vitamin D deficiency 65162374 Active Little Hernandez PA-C Attn: Accounting ,[address], [place], [address] , [place] - [facility] 6 13:29:43 Pain in pelvis 10880128 Active Angelesoscar Leger MA null, [place] - [facility] 5 10:27:55 Bacterial vaginosis 377594099 Active [place] momin, [place] [facility] 5 14:40:42 Candidiasis 71177671 Active Milton momin, [place] - [facility] 5 21:55:19 Herpes simplex 15337592 Active [place] momin, [place] [facility] 5 21:55:19 Problem Notes None recorded. Procedures Surgical History Date Name Laterality Status Provider Name and Address Organization Details Recorded Time 5 Depo Injection completed Milton Carrero [place] - [facility] 10/04/2014 10:57:26 Imaging Results Imaging Date Name Status LastModified by Organiz ation Details LastModified Time 09/25/2016 XR, knee completed Information n ot available 09/25/2016 17:43:46 11/14/2021 US, abdomen completed [facility] [address], [address], 11/15/2021 08:45:40 11/19/2021 US, obstetric completed [facility] [address] [facility] [facility] [address], [place], [address], 11/19/2021 11:01:58 Procedure Notes None recorded. Medical [...] completed Not Available Not Available Not Available Depo-Client Support Administrator a 150 mg/mL intramuscul ar suspension Inject [...] Updated DateTime 9 162.56 cm 25.1 kg/m2 67206.5 9 g 99 % 99 % 59 /min 102 mm[Hg] 62 mm[Hg] Betty Pollock MA [place] - [facility] 9 14:47:22 Date Recorded Body [...] 110 mm[Hg] 62 mm[Hg] Virginia Zamudio RN [facility] 9 16:28:56 Date Recorded Body temperature Heart rate Respiratory rate Body mass index (BMI) Body height Body weight Systolic blood pressure Diastolic blood pressure Provider Name and Address Organization Details Last Updated DateTime 6 98 [degF] 76 /min 18 /min 21.9 kg/m2 163.83 cm 93873.6 56683 g 84 mm[Hg] 44 mm[Hg] Elke Medel MA [facility] 6 10:41:06 Social History Question Answer Notes LastModified by Organizat ion Details LastModified Time Tobacco Smoking Status Never Smoker Angeles Leger MA [facility], [place] - [facility] 10/04/2014 10:32:59 Do You Have An Advance Directive? No Information not available 10/04/2014 Is Blood Transfusion Acceptable In An Emergency? Yes Information not available 10/04/2014 What Is Your Level Of Caffeine Consumption? Moderate [email or web address] Information not available 10/04/2014 What Type Of Diet Are You Following? REGULAR [email or web address] Information not available 10/04/2014 Education 12 [email or web address] Information no t available 10/04/2014 Live Alone Or With Others? With Others [email or web address] Information not available 10/04/2014 Marital Status Single Informatio n not available 01/12/2016 What Was The Date Of Your Most Recent Tobacco Screening? 01/29/2019 Information not available 04/08/2019 How Many Children Do You Have? 0 [email or web address] Information not available 10/04/2014 Performs Monthly Self-breast Exam? Yes [email or web address] Information no t available 10/04/2014 Do You Use Protection During Sex? No [email or web address] Information not available 10/04/2014 What Is Your Relationship Status? Single [email or web address] Information not available 10/04/2014 Seat Belts Used Routinely Yes [email or web address] Information not available 10/04/2014 Are You Sexually Active? Yes Information not available 10/04/2014 Smoke Alarm In Home Yes Information not available 01/12/2016 General Stress Level High [email or web address] Information not available 10/04/2014 Do You Use Sunscreen Routinely? Yes [email or web address] Information not available 10/04/2014 Sex: Unknown Functional Status Question Answer Note LastModified by Organizat ion Details LastModified Time What is your level of alcohol consumption? Occasional Information not available 10/04/2014 Are you currently employed? 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 Occasional [email or web address] Information not available 10/04/2014 Mental Status None [...] Sclerosis N Colon Polyps N Heart Attack (ME) N Diabetes N Cardiomyopathy N Blood Transfusions [...] SNOMED-CT Code Diagnosis ICD10 Code Diagnosis Note [id number] MD Mihn Rod (SUPPORT TECHNICIAN) [address] [place] [address] 10/04/2014 10:00:57 10/04/2014 12:51:38 Bacterial vaginosis 353728738 -Flagyl 500mg BID x 7d -Advise against douching, limit number of sexual partners, encourage safe sex practices, ie condom use -Education regarding BV signs and symptoms Family sulema nning surveillance 163917438 Contracept ion education 948964635 Contraception care [id number] MD Minh Guzman (Adult Med) [address] [place] [address] 01/12/2016 10:26:45 01/12/2016 11:09:44 Eruption 710290431 R21 Advised to mix creams together and apply BID x 7 days and then stop for 4 days and can reapply for another 7 days RTC if no improvemen t Fatigue 74523768 R53.83 Adult heal th examination 801066809 Z00.01 21YO female here to establish care. [id number] Brenda Sousa MD [facility] [address] [place] [address] 11/18/2018 14:24:47 11/23/2018 08:08:38 Hemorrhoids 62622088 K64.9 Iron defic iency anemia 86599166 D50.9 Moderate r ecurrent major depression 84318888 F33.1 [id number] Brenda Sousa MD [facility] [address] [place] [address] 11/25/2018 10:33:13 12/08/2018 03:46:20 [id number] Brenda Sousa MD [facility] [address] [facility] [address] 01/29/2019 15:51:25 02/09/2019 10:03:42 Depressive disorder 63958657 F32.89 will stop fluoxetine and start sertraline [id number] Brenda Sousa MD [facility] [address] [place] [address] 06/04/2019 16:03:28 06/07/2019 10:59:13 Adult health examination 500717658 Z00.00 Standard ed adult depression screening tool completed [id number] 09322 Z13.89 Health Concerns Section Related Observation LastModified by Organization Detai ls LastModified Time None Recorded Concern Status LastModified by Organization Details LastModified Time None Recorded Advance Directives Directive N: Payers Encounter Date Sequence Insurance Name Policy Number Policy Moralez Covered Member ID Moralez Member ID Guarantor Name 01/12/2016 1 [facility] PRIOR TO 03/15/2021 (MEDICAID REPLACEMENT - HMO) Mili Mcmahon [id number] Mili Mcmahon 11/18/2018 1 [facility] PRIOR TO 03/15/2021 (MEDICAID REPLACEMENT - HMO) Mili Mcmahon [id number] Mili Mcmahon 11/25/2018 1 [facility] PRIOR TO 03/15/2021 (MEDICAID REPLACEMENT - HMO) Mili Mcmahon [id number] Mili Mcmahon 01/29/2019 1 [facility] PRIOR TO 03/15/2021 (MEDICAID REPLACEMENT - HMO) Mili Mcmahon [id number] Mili Mcmahon 06/04/2019 1 [facility] PRIOR TO 03/15/2021 (MEDICAID REPLACEMENT - HMO) Mili Mcmahon [id number] Mili Mcmahon Notes Date Note Type Note [...] establish care Little Hernandez PA-C Attn: Accounting,[address] [place], [address], [place] - [facility] 01/12/2016 11:09:35 11/18/2018 text/html Discussed causes and treatment for hemorrhoids, and will refer patient for surgical excision. Brenda Sousa MD Attn: Accounting,[address] [facility], [place], [address], [facility] 11/22/2018 23:39:16 11/18/2018 text/html AnemiaReported bypatient.Severity:M icrocytic [...] of breath Brenda Sousa MD Attn: Accounting,[address] [facility], [place], [address], [facility] 11/22/2018 23:39:16 01/29/2019 text/html Anxiety/Depressi onRe ported bypatient.Quality:mo od worse Severity:denies suicidal ideations; able to maintain relationships;interf erence with household activities;interfere nce with sleep Duration:symptoms lasting over 2 weeks Onset/Timing:gradual Context:major life stressors;family problems;trouble at work Modifying Factors:counselling; medications as directed Associated Symptoms:denies homicidal ideations; no crying spells;anxiety;depre ssion;restlessness/a gitation;sleep disturbances;anhedon ia;anxiety with muscle tension Brenda Sousa MD Attn: Accounting,[address] [place], [address], [facility] - [facility] 02/09/2019 01:30:30 OBGyn Episode No OBEpisode recorded.
--- OUTSIDE RECORDS SUMMARY | 2025-02-03 16:32 | XMS_ITS | Data Portability ---
Author Organization [facility] Address [address] [place] [address] [place] [address] Care Team Providers Care Turbine Operator Name Role Phone SHABBIR SOUSA Primary Care [...] recorde d. Surgeries None recorde d. Imaging non-str ess test 2024 025 [email or web address] [address] [place], [address], [place], [address], 02/03/2025 12:42:44 US, obstetr ic, biophys ical profile + non-str ess test 2024 025 [email or web address] 2 [address], [address], [place], [address], 02/03/2025 11:54:57 non-str ess test 2024 025 [email or web address] [address], [address], [place], [address], 01/31/2025 17:09:48 US, obstetr ic, biophys ical profile + non-str ess test 2024 025 [email or web address] [address], [address], [place], [address], 01/27/2025 22:21:39 Medication Orders None recorde d. Patient TargetsNo targets recorded. Patient InstructionsNo instructions recorded. Reason for Referral None Reported. Results Created Date Observation Date Name Description Value Unit Range Abnormal Flag Note LastModifiedBy Organization Detail LastModifiedTime 01/13/2001/12/2025 BILE ACIDS , TOTAL bile acids, total 7 umol/ L 0-10 Test Perfo rmed by: Uvaldo jc rn [facility] [address] [address] Not Available [facility] (Lab) [address] [facility], [place], [address], 01/13/2025 11:40:29 01/25/2001/24/2025 CULTU RE: URINE result report SEE RESULT S BELOW Test: Cultu re: Urine Speci men Sourc e: Urine - Clean Catch Speci men Type: Urine Speci men Date: 2024 1041 Resul t Date: 2024 0555 Resul t Statu s: Final resul t Abnor mal: No Resul ting Lab: [facility] [address] [facility] [address] Tel: [phone] CULTU RE ----- ----- ----- --- No growt h in 1 day (dete ction level of 10,00 0 colon ies / ml.) Not Available [facility] (Lab) [address] [facility], [place], [address], 01/26/2025 07:01:17 01/28/2001/27/2025 CULTU RE: GROUP B STREP SCREE N, REFLE X SUSCE PTIBI LITY result report SEE RESULT S BELOW abnormal Test: Cultu re: Group B Strep , Refle x Susce ptibi lity ([facility]/ [facility] ) Speci men Sourc e: Vagin a/Rec jimenez Speci men Type: Vagin al/Re ctal Speci men Date: 2024 1446 Resul t Date: 2024 1554 Resul t Statu s: Final resul t Abnor mal: Yes Resul ting Lab: [facility] [address] [facility] [address] [facility] [address] Tel: CULTU RE ----- ----- ----- --- Posit kelly for Strep tococ cus agala ctiae (Grou p B) (Abno rmal) Clind amyci n susce ptibl e, eryth romyc in resis tant. The clind amyci n induc tion test ( D-t est ) is negat kelly, there fore clind amyci n shoul d be clini ozzy effec tive again st this isola te. Not Available [facility] (Lab) [address], [place], [address], 02/01/2025 16:56:41 01/19/20 25 01/18/2025 non-s tress test No observ ation record ed. [place] [address], [place], [address], 01/18/2025 09:26:19 01/21/20 25 01/20/2025 US, obste tric, bioph ysica l profi le + non-s tress test No observ ation record ed. [email or web address] [place] [address], [place], [address], 01/20/2025 15:16:55 01/21/20 25 01/20/2025 US, obste tric, follo w-up No observ ation record ed. [email or web address] [place] [address], [place], [address], 01/20/2025 15:17:06 01/21/20 25 01/20/2025 US, obste tric, follo w-up No observ ation record ed. [email or web address], [place], [address], 01/25/2025 10:18:16 01/21/20 25 01/20/2025 non-s tress test No observ ation record ed. [email or web address] [place] [address], [place], [address], 01/20/2025 14:39:13 01/25/20 25 01/24/2025 non-s tress test No observ ation record ed. [place] [address], [place], [address], 01/24/2025 10:18:52 01/26/20 25 non-s tress test No observ ation record ed. [email or web address] [place] [address], [place], [address], 01/25/2025 11:49:46 01/28/20 25 01/27/2025 US, josse mcmillan, bioph ysica l profi le + non-s tress test No observ ation record ed. [email or web address] [place] [address], [place], [address], 01/27/2025 12:36:24 01/28/20 25 01/27/2025 US, obste tric, follo w-up No observ ation record ed. [email or web address] [address], [place], [address], 01/28/2025 09:16:33 01/28/20 25 01/27/2025 non-s tress test No observ ation record ed. [email or web address] [place] [address], [place], [address], 01/28/2025 14:16:56 01/28/20 non-s tress test No observ ation record ed. [place] [address], [place], [address], 01/27/2025 16:03:33 02/01/20 25 01/31/2025 non-s tress test No observ ation record ed. [email or web address] [place] [address], [place], [address], 01/31/2025 17:04:57 02/04/20 25 02/03/2025 US, obste tric, bioph ysica l profi le + non-s tress test No observ ation record ed. [email or web address] [place] [address], [place], [address], 02/03/2025 11:33:28 02/04/20 25 02/03/2025 US, obste tric, bioph ysica l profi le + non-s tress test No observ ation record ed. [email or web address], [place], [address], 02/03/2025 11:31:37 02/04/20 25 02/03/2025 non-s tress test No observ ation record ed. [place] [address], [place], [address], 02/03/2025 14:19:23 Result Notes None recorded. Problems Name Problem SNOMED Code Status Onset Date Resolution Date Notes Provider Name and Address Organization Details Recorded Time Complica tion of pregnanc y, childbir th and/or puerperi um [id number] Completed 201709/19/2020 Oth diseases and conditio ns compl preg/chl dbrth;Re corded Elsewher e: No Locat ion: [facility] S ource: EHR Poultry Processor ramírez: Araceli Kelly ce ID: 0001 Bernard lable Time: 03:45:00 PM Annie Lehman MD [address], [place], [address], [facility] 1 11:19:26 Antenata l screenin g Completed 201709/19/2020 Encounte r for antenata l screenin g for nuchal transluc ency;Rec orded Elsewher e: No Locat ion: [facility] S ource: EHR Poultry Processor ramírez: Araceli Kelly ce ID: 0001 Bernard lable Time: 02:30:00 PM Annie Lehman MD [address], [place], [address], [facility] 11:19:56 Bartholi nitis [id number] Completed 201809/19/2020 Other diseases of Bartholi n's gland;Re corded Elsewher e: No Locat ion: [facility] S ource: EHR Poultry Processor ramírez: Araceli Kelly ce ID: 0001 Bernard lable Time: 11:00:00 AM Annie Lehman MD [address], [place], [address], [facility] 1 11:17:48 Pregnanc y, childbir th and puerperi um finding Completed 201709/19/2020 Encntr for suprvsn of normal first preg, third trimeste r;Record ed Elsewher e: No [facility] S ource: EHR Poultry Processor ramírez: Araceli Kelly ce ID: 0001 Bernard lable Time: 04:00:00 PM Annie Lehman MD [address], [place], [address], [facility] 1 11:19:01 Pregnanc y, childbir th and puerperi um finding Completed 201709/19/2020 Encounte r for supervis ion of normal 1st pregnanc y, 1st trimeste r;Record ed Elsewher e: No Locat ion: [facility] S ource: EHR Poultry Processor ramírez: N Practi ce ID: 0001 Bernard lable Time: 03:00:00 PM Annie Lehman MD [address], [place], [address], [facility] 1 11:18:57 Missed miscarri age [id number] Completed 201809/19/2020 Missed ;Recorde d Elsewher e: No Locat ion: [facility] S ource: EHR Poultry Processor ramírez: N Practi ce ID: 0001 Bernard lable Time: 02:00:00 PM Annie Lehman MD [address], [place], [address], [facility] [address] 11:18:[address] Concept Completed 201809/19/2020 Encntr for convention services manager exam (general ) (routine ) w/o abn findings ;Recorde d Elsewher e: No [facility] S ource: EHR Poultry Processor ramírez: N Practi ce ID: 0001 Bernard lable Time: 02:00:00 PM Annie Lehman MD [address], [place], [address], [facility] 1 11:19:14 Spotting per vagina in pregnanc y [id number] Completed 201709/19/2020 Spotting complica ting pregnanc y, second trimeste r;Record ed Elsewher e: No Locat ion: [facility] S ource: EHR Poultry Processor ramírez: N Practi ce ID: 0001 Bernard lable Time: 02:15:00 PM Annie Lehman MD [address], [place], [address], [facility] 11:19:16 Placenta previa 36467921 Completed 201709/19/2020 Placenta previa specifie d as w/o hemor, second trimeste r;Record ed Elsewher e: No Locat ion: [facility] S ource: EHR Poultry Processor ramírez: N Josieti ce ID: 0001 Bernard lable Time: 01:00:00 PM Annie Lehman MD [address], [place], [address], [facility] 11:18:52 Increase d frequenc y of urinatio n 270372501 Completed 201909/19/2020 Frequenc y of micturit ion;Amandeep rded Elsewher e: No Locat ion: [facility] S ource: EHR Poultry Processor ramírez: N Josieti ce ID: 0001 Bernard lable Time: 02:30:00 PM Annie Lehman MD [address], [place], [address], [facility] 11:18:33 Gestatio n period, 8 weeks 12408906 Completed 201809/19/2020 8 weeks gestatio n of pregnanc y;Record ed Elsewher e: No Locat ion: [facility] S ource: EHR Poultry Processor ramírez: N Josieti ce ID: 0001 Bernard lable Time: 02:00:00 PM Annie eLhman MD [address], [place], [address], [facility] 11:18:28 Normal pregnanc y in multigra andrzej [id number] 44319 Completed 201709/19/2020 Encounte r for supervis ion of other normal pregnanc y, 3rd trimeste r;Record ed Elsewher e: No Locat ion: [facility] S ource: EHR Poultry Processor ramírez: N Practi ce ID: 0001 Bernard lable Time: 02:00:00 PM Annie Lehman MD [address], [place], [address], [facility] 11:18:49 Antenata l screenin g for malforma tion Completed 201709/19/2020 Encounte r for antenata l screenin g for malforma tions;Pr actice ID: 0001 Annie Lehman MD [address], [place], [address], [facility] 11:19:53 Gestatio n period, 18 weeks 48572661 Completed 201709/19/2020 18 weeks gestatio n of pregnanc y;Practi ce ID: 0001 Annie Lehman MD [address], [place], [address], [facility] 11:18:12 Gestatio n period, 17 weeks 95247032 Completed 201709/19/2020 17 weeks gestatio n of pregnanc y;Practi ce ID: 0001 Annie Lehman MD [address], [place], [address], [facility] 11:18:10 Pregnanc y, childbir th and puerperi um finding Completed 201709/19/2020 Encntr for suprvsn of normal first preg, second trimeste r;Practi ce ID: 0001 Annie Lehman MD [address], [place], [address], [facility] 11:18:59 Gestatio n period, 24 weeks 504670844 Completed 201709/19/2020 24 weeks gestatio n of pregnanc y;Record ed Elsewher e: No [facility] EHR Poultry Processor ramírez: N Practi ce ID: 0001 Bernard lable Time: 01:00:00 PM Annie Lehman MD [address], [place], [address], [facility] 1 11:18:15 Gestatio n period, 27 weeks 61394433 Completed 201709/19/2020 27 weeks gestatio n of pregnanc y;Record ed Elsewher e: No Locat ion: [facility] S ource: EHR Poultry Processor ramírez: N Practi ce ID: 0001 Bernard lable Time: 03:15:00 PM Annie Lehman MD [address], [place], [address], [facility] 11:18:19 Pregnanc y detectio n examinat ion Completed 201809/19/2020 Encounte r for pregnanc y test, result positive ;Recorde d Elsewher e: No Locat ion: [facility] S ource: EHR Poultry Processor ramírez: N Practi ce ID: 0001 Bernard lable Time: 02:00:00 PM Annie Lehman MD [address], [place], [address], [facility] 11:18:54 Uses combined oral contrace ption 124069463 Completed 201809/19/2020 Encounte r for surveill ance of contrace ptive pills;Re corded Elsewher e: No Locat ion: [facility] S ource: EHR Poultry Processor ramírez: N Practi ce ID: 0001 Bernard lable Time: 10:45:00 AM Annie Lehman MD [address], [place], [address], [facility] 1 11:18:02 Lochia finding Completed 201709/19/2020 Encounte r for routine postpart um follow-u p;Record ed Elsewher e: No Locat ion: [facility] S ource: EHR Poultry Processor ramírez: N Josieti ce ID: 0001 Bernard lable Time: 01:15:[address] PM MD [address], [place], [address], [facility] 1 11:18:43 Rubella screenin g status 133969763 Completed 201709/19/2020 Encounte r for antenata l screenin g, unspecif ied;Amandeep rded Elsewher e: No Locat ion: [facility] S ource: EHR Poultry Processor ramírez: N Josieti ce ID: 0001 Bernard lable Time: 03:30:00 PM Annie Lehman MD [address], [place], [address], [facility] 11:19:07 Prematur e labor 0250202 Completed 201709/19/2020 labor without delivery , second trimeste r;Practi ce ID: 0001 Annie Lehman MD [address], [place], [address], [facility] 11:19:05 False labor before 37 complete d weeks of gestatio n [id number] 5841289 Completed 201709/19/2020 False labor before 37 complete d weeks of gest, second tri;Prac michel ID: 0001 Annie Lehman MD [address], [place], [address], [facility] 11:18:07 Gestatio n period, 26 weeks 44441087 Completed 201709/19/2020 26 weeks gestatio n of pregnanc y;Josieti ce ID: 0001 Annie Lehman MD [address], [place], [address], [facility] 11:18:17 Syphilis test finding 725048224 Completed 201809/19/2020 Encntr screen for infectio ns w sexl mode of transmis s;Record ed Elsewher e: No Locat ion: [facility] S ource: EHR Poultry Processor ramírez: N Practi ce ID: 0001 Bernard lable Time: 02:00:00 PM Annie Lehman MD [address], [place], [address], [facility] 11:19:18 Disorder of perineum Completed 201709/19/2020 Anogenit al (venerea l) warts;Re corded Elsewher e: No Locat ion: [facility] S ource: EHR Poultry Processor ramírez: N Practi ce ID: 0001 Bernard lable Time: 08:45:00 AM Annie Lehman MD [address], [place], [address], [facility] 11:19:29 Cardiac arrhythm ia Completed 201709/19/2020 Prematur e contract ion;Amandeep rded Elsewher e: No Locat ion: [facility] S ource: EHR Poultry Processor ramírez: N Practi ce ID: 0001 Bernard lable Time: 08:45:00 AM Annie Lehman MD [address], [place], [address], [facility] 11:17:56 Pregnanc y, childbir th and puerperi um finding Completed 201709/19/2020 Oth pregnanc y related conditio ns, second trimeste r;Practi ce ID: 0001 Annie Lehman MD [address], [place], [address], [facility] 11:17:54 Infectio n screenin g Completed 201809/19/2020 Encounte r for screenin g for oth infec/pa rastc diseases ;Recorde d Elsewher e: No Locat ion: [facility] S ource: EHR Poultry Processor ramírez: N Practi ce ID: 0001 Bernard lable Time: 02:00:00 PM Annie Lehman MD [address], [place], [address], [facility] 11:18:36 Pregnanc y, childbir th and puerperi um finding Completed 201709/19/2020 Oth pregnanc y related conditio ns, third trimeste r;Practi ce ID: 0001 Annie Lehman MD [address], [place], [address], [facility] 11:17:59 Gestatio n period, 36 weeks 38343988 Completed 201709/19/2020 36 weeks gestatio n of pregnanc y;Practi ce ID: 0001 Annie Lehman MD [address], [place], [address], [facility] 11:18:22 False labor at or after 37 complete d weeks of gestatio n 979958045 Completed 201709/19/2020 False labor at or after 37 complete d weeks of gestatio n;Practi ce ID: 0001 Annie Lehman MD [address], [place], [address], [facility] 11:18:04 Gestatio n period, 37 weeks 80810637 Completed 201709/19/2020 37 weeks gestatio n of pregnanc y;Practi ce ID: 0001 Annie Lehman MD [address], [place], [address], [facility] 11:18:24 Lacerati on of female perineum Completed 201709/19/2020 Second degree perineal lacerati on during delivery ;Practic e ID: 0001 Annie Lehman MD [address], [place], [address], [facility] 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 13:56:59 Single live from singleto n pregnanc y 956320360 Completed 201709/19/2020 Single live ;Pr actice ID: 0001 Annie Lehman MD [address], [place], [address], [facility] 11:19:11 Gestatio n period, 39 weeks 54635421 Completed 201709/19/2020 39 weeks gestatio n of pregnanc y;Practi ce ID: 0001 Annie Lehman MD [address], [place], [address], [facility] 11:18:26 Secondar y amenorrh ea 130588462 Completed 201809/19/2020 Secondar y amenorrh ea;Recor ded Elsewher e: No Locat ion: [facility] S ource: EHR Poultry Processor ramírez: N Practi ce ID: 0001 Bernard lable Time: 02:00:00 PM Annie Lehman MD [address], [place], [address], [facility] 11:19:09 Pregnanc y 98803132 Completed 201902/01/2021 Mary Moreland null, [facility] 4 10:07:10 growth restrict ion 74700853 Completed 2020 weekly doppler, antenata l testing at 32wks Eneida Steintieh l null, [facility] 1 10:52:12 False labor 016975826 Completed Procardi a 30mg Eneida Steintieh l null, [facility] 1 10:52:12 Abdomina l pain 06116705 Completed Eneida Steintieh l null, [facility] 1 10:52:12 growth restrict ion 53940156 Completed 202003/14/2021 weekly doppler, antenata l testing at 32wks Jayna Rivas [facility], [facility] 1 13:57:01 Pregnanc y 70617381 Active 2023 Mary Moreland [facility] 4 10:07:10 Deliveri es by 367848560 Active to repeat Israel Pantoja MD [address], [place], [address], [facility] 4 10:34:35 Migraine 49159111 Active Israel Pantoja MD [address], [place], [address], [facility] 4 10:34:47 Pruritic disorder of skin Active 2024 Bile acids 7 Rpt labs, worsenin g pruritus 5 bile acid 2 Aubree Jones null, [facility] 5 13:32:27 Problem Notes None recorded. Procedures Surgical History Date Name Laterality Status Provider Name and Address Organization Details Recorded Time 3 Date of Last Pap Smear completed Mary Moreland [facility] 07/27/2024 14:36:52 2 Caesarean Section completed Mary Moreland [facility] 07/27/2024 14:40:18 9 Dilation and Curettage completed Sharri Monahan [place] - [facility] 06/22/2020 11:59:28 Imaging Results Imaging Date Name Status LastModified by Organiz ation Details LastModified Time 01/18/2025 non-stress test active [email or web address] [place] [address] [address], [place], [address], 01/18/2025 09:26:19 01/20/2025 US, obstetric, biophysical profile + non-stress test completed [email or web address] [place] [address], [place], [address], 01/20/2025 15:16:55 01/20/2025 US, obstetric, follow-up completed [email or web address] [place] [address] [address], [place], [address], 01/20/2025 15:17:06 01/20/2025 US, obstetric, follow-up completed [email or web address], [place], [address], 01/25/2025 10:18:16 01/20/2025 non-stress test completed brad [place] [address], [place], [address], 01/20/2025 14:39:13 01/24/2025 non-stress test active [place] [address], [place], [address], 01/24/2025 10:18:52 01/25/2025 non-stress test completed [email or web address] [place] [address] [address], [place], [address], 01/25/2025 11:49:46 01/27/2025 US, obstetric, biophysical profile + non-stress test completed [facility] [address], [place], [address], 01/27/2025 12:36:24 01/27/2025 US, obstetric, follow-up completed [address] [facility], [place], [address], 01/28/2025 09:16:33 01/27/2025 non-stress test completed [email or web address] [place] [address], [place], [address], 01/28/2025 14:16:56 01/27/2025 non-stress test completed [email or web address], [place], [address], 01/27/2025 16:03:33 01/31/2025 non-stress test completed [email or web address], [place], [address], 01/31/2025 17:04:57 02/03/2025 US, obstetric, biophysical profile + non-stress test completed [email or web address] [place] [address], [place], [address], 02/03/2025 11:33:28 02/03/2025 US, obstetric, biophysical profile + non-stress test active [email or web address], [facility], [place], [address], 02/03/2025 11:31:37 02/03/2025 non-stress test completed [email or web address], [place], [address], 02/03/2025 14:19:23 Procedure Notes None recorded. Medical Equipment None [...] Elsewher e: No Locat ion: Delaneyevangelista yari [facility] M odify By: jones perera DateTime [...] ion: Delaneyevangelista yari [facility] odify By: yusuf Fajardo er DateTime [...] Prescrib ed Elsewher e: Yes Loca tion: [facility] M odify By: yusuf pack DateTime [...] Available ID NOW COVID-19 Test Kit DIRECTED [id number] 32 07/27 completed Not Available Not Available Not Available Vitals Date Recorded Body height Body mass index (BMI) Body weight Systolic blood pressure Diastolic blood pressure Provider Name and Address Organization Details Last Updated DateTime 01/27/2025 162.56 cm 34.5 kg/m2 42639.07 g 128 mm[Hg] 79 mm[Hg] Mary Moreland [place] - [facility] 12:01:21 Date Recorded Body height Body mass index (BMI) Body weight Systolic blood pressure Diastolic blood pressure Provider Name and Address Organization Details Last Updated DateTime 01/31/2025 162.56 cm 34.8 kg/m2 09780.25 g 128 mm[Hg] 80 mm[Hg] PRIYANK Howe [facility] [facility] 17:04:16 Date Recorded Body weight Systolic blood pressure Diastolic blood pressure Provider Name and Address Organization Details Last Updated DateTime 02/03/2025 18413.0663 7 g 110 mm[Hg] 74 mm[Hg] Mary Moreland [facility] 02/03/2025 12:19:04 Date Recorded Body height Body mass index (BMI) Body weight Systolic blood pressure Diastolic blood pressure Provider Name and Address Organization Details Last Updated DateTime 02/03/2025 162.56 cm 34.5 kg/m2 66503.07 g 110 mm[Hg] 74 mm[Hg] PRIYANK Howe [facility] 12:27:53 Social History Question Answer Notes LastModified by Organizat ion Details LastModified Time Tobacco Smoking Status Never Smoker Bertha Merchant [facility] 11/23/2020 18:10:39 Do You [...] Or The Highest Degree You Have Received? [id number] Information not available 11/23/2020 Are There Any Guns Present In Your Home? Yes Information not available 11/23/2020 What Was The Date Of Your Most Recent Tobacco Screening? 04/10/2021 Information not available 04/10/2021 Do You Use Protection During Sex? No Information not available 07/27/2024 Do You Use Your Seat Belt Or Car Seat Routinely? Yes Information not available 11/23/2020 Do You Have Smoke And Carbon Monoxide Detectors In Your Home? Yes Information not available 11/23/2020 How Much Tobacco Do You Smoke? No [email or web address] Information not available 08/18/2020 Do You Use Sunscreen Routinely? Yes Information not available 11/23/2020 Have You Used IV Drugs? No Information not available 11/23/2020 Sex: Unknown Functional Status Question Answer Note LastModified by Organizat ion Details LastModified Time Do you use any illicit or recreational drugs? Yes Information not available 12/21/2024 What is your level of alcohol consumption? None [id number] Information not available 07/18/2020 Do you or [...] anxious, or unable to sleep at night)? [id number] [email or web address] Information not available 11/23/2020 Family History Relationship [...] SNOMED-CT Code Diagnosis ICD10 Code Diagnosis Note [id number] Israel Pantoja MD [place] [address],[place] [address] 06/15/2020 10:20:01 06/15/2020 14:43:05 80453 Sofía Thurman [facility] [address],[place] [address] 06/22/2020 16:23:42 06/23/2020 15:45:21 Gynecologic examination 74547362 Z01.419 test positive 660572116 Z32.01 Risk factors addressed: Tobacco Cessation, Safe [...] annual well woman examinatio n and address [facility] . [address] Israel Pantoja MD [place] [address],[place] [address] 07/18/2020 16:32:57 07/18/2020 17:24:28 screening 678986048 Z36.82 Z36.0 Z36.89 19868 Israel Pantoja MD [place] [address],[place] [address] 07/18/2020 16:34:01 07/20/2020 15:12:33 Routine care 377687902 Z34.90 77361 Stefany Dunn [facility] [address],[place] [address] 08/18/2020 15:50:48 08/18/2020 17:07:09 Routine care 331314619 Z34.92 65085 MD Bonita Hollis [address],[place] [address] 08/18/2020 15:51:57 08/21/2020 09:09:37 [id number] MD Bonita Hackett [address],[place] [address] 09/19/2020 09:30:24 09/19/2020 12:49:24 screening for malformation 949202167 Z36.3 67828 MD Bonita Hackett [address],[place] [address] 09/19/2020 09:30:56 09/19/2020 11:51:19 Routine care 875568983 Z34.92 00763 MD Bonita Hollis [address],[place] [address] 10/26/2020 10:28:47 10/26/2020 11:27:30 Small for gestational age fetus 972114714 O36.5920 Z3A.26 39288 MD Bonita Hollis [address],[place] [address] 10/26/2020 10:29:24 10/26/2020 12:33:48 Routine care 561426821 Z34.90 15756 MD Bonita Hollis [address],[place] [address] 11/02/2020 16:25:34 11/03/2020 12:03:37 Small for gestational age fetus 610524662 O36.5920 Z3A.27 06018 MD Bonita Hollis [address],[place] [address] 1 11/09/2020 16:47:44 11/09/2020 17:49:54 Small for gestational age fetus 035259006 O36.5920 42217 MD Bonita Hollis [address],[place] [address] 1 11/16/2020 16:34:04 11/16/2020 17:26:44 Poor growth affecting management 301830974 O36.5930 Z3A.29 12782 MD Bonita Hollis [address],[place] [address] 11/16/2020 16:34:20 11/17/2020 19:03:36 Routine care 594648254 Z34.90 33983 MD Bonita Hollis [address],[place] [address] 1 11/23/2020 16:23:32 11/24/2020 14:38:24 Poor growth affecting management 784429930 O36.5930 Z3A.30 19405 MD Bonita Hollis [address],[place] [address] 1 11/23/2020 16:24:03 11/24/2020 14:38:55 Routine care 612413723 Z34.90 99353 MD Bonita Hollis [address],[place] [address] 11/30/2020 16:49:04 11/30/2020 17:25:15 Poor growth affecting management 035599360 O36.5930 Z3A.31 92059 MD Bonita Hollis [address],[place] [address] 1 11/30/2020 16:49:26 12/01/2020 15:25:48 Routine care 214404065 Z34.90 21354 MD Bonita Hollis [address],[place] [address] 12/07/2020 16:08:59 12/07/2020 17:00:30 Poor growth affecting management 542253662 O36.5930 Z3A.32 07099 MD Bonita Hollis [address],[place] [address] 12/07/2020 16:09:19 12/07/2020 17:29:59 growth restriction 39167770 O35.8XX9 42039 MD Bonita Hollis [address],[place] [address] 1 12/07/2020 16:09:36 12/09/2020 15:24:29 Routine care 871071750 Z34.90 82568 MD Bonita Hollis [address],[place] [address] 12/11/2020 16:59:41 12/13/2020 09:34:50 growth restriction 74887065 O35.8XX9 48336 MD Bonita Hollis [address],[place] [address] 1 12/14/2020 15:44:09 12/14/2020 16:36:54 Poor growth affecting management 230321332 O36.5930 Z3A.33 21429 MD Bonita Hollis [address],[place] [address] 12/14/2020 15:44:31 12/14/2020 17:19:55 growth restriction 27862116 O35.8XX9 75522 MD Bonita Hollis [address],[place] [address] 12/14/2020 15:44:47 12/18/2020 13:50:18 Routine care 450235292 Z34.90 14477 MD Bonita Hollis [address],[place] [address] 12/21/2020 16:22:14 12/21/2020 17:10:49 growth restriction 26203133 O35.8XX9 85813 MD Bonita Hollis [address],[place] [address] 1 12/21/2020 16:22:28 12/24/2020 21:37:00 Small for gestational age fetus 692329380 O36.5930 Z3A.34 74939 MD Bonita Hollis [address],[place] [address] 12/21/2020 16:22:59 12/24/2020 21:37:30 Routine care 651905414 Z34.90 05140 MD Bonita Hollis [address],[place] [address] 1 12/25/2020 16:51:50 12/25/2020 17:59:43 growth restriction 39425436 O35.8XX9 27913 MD Bonita Hollis [address],[place] [address] 1 12/28/2020 16:15:35 12/28/2020 17:19:26 growth restriction 29808058 O35.8XX9 56556 MD Bonita Hollis [address],[place] [address] 12/28/2020 16:16:08 12/28/2020 17:25:29 Small for gestational age fetus 870634283 O36.5930 Z3A.35 77249 MD Bonita Hollis [address],[place] [address] 1 12/28/2020 16:16:32 12/29/2020 14:52:26 Routine care 527646207 Z34.90 92481 MD Bonita Hollis [address],[place] [address] 01/01/2021 16:58:49 01/01/2021 18:11:56 growth restriction 77684250 O35.8XX9 72104 MD Bonita Hollis [address],[place] [address] 01/04/2021 16:07:28 01/04/2021 17:20:24 growth restriction 64747820 O35.8XX9 59343 MD Bonita Hollis [address],[place] [address] 01/04/2021 16:07:46 01/04/2021 17:13:46 Small for gestational age fetus 603839456 O36.5930 Z3A.36 58301 MD Bonita Hollis [address],[place] [address] 01/04/2021 16:07:58 01/05/2021 09:53:26 Routine care 156407978 Z34.90 24957 MD Bonita Hollis [address],[place] [address] 01/11/2021 16:17:56 01/11/2021 17:07:33 Small for gestational age fetus 718890686 O36.5930 Z3A.37 76121 MD Bonita Hollis [address],[place] [address] 01/15/2021 17:03:59 01/15/2021 22:05:32 growth restriction 70551904 O35.8XX9 10179 MD Bonita Hollis [address],[place] [address] 01/18/2021 16:33:29 01/18/2021 17:05:26 growth restriction 62379405 O35.8XX9 38563 MD Bonita Hollis [address],[place] [address] 1 01/18/2021 16:34:27 01/19/2021 14:56:37 Small for gestational age fetus 393215708 O36.5930 Z3A.38 33609 MD Bonita Hollis [address],[place] [address] 01/18/2021 16:34:52 01/19/2021 14:57:18 Routine care 203311816 Z34.90 52827 MD Bonita Hollis [address],[place] [address] 01/19/2021 14:23:41 01/19/2021 15:15:00 Small for gestational age fetus 021619960 O36.5930 Z3A.38 57949 MD oBnita Hollis [address],[place] [address] 01/22/2021 13:57:45 01/22/2021 14:46:08 growth restriction 02926929 O35.8XX9 60661 Sofía Thurman [facility] [address],[place] [address] 03/01/2021 16:08:40 03/02/2021 15:27:21 state 81670619 Z39.2 Continue to watch for signs/symp toms [...] desired 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 No thoughts of harming herself or others. If any worsening of symptoms she will notify us right away. RTC in 2 weeks for med check. [id number] [facility] [address],[place] [address] 03/15/2021 11:58:16 03/15/2021 12:22:02 Mixed anxiety and depressive disorder 009703759 F41.8 Pt unsure if there is any improvemen t but definitely not worse. No thoughts of harming herself or others. Pt would like to continue at current dose and see how she is doing at 1 month. Will plan return visit in 2 weeks. 14913 Sofía Thurman CNM [place] [address],[place] [address] 04/10/2021 12:47:01 04/12/2021 14:14:59 Mixed anxiety and depressive disorder 630088830 F41.8 Pt very happy with improvemen t and would like to continue with current dose of zoloft. She will let us know if any worsening of symptoms. [id number] Israel Pantoja MD [place] [address],[place] [address] 07/27/2024 13:44:10 07/27/2024 14:10:06 screening 498020103 Z36.87 Z3A.08 [id number] Israel Pantoja MD [place] [address],[place] [address] 07/27/2024 13:45:40 07/27/2024 15:05:53 Amenorrhea 65171194 N91.2 this patient is a 29-year-ol d [...] begin routine care at her next visit. [id number] MD Bonita Hollis [address],[place] [address] 08/26/2024 09:19:11 08/26/2024 09:52:33 screening 793102322 Z36.82 Z3A.13 [id number] MD Bonita Hollis [address],[place] [address] 08/26/2024 09:19:23 08/26/2024 10:53:29 Migraine 64569858 G43.909 Routine an tenatal care 429061656 Z34.90 700858 Israel Pantoja MD [place] [address],[place] [address] 09/23/2024 09:34:38 09/23/2024 10:25:36 Routine care 508450610 Z34.90 [id number] MD Bonita Hollis [address],[place] [address] 10/14/2024 09:27:39 10/14/2024 10:46:12 screening for malformation 623850883 Z36.3 Z3A.20 358007 MD Bonita Hollis [address],[place] [address] 10/15/2024 12:02:23 10/15/2024 12:39:49 Routine care 250482783 Z34.90 138902 MD Bonita Hollis [address],[place] [address] 11/09/2024 09:31:35 11/09/2024 10:13:11 Routine care 844425153 Z34.90 [id number] MD Bonita Hollis [address],[place] [address] 12/06/2024 09:25:31 12/06/2024 10:05:53 Routine care 212445074 Z34.90 [id number] Israel Pantoja MD [place] [address],[place] [address] 12/17/2024 15:40:56 12/20/2024 15:31:57 [id number] Stefany Dunn [facility] [address],[place] [address] 12/17/2024 16:40:24 12/20/2024 06:37:18 -induced hypertension 49290571 O13.9 [id number] MD Bonita Hollis [address],[place] [address] 12/21/2024 09:37:11 12/21/2024 10:33:41 Uterine size for dates discrepancy 329085036 O26.843 Z3A.29 [id number] MD Bonita Hollis [address],[place] [address] 12/21/2024 09:37:30 12/21/2024 11:39:05 labor without delivery 5878126736 5720391 O60.03 048143 MD Bonita Hollis [address],[place] [address] 12/28/2024 11:53:58 12/28/2024 13:07:59 Routine care 123311272 Z34.90 [id number] MD Bonita Hollis [address],[place] [address] 01/12/2025 16:21:54 01/12/2025 17:19:02 Cholestasis of 385133958 O26.643 [id number] MD Bonita Hollis [address],[place] [address] 01/17/2025 15:04:47 01/17/2025 16:07:11 Cholestasis of 986609106 O26.643 312902 MD Bonita Hollis [address],[place] [address] 01/18/2025 09:23:01 01/18/2025 10:11:04 Cholestasis of 425359972 O26.643 880396 MD Bonita Hollis [address],[place] [address] 01/20/2025 13:30:45 01/20/2025 14:05:31 Cholestasis of 397417514 O26.643 Z3A.34 664177 MD Bonita Hollis [address],[place] [address] 01/20/2025 13:31:11 01/20/2025 14:43:30 Cholestasis 03035603 K83.1 259178 MD Bonita Hollis [address],[place] [address] 01/24/2025 09:27:20 01/24/2025 10:26:23 Cholestasis 66586408 K83.1 Urinary symptoms 6096293 08 R39.9 711978 MD Bonita Hollis [address],[place] [address] 01/27/2025 10:34:31 01/27/2025 11:10:54 Cholestasis of 407928971 O26.643 Z3A.35 [id number] Israel Pantoja MD [place] [address],[place] [address] 01/27/2025 10:34:44 01/27/2025 16:18:18 Cholestasis of 180116487 O26.643 029716 Israel Pantoja MD [place] [address],[place] [address] 01/27/2025 10:34:58 01/27/2025 12:24:15 Cholestasis of 164878628 O26.643 Past pregn theo history of section 203058569 Z98.891 [id number] Israel Pantoja MD [place] [address],[place] [address] 01/31/2025 09:25:24 01/31/2025 17:09:48 Cholestasis 66521942 K83.1 397695 Israel Pantoja MD [place] [address],[place] [address] 02/03/2025 10:57:28 02/03/2025 11:54:57 Cholestasis of 095054710 O26.643 Z3A.36 365613 Israel Pantoja MD [place] [address],[place] [address] 02/03/2025 10:58:17 02/03/2025 12:42:43 Cholestasis 50483034 K83.1 [id number] Israel Pantoja MD [place] [address],[place] [address] 02/03/2025 10:58:39 02/03/2025 12:45:23 Health Concerns Section Related Observation LastModified by Organization Detai ls LastModified Time None Recorded Concern Status LastModified by Organization Details LastModified Time None Recorded Advance Directives Directive N: Payers Encounter Date Sequence Insurance Name Policy Number Policy Moralez Covered Member ID Moralez Member ID Guarantor Name 01/27/2025 1 [facility] - DOS ON OR AFTER 21 (MEDICAID REPLACEMENT - HMO) Mili Mcmahon [id number] Mili Mcmahon 01/31/2025 1 [facility] - DOS ON OR AFTER 21 (MEDICAID REPLACEMENT - HMO) Mili Mcmahon [id number] Mili Mcmahon 02/03/2025 1 [facility] - DOS ON OR AFTER 21 (MEDICAID REPLACEMENT - HMO) Mili Mcmahon [id number] Mili Mcmahon 02/03/2025 1 [facility] - DOS ON OR AFTER 21 (MEDICAID REPLACEMENT - HMO) Mili Mcmahon [id number] Mili Mcmahon 02/03/2025 1 [facility] - DOS ON OR AFTER 21 (MEDICAID REPLACEMENT - HMO) Mili Mcmahon [id number] Mili Mcmahon OBGyn Episode Ob Episode Information Episode Created Date Number of Fetuses Patient Bloodtype Patient rh Status Prepregnancy Weight lbs Domestic Partner Domestic Partner Phone Father Name Land Degradation Analyst Status 06/22/20 1 CLOSED Fetus Data First [...] Domestic Partner Domestic Partner Phone Father Name Land Degradation Analyst Status 06/22/20 1 CLOSED Fetus Data First [...] Domestic Partner Domestic Partner Phone Father Name Land Degradation Analyst Status 07/18/20 20 1 O Positive 165 CLOSED Fetus Data First Name Last Name Admitted to NICU Weight (g) Sex Living Outcome Pediatric Complications Fetus ID Race Codes Race Delivery Type 2608.15 4 F true Full Term 5868 Vaginal Delivery Problems Problem Notes possible hemorrha ge Problem Name Start Date End Date Resolution Snomed Code Not e growth restriction 10/26/202087203045 weekly doppler, testing at 32wks False labor 491085338 Procardi a 30mg Abdominal pain 96747296 Nico Calculation Initial Nico Date Initial Exam [...] Date Ultra Sound Latest Days Gestation 0 [email or web address] 09/19/2020 02/02/20 21 0 Pre-danii Flowsheet Flowsheet Date 06/15/2020 Donahue Score Blood [...] Weight in lbs Pre/Post Dialysis Refused Weight 162.316400970245 BP Diastolic BP Location Tested BP Systolic [...] Weight in lbs Pre/Post Dialysis Refused Weight 161.827457011965 BP Diastolic BP Location Tested BP Systolic [...] Weight in lbs Pre/Post Dialysis Refused Weight 163.604698165365 BP Diastolic BP Location Tested BP Systolic [...] Weight in lbs Pre/Post Dialysis Refused Weight 173.356176741901 BP Diastolic BP Location Tested BP Systolic [...] Weight in lbs Pre/Post Dialysis Refused Weight 178.532823286087 BP Diastolic BP Location Tested BP Systolic [...] Weight in lbs Pre/Post Dialysis Refused Weight 178.618176999296 BP Diastolic BP Location Tested BP Systolic [...] Weight in lbs Pre/Post Dialysis Refused Weight 179.118638641926 BP Diastolic BP Location Tested BP Systolic [...] Weight in lbs Pre/Post Dialysis Refused Weight 180.281120105037 BP Diastolic BP Location Tested BP Systolic [...] Weight in lbs Pre/Post Dialysis Refused Weight 183.607765548331 BP Diastolic BP Location Tested BP Systolic [...] Weight in lbs Pre/Post Dialysis Refused Weight 184.906215872938 BP Diastolic BP Location Tested BP Systolic [...] Weight in lbs Pre/Post Dialysis Refused Weight 185.747978226841 BP Diastolic BP Location Tested BP Systolic [...] Weight in lbs Pre/Post Dialysis Refused Weight 190.856769572947 BP Diastolic BP Location Tested BP Systolic [...] Weight in lbs Pre/Post Dialysis Refused Weight 190.624621611581 BP Diastolic BP Location Tested BP Systolic [...] Estim ated Date of Delivery false Thalassemia (Eritrean, Uzbek, Mediterranean, Or Background): MCV < 80 false Neural Tube Defect (Meningomyelocele, Spina Bifi da, Or Anencephaly) false Congenital Heart Defect false Down Syndrome false Kevin-Sachs (eg, Latter Day, Cajun, Dutch-Chilean) f alse Sj Disease false Sickle Cell Disease Or Trait () false Hemophilia Or Other Blood Disorders false Muscular Dystrophy false Cystic Fibrosis false Guy's Chorea false Intellectual Disability/Autism false If Yes, [...] Domestic Partner Domestic Partner Phone Father Name Land Degradation Analyst Status 07/27/20 24 1 CLOSED Fetus Data First Name Last Name Admitted to NICU Weight (g) Sex Living Outcome Pediatric Complications Fetus ID Race Codes Race Delivery Type M Full Term 55698 Primary Nico Calculation Initial Nico Date Initial [...] Domestic Partner Domestic Partner Phone Father Name Land Degradation Analyst Status 08/26/20 24 1 O Positive 171 Moise OPEN Fetus Data First Name Last Name Admitted to NICU Weight (g) Sex Living Outcome Pediatric Complications Fetus ID Race Codes Race Delivery Type 24911 Problems Problem Notes + GBS amp in labor Problem Name Start Date End Date Resolution Snomed Code Not e Deliveries by 04 to repeat Migraine 20450426 Pruritic disorder of skin 01/17/2025 3374029416 Bile acids 7 Rp t labs, worsening [...] Weight in lbs Pre/Post Dialysis Refused Weight 169.236416899080 BP Diastolic BP Location Tested BP Systolic [...] Type Weight in lbs Pre/Post Dialysis Refused 167.454451106384 BP Diastolic BP Location Tested BP Systolic [...] Type Weight in lbs Pre/Post Dialysis Refused 176.901904986889 BP Diastolic BP Location Tested BP Systolic [...] Type Weight in lbs Pre/Post Dialysis Refused 182.231496694476 BP Diastolic BP Location Tested BP Systolic [...] Weight in lbs Pre/Post Dialysis Refused Weight 192.907986174894 BP Diastolic BP Location Tested BP Systolic [...] Type Weight in lbs Pre/Post Dialysis Refused 193.94370494697 BP Diastolic BP Location Tested BP Systolic [...] Weight in lbs Pre/Post Dialysis Refused Weight 193.792051657178 BP Diastolic BP Location Tested BP Systolic [...] Weight in lbs Pre/Post Dialysis Refused Weight 194.497875870675 BP Diastolic BP Location Tested BP Systolic [...] Type Weight in lbs Pre/Post Dialysis Refused 193.22529821102 BP Diastolic BP Location Tested BP Systolic [...] Type Weight in lbs Pre/Post Dialysis Refused 200.220899642832 BP Diastolic BP Location Tested BP Systolic [...] Type Weight in lbs Pre/Post Dialysis Refused 201.616840734711 BP Diastolic BP Location Tested BP Systolic [...] Weight in lbs Pre/Post Dialysis Refused Weight 201.991855765575 BP Diastolic BP Location Tested BP Systolic [...] Weight in lbs Pre/Post Dialysis Refused Weight 202.590817757521 BP Diastolic BP Location Tested BP Systolic BP Type 79 L arm 114 sitting Fetus Heart Rate Present Fetus Movement Comments Flowsheet Date 01/24/2025 Donahue Score Blood Edema Fundus Height Fundus Units Glucose Ketones Leukocytes Nitrite Labor Signs Protein Cervic Dilation Cervic Effacement Cervic Station Type Weight in lbs Pre/Post Dialysis Refused Weight 201.896435730733 BP Diastolic BP Location Tested BP Systolic [...] Weight in lbs Pre/Post Dialysis Refused Weight 201.831470514494 BP Diastolic BP Location Tested BP Systolic [...] Weight in lbs Pre/Post Dialysis Refused Weight 203.618724295560 BP Diastolic BP Location Tested BP Systolic [...] Weight in lbs Pre/Post Dialysis Refused Weight 201.997751901652 BP Diastolic BP Location Tested BP Systolic BP Type 74 110 Fetus Heart Rate Present Fetus Movement Comments Flowsheet Date 02/03/2025 Donahue Score Blood Edema Fundus Height Fundus Units Glucose Ketones Leukocytes Nitrite Labor Signs Protein Cervic Dilation Cervic Effacement Cervic Station Type Weight in lbs Pre/Post Dialysis Refused 201.737386068215 BP Diastolic BP Location Tested BP Systolic [...] Domestic Partner Domestic Partner Phone Father Name Land Degradation Analyst Status 07/27/20 24 1 CLOSED Fetus Data First Name Last Name Admitted to NICU Weight (g) Sex Living Outcome Pediatric Complications Fetus ID Race Codes Race Delivery Type , Spontane ous 46579 Nico Calculation Initial Nico Date Initial Exam [...]
--- OUTSIDE RECORDS SUMMARY | 2025-02-03 16:32 | XMS_ITS | Clinical Summary ---
Author Organization [facility] Address [address] [place] [phone] Phone Care Team Providers Care Partner Integration Planner Name Role Phone Unavailable Primary Care Provider [...] 19+ 3-dose series) 2013 HPV/Cotest (21-29) 2015 CERVICAL CANCER SCREENING 01/07/2024 HPV/Cotest (30-65) 01/07/2024 PAP SMEAR 01/07/2024 INFLUENZA VACCINE (#1) 2024 HPV VACCINES Aged Out No longer eligi ble based on patient's age to complete this topic Insurance [facility] MEDICAID
--- OUTSIDE RECORDS SUMMARY | 2025-02-03 16:32 | XMS_ITS | Continuity of Care Document ---
[facility] Organization [facility] Address [address] [place] [address] [place] [address] Care Team Providers Care Ordnance Officer Name Role Phone SHABBIR SOUSA Primary Care Provider Assessment No assessment recorded. Plan of Treatment Reminders Order Date Submit [...] non-str ess test 2024 025 [email or web address] [place], [address], [place], [address], 02/03/2025 12:42:44 Medication Orders None recorde d. Patient TargetsNo targets recorded. Patient InstructionsNo instructions recorded. Reason for Referral None Reported. Results Created Date Observation Date Name Description Value Unit Range Abnormal Flag Note LastModifiedBy Organization Detail LastModifiedTime 08/26/20 24 08/26/2024 US, obste tric, nucha l trans lucen cy No observ ation record ed. [email or web address] [place] [address], [place], [address], 08/26/2024 12:20:16 08/26/20 24 08/26/2024 US, obste tric, nucha l trans lucen cy No observ ation record ed. [email or web address] [address], [place], [address], 08/26/2024 20:51:22 10/14/19 25 10/14/2024 US, obste tric, 2nd or 3rd trime ster No observ ation record ed. [email or web address] [place] [address], [place], [address], 10/14/2024 12:36:34 10/14/19 25 10/14/2024 US, obste tric, 2nd or 3rd trime ster No observ ation record ed. [email or web address] [address], [place], [address], 10/14/2024 21:46:52 12/18/19 25 12/17/2024 non-s tress test No observ ation record ed. [email or web address] [place] [address], [place], [address], 12/17/2024 17:43:48 12/18/19 25 12/17/2024 non-s tress test No observ ation record ed. [address] [facility] [address], [place], [address], 12/21/2024 14:44:42 12/18/19 25 12/17/2024 US, obste tric, bioph ysica l profi le No observ ation record ed. [address] [facility] [address], [place], [address], 12/20/2024 15:26:26 12/18/19 25 12/17/2024 US, obste tric, bioph ysica l profi le No observ ation record ed. [email or web address] [facility] [address], [place], [address], 12/20/2024 15:26:43 12/22/19 25 12/21/2024 US, obste tric, follo w-up No observ ation record ed. [email or web address] [place] [address], [place], [address], 12/21/2024 14:11:47 12/22/19 25 12/21/2024 US, obste tric, follo w-up No observ ation record ed. [email or web address] [address], [place], [address], 12/21/2024 22:22:13 12/22/19 25 12/17/2024 non-s tress test No observ ation record ed. [email or web address] [place] [address], [place], [address], 12/21/2024 18:48:58 01/19/2001/18/2025 non-s tress test No observ ation record ed. [place] [address], [place], [address], 01/18/2025 09:26:19 01/21/20 25 01/20/2025 US, obste tric, bioph ysica l profi le + non-s tress test No observ ation record ed. [email or web address] [place] [address], [place], [address], 01/20/2025 15:16:55 01/21/20 25 01/20/2025 US, obste tric, follo w-up No observ ation record ed. [email or web address] [place] [address], [place], [address], 01/20/2025 15:17:06 01/21/20 25 01/20/2025 US, obste tric, follo w-up No observ ation record ed. [email or web address] [address], [place], [address], 01/25/2025 10:18:16 01/21/20 25 01/20/2025 non-s tress test No observ ation record ed. [email or web address] [place] [address], [place], [address], 01/20/2025 14:39:13 01/25/20 25 01/24/2025 non-s tress test No observ ation record ed. [place] [address], [place], [address], 01/24/2025 10:18:52 01/26/20 non-s tress test No observ ation record ed. [place] [address], [place], [address], 01/25/2025 11:49:46 01/28/20 25 01/27/2025 US, obste tric, bioph ysica l profi le + non-s tress test No observ ation record ed. [email or web address] [place] [address], [place], [address], 01/27/2025 12:36:24 01/28/20 25 01/27/2025 US, obste tric, follo w-up No observ ation record ed. [email or web address] [address], [place], [address], 01/28/2025 09:16:33 01/28/20 25 01/27/2025 non-s tress test No observ ation record ed. [email or web address] [place] [address], [place], [address], 01/28/2025 14:16:56 01/28/20 non-s tress test No observ ation record ed. [place] [address], [place], [address], 01/27/2025 16:03:33 02/01/20 25 01/31/2025 non-s tress test No observ ation record ed. [email or web address] [place] [address], [place], [address], 01/31/2025 17:04:57 02/04/20 25 02/03/2025 US, obste tric, bioph ysica l profi le + non-s tress test No observ ation record ed. [email or web address] [place] [address], [place], [address], 02/03/2025 11:33:28 02/04/20 25 02/03/2025 US, obste tric, bioph ysica l profi le + non-s tress test No observ ation record ed. [email or web address] [facility], [place], [address], 02/03/2025 11:31:37 02/04/20 25 02/03/2025 non-s tress test No observ ation record ed. [place] [address], [place], [address], 02/03/2025 14:19:23 Result Notes None recorded. Problems Name Problem SNOMED Code Status Onset Date Resolution Date Notes Provider Name and Address Organization Details Recorded Time Complica tion of pregnanc y, childbir th and/or puerperi 510616722 Completed 201709/19/2020 Oth diseases and conditio ns compl preg/chl dbrth;Re corded Elsewher e: No Locat ion: [facility] S ource: EHR Commercial Art Instructor ramírez: N Practi ce ID: 0001 Bernard lable Time: 03:45:00 PM Annie Lehman MD [address], [place], [address], [facility] 1 11:19:26 Antenata l screenin g Completed 201709/19/2020 Encounte r for antenata l screenin g for nuchal transluc ency;Rec orded Elsewher e: No Locat ion: [facility] S ource: EHR Commercial Art Instructor ramírez: N Practi ce ID: 0001 Bernard lable Time: 02:30:00 PM Annie Lehman MD [address], [place], [address], [facility] 11:19:56 Bartholi nitis 1827925 Completed 201809/19/2020 Other diseases of Bartholi n's gland;Re corded Elsewher e: No Locat ion: [facility] S ource: EHR Commercial Art Instructor ramírez: N Practi ce ID: 0001 Bernard lable Time: 11:00:00 AM Annie Lehman MD [address], [place], [address], [facility] 11:17:48 Pregnanc y, childbir th and puerperi um finding Completed 201709/19/2020 Encntr for suprvsn of normal first preg, third trimeste r;Record ed Elsewher e: No Locat ion: [facility] S ource: EHR Commercial Art Instructor ramírez: N Practi ce ID: 0001 Bernard lable Time: 04:00:00 PM Annie Lehman MD [address], [place], [address], [facility] 1 11:19:01 Pregnanc y, childbir th and puerperi um finding Completed 201709/19/2020 Encounte r for supervis ion of normal 1st pregnanc y, 1st trimeste r;Record ed Elsewher e: No Locat ion: [facility] S ource: EHR Commercial Art Instructor ramírez: N Practi ce ID: 0001 Bernard lable Time: 03:00:00 PM Annie Lehman MD [address], [place], [address], [facility] 11:18:57 Missed miscarri age [id number] Completed 201809/19/2020 Missed ;Recorde d Elsewher e: No Locat ion: [facility] S ource: EHR Commercial Art Instructor ramírez: N Practi ce ID: 0001 Bernard lable Time: 02:00:00 PM Annie Lehman MD [address], [place], [address], [facility] 11:18:[address] Concept Completed 201809/19/2020 Encntr for crusher setter exam (general ) (routine ) w/o abn findings ;Recorde d Elsewher e: No Locat ion: [facility] S ource: EHR Commercial Art Instructor ramírez: N Practi ce ID: 0001 Bernard lable Time: 02:00:00 PM Annie Lehman MD [address], [place], [address], [facility] 11:19:14 Spotting per vagina in pregnanc y 903762000 Completed 201709/19/2020 Spotting complica ting pregnanc y, second trimeste r;Record ed Elsewher e: No Locat ion: [facility] S ource: EHR Commercial Art Instructor ramírez: N Practi ce ID: 0001 Bernard lable Time: 02:15:00 PM Annie Lehman MD [address], [place], [address], [facility] 11:19:16 Placenta previa 49621236 Completed 201709/19/2020 Placenta previa specifie d as w/o hemor, second trimeste r;Record ed Elsewher e: No Locat ion: [facility] S ource: EHR Commercial Art Instructor ramírez: N Practi ce ID: 0001 Bernard lable Time: 01:00:00 PM Annie Lehman MD [address], [place], [address], [facility] 1 11:18:52 Increase d frequenc y of urinatio n 146405871 Completed 201909/19/2020 Frequenc y of micturit ion;Amandeep rded Elsewher e: No Locat ion: [facility] S ource: EHR Commercial Art Instructor ramírez: N Josieti ce ID: 0001 Bernard lable Time: 02:30:00 PM MD [address], [place], [address], [facility] 1 11:18:33 Gestatio n period, 8 weeks 87767476 Completed 201809/19/2020 8 weeks gestatio n of pregnanc y;Record ed Elsewher e: No Locat ion: [facility] S ource: EHR Commercial Art Instructor ramírez: N Josieti ce ID: 0001 Bernard lable Time: 02:00:00 PM Annie Lehman MD [address], [place], [address], [facility] 1 11:18:28 Normal pregnanc y in multigra andrzej 5491108584 50629 Completed 201709/19/2020 Encounte r for supervis ion of other normal pregnanc y, 3rd trimeste r;Record ed Elsewher e: No Locat ion: [facility] S ource: EHR Commercial Art Instructor ramírez: N Practi ce ID: 0001 Bernard lable Time: 02:00:00 PM Annie Lehman MD [address], [place], [address], [facility] 1 11:18:49 Antenata l screenin g for malforma tion Completed 201709/19/2020 Encounte r for antenata l screenin g for malforma tions;Pr actice ID: 0001 Annie Lehman MD [address], [place], [address], [facility] 11:19:53 Gestatio n period, 18 weeks 50114474 Completed 201709/19/2020 18 weeks gestatio n of pregnanc y;Practi ce ID: 0001 Annie Lehman MD [address], [place], [address], [facility] 11:18:12 Gestatio n period, 17 weeks 83799275 Completed 201709/19/2020 17 weeks gestatio n of pregnanc y;Practi ce ID: 0001 Annie Lehman MD [address], [place], [address], [facility] 11:18:10 Pregnanc y, childbir th and puerperi um finding Completed 201709/19/2020 Encntr for suprvsn of normal first preg, second trimeste r;Practi ce ID: 0001 Annie Lehman MD [address], [place], [address], [facility] 11:18:59 Gestatio n period, 24 weeks 645234232 Completed 201709/19/2020 24 weeks gestatio n of pregnanc y;Record ed Elsewher e: No Locat ion: Annette greenberg [facility] S ource: EHR Commercial Art Instructor ramírez: N Practi ce ID: 0001 Bernard lable Time: 01:00:00 PM Annie Lehman MD [address], [place], [address], [facility] 11:18:15 Gestatio n period, 27 weeks 16483764 Completed 201709/19/2020 27 weeks gestatio n of pregnanc y;Record ed Elsewher e: No Locat ion: Annette greenberg [facility] S ource: EHR Commercial Art Instructor ramírez: N Practi ce ID: 0001 Bernard lable Time: 03:15:00 PM Annie Lehman MD [address], [place], [address], [facility] 1 11:18:19 Pregnanc y detectio n examinat ion Completed 201809/19/2020 Encounte r for pregnanc y test, result positive ;Recorde d Elsewher e: No [facility] S ource: EHR Commercial Art Instructor ramírez: N Practi ce ID: 0001 Bernard lable Time: 02:00:00 PM Annie Lehman MD [address], [place], [address], [facility] 11:18:54 Uses combined oral contrace ption 056527457 Completed 201809/19/2020 Encounte r for surveill ance of contrace ptive pills;Re corded Elsewher e: No Locat ion: [facility] S ource: EHR Commercial Art Instructor ramírez: N Josieti ce ID: 0001 Bernard lable Time: 10:45:00 AM Annie Lehman MD [address], [place], [address], [facility] 1 11:18:02 Lochia finding Completed 201709/19/2020 Encounte r for routine postpart um follow-u p;Record ed Elsewher e: No [facility] S ource: EHR Commercial Art Instructor ramírez: N Practi ce ID: 0001 Bernard lable Time: 01:15:00 PM Annie Lehman MD [address], [place], [address], [facility] 11:18:43 Rubella screenin g status 121457417 Completed 201709/19/2020 Encounte r for antenata l screenin g, unspecif ied;Amandeep rded Elsewher e: No [facility] EHR Commercial Art Instructor ramírez: N Practi ce ID: 0001 Bernard lable Time: 03:30:00 PM Annie Lehman MD [address], [place], [address], [facility] 11:19:07 Prematur e labor 5176397 Completed 201709/19/2020 labor without delivery , second trimeste r;Josieti ce ID: 0001 Annie Lehman MD [address], [place], [address], [facility] 11:19:05 False labor before 37 complete d weeks of gestatio n 8649162760 5553167 Completed 201709/19/2020 False labor before 37 complete d weeks of gest, second tri;Prac michel ID: 0001 Annie Lehman MD [address], [place], [address], [facility] 11:18:07 Gestatio n period, 26 weeks 57506239 Completed 201709/19/2020 26 weeks gestatio n of pregnanc y;Practi ce ID: 0001 Annie Lehman MD [address], [place], [address], [facility] 11:18:17 Syphilis test finding 500550962 Completed 201809/19/2020 Encntr screen for infectio ns w sexl mode of transmis s;Record ed Elsewher e: No Locat ion: [facility] S ource: EHR Commercial Art Instructor ramírez: N Josieti ce ID: 0001 Bernard lable Time: 02:00:[address] MD [address], [place], [address], [facility] 11:19:18 Disorder of perineum Completed 201709/19/2020 Anogenit al (venerea l) warts;Re corded Elsewher e: No Locat ion: [facility] S ource: EHR Commercial Art Instructor ramírez: N Practi ce ID: 0001 Bernard lable Time: 08:45:00 AM Annie Lehman MD [address], [place], [address], [facility] 11:19:29 Cardiac arrhythm ia Completed 201709/19/2020 Prematur e contract ion;Amandeep rded Elsewher e: No Locat ion: [facility] S ource: EHR Commercial Art Instructor ramírez: N Practi ce ID: 0001 Bernard lable Time: 08:45:00 AM Annie Lehman MD [address], [place], [address], [facility] 11:17:56 Pregnanc y, childbir th and puerperi um finding Completed 201709/19/2020 Oth pregnanc y related conditio ns, second trimeste r;Practi ce ID: 0001 Annie Lehman MD [address], [place], [address], [facility] 11:17:54 Infectio n screenin g Completed 201809/19/2020 Encounte r for screenin g for oth infec/pa rastc diseases ;Recorde d Elsewher e: No Locat ion: [facility] S ource: EHR Commercial Art Instructor ramírez: N Practi ce ID: 0001 Bernard lable Time: 02:00:00 PM Annie Lehman MD [address], [place], [address], [facility] 1 11:18:36 Pregnanc y, childbir th and puerperi um finding Completed 201709/19/2020 Oth pregnanc y related conditio ns, third trimeste r;Practi ce ID: 0001 Annie Lehman MD [address], [place], [address], [facility] 11:17:59 Gestatio n period, 36 weeks 77724431 Completed 201709/19/2020 36 weeks gestatio n of pregnanc y;Practi ce ID: 0001 Annie Lehman MD [address], [place], [address], [facility] 11:18:22 False labor at or after 37 complete d weeks of gestatio n 944539891 Completed 201709/19/2020 False labor at or after 37 complete d weeks of gestatio n;Practi ce ID: 0001 Annie Lehman MD [address], [place], [address], [facility] 11:18:04 Gestatio n period, 37 weeks 37715320 Completed 201709/19/2020 37 weeks gestatio n of pregnanc y;Practi ce ID: 0001 Annie Lehman MD [address], [place], [address], [facility] 11:18:24 Lacerati on of female perineum Completed 201709/19/2020 Second degree perineal lacerati on during delivery ;Practic e ID: 0001 Annie Lehman MD [address], [place], [address], [facility] 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 13:56:59 Single live from singleto n pregnanc y 745184550 Completed 201709/19/2020 Single live ;Pr actice ID: 0001 Annie Lehman MD [address], [place], [address], [facility] 11:19:11 Gestatio n period, 39 weeks 43715264 Completed 201709/19/2020 39 weeks gestatio n of pregnanc y;Practi ce ID: 0001 Annie Lehman MD [address], [place], [address], [facility] 11:18:26 Secondar y amenorrh ea 724475788 Completed 201809/19/2020 Secondar y amenorrh ea;Recor ded Elsewher e: No [facility] S ource: EHR Commercial Art Instructor ramírez: N Practi ce ID: 0001 Bernard lable Time: 02:00:00 PM Annie Lehman MD [address], [place], [address], [facility] 11:19:09 Pregnanc y 15140105 Completed 201902/01/2021 Mary Moreland null, [facility] 4 10:07:10 growth restrict ion 10288825 Completed 2020 weekly doppler, antenata l testing at 32wks Eneida Bohnenstieh l null, [facility] 1 10:52:12 False labor 040339791 Completed Procardi a 30mg Eneida Bohnenstieh l null, [facility] 1 10:52:12 Abdomina l pain 93815935 Completed Eneida Bohnenstieh l null, [facility] 1 10:52:12 growth restrict ion 96486108 Completed 202003/14/2021 weekly doppler, antenata l testing at 32wks Jayna Rivas [facility], [facility] 1 13:57:01 Pregnanc y 91166375 Active 2023 Mary Moreland [facility], [facility] 4 10:07:10 Deliveri es by 073540732 Active to repeat Israel Pantoja MD [address], [place], [address], [facility] 4 10:34:35 Migraine 09169142 Active Israel Pantoja MD [address], [place], [address], [facility] 4 10:34:47 Pruritic disorder of skin Active 2024 Bile acids 7 Rpt labs, worsenin g pruritus 5 bile acid 2 Aubree Jones [facility], [facility] 5 13:32:27 Problem Notes None recorded. Procedures Surgical History Date Name Laterality Status Provider Name and Address Organization Details Recorded Time 3 Date of Last Pap Smear completed Mary Moreland [facility] 07/27/2024 14:36:52 2 Caesarean Section completed Mary Moreland [facility] 07/27/2024 14:40:18 9 Dilation and Curettage completed Sharri Monahan [facility] 06/22/2020 11:59:28 Imaging Results Imaging Date Name Status LastModified by Organiz ation Details LastModified Time 02/03/2025 non-stress test completed [address], [place], [address], 02/03/2025 14:19:23 Procedure Notes None recorded. Medical [...] Prescrib ed Elsewher e: No Locat ion: [facility] odify By: jones perera DateTime : 02/03/20 02:30:00 PM Not Available Not Available Not Available Fiorinal 50 mg-325 mg-40 mg capsule Take 1 capsule every 4 hours by oral route. 04/10 completed Stefany bender patient written script Not Available Not Available [...] Prescrib ed Elsewher e: No Locat ion: [facility] odify By: yusuf Fajardo er DateTime [...] hours as needed 01/29 completed Prescrib ed [facility] e: Yes Loca tion: [facility] odify By: yusuf pack DateTime : 10/23/19 [...] Available ID NOW COVID-19 Test Kit DIRECTED [id number] 32 07/27 completed Not Available Not Available Not Available Vitals Date Recorded Body weight Systolic blood pressure Diastolic blood pressure Provider Name and Address Organization Details Last Updated DateTime 02/03/2025 26334.0663 7 g 110 mm[Hg] 74 mm[Hg] Mary Faller [facility] 02/03/2025 12:19:04 Date Recorded Body height Body mass index (BMI) Body weight Systolic blood pressure Diastolic blood pressure Provider Name and Address Organization Details Last Updated DateTime 02/03/2025 162.56 cm 34.5 kg/m2 32885.07 g 110 mm[Hg] 74 mm[Hg] PRIYANK Howe [facility] 12:27:53 Social History Question Answer Notes LastModified by Organizat ion Details LastModified Time Tobacco Smoking Status Never Smoker [email or web address] 11/23/2020 18:10:39 Do You Have An [...] Or The Highest Degree You Have Received? [id number] Information not available 11/23/2020 Are There Any Guns Present In Your Home? Yes Information not available 11/23/2020 What Was The Date Of Your Most Recent Tobacco Screening? 04/10/2021 [email or web address] Information not available 04/10/2021 Do You Use Protection During Sex? No Information not available 07/27/2024 Do You Use Your Seat Belt Or Car Seat Routinely? Yes Information not available 11/23/2020 Do You Have Smoke And Carbon Monoxide Detectors In Your Home? Yes Information not available 11/23/2020 How Much Tobacco Do You Smoke? No [email or web address] Information not available 08/18/2020 Do You Use Sunscreen Routinely? Yes Information not available 11/23/2020 Have You Used IV Drugs? No Information not available 11/23/2020 Sex: Unknown Functional Status Question Answer Note LastModified by Organizat ion Details LastModified Time Do you use any illicit or recreational drugs? Yes Information not available 12/21/2024 What is your level of alcohol consumption? None [id number] Information not available 07/18/2020 Do you or [...] anxious, or unable to sleep at night)? [id number] Information not available 11/23/2020 Family History Relationship [...] SNOMED-CT Code Diagnosis ICD10 Code Diagnosis Note [id number] Israel Pantoja MD [place] [address] [address] 01/12/2025 16:21:54 01/12/2025 17:19:02 Cholestasis of 557743354 O26.643 [id number] Israel Pantoja MD [place] [address],[place] [address] 01/17/2025 15:04:47 01/17/2025 16:07:11 Cholestasis of 315279204 O26.643 [id number] MD Bonita Hollis [address],[place] [address] 01/18/2025 09:23:01 01/18/2025 10:11:04 Cholestasis of 279528347 O26.643 [id number] Israel Pantoja MD [place] [address],[place] [address] 01/20/2025 13:30:45 01/20/2025 14:05:31 Cholestasis of 143903778 O26.643 Z3A.34 [id number] Israel Pantoja MD [place] [address],[place] [address] 01/20/2025 13:31:11 01/20/2025 14:43:30 Cholestasis 42652523 K83.1 [id number] MD Bonita Hollis [address] [address] 01/24/2025 09:27:20 01/24/2025 10:26:23 Cholestasis 19558597 K83.1 Urinary symptoms 0251156 08 R39.9 [id number] MD Bonita Hollis [address] [address],[place] [address] 01/27/2025 10:34:31 01/27/2025 11:10:54 Cholestasis of [id number] O26.643 Z3A.35 [id number] MD Bonita Hollis [address],[place] [address] 01/27/2025 10:34:44 01/27/2025 16:18:18 Cholestasis of [id number] O26.643 [id number] MD Bonita Hollis [address],[place] [address] 01/27/2025 10:34:58 01/27/2025 12:24:15 Cholestasis of [id number] O26.643 Past pregn theo history of section [id number] Z98.891 [id number] Israel Pantoja MD [place] [address],[place] [address] 01/31/2025 09:25:24 01/31/2025 17:09:48 Cholestasis [id number] K83.1 [id number] MD Bonita Hollis [address],[place] [address] 02/03/2025 10:57:28 02/03/2025 11:54:57 Cholestasis of [id number] O26.643 Z3A.36 [id number] Israel Pantoja MD [place] [address],[place] [address] 02/03/2025 10:58:17 02/03/2025 12:42:43 Chol[facility]asis [id number] K83.1 [id number] Israel Pantoja MD [place] [address],[place] [address] 02/03/2025 10:58:39 02/03/2025 12:45:23 Health Concerns Section Related Observation LastModified by Organization Detai ls LastModified Time None Recorded Concern Status LastModified by Organization Details LastModified Time None Recorded Payers Encounter Date Sequence Insurance Name Policy Number Policy Moralez Covered Member ID Moralez Member ID Guarantor Name 02/03/2025 1 [facility] ON OR AFTER 03/15/21 (MEDICAID REPLACEMENT - HMO) Mili Mcmahon [id number] Mili Mcmahon OBGyn Episode Ob Episode Information Episode Created Date Number of Fetuses Patient Bloodtype Patient rh Status Prepregnancy Weight lbs Domestic Partner Domestic Partner Phone Father Name Senior Security Engineer Status 08/26/20 24 1 O Positive 171 Moise OPEN Fetus Data First Name Last Name Admitted to NICU Weight (g) Sex Living Outcome Pediatric Complications Fetus ID Race Codes Race Delivery Type [id number] Problems Problem Notes + GBS amp in labor Problem Name Start Date End Date Resolution Snomed Code Not e Deliveries by 04 to repeat Migraine [id number] Pruritic disorder of skin 01/17/2025 [id number] Bile acids 7 Rp t labs, worsening [...] Weight in lbs Pre/Post Dialysis Refused Weight 169.305344857623 BP Diastolic BP Location Tested BP Systolic [...] Type Weight in lbs Pre/Post Dialysis Refused 167.118115997020 BP Diastolic BP Location Tested BP Systolic [...] Type Weight in lbs Pre/Post Dialysis Refused 176.085351546830 BP Diastolic BP Location Tested BP Systolic [...] Type Weight in lbs Pre/Post Dialysis Refused 182.112814057642 BP Diastolic BP Location Tested BP Systolic [...] Weight in lbs Pre/Post Dialysis Refused Weight 192.867464190791 BP Diastolic BP Location Tested BP Systolic [...] Type Weight in lbs Pre/Post Dialysis Refused 193.63580402850 BP Diastolic BP Location Tested BP Systolic [...] Weight in lbs Pre/Post Dialysis Refused Weight 193.152451506950 BP Diastolic BP Location Tested BP Systolic [...] Weight in lbs Pre/Post Dialysis Refused Weight 194.053732208950 BP Diastolic BP Location Tested BP Systolic [...] Type Weight in lbs Pre/Post Dialysis Refused 193.05158000818 BP Diastolic BP Location Tested BP Systolic [...] Type Weight in lbs Pre/Post Dialysis Refused 200.962269577139 BP Diastolic BP Location Tested BP Systolic [...] Type Weight in lbs Pre/Post Dialysis Refused 201.103903635902 BP Diastolic BP Location Tested BP Systolic [...] Weight in lbs Pre/Post Dialysis Refused Weight 201.336165076652 BP Diastolic BP Location Tested BP Systolic [...] Weight in lbs Pre/Post Dialysis Refused Weight 202.410178389611 BP Diastolic BP Location Tested BP Systolic BP Type 79 L arm 114 sitting Fetus Heart Rate Present Fetus Movement Comments Flowsheet Date 01/24/2025 Donahue Score Blood Edema Fundus Height Fundus Units Glucose Ketones Leukocytes Nitrite Labor Signs Protein Cervic Dilation Cervic Effacement Cervic Station Type Weight in lbs Pre/Post Dialysis Refused Weight 201.542134946054 BP Diastolic BP Location Tested BP Systolic [...] Weight in lbs Pre/Post Dialysis Refused Weight 201.160080279914 BP Diastolic BP Location Tested BP Systolic [...] Weight in lbs Pre/Post Dialysis Refused Weight 203.985954669173 BP Diastolic BP Location Tested BP Systolic [...] Weight in lbs Pre/Post Dialysis Refused Weight 201.302488662596 BP Diastolic BP Location Tested BP Systolic BP Type 74 110 Fetus Heart Rate Present Fetus Movement Comments Flowsheet Date 02/03/2025 Donahue Score Blood Edema Fundus Height Fundus Units Glucose Ketones Leukocytes Nitrite Labor Signs Protein Cervic Dilation Cervic Effacement Cervic Station Type Weight in lbs Pre/Post Dialysis Refused 201.153256597762 BP Diastolic BP Location Tested BP Systolic [...]
--- OUTSIDE RECORDS SUMMARY | 2025-02-03 16:32 | XMS_ITS | Clinical Summary ---
Author Organization [facility] Address [address] [place] [address] Care Team Providers Care Food And Nutrition Teacher Name Role Phone Brenda Fisher MD Primary Care Provider [phone] Source Comments [facility],non-owned Affiliates and Associated Physician Practices is amultiple site organization consisting of ambulatory clinics and hospital sitesin [place], [place], [place] and [place]. This disclosure is being madepursuant to the Care Everywhere program and may not contain all information available regarding this patient. 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 Gender Identity Not on file Sexual Orientation Not on file Last Filed Vital Signs Vital Sign Reading Time Taken Comments Blood Pressure 106/58 08/21/2010 10:46 AM COAL TRAM DRIVER Pulse 88 08/21/2010 10:46 AM COAL TRAM DRIVER Temperature - - Respiratory Rate 28 08/21/2010 10:46 AM COAL TRAM DRIVER Oxygen Saturation - - Inhaled Oxygen Concentration - - Weight 54.7 kg (120 lb 9.5 oz) 08/21/2010 10:46 AM COAL TRAM DRIVER Height 164.3 cm (5' 4.69 ) 08/21/2010 10:46 AM C Body Mass Index 20.26 08/21/2010 10:46 AM COAL TRAM DRIVER Plan of Treatment Health Maintenance Due Date [...] patient's age to complete this topic Insurance [employer] [facility] [place] [address] [employer] [facility] Care Teams Food And Nutrition Teacher Relationship Specialty Start Date End Date Brenda Fisher MD [address] [place] [phone] PCP - General 04/02/21
--- OUTSIDE RECORDS SUMMARY | 2025-02-03 16:32 | XMS_ITS | Continuity of Care Document ---
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 Imaging US, obstetr ic, biophys ical profile + non-str ess test 2024 025 [email or web address], [place], [address], 02/03/2025 11:54:57 Medication Orders None recorde d. Patient TargetsNo targets recorded. Patient InstructionsNo instructions recorded. Reason for Referral None Reported. Results Created Date Observation Date Name Description Value Unit Range Abnormal Flag Note LastModifiedBy Organization Detail LastModifiedTime 08/26/20 24 08/26/2024 US, obste tric, nucha l trans lucen cy No observ ation record ed. [email or web address] [place] [address], [place], [address], 08/26/2024 12:20:16 08/26/20 24 08/26/2024 US, obste tric, nucha l trans lucen cy No observ ation record ed. [email or web address] [address], [place], [address], 08/26/2024 20:51:22 10/14/19 25 10/14/2024 US, obste tric, 2nd or 3rd trime ster No observ ation record ed. [email or web address] [place] [address], [place], [address], 10/14/2024 12:36:34 10/14/19 25 10/14/2024 US, obste tric, 2nd or 3rd trime ster No observ ation record ed. [email or web address] [address], [place], [address], 10/14/2024 21:46:52 12/18/19 25 12/17/2024 non-s tress test No observ ation record ed. [email or web address] [facility] [place] [address], [place], [address], 12/17/2024 17:43:48 12/18/19 25 12/17/2024 non-s tress test No observ ation record ed. [address], [place], [address], 12/21/2024 14:44:42 12/18/19 25 12/17/2024 US, obste tric, bioph ysica l profi le No observ ation record ed. [address], [place], [address], 12/20/2024 15:26:26 12/18/19 25 12/17/2024 US, obste tric, bioph ysica l profi le No observ ation record ed. [email or web address] [facility] [address], [place], [address], 12/20/2024 15:26:43 12/22/19 25 12/21/2024 US, obste tric, follo w-up No observ ation record ed. [email or web address] [place] [address], [place], [address], 12/21/2024 14:11:47 12/22/19 25 12/21/2024 US, obste tric, follo w-up No observ ation record ed. [email or web address] [address], [place], [address], 12/21/2024 22:22:13 12/22/19 25 12/17/2024 non-s tress test No observ ation record ed. [email or web address] [address] [place] [address], [place], [address], 12/21/2024 18:48:58 01/19/20 25 01/18/2025 non-s tress test No observ ation record ed. [place] [address], [place], [address], 01/18/2025 09:26:19 01/21/20 25 01/20/2025 US, obste tric, bioph ysica l profi le + non-s tress test No observ ation record ed. [email or web address] [address] [place] [address], [place], [address], 01/20/2025 15:16:55 01/21/20 25 01/20/2025 US, obste tric, follo w-up No observ ation record ed. [email or web address] [facility] [address], [place], [address], 01/20/2025 15:17:06 01/21/20 25 01/20/2025 US, obste tric, follo w-up No observ ation record ed. [email or web address] [address], [place], [address], 01/25/2025 10:18:16 01/21/20 25 01/20/2025 non-s tress test No observ ation record ed. [email or web address] [place] [address], [place], [address], 01/20/2025 14:39:13 01/25/20 25 01/24/2025 non-s tress test No observ ation record ed. [place] [address], [place], [address], 01/24/2025 10:18:52 01/26/20 non-s tress test No observ ation record ed. [facility] [place] [address], [place], [address], 01/25/2025 11:49:46 01/28/20 25 01/27/2025 US, josse mcmillan, bioph ysica l profi le + non-s tress test No observ ation record ed. [email or web address] [place] [address], [place], [address], 01/27/2025 12:36:24 01/28/20 25 01/27/2025 US, obste tric, follo w-up No observ ation record ed. [email or web address] [address], [place], [address], 01/28/2025 09:16:33 01/28/20 25 01/27/2025 non-s tress test No observ ation record ed. [email or web address] [place] [address], [place], [address], 01/28/2025 14:16:56 01/28/20 non-s tress test No observ ation record ed. [place] [address], [place], [address], 01/27/2025 16:03:33 02/01/20 25 01/31/2025 non-s tress test No observ ation record ed. [place] [address], [place], [address], 01/31/2025 17:04:57 02/04/20 25 02/03/2025 US, obste tric, bioph ysica l profi le + non-s tress test No observ ation record ed. [email or web address] [place] [address], [place], [address], 02/03/2025 11:33:28 02/04/20 25 02/03/2025 US, obste tric, bioph ysica l profi le + non-s tress test No observ ation record ed. [email or web address], [place], [address], 02/03/2025 11:31:37 02/04/20 25 02/03/2025 non-s tress test No observ ation record ed. [place] [address], [place], [address], 02/03/2025 14:19:23 Result Notes None recorded. Problems Name Problem SNOMED Code Status Onset Date Resolution Date Notes Provider Name and Address Organization Details Recorded Time Complica tion of pregnanc y, childbir th and/or puerperi 075044930 Completed 201709/19/2020 Oth diseases and conditio ns compl preg/chl dbrth;Re corded Elsewher e: No Locat ion: [facility] S ource: EHR Nailing Machine Operator Automatic ramírez: N Practi ce ID: 0001 Bernard lable Time: 03:45:00 PM Annie Lehman MD [address], [place], [address], [facility] 11:19:26 Antenata l screenin g Completed 201709/19/2020 Encounte r for antenata l screenin g for nuchal transluc ency;Rec orded Elsewher e: No Locat ion: [facility] S ource: EHR Nailing Machine Operator Automatic ramírez: N Josieti ce ID: 0001 Bernard lable Time: 02:30:00 PM Annie Lehman MD [address], [place], [address], [facility] 11:19:56 Bartholi nitis 1251857 Completed 201809/19/2020 Other diseases of Bartholi n's gland;Re corded Elsewher e: No Locat ion: [facility] S ource: EHR Nailing Machine Operator Automatic ramírez: N Josieti ce ID: 0001 Bernard lable Time: 11:00:00 AM Annie Lehman MD [address], [place], [address], [facility] 11:17:48 Pregnanc y, childbir th and puerperi um finding Completed 201709/19/2020 Encntr for suprvsn of normal first preg, third trimeste r;Record ed Elsewher e: No Locat ion: [facility] S ource: EHR Nailing Machine Operator Automatic ramírez: N Josieti ce ID: 0001 Bernard lable Time: 04:00:00 PM Annie Lehman MD [address], [place], [address], [facility] 11:19:01 Pregnanc y, childbir th and puerperi um finding Completed 201709/19/2020 Encounte r for supervis ion of normal 1st pregnanc y, 1st trimeste r;Record ed Elsewher e: No Locat ion: [facility] S ource: EHR Nailing Machine Operator Automatic ramírez: N Practi ce ID: 0001 Bernard lable Time: 03:00:00 PM Annie Lehman MD [address], [place], [address], [facility] 11:18:57 Missed miscarri age 55262727 Completed 201809/19/2020 Missed ;Recorde d Elsewher e: No Locat ion: [facility] S ource: EHR Nailing Machine Operator Automatic ramírez: N Practi ce ID: 0001 Bernard lable Time: 02:00:00 PM Annie Lehman MD [address], [place], [address], [facility] 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 11:19:14 Spotting per vagina in pregnanc y 079466239 Completed 201709/19/2020 Spotting complica ting pregnanc y, second trimeste r;Record ed Elsewher e: No Locat ion: [facility] S ource: EHR Nailing Machine Operator Automatic ramírez: N Practi ce ID: 0001 Bernard lable Time: 02:15:00 PM Annie Lehman MD [address], [place], [address], [facility] 1 11:19:16 Placenta previa 12487420 Completed 201709/19/2020 Placenta previa specifie d as w/o hemor, second trimeste r;Record ed Elsewher e: No [facility]: [facility] Nailing Machine Operator Automatic ramírez: N Josieti ce ID: 0001 Bernard lable Time: 01:00:00 PM Annie Lehman MD [address], [place], [address], [facility] 1 11:18:52 Increase d frequenc y of urinatio n 318693540 Completed 201909/19/2020 Frequenc y of micturit ion;Amandeep rded Elsewher e: No Locat ion: [facility] S ource: EHR Nailing Machine Operator Automatic ramírez: N Josieti ce ID: 0001 Bernard lable Time: 02:30:00 PM Annie Lehman MD [address], [place], [address], [facility] 1 11:18:33 Gestatio n period, 8 weeks 19683088 Completed 201809/19/2020 8 weeks gestatio n of pregnanc y;Record ed Elsewher e: No Locat ion: [facility] S ource: EHR Nailing Machine Operator Automatic ramírez: N Josieti ce ID: 0001 Bernard lable Time: 02:00:00 PM Annie Lehman MD [address], [place], [address], [facility] 1 11:18:28 Normal pregnanc y in multigra andrzej 6803514192 46576 Completed 201709/19/2020 Encounte r for supervis ion of other normal pregnanc y, 3rd trimeste r;Record ed Elsewher e: No Locat ion: [facility] S ource: EHR Nailing Machine Operator Automatic ramírez: N Practi ce ID: 0001 Bernard lable Time: 02:00:00 PM Annie Lehman MD [address], [place], [address], [facility] 1 11:18:49 Antenata l screenin g for malforma tion Completed 201709/19/2020 Encounte r for antenata l screenin g for malforma tions;Pr actice ID: 0001 Annie Lehman MD [address], [place], [address], [facility] 11:19:53 Gestatio n period, 18 weeks 83980147 Completed 201709/19/2020 18 weeks gestatio n of pregnanc y;Practi ce ID: 0001 Annie Lehman MD [address], [place], [address], [facility] 11:18:12 Gestatio n period, 17 weeks 14192193 Completed 201709/19/2020 17 weeks gestatio n of pregnanc y;Practi ce ID: 0001 Annie Lehman MD [address], [place], [address], [facility] 11:18:10 Pregnanc y, childbir th and puerperi um finding Completed 201709/19/2020 Encntr for suprvsn of normal first preg, second trimeste r;Practi ce ID: 0001 Annie Lehman MD [address], [place], [address], [facility] 11:18:59 Gestatio n period, 24 weeks 953882829 Completed 201709/19/2020 24 weeks gestatio n of pregnanc y;Record ed Elsewher e: No Locat ion: [facility] S ource: EHR Nailing Machine Operator Automatic ramírez: N Josieti ce ID: 0001 Bernard lable Time: 01:00:00 PM Annie Lehman MD [address], [place], [address], [facility] 11:18:15 Gestatio n period, 27 weeks 47393073 Completed 201709/19/2020 27 weeks gestatio n of pregnanc y;Record ed Elsewher e: No Locat ion: [facility] S ource: EHR Nailing Machine Operator Automatic ramírez: N Josieti ce ID: 0001 Bernard lable Time: 03:15:00 PM Annie Lehman MD [address], [place], [address], [facility] 1 11:18:19 Pregnanc y detectio n examinat ion Completed 201809/19/2020 Encounte r for pregnanc y test, result positive ;Recorde d Elsewher e: No Locat ion: [facility] S ource: EHR Nailing Machine Operator Automatic ramírez: N Josieti ce ID: 0001 Bernard lable Time: 02:00:00 PM Annie Lehman MD [address], [place], [address], [facility] 11:18:54 Uses combined oral contrace ption 353337110 Completed 201809/19/2020 Encounte r for surveill ance of contrace ptive pills;Re corded Elsewher e: No [facility] S ource: EHR Nailing Machine Operator Automatic ramírez: N Leticia ce ID: 0001 Bernard lable Time: 10:45:00 AM Annie Lehman MD [address], [place], [address], [facility] 11:18:02 Lochia finding Completed 201709/19/2020 Encounte r for routine postpart um follow-u p;Record ed Elsewher e: No Locat ion: [facility] S ource: EHR Nailing Machine Operator Automatic ramírez: N Josieti ce ID: 0001 Bernard lable Time: 01:15:[address] MD [address], [place], [address], [facility] 1 11:18:43 Rubella screenin g status 508487717 Completed 201709/19/2020 Encounte r for antenata l screenin g, unspecif ied;Amandeep rded Elsewher e: No [facility] S ource: EHR Nailing Machine Operator Automatic ramírez: N Practi ce ID: 0001 Bernard lable Time: 03:30:00 PM Annie Lehman MD [address], [place], [address], [facility] 11:19:07 Prematur e labor 6784378 Completed 201709/19/2020 labor without delivery , second trimeste r;Josieti ce ID: 0001 Annie Lehman MD [address], [place], [address], [facility] 11:19:05 False labor before 37 complete d weeks of gestatio n 2559505782 8618785 Completed 201709/19/2020 False labor before 37 complete d weeks of gest, second tri;Prac michel ID: 0001 Annie Lehman MD [address], [place], [address], [facility] 11:18:07 Gestatio n period, 26 weeks 55321465 Completed 201709/19/2020 26 weeks gestatio n of pregnanc y;Practi ce ID: 0001 Annie Lehman MD [address], [place], [address], [facility] 11:18:17 Syphilis test finding 245470415 Completed 201809/19/2020 Encntr screen for infectio ns w sexl mode of transmis s;Record ed Elsewher e: No Locat ion: [facility] S ource: EHR Nailing Machine Operator Automatic ramírez: N Practi ce ID: 0001 Bernard lable Time: 02:00:00 PM Annie Lehman MD [address], [place], [address], [facility] 1 11:19:18 Disorder of perineum Completed 201709/19/2020 Anogenit al (venerea l) warts;Re corded Elsewher e: No Locat ion: [facility] S ource: EHR Nailing Machine Operator Automatic ramírez: N Practi ce ID: 0001 Bernard lable Time: 08:45:00 AM Annie Lehman MD [address], [place], [address], [facility] 1 11:19:29 Cardiac arrhythm ia Completed 201709/19/2020 Prematur e contract ion;Amandeep rded Elsewher e: No Locat ion: [facility] S ource: EHR Nailing Machine Operator Automatic ramírez: N Practi ce ID: 0001 Bernard lable Time: 08:45:00 AM Annie Lehman MD [address], [place], [address], [facility] 1 11:17:56 Pregnanc y, childbir th and puerperi um finding Completed 201709/19/2020 Oth pregnanc y related conditio ns, second trimeste r;Practi ce ID: 0001 Annie Lehman MD [address], [place], [address], [facility] 1 11:17:54 Infectio n screenin g Completed 201809/19/2020 Encounte r for screenin g for oth infec/pa rastc diseases ;Recorde d Elsewher e: No Locat ion: [facility] S ource: EHR Nailing Machine Operator Automatic ramírez: N Practi ce ID: 0001 Bernard lable Time: 02:00:[address] MD [address], [place], [address], [facility] 1 11:18:36 Pregnanc y, childbir th and puerperi um finding Completed 201709/19/2020 Oth pregnanc y related conditio ns, third trimeste r;Practi ce ID: 0001 Annie Lehman MD [address], [place], [address], [facility] 11:17:59 Gestatio n period, 36 weeks 66792068 Completed 201709/19/2020 36 weeks gestatio n of pregnanc y;Practi ce ID: 0001 Annie Lehman MD [address], [place], [address], [facility] 11:18:22 False labor at or after 37 complete d weeks of gestatio n 356370758 Completed 201709/19/2020 False labor at or after 37 complete d weeks of gestatio n;Practi ce ID: 0001 Annie Lehman MD [address], [place], [address], [facility] 11:18:04 Gestatio n period, 37 weeks 78455180 Completed 201709/19/2020 37 weeks gestatio n of pregnanc y;Practi ce ID: 0001 Annie Lehman MD [address], [place], [address], [facility] 11:18:24 Lacerati on of female perineum Completed 201709/19/2020 Second degree perineal lacerati on during delivery ;Practic e ID: 0001 Annie Lehman MD [address], [place], [address], [facility] 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 13:56:59 Single live from singleto n pregnanc y 597632110 Completed 201709/19/2020 Single live ;Pr actice ID: 0001 Annie Lehman MD [address], [place], [address], [facility] 11:19:11 Gestatio n period, 39 weeks 49942834 Completed 201709/19/2020 39 weeks gestatio n of pregnanc y;Practi ce ID: 0001 Annie Lehman MD [address], [place], [address], [facility] 11:18:26 Secondar y amenorrh ea 015679912 Completed 201809/19/2020 Secondar y amenorrh ea;Recor ded Elsewher e: No [facility] S ource: EHR Nailing Machine Operator Automatic ramírez: N Practi ce ID: 0001 Bernard lable Time: 02:00:00 PM Annie Lehman MD [address], [place], [address], [facility] 11:19:09 Pregnanc y 79407719 Completed 201902/01/2021 Mary Moreland null, [facility] 4 10:07:10 growth restrict ion 90558477 Completed 2020 weekly doppler, antenata l testing at 32wks Eneida Leenstieh l null, [facility] 1 10:52:12 False labor 964968043 Completed Procardi a 30mg Eneida Bohnenstieh l null, [facility] 1 10:52:12 Abdomina l pain 37810352 Completed Eneida Edwin culp [facility], [facility] 1 10:52:12 growth restrict ion 01965840 Completed 202003/14/2021 weekly doppler, antenata l testing at 32wks Jayna Rivas null, [facility] 1 13:57:01 Pregnanc y 92804929 Active 2023 Mary Aniceto [facility], [facility] 4 10:07:10 Deliveri es by 392934770 Active to repeat Israel Pantoja MD [address], [place], [address], [facility] 4 10:34:35 Migraine 41259635 Active Israel Pantoja MD [address], [place], [address], [facility] 4 10:34:47 Pruritic disorder of skin Active 2024 Bile acids 7 Rpt labs, worsenin g pruritus 5 bile acid 2 Aubree Jones null, [facility] 5 13:32:27 Problem Notes None recorded. Procedures Surgical History Date Name Laterality Status Provider Name and Address Organization Details Recorded Time 3 Date of Last Pap Smear completed Mary Moreland [facility] 07/27/2024 14:36:52 2 Caesarean Section completed Mary Moreland [facility] 07/27/2024 14:40:18 9 Dilation and Curettage completed Sharri Monahan [facility] 06/22/2020 11:59:28 Imaging Results Imaging Date Name Status LastModified by Organiz ation Details LastModified Time 02/03/2025 US, obstetric, biophysical profile + non-stress test completed [email or web address] [facility] [address], [place], [address], 02/03/2025 11:33:28 Procedure Notes None recorded. Medical Equipment None [...] Prescrib ed Elsewher e: No Locat ion: [facility] odify By: jones perera DateTime : 02/03/20 [...] Prescrib ed Elsewher e: No Locat ion: [facility] odify By: yusuf pack DateTime : 01/30/20 10:10:19 AM Not Available [...] completed Prescrib elliott greenberg: Yes Loca tion: [facility] odify By: yusuf pack DateTime [...] Available ID NOW COVID-19 Test Kit DIRECTED [id number] 32 07/27 completed Not Available Not Available Not Available Vitals Date Recorded Body weight Systolic blood pressure Diastolic blood pressure Provider Name and Address Organization Details Last Updated DateTime 02/03/2025 03614.0663 7 g 110 mm[Hg] 74 mm[Hg] Mary Moreland [facility] 02/03/2025 12:19:04 Date Recorded Body height Body mass index (BMI) Body weight Systolic blood pressure Diastolic blood pressure Provider Name and Address Organization Details Last Updated DateTime 02/03/2025 162.56 cm 34.5 kg/m2 70300.07 g 110 mm[Hg] 74 mm[Hg] PRIYANK Howe [facility] 12:27:53 Social History Question Answer Notes LastModified by Organizat ion Details LastModified Time Tobacco Smoking Status Never Smoker [facility] 11/23/2020 18:10:39 Do You Have [...] Or The Highest Degree You Have Received? [id number] Information not available 11/23/2020 Are There Any Guns Present In Your Home? Yes Information not available 11/23/2020 What Was The Date Of Your Most Recent Tobacco Screening? 04/10/2021 [email or web address] Information not available 04/10/2021 Do You Use Protection During Sex? No Information not available 07/27/2024 Do You Use Your Seat Belt Or Car Seat Routinely? Yes Information not available 11/23/2020 Do You Have Smoke And Carbon Monoxide Detectors In Your Home? Yes Information not available 11/23/2020 How Much Tobacco Do You Smoke? No [email or web address] Information not available 08/18/2020 Do You Use Sunscreen Routinely? Yes Information not available 11/23/2020 Have You Used IV Drugs? No Information not available 11/23/2020 Sex: Unknown Functional Status Question Answer Note LastModified by Organizat ion Details LastModified Time Do you use any illicit or recreational drugs? Yes Information not available 12/21/2024 What is your level of alcohol consumption? None [id number] Information not available 07/18/2020 Do you or [...] anxious, or unable to sleep at night)? [id number] Information not available 11/23/2020 Family History Relationship [...] SNOMED-CT Code Diagnosis ICD10 Code Diagnosis Note [id number] Israel Pantoja MD [facility] [address] [address] 01/12/2025 16:21:54 01/12/2025 17:19:02 Cholestasis of 043884909 O26.643 [id number] MD Bonita Hollis [address],[place] [address] 01/17/2025 15:04:47 01/17/2025 16:07:11 Cholestasis of 989577675 O26.643 [id number] MD Bonita Hollis [address],[place] [address] 01/18/2025 09:23:01 01/18/2025 10:11:04 Cholestasis of 750066865 O26.643 [id number] MD Bonita Hollis [address],[place] [address] 01/20/2025 13:30:45 01/20/2025 14:05:31 Cholestasis of 272769564 O26.643 Z3A.34 [id number] MD Bonita Hollis [address],[place] [address] 01/20/2025 13:31:11 01/20/2025 14:43:30 Cholestasis 57197341 K83.1 [id number] MD Bonita Hollis [address],[place] [address] 01/24/2025 09:27:20 01/24/2025 10:26:23 Cholestasis [id number] K83.1 Urinary symptoms [id number] R39.9 [id number] MD Bonita Hollis [address],[place] [address] 01/27/2025 10:34:31 01/27/2025 11:10:54 Cholestasis of [id number] O26.643 Z3A.35 [id number] MD Bonita Hollis [address],[place] [address] 01/27/2025 10:34:44 01/27/2025 16:18:18 Cholestasis of [id number] O26.643 [id number] MD Bonita Hollis [address],[place] [address] 01/27/2025 10:34:58 01/27/2025 12:24:15 Cholestasis of [id number] O26.643 Past pregn theo history of section [id number] Z98.891 [id number] MD Bonita Hollis [address],[place] [address] 01/31/2025 09:25:24 01/31/2025 17:09:48 Cholestasis [id number] K83.1 [id number] MD Bonita Hollis [address],[place] [address] 02/03/2025 10:57:28 02/03/2025 11:54:57 Cholestasis of [id number] O26.643 Z3A.36 [id number] Israel Pantoja MD [place] [address],[place] [address] 02/03/2025 10:58:17 02/03/2025 12:42:43 Cholestasis [id number] K83.1 [id number] Israel Pantoja MD [place] [address],[place] [address] 02/03/2025 10:58:39 02/03/2025 12:45:23 Health Concerns Section Related Observation LastModified by Organization Detai ls LastModified Time None Recorded Concern Status LastModified by Organization Details LastModified Time None Recorded Payers Encounter Date Sequence Insurance Name Policy Number Policy Moralez Covered Member ID Moralez Member ID Guarantor Name 02/03/2025 1 [facility] ON OR AFTER 03/15/21 (MEDICAID REPLACEMENT - HMO) Mili Mcmahon [id number] Mili Mcmahon OBGyn Episode Ob Episode Information Episode Created Date Number of Fetuses Patient Bloodtype Patient rh Status Prepregnancy Weight lbs Domestic Partner Domestic Partner Phone Father Name Patient Care Assistant Status 08/26/20 24 1 O Positive 171 Moise OPEN Fetus Data First Name Last Name Admitted to NICU Weight (g) Sex Living Outcome Pediatric Complications Fetus ID Race Codes Race Delivery Type [id number] Problems Problem Notes + GBS amp in labor Problem Name Start Date End Date Resolution Snomed Code Not e Deliveries by [id number] 04 to repeat Migraine [id number] Pruritic disorder of skin 01/17/2025 [id number] Bile acids 7 Rp t labs, worsening [...] Weight in lbs Pre/Post Dialysis Refused Weight 169.496983242373 BP Diastolic BP Location Tested BP Systolic [...] Type Weight in lbs Pre/Post Dialysis Refused 167.776416146724 BP Diastolic BP Location Tested BP Systolic [...] Type Weight in lbs Pre/Post Dialysis Refused 176.938670441455 BP Diastolic BP Location Tested BP Systolic [...] Type Weight in lbs Pre/Post Dialysis Refused 182.562643983459 BP Diastolic BP Location Tested BP Systolic [...] Weight in lbs Pre/Post Dialysis Refused Weight 192.207450604837 BP Diastolic BP Location Tested BP Systolic [...] Type Weight in lbs Pre/Post Dialysis Refused 193.77901525604 BP Diastolic BP Location Tested BP Systolic [...] Weight in lbs Pre/Post Dialysis Refused Weight 193.850834424368 BP Diastolic BP Location Tested BP Systolic [...] Weight in lbs Pre/Post Dialysis Refused Weight 194.698090769676 BP Diastolic BP Location Tested BP Systolic [...] Type Weight in lbs Pre/Post Dialysis Refused 193.65373271193 BP Diastolic BP Location Tested BP Systolic [...] Type Weight in lbs Pre/Post Dialysis Refused 200.046813667623 BP Diastolic BP Location Tested BP Systolic [...] Type Weight in lbs Pre/Post Dialysis Refused 201.215257451956 BP Diastolic BP Location Tested BP Systolic [...] Weight in lbs Pre/Post Dialysis Refused Weight 201.870814750909 BP Diastolic BP Location Tested BP Systolic [...] Weight in lbs Pre/Post Dialysis Refused Weight 202.575981321297 BP Diastolic BP Location Tested BP Systolic BP Type 79 L arm 114 sitting Fetus Heart Rate Present Fetus Movement Comments Flowsheet Date 01/24/2025 Donahue Score Blood Edema Fundus Height Fundus Units Glucose Ketones Leukocytes Nitrite Labor Signs Protein Cervic Dilation Cervic Effacement Cervic Station Type Weight in lbs Pre/Post Dialysis Refused Weight 201.576052732509 BP Diastolic BP Location Tested BP Systolic [...] Weight in lbs Pre/Post Dialysis Refused Weight 201.526415838334 BP Diastolic BP Location Tested BP Systolic [...] Weight in lbs Pre/Post Dialysis Refused Weight 203.855250556379 BP Diastolic BP Location Tested BP Systolic [...] Weight in lbs Pre/Post Dialysis Refused Weight 201.351128256065 BP Diastolic BP Location Tested BP Systolic BP Type 74 110 Fetus Heart Rate Present Fetus Movement Comments Flowsheet Date 02/03/2025 Donahue Score Blood Edema Fundus Height Fundus Units Glucose Ketones Leukocytes Nitrite Labor Signs Protein Cervic Dilation Cervic Effacement Cervic Station Type Weight in lbs Pre/Post Dialysis Refused 201.544566792592 BP Diastolic BP Location Tested BP Systolic [...]
[2025-02-03 17:32] LABS: Hematocrit 31.8 % (37.0-47.0); Hemoglobin 9.8 g/dL (12.0-15.0); Mean Corpuscular HGB Conc 30.8 g/dl (32-36); Mean Corpuscular Hemoglobin 24.7 pg (26-34); Mean Corpuscular Volume 80.3 fl (80-100); Mean Platelet Volume 10.3 fl (7.4-10.4); Platelet Count Result 241 k/mm3 (150-375); Red Blood Count 3.96 M/mm3 (4.2-5.4); White Blood Count 12.8 K/mm3 (4.5-10.0)
[2025-02-03 18:02] LABS: Syphilis IgG/IgM Antibody Negative (Negative)
== END 2025-02-03 16:28 | disposition home or self-care (01) ==
PROVIDERS: Visit Provider Obstetrics & Gynecology
DX: Z01.818 Encounter for other preprocedural examination (principal)
CPT/HCPCS: 36415; 85027; 86593; 86850; 86900; 86901

== ENCOUNTER 2025-02-04 05:26 | Inpatient (IN) | payer OTHER, SELFPAY ==
[2025-02-04] VITALS (57 sets, daily range): BP systolic 100–121; BP diastolic 53–68; PULSE 69–119; RESP 14–19; TEMP 36.1–36.9; O2SAT 88–100; BMI 34.8
--- OUTSIDE RECORDS SUMMARY | 2025-02-04 05:30 | XMS_ITS | Clinical Summary ---
Author Organization [facility] Address [address] [place] [address] Care Team Providers Care Spindle Maker Name Role Phone Brenda Fisher MD Primary Care Provider [phone] Source Comments [facility],non-owned Affiliates and Associated Physician Practices is amultiple site organization consisting of ambulatory clinics and hospital sitesin [place], [place], [place] and [place]. This disclosure is being madepursuant to the Care Everywhere program and may not contain all information available regarding this patient. 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 Gender Identity Not on file Sexual Orientation Not on file Last Filed Vital Signs Vital Sign Reading Time Taken Comments Blood Pressure 106/58 08/21/2010 10:46 AM ASSOCIATE GENETICS PROFESSOR Pulse 88 08/21/2010 10:46 AM ASSOCIATE GENETICS PROFESSOR Temperature - - Respiratory Rate 28 08/21/2010 10:46 AM ASSOCIATE GENETICS PROFESSOR Oxygen Saturation - - Inhaled Oxygen Concentration - - Weight 54.7 kg (120 lb 9.5 oz) 08/21/2010 10:46 AM ASSOCIATE GENETICS PROFESSOR Height 164.3 cm (5' 4.69 ) 08/21/2010 10:46 AM C Body Mass Index 20.26 08/21/2010 10:46 AM ASSOCIATE GENETICS PROFESSOR Plan of Treatment Health Maintenance Due Date [...] patient's age to complete this topic Insurance [place] [employer] [facility] [place] [address] [employer] [address] [facility] Care Teams Spindle Maker Relationship Specialty Start Date End Date Brenda Fisher MD [address] [place] [phone] PCP - General 04/02/21
--- OUTSIDE RECORDS SUMMARY | 2025-02-04 05:30 | XMS_ITS | Clinical Summary ---
Author Organization [facility] Address [address] [place] [phone] Phone Care Team Providers Care Perishable Fruit Inspector Name Role Phone Unavailable Primary Care Provider [...] patient's age to complete this topic Insurance [facility] MEDICAID
[2025-02-04] MEDS: ACETAMINOPHEN 500 MG TABLET 1000 MG PO (05:47)
[2025-02-04] MEDS: LACTATED RINGERS 1,000 ML 125 ML IV CONT ×2 (05:49→07:08)
--- NOTE | 2025-02-04 06:31 | LDADM ---
This patient, iMli Palm, was admitted to Labor/Delivery/Recovery 120 on 02/04/25 at 05:26. Plans for labor, pain management and were discussed with patient. Patient/family oriented to hospital policies and general routines including ID bracelet, bed and alarms, visiting hours, pain management, procedures, bathroom and other care routines, personal items, smoking policy, room service/diet and guest tray routines, security routines, and visiting hours. Patient/Family are encouraged to report perceived risks to care and to ask questions if they do not understand what they are told or what they should do. See OBIX for further documentation.
[2025-02-04 06:35] LABS: HIV 1/2 Ab P24 Ag Result Negative (Negative)
--- NOTE | 2025-02-04 07:03 | WPDANESEPPF ---
Anes - Initial Pre Proc Eval Procedure: Operation Date: 02/04/25 07:30 Proposed Procedures p Repeat Section - Israel Pantoja MD Date/Time: 02/04/25 07:03 Surgeon: Israel Pantoja MD Pre Op Diagnosis: Patient Data Age: 30 Gender: F Height: 1.63 m Weight: 92 kg Last Vital Signs Pulse 91 02/04/25 06:46 BP 109/61 02/04/25 06:46 Pulse Ox 99 02/04/25 06:04 O2 Del Method Room Air 02/04/25 06:29 Allergies Allergy/AdvReac Type Severity Reaction Status Date / Time animal dander Allergy Intermediate Itching Verified 12/16/24 18:01 Home Medications ?Medication ?Instructions ?Recorded ?Confirmed ?Type acetaminophen 500 mg tablet 1,000 mg PO Q6H PRN fever or pain 12/16/24 12/16/24 History vit no.95-ferrous 1 tablet PO DAILY 12/16/24 12/16/24 History fumarate 28 mg-folic acid 800 mcg tablet () nifedipine 30 mg tablet,extended 30 mg PO DAILY #30 tabs 01/01/25 Rx release 24 hr (Procardia XL) Laboratory Tests 02/04/25 05:40 HIV 1&2 Ab/P24 Ag 4thGn Negative (Negative) Patient hx anesthesia problems: none Family hx anesthesia problems: none Results Review: All pre-operative results and documents have been reviewed as part of the pre-operative evaluation. [facility] Past Medical History Medical History False labor before 37 completed weeks of gestation Vaginal discharge IUGR (intrauterine growth restriction) 2nd Anemia Generalized headaches History of miscarriage, currently x 1 History of vaginal delivery x3 Surgical History Surgical History History of dilation and curettage x 13 Jan 2019 for Miscarriage Family History Family History Mother Diabetes mellitus Family history of blood dyscrasia Hypertension Asthma Father Hypertension Alcoholism Diabetes mellitus Depression Daughter Asthma Grandparent Liver cancer Alcoholism Hypertension Heart disease Social History Social History Smoking status: Never smoker Second hand tobacco smoke exposure: No Alcohol intake: never Substance use: never Do You Feel Safe in your Home?: Yes Lack of Transportation: No Lack of Food: Never True Current Housing: I Have Housing Concerned About Future Housing: No Difficulty Paying Gas/Electric Bills: No Difficulty Paying for Meds: No Currently Unemployed: No Education: High School Diploma/GED Difficulty w/ Childcare or Family Care: No Gender identity (if verbalized by the patient): Female Spiritual care concerns: No Anes - Eval Final PreProcedure Day of Procedure 02/04/25 07:03 Patient weight: obese Heart: regular rate and rhythm Lungs: clear to auscultation Airway: Mallampati scale class II Neurological: alert and oriented Last oral intake: >/= 8 hours ASA classification: II Emergent: no Anesthetic plan: proceed Anesthesia type and monitoring: regional spinal and standard monitoring Results Review: All pre-operative results and documents have been reviewed as part of the pre-operative evaluation. Informed Consent: The patient's anesthetic plan and its attendant risks and benefits were discussed with the patient/family/POA. Questions were solicited and answers provided to the satisfaction of the patient/family/POA.
[2025-02-04] MEDS: FAMOTIDINE 20 MG/2 ML VIAL IV PUSH (07:19)
[2025-02-04] MEDS: ONDANSETRON INJ 4 MG/2 ML VIAL IV PUSH ×2 (07:19→12:58)
--- NOTE | 2025-02-04 08:12 | PM.IMHP ---
H&P: HPI History of Present Illness Date/Time: 02/04/25 08:12 Chief Complaint: Term Narrative: 30-year-old multiparous female at term with previous delivery. We agreed to perform repeat delivery. She understands risks, benefits, and alternatives. She has completed informed consent process is ready to proceed The patient understands the details of the procedure. The procedure has been explained in detail. She understands the risks. She understands that injuries may occur that result in hospitalization, more surgery, and severe illness. She understands risk of hemorrhage and infection. She denies any chest pain or shortness of breath. She denies any nausea, vomiting, fever, chills. Review of Systems Review of Systems: All systems reviewed & are unremarkable except as noted in HPI and below Constitutional: Constitutional: Denies chills, Denies fatigue, Denies fever(s) and Denies weakness Eyes: Eyes: Denies blurry vision, Denies change in vision, Denies loss of peripheral vision, Denies loss of vision, Denies other visual disturbances and Denies eye pain ENT: Denies vertigo, Denies dizziness, Denies hearing loss, Denies mouth pain, Denies nasal obstruction, Denies neck mass and Denies neck pain Cardiovascular: Cardiovascular: Denies chest pain, Denies diaphoresis, Denies syncope, Denies leg edema and Denies dyspnea Respiratory: Respiratory: Denies chest congestion, Denies cough, Denies hemoptysis, Denies dyspnea and Denies wheezing Gastrointestinal: Gastrointestinal: Denies abdominal pain, Denies constipation, Denies diarrhea, Denies nausea and Denies vomiting Genitourinary: Genitourinary: Denies hematuria, Denies change in libido, Denies nocturia, Denies genital lesions, Denies flank pain and Denies urinary urgency Musculoskeletal: Musculoskeletal: Denies abnormal gait, Denies back pain, Denies myalgias, Denies arthralgias, Denies joint swelling, Denies muscle weakness and Denies neck pain Integumentary/Breasts: Skin/Breast: Denies swelling, Denies breast pain, Denies breast mass, Denies dry skin, Denies nipple discharge, Denies unusual bruising and Denies jaundice Neurologic: Denies Neuro-related abnormal movements, Denies Abnormal speech present, Denies abnormal gait, Denies behavioral changes, Denies confusion, Denies vertigo, Denies dizziness, Denies syncope, Denies loss of vision, Denies memory loss, Denies convulsions and Denies weakness Psychiatric: Psychiatric: Denies abnormal sleep pattern, Denies behavioral changes, Denies change in libido, Denies confusion, Denies depression, Denies anhedonia and Denies memory loss Endocrine: Endocrine: Reports no additional endocrine complaints, Denies change in libido and Denies fatigue Hematologic/Lymphatic: Hematologic/Lymphatic: Reports no additional hematologic/lymphatic complaints Allergic/Immunologic: Allergic/Immunologic: Reports no additional allergic/immunologic complaints and Denies wheezing PMFSH Past Medical History Medical History False labor before 37 completed weeks of gestation Vaginal discharge IUGR (intrauterine growth restriction) 2nd Anemia Generalized headaches History of miscarriage, currently x 1 History of vaginal delivery x3 Surgical History Surgical History History of dilation and curettage x 13 Jan 2019 for Miscarriage Family History Family History Mother Diabetes mellitus Family history of blood dyscrasia Hypertension Asthma Father Hypertension Alcoholism Diabetes mellitus Depression Daughter Asthma Grandparent Liver cancer Alcoholism Hypertension Heart disease Social History Social History Smoking status: Never smoker Second hand tobacco smoke exposure: No Alcohol intake: never Substance use: never Do You Feel Safe in your Home?: Yes Lack of Transportation: No Lack of Food: Never True Current Housing: I Have Housing Concerned About Future Housing: No Difficulty Paying Gas/Electric Bills: No Difficulty Paying for Meds: No Currently Unemployed: No Education: High School Diploma/GED Difficulty w/ Childcare or Family Care: No Gender identity (if verbalized by the patient): Female Spiritual care concerns: No Meds Home Medications and Allergies Home Medications ?Medication ?Instructions ?Recorded ?Confirmed ?Type acetaminophen 500 mg tablet 1,000 mg PO Q6H PRN fever or pain 12/16/24 12/16/24 History vit no.95-ferrous 1 tablet PO DAILY 12/16/24 12/16/24 History fumarate 28 mg-folic acid 800 mcg tablet () nifedipine 30 mg tablet,extended 30 mg PO DAILY #30 tabs 01/01/25 Rx release 24 hr (Procardia XL) Allergies Allergy/AdvReac Type Severity Reaction Status Date / Time animal dander Allergy Intermediate Itching Verified 12/16/24 18:01 Vital Signs Vital Signs - 24 hr 02/04/25 05:35 02/04/25 05:46 02/04/25 05:49 Pulse Rate 99 99 Blood Pressure 115/55 L 121/63 Pulse Oximetry 99 Oxygen Delivery 02/04/25 05:54 02/04/25 05:59 02/04/25 06:01 Pulse Rate 94 Blood Pressure 113/66 Pulse Oximetry 99 100 Oxygen Delivery 02/04/25 06:04 02/04/25 06:16 02/04/25 06:29 Pulse Rate 92 Blood Pressure 121/63 Pulse Oximetry 99 Oxygen Delivery Room Air 02/04/25 06:46 Pulse Rate 91 Blood Pressure 109/61 Pulse Oximetry Oxygen Delivery Exam Const: General: cooperative, healthy appearing, comfortable and no acute distress Orientation/consciousness: oriented to person, oriented to place and oriented to time HENMT: Head: normal to inspection Ears: external ears normal Face/Nose/Sinus: Normal external nose present and normal facial exam Face and sinus: normal facial exam Eyes: General: appearance normal, both eyes and all related structures Neck: Neck: normal visual inspection, trachea midline and supple Resp: Auscultation: clear to auscultation bilaterally, no crackles, no rales, no rhonchi and no wheezes Cardio: Rate: regular rate Rhythm: regular rhythm Heart sounds: no click, no murmurs and no rubs GI: GI Palp: No abdominal tenderness, No Soft to palpation, No Tenderness to palpation present (GI) and No Palpable mass present Auscultation: normal bowel sounds Skin: General skin exam: normal color and no rashes or lesions noted Neuro: General: oriented to person, oriented to place and oriented to time Extrem: General: normal to inspection, no joint enlargement, no clubbing, cyanosis or edema, no pedal edema and no calf tenderness Psych: Appearance: grossly normal Mental Status: mental status grossly normal Speech and movement: Normal speech and movement present Assessment and Plan Assessment and plan (1) Previous section: Code(s): Z98.891 - History of uterine scar from previous surgery Status: Acute Assessment and Plan: 30-year-old multiparous female at term with previous delivery. We agreed to perform repeat delivery. She understands risks, benefits, and alternatives. She has completed informed consent process is ready to procee
--- NOTE | 2025-02-04 08:14 | WPDHPUPDATE1 ---
History and Physical Update Update Date/Time: 02/04/25 08:14 History and Physical has been reviewed, including an updated exam of the patient. There are NO changes in the patient's condition. Risks, benefits, and alternatives have been discussed and questions answered. Patient agrees to proceed with procedure.
--- NOTE | 2025-02-04 08:49 | P.PNAN_ITS ---
Anes - Eval Final PreProcedure Day of Procedure 02/04/25 08:49 Patient weight: obese Heart: regular rate and rhythm Lungs: clear to auscultation Neurological: alert and oriented ASA classification: III Emergent: no Anesthetic plan: proceed Anesthesia type and monitoring: regional epidural and standard monitoring Other findings: epid for c/s Results Review: All pre-operative results and documents have been reviewed as part of the pre- operative evaluation. Informed Consent: The patient's anesthetic plan and its attendant risks and benefits were discussed with the patient/family/POA. Questions were solicited and answers provided to the satisfaction of the patient/family/POA.
[2025-02-04] MEDS: ceFAZolin 2 GM/D5W 50 ML 2 GM/50 ML BAG IVPB (10:09)
[2025-02-04] MEDS: OXYTOCIN 30 UNITS/NS 500 ML 30 UNITS/500 ML BAG 125 UNITS IV CONT (12:23)
[2025-02-04] MEDS: KETOROLAC 30 MG/ML VIAL (*BKC) IV PUSH (12:47)
--- NOTE | 2025-02-04 13:32 | OBPPTRN ---
Patient transferred to post room #280 via stretcher. Support person present. Oriented to unit, room, information board, rooming in, admission packet and security measures. Patient verbalizes understanding.
[2025-02-04] MEDS: LIDOCAINE 5% PATCH 1 PATCH TRANSDERM (14:27)
[2025-02-04] MEDS: MORPHINE SULFATE (*CRX) 2 MG/ML INJ IV PUSH (14:27)
[2025-02-04] MEDS: METOCLOPRAMIDE HCL INJ 10 MG/2 ML VIAL IV PUSH (14:27)
[2025-02-04] MEDS: DEXTROSE 5%/0.45% SOD CHL 1,000 ML 125 ML IV CONT (17:20)
--- NOTE | 2025-02-04 18:20 | SUR.OPER ---
1015--Bladder irrigation with normal saline per physician request.
[2025-02-04] MEDS: HYDROcodone/acetaminophen (*CRX) 5-325 MG TABLET 1 TAB PO (22:26)
[2025-02-05] MEDS: HYDROcodone/acetaminophen (*CRX) 5-325 MG TABLET 1 TAB PO ×5 (02:08→19:06)
[2025-02-05 04:30] VITALS: BP 101/65; PULSE 92; RESP 16; TEMP 36.3; O2SAT 100
[2025-02-05] MEDS: IBUPROFEN 600 MG TABLET PO ×4 (04:37→23:02)
[2025-02-05] MEDS: ACETAMINOPHEN 325 MG TABLET 650 MG PO ×4 (04:37→23:01)
[2025-02-05 05:20] LABS: Basophils Percent Auto 0.3 % (0.2-1.2); Eosinophils Absolute Auto 0.1 K/mm3 (0-0.3); Eosinophils Percent Auto 1.5 % (0-4.4); Hematocrit 29.4 % (37.0-47.0); Hemoglobin 8.6 g/dL (12.0-15.0); Immature Granulocyte Absolute 0.11 K/mm3 (0.00-0.031); Immature Granulocyte Percent A 1.2 % (0-0.5); Lymphocytes Absolute Auto 0.98 K/mm3 (0.9-3.2); Lymphocytes Percent Auto 10.4 % (18.3-44.2); Mean Corpuscular HGB Conc 29.3 g/dl (32-36); Mean Corpuscular Hemoglobin 24.4 pg (26-34); Mean Corpuscular Volume 83.3 fl (80-100); Mean Platelet Volume 10.4 fl (7.4-10.4); Monocytes Absolute Auto 0.5 K/mm3 (0.1-0.6); Monocytes Percent Auto 5.4 % (2.6-8.5); Neutrophils Absolute Auto 7.6 K/mm3 (1.3-6.7); Neutrophils Percent Auto 81.2 % (45.5-73.1); Platelet Count Result 199 k/mm3 (150-375); Red Blood Count 3.53 M/mm3 (4.2-5.4); Red Cell Distribution Width 16.1 % (11.5-14.5); White Blood Count 9.4 K/mm3 (4.5-10.0)
--- NOTE | 2025-02-05 06:15 | PC.NURSE ---
Report given to Jonathan Freeman RN.
[2025-02-05 06:29] LABS: Anisocytosis 1+; Hypochromasia 1+; Platelet Estimate Adequate (Adequate); Schistocytes None Seen
[2025-02-05 07:36] VITALS: BP 119/78; PULSE 80; RESP 18; TEMP 36.4; O2SAT 100
[2025-02-05] MEDS: MULTIVIT/MIN/PREN/FOL AC/IRON TABLET 1 TAB PO (08:19)
[2025-02-05] MEDS: SIMETHICONE 80 MG TAB.CHEW PO ×3 (08:19→16:06)
[2025-02-05] MEDS: POLYSACCHARIDE IRON COMPLEX 150 MG CAPSULE PO ×2 (08:20→16:06)
[2025-02-05] MEDS: DOCUSATE SODIUM 100 MG CAPSULE PO ×2 (08:20→16:06)
--- NOTE | 2025-02-05 09:42 | PM.OBPNVD ---
OB - PN: Subj Subjective Date/time seen: 02/05/25 09:42 Interval history: pp day 1 baby transferred doing well not passing flatus OB - PN: Obj Data Labs 02/05/25 04:15 Labs: Laboratory Results - last 24 hr 02/05/25 04:15 WBC 9.4 RBC 3.53 L Hgb 8.6 L Hct 29.4 L MCV 83.3 MCH 24.4 L MCHC 29.3 L RDW 16.1 H Plt Count 199 MPV 10.4 Immature Gran % (Auto) 1.2 H Neut % (Auto) 81.2 H Lymph % (Auto) 10.4 L [place] % (Auto) 5.4 Eos % (Auto) 1.5 Baso % (Auto) 0.3 Lymph # (Auto) 0.98 [place] # (Auto) 0.5 Eos # (Auto) 0.1 Baso # (Auto) 0.0 Abs Immat Gran (auto) 0.11 H Absolute Neuts (auto) 7.6 H Absolute Nucleated RBC 0.000 Band Neutrophils % Not Reportable Nucleated RBC % 0.0 Platelet Estimate Adequate Hypochromasia 1+ Anisocytosis 1+ Schistocytes None seen OB - PN A/P Plan day: 1 Plan: routine care Time Spent With Patient Time: Total time spent is greater than 50% in coordination of care (as documented) at patient's floor/unit and/or counseling patient: Review of Systems Review of Systems: All systems reviewed & are unremarkable except as noted in HPI and below Exam Const: General: cooperative, healthy appearing and comfortable Chest: Chest palpation & inspection: normal inspection of the chest Resp: Effort & Inspection: normal respiratory effort Cardio: Rate: regular rate GI: Other: incision CDI
--- NOTE | 2025-02-05 11:28 | PC.NURSE ---
Pt. out on pass to visit baby at NICU
[2025-02-05 15:45] VITALS: BP 126/69; PULSE 90; RESP 16; TEMP 36.4; O2SAT 100
[2025-02-05] MEDS: TETANUS,DIPHTHERIA,AC PERTUSSIS ADULT (0.5 ML) BOOSTRIX IM (16:07)
[2025-02-05] MEDS: LIDOCAINE 5% PATCH 1 PATCH TRANSDERM (17:18)
--- NOTE | 2025-02-05 17:18 | WPDANLDNPN2 ---
Anes-Prog Note L&D-Neuraxial Date/Time: 02/05/25 17:18 Neuraxial medications: intrathecal PF morphine Opiod-related complaints: none Patient feedback: Patient satisfied with post-operative pain management. Comments: Pt out on Pass, report Via RN
--- NOTE | 2025-02-05 17:19 | WPDANLDPN2 ---
Anes-Prog Note L&D Date/Time: 02/05/25 17:19 Comfortable throughout: section Neuraxial method: spinal Epidural/Spinal procedure site: clean & non-tender Neuro status: Neuro function grossly intact. Cardiovascular status: normal Respiratory status: normal Airway patency: baseline Mental status: baseline Post-Op hydration status: normal Vital Signs: Last Vital Signs Temp 97.6 F 02/05/25 15:45 Pulse 90 02/05/25 15:45 Resp 16 02/05/25 15:45 BP 126/69 02/05/25 15:45 Pulse Ox 100 02/05/25 15:45 O2 Del Method Room Air 02/05/25 04:30 Pain score (VAS): 0/10 I/O: Intake & Output 02/05/25 02/05/25 02/05/25 07:59 15:59 23:59 Intake Total 1000 480 Output Total 3000 Balance -2000 480 Post-procedural complaints: none Patient feedback: Patient satisfied with anesthetic care. Pt out on pass, Report Via RN
--- NOTE | 2025-02-05 17:50 | PC.NURSE ---
CLC RN checked in with mother to see how using the breast pump was going and if she had any questions or concerns, her baby is in the NICU currently at [facility]. Patient was assessed for correct placement, flange size (she measured at 17mm and should be using the size 21 flange for the [facility] breast pump, she was using the size 24 with a size 19 insert and had not been getting any colostrum since 0300 this morning, also shown how to start the pump and set the 15 minute cycle and to turn up the suction level to comfort), to pump for comfort and nipple stretching/stimulation for adequate milk production every 3 hours (8 times in 24 hours) 1-2 times at night. Instructions given on cleaning, care, usage, that there should be no pain, pumping schedule for milk production, collection, and storage of human milk. Parents are encouraged to record the pumping schedule on the feeding sheet.?Mother voiced understanding of the education shared along with mom/baby guide and the pump measurement, flange fit handout for additional resource information. Reported to the Primary RN.
[2025-02-05 18:50] VITALS: BP 122/72; PULSE 89; RESP 16; TEMP 37; O2SAT 100
[2025-02-05] MEDS: LANOLIN (LANSINOH) 7.5 GM CREAM 1 APPLIC TOPICAL (19:06)
--- NOTE | 2025-02-05 22:20 | PC.NURSE ---
02/05/25 at 1920 Patient was given the opportunity to view the discharge video Mother & Baby Care, The First Two Weeks and to ask questions. Patient declined viewing the video and has been given the mother/baby guide for home reference.
[2025-02-05 23:10] VITALS: BP 125/71; PULSE 87; RESP 16; TEMP 36.5; O2SAT 98
[2025-02-06] MEDS: HYDROcodone/acetaminophen (*CRX) 5-325 MG TABLET 1 TAB PO ×2 (00:53→08:56)
[2025-02-06] MEDS: ACETAMINOPHEN 325 MG TABLET 650 MG PO (05:01)
[2025-02-06] MEDS: IBUPROFEN 600 MG TABLET PO (05:01)
--- NOTE | 2025-02-06 08:13 | P.PNOB_ITS ---
OB - PN: Subj Subjective Date/time seen: 02/06/25 08:13 Interval history: pp day 1 baby transferred doing well passing flatus OB - PN: Obj Data Labs 02/05/25 04:15 OB - PN A/P Plan day: 2 Plan: routine care Time Spent With Patient Time: Total time spent is greater than 50% in coordination of care (as documented) at patient's floor/unit and/or counseling patient: Review of Systems 2 Review of Systems: All systems reviewed & are unremarkable except as noted in HPI and below Exam 2 Const: General: healthy appearing Chest: Chest palpation & inspection: normal inspection of the chest Resp: Effort & Inspection: normal respiratory effort Cardio: Rate: regular rate Back/Spine/Pelvis: Back: no CVA tenderness
--- NOTE | 2025-02-06 08:17 | PM.OBDSVD ---
DS: Admitting Diagnosis Discharge Date 02/06/25 Admitting Diagnosis IOL DS: Discharge Diagnosis Discharge Diagnosis (1) Delivery by section: Status: Acute OB - DS: Summary OB Procedures : None OB Procedures Intrapartum: OB Procedures: : None Peripartum Data Procedures: Procedures Operation Date: 02/04/25 07:30 Actual Procedure Side Surgeon p Repeat Section Not Applicable Israel Pantoja MD Time Spent with Patient Time attestation: Total time spent providing and/or coordinating discharge services: Discharge Plan Discharge Attending physician on discharge: Israel Pantoja Discharging Clinician: Stefany Dunn Patient Disposition: Home Activity: pelvic rest Diet: regular Patient Instructions: Antibiotic Form Patient Language: Albanian Stand Alone Forms: General Discharge Information Follow-up/Referrals: Israel Pantoja MD [Physician] - 1 Week Discharge Medications: New hydrocodone-acetaminophen 5-325 mg Tablet 1 tablet PO Q3H PRN (Reason: Breakthrough Pain Rated 4-6) 15 Days Qty: 25 0RF Continued acetaminophen 500 mg tablet 1,000 mg PO Q6H PRN (Reason: fever or pain) PNV [id number] fumarate-FA [] 28 mg iron- 800 mcg tablet 1 tablet PO DAILY nifedipine [Procardia XL] 30 mg tablet extended release 24hr 30 mg PO DAILY Qty: 30 2RF Date of admission: 02/04/25 05:26 Primary Care Provider: PHYSICIAN,COMPUTER SYSTEMS SOFTWARE ENGINEER Admitting Provider: Israel Pantoja Attending physician on admission: Israel Pantoja Condition: Stable
[2025-02-06 08:55] VITALS: BP 129/76; PULSE 93; RESP 18; TEMP 36.6; O2SAT 100
[2025-02-06] MEDS: SIMETHICONE 80 MG TAB.CHEW PO (08:55)
[2025-02-06] MEDS: MULTIVIT/MIN/PREN/FOL AC/IRON TABLET 1 TAB PO (08:56)
[2025-02-06] MEDS: POLYSACCHARIDE IRON COMPLEX 150 MG CAPSULE PO (08:56)
[2025-02-06] MEDS: DOCUSATE SODIUM 100 MG CAPSULE PO (08:57)
--- NOTE | 2025-02-06 09:46 | PC.NURSE ---
Pt will be seeing MD in office in one week. Since was transferred to a tertiary care center, mom will defer the PP follow-up visit at hospital. Pt instructed to call MD if any complications/questions arise before the 1 week follow up. Pt states understanding.
== END 2025-02-06 09:46 | disposition home or self-care (01) | DRG 540 ==
LOC: ANHLDR 05:28 → ANHOB2 13:34
PROVIDERS: Admitting Provider Obstetrics & Gynecology; Visit Provider Obstetrics & Gynecology
PROC: 10D00Z1 Extraction of Products of Conception, Low, Open Approach (ICD-10-PCS; CPT 59514; principal; 2025-02-04 07:30)
DX: O34.211 Maternal care for low transverse scar from previous cesarean delivery (principal); Z37.0 Single live birth; Z3A.36 36 weeks gestation of pregnancy; O99.824 Streptococcus B carrier state complicating childbirth
CPT/HCPCS: 36415; 85025; 86703; 90715; A9270; G0432; J0690; J1885; J2270; J2274; J2371; J2405; J2590; J2765; J7120

== ENCOUNTER 2025-02-17 12:36 | Observation (INO) | payer OTHER, SELFPAY ==
--- NOTE | ~2025-02-17 | US_ITS ---
EXAMINATION: US pelvic complete INDICATION: section. Vaginal bleeding. Comparison:No prior studies for comparison. TECHNIQUE: Multiple transabdominal and endovaginal sonographic images of the pelvis performed. FINDINGS: The uterus measures 13.2 x 6.2 x 8.8 cm.. The endometrial complex measures endometrium alexandro ures approximately 8 mm. There is trace fluid in the endometrium.. The right ovary measures 2.5 x 1.6 x 2.8 cm and the left ovary measures 3 x 2.2 x 3.5 cm. There are small follicles in each ovary. Normal doppler signal in both ovaries. There is no free fluid in the pelvis. There are no abnormal masses seen on either side. IMPRESSION: 1. Endometrial thickening with trace fluid in the endometrium. 2: Enlarged uterus. Reviewed, dictated and finalized at location A.
[2025-02-17 12:38] VITALS: BP 136/71; PULSE 80; RESP 16; TEMP 36.6; O2SAT 99
--- OUTSIDE RECORDS SUMMARY | 2025-02-17 13:04 | XMS_ITS | Data Portability ---
Author Organization SHANDA Sergei HERNANDEZ Address [address] [place] [address] Care Team Providers Care Machine Cutter Name Role Phone BRENDA SOUSA Primary Care Provider Assessment Encounter Date Assessment Date Assessment LastModified by Organization Details LastModified Time 06/04/2019 06/04/2019 Patient advised to call prn and was reminded to get a flu shot this fall. [email or web address] Not available 06/05/2019 23:37:38 Plan of Treatment Reminders Order Date Submit Date Provider Last Modified By Organization Details Last Modified Time Details Appointments None recorded. Lab CBC w/ auto diff 2018 019 [facility] Adon[facility], [facility] [address], [place], [address], 9 20:09:11 iron + total iron-bindin g capacity (TIBC), serum 2018 019 LANDRY LABTOBY[facility] Adonis, [facility] [address], [place], [address], 9 20:09:12 lipid panel, serum 2015 016 [facility]DRY LABTOBY[facility] Adonis, [address], [place], [address], 6 06:19:31 CMP, serum or plasma 2015 016 LANDRY LABTOBY, [facility] Lamb, [address], [place], [address], 6 06:19:30 CBC 2015 016 [facility], [address], [place], [address], 6 06:19:29 vitamin D, 25-hydroxy, total, serum 2015 016 [facility], [address] [place] [address], [address], [place], [address], 6 06:19:32 TSH, serum or plasma 2015 016 [facility], [address] [facility], [address], [place], [address], 6 06:19:32 Referral general surgeon referral 2018 019 mailear Not available 9 14:27:34 Procedures None recorded. Surgeries None recorded. Imaging None recorded. Medication Orders sertraline 50 mg tablet 2018 019 connor [address] [facility][id number], [address] [facility], [place], [place], [id number], 9 16:37:53 fluoxetine 20 mg capsule 2018 019 [facility][id number], [address] [facility], [place], [place], [id number], 9 16:38:01 ferrous sulfate 325 mg (65 mg iron) tablet 2018 019 connor 63 [facility] #[id number], [address] [facility], [place], [place], [id number], 9 16:38:09 nystatin 100,000 unit/gram topical cream 2015 016 [place] 63 Not available 9 16:38:49 triamcinolo ne acetonide 0.1 % topical cream 2015 016 connor 63 Not available 9 16:38:44 Patient TargetsNo targets recorded. Patient Instructions Encounter Date Encounter Id Patient Instructions Last Modified By Organization Details Last Modified Time 11/18/2018 [id number] hemorrhoids: car e instructions Not available 11/18/2018 15:23:11 iron deficiency anemia: care instructions [email or web address] Not available 11/18/2018 15:23:11 01/29/2019 [id number] learning about mood disorders [email or web address] Not available 01/29/2019 16:52:11 Reason for Referral General Surgeon Referral for Hemorrhoids Referring Physician: Brenda Sousa, Family Medicine, Encounter Date: 11/18/2018 Results Created Date Observation Date Name Description Value Unit Range Abnormal Flag Note LastModifiedBy Organization Detail LastModifiedTime 01/12/20 16 01/13/2016 CBC WBC 6.4 x10e3 /uL 3.4-10 .8 Not Available [facility] ([facility]) [address] [place], [address], 01/13/2016 06:19:29 01/12/20 16 01/13/2016 CBC RBC 4.52 x10e6 /uL 3.77-5 .28 Not Available [facility] ([facility]) [address] [place], [address], 01/13/2016 06:19:29 01/12/20 16 01/13/2016 CBC hemoglobin 13.8 g/dL 11.1-1 5.9 Not Available [facility] ([facility]) [address] [place], [address], 01/13/2016 06:19:29 01/12/20 16 01/13/2016 CBC hematocrit 40.6 % 34.0-4 6.6 Not Available [facility] ([facility]) [address] [place], [address], 01/13/2016 06:19:29 01/12/20 16 01/13/2016 CBC MCV 90 fL 79-97 Not Available [facility] ([facility]) [address] [place], [address], 01/13/2016 06:19:29 01/12/20 16 01/13/2016 CBC MCH 30.5 pg 26.6-3 3.0 Not Available [facility] ([facility]) [address] [place], [address], 01/13/2016 06:19:29 01/12/20 16 01/13/2016 CBC MCHC 34.0 g/dL 31.5-3 5.7 Not Available [facility] ([facility]) [address] [place], [address], 01/13/2016 06:19:29 01/12/20 16 01/13/2016 CBC RDW 12.5 % 12.3-1 5.4 Not Available [facility] ([facility]) [address] [place], [address], 01/13/2016 06:19:29 01/12/20 16 01/13/2016 CBC platelets 194 x10e3 /uL 150-37 9 Not Available [facility] ([facility]) [address] [place], [address], 01/13/2016 06:19:29 01/12/20 16 01/13/2016 CBC neutrophils 72 % Not Avai lable [facility] ([facility]) [address] [place], [address], 01/13/2016 06:19:29 01/12/20 16 01/13/2016 CBC lymphs 18 % Not Available [facility] ([facility]) [address] [place], [address], 01/13/2016 06:19:29 01/12/20 16 01/13/2016 CBC monocytes 5 % Not Availa ble [facility] ([facility]) [address] [place], [address], 01/13/2016 06:19:29 01/12/20 16 01/13/2016 CBC eos 4 % Not Available [facility] ([facility]) [address] [facility] [place], [address], 01/13/2016 06:19:29 01/12/20 16 01/13/2016 CBC basos 1 % Not Available [facility] ([facility]) [address] [facility] [place], [address], 01/13/2016 06:19:29 01/12/20 16 01/13/2016 CBC immature cells CONSTRUCTION STONEMASON Not Available [facility] ([facility]) [address] [facility] [place], [address], 01/13/2016 06:19:29 01/12/20 16 01/13/2016 CBC neutrophils (absolute) 4.6 x10e3 /uL 1.4-7. 0 Not Available [facility] ([facility]) [address] [facility] [place], [address], 01/13/2016 06:19:29 01/12/20 16 01/13/2016 CBC lymphs (absolute) 1.2 x10e3 /uL 0.7-3. 1 Not Available [facility] ([facility]) [address] [facility] [place], [address], 01/13/2016 06:19:29 01/12/2001/13/2016 CBC monocytes(ab solute) 0.3 x10e3 /uL 0.1-0. 9 Not Available [facility] ([facility]) [address] [facility] [place], [address], 01/13/2016 06:19:29 01/12/20 16 01/13/2016 CBC eos (absolute) 0.3 x10e3 /uL 0.0-0. 4 Not Available [facility] ([facility]) [address] [place], [address], 01/13/2016 06:19:29 01/12/20 16 01/13/2016 CBC baso (absolute) 0.0 x10e3 /uL 0.0-0. 2 Not Available [facility] ([facility]) [address] [place], [address], 01/13/2016 06:19:29 01/12/20 16 01/13/2016 CBC immature granulocytes 0 % Not Available [facility] ([facility]) [address] [place], [address], 01/13/2016 06:19:29 01/12/20 16 01/13/2016 CBC immature grans (abs) 0.0 x10e3 /uL 0.0-0. 1 Not Available [facility] ([facility]) [address] [place], [address], 01/13/2016 06:19:29 01/12/20 16 01/13/2016 CBC NRBC CONSTRUCTION STONEMASON Not Available [facility] ([facility]) [address] [place], [address], 01/13/2016 06:19:29 01/12/2001/13/2016 CBC hematology comments: CONSTRUCTION STONEMASON Not Available [facility] ([facility]) [address] [place], [address], 01/13/2016 06:19:29 01/12/2001/13/2016 CMP, serum or plasm a glucose, serum 85 mg/dL 65-99 Not Available [facility] ([facility]) [address] [place], [address], 01/13/2016 06:19:30 01/12/2001/13/2016 CMP, serum or plasm a BUN 8 mg/dL 6-20 Not Available [facility] ([facility]) [address] [place], [address], 01/13/2016 06:19:30 01/12/2001/1201/13/2016 CMP, serum or plasm a creatinine, serum 0.61 mg/dL 0.57-1 .00 Not Available [facility] ([facility]) [address] [place], [address], 01/13/2016 06:19:30 01/12/20 16 01/13/2016 CMP, serum or plasm a eGFR if nonafricn AM 129 mL/mi n/1.7 3 >59 Not Available [facility] ([facility]) [address] [place], [address], 01/13/2016 06:19:30 01/12/20 16 01/13/2016 CMP, serum or plasm a eGFR if africn AM 149 mL/mi n/1.7 3 >59 Not Available [facility] ([facility]) [address] [place], [address], 01/13/2016 06:19:30 01/12/20 16 01/13/2016 CMP, serum or plasm a BUN/creatini ne ratio 13 8-20 Not Available [facility] ([facility]) [address] [place], [address], 01/13/2016 06:19:30 01/12/20 16 01/13/2016 CMP, serum or plasm a sodium, serum 140 mmol/ L 134-14 4 Not Available [facility] ([facility]) [address] [place], [address], 01/13/2016 06:19:30 01/12/2001/13/2016 CMP, serum or plasm a potassium, serum 4.0 mmol/ L 3.5-5. 2 Not Available [facility] ([facility]) [address] [place], [address], 01/13/2016 06:19:30 01/12/20 16 01/13/2016 CMP, serum or plasm a chloride, serum 102 mmol/ L 97-108 Not Available [facility] ([facility]) [address] [place], [address], 01/13/2016 06:19:30 01/12/20 16 01/13/2016 CMP, serum or plasm a carbon dioxide, total 21 mmol/ L 18 Not Available [facility] ([facility]) [address] [facility] [place], [address], 01/13/2016 06:19:30 01/12/2001/13/2016 CMP, serum or plasm a calcium, serum 9.3 mg/dL 8.7-10 .2 Not Available [facility] ([facility]) [address] [facility] [place], [address], 01/13/2016 06:19:30 01/12/20 16 01/13/2016 CMP, serum or plasm a protein, total, serum 6.9 g/dL 6.0-8. 5 Not Available [facility] ([facility]) [address] [facility] [place], [address], 01/13/2016 06:19:30 01/12/2001/13/2016 CMP, serum or plasm a albumin, serum 4.3 g/dL 3.5-5. 5 Not Available [facility] ([facility]) [address] [facility], [place], [address], 01/13/2016 06:19:30 01/12/2001/13/2016 CMP, serum or plasm a globulin, total 2.6 g/dL 1.5-4. 5 Not Available [facility] ([facility]) [address] [facility], [address], 01/13/2016 06:19:30 01/12/2001/13/2016 CMP, serum or plasm a A/G ratio 1.7 1.1-2. 5 Not Available [facility] ([facility]) [address] [facility], [address], 01/13/2016 06:19:30 01/12/2001/13/2016 CMP, serum or plasm a bilirubin, total 0.7 mg/dL 0.0-1. 2 Not Available [facility] ([facility]) [address] [facility] [place], [address], 01/13/2016 06:19:30 01/12/20 16 01/13/2016 CMP, serum or plasm a alkaline phosphatase, S 86 IU/L 39-117 Not Available [facility] ([facility]) [address] [facility], [place], [address], 01/13/2016 06:19:30 01/12/20 16 01/13/2016 CMP, serum or plasm a AST (SGOT) 20 IU/L 0-40 Not Available [facility] ([facility]) [address] [facility], [place], [address], 01/13/2016 06:19:30 01/12/2001/13/2016 CMP, serum or plasm a ALT (SGPT) 21 IU/L 0-32 Not Available [facility] ([facility]) [address] [facility], [place], [address], 01/13/2016 06:19:30 01/12/20 16 01/13/2016 lipid panel , serum cholesterol, total 173 mg/dL 100-19 9 Not Available [facility] ([facility]) [address] [facility] [place], [address], 01/13/2016 06:19:31 01/12/2001/13/2016 lipid panel , serum triglyceride s 68 mg/dL 0-149 Not Available [facility] ([facility]) [address] [facility] [place], [address], 01/13/2016 06:19:31 01/12/2001/13/2016 lipid panel , serum HDL cholesterol 49 mg/dL >39 ACCOR DING TO ATP-I II GUIDE LINES , HDL-C >59 MG/DL IS CONSI DERED A NEGAT WHITNEY RISK FACTO R FOR CHD. Not Available [facility] ([facility]) [address] [place], [address], 01/13/2016 06:19:31 01/12/20 16 01/13/2016 lipid panel , serum VLDL cholesterol yousif 14 mg/dL 5-40 Not Available [facility] ([facility]) [address] [place], [address], 01/13/2016 06:19:31 01/12/20 16 01/13/2016 lipid panel , serum LDL cholesterol calc 110 mg/dL 0-99 above high normal Not Available [facility] ([facility]) [address] [place], [address], 01/13/2016 06:19:31 01/12/20 16 01/13/2016 lipid panel , serum comment: CONSTRUCTION STONEMASON Not Available [facility] ([facility]) [address] [facility] [place], [address], 01/13/2016 06:19:31 01/12/2001/13/2016 lipid panel , serum T. chol/HDL ratio 3.5 ratio _unit s 0.0-4. 4 T. CHOL/ HDL RATIO MEN WOMEN 1/2 AVG.R ISK 3.4 3.3 AVG.R ISK 5.0 4.4 2X AVG.R ISK 9.6 7.1 3X AVG.R ISK 23.4 11.0 Not Available [facility] ([facility]) [address] [facility] [place], [address], 01/13/2016 06:19:31 01/12/20 16 01/13/2016 TSH, serum or plasm a TSH 1.100 uIU/m L 0.450- 4.500 Not Available [facility] ([facility]) [address] [facility] [place], [address], 01/13/2016 06:19:32 01/12/20 16 01/13/2016 vitam in [...] AND D. ZAHRA ARREOLA DC: [facility] . 2. MARITZA Davis MF, AVELINA DACOSTA NC, YAMIL OFF-F ERRAR I ZAMBRANO, ET AL. EVALU ATION , TREAT MENT, AND PREVE NTION OF VITAM IN D DEFIC IENCY : AN ENDOC RINE SOCIE TY CLINI YOUSIF PRACT ICE GUIDE LINE. JCEM. 2010; 96(7) :1911 -30. Not Available [facility] ([facility]) [address] [facility], [place], [address], 01/13/2016 06:19:32 11/19/19 19 11/19/2018 CBC w/ auto diff WBC TNP x10e3 /uL No laven aicha top tube submi tted. Not Available [facility] ([facility]) [address] [facility], [place], [address], 11/19/2018 20:09:11 11/19/1911/19/2018 CBC w/ auto diff RBC TNP Test not perfo rmed Not Available [facility] ([facility]) [address] [place], [address], 11/19/2018 20:09:11 11/19/1911/19/2018 CBC w/ auto diff hemoglobin TNP Test not perfo rmed Not Available [facility] ([facility]) [address] [facility], [place], [address], 11/19/2018 20:09:11 11/19/19 19 11/19/2018 CBC w/ auto diff hematocrit TNP Test not perfo rmed Not Available [facility] ([facility]) [address] [place], [address], 11/19/2018 20:09:11 11/19/19 19 11/19/2018 CBC w/ auto diff MCV CONSTRUCTION STONEMASON Not Available [facility] ([facility]) [address] [place], [address], 11/19/2018 20:09:11 11/19/19 19 11/19/2018 CBC w/ auto diff MCH CONSTRUCTION STONEMASON Not Available [facility] ([facility]) [address] [place], [address], 11/19/2018 20:09:11 11/19/19 19 11/19/2018 CBC w/ auto diff MCHC CONSTRUCTION STONEMASON Not Available [facility] ([facility]) [address] [place], [address], 11/19/2018 20:09:11 11/19/19 19 11/19/2018 CBC w/ auto diff RDW CONSTRUCTION STONEMASON Not Available [facility] ([facility]) [address] [place], [address], 11/19/2018 20:09:11 11/19/19 19 11/19/2018 CBC w/ auto diff platelets TNP Test not perfo rmed Not Available [facility] ([facility]) [address] [place], [address], 11/19/2018 20:09:11 11/19/19 19 11/19/2018 CBC w/ auto diff neutrophils TNP Test not perfo rmed Not Available [facility] ([facility]) [address] [place] [address], [address], 11/19/2018 20:09:11 11/19/19 19 11/19/2018 CBC w/ auto diff lymphs TNP Test not perfo rmed Not Available [facility] ([facility]) [address] [place], [address], 11/19/2018 20:09:11 11/19/19 19 11/19/2018 CBC w/ auto diff monocytes TNP Test not perfo rmed Not Available [facility] ([facility]) [address] [place], [address], 11/19/2018 20:09:11 11/19/19 19 11/19/2018 CBC w/ auto diff eos TNP Test not perfo rmed Not Available [facility] ([facility]) [address] [place], [address], 11/19/2018 20:09:11 11/19/1911/19/2018 CBC w/ auto diff basos CONSTRUCTION STONEMASON Not Available [facility] ([facility]) [address] [place], [address], 11/19/2018 20:09:11 11/19/1911/19/2018 CBC w/ auto diff immature cells CONSTRUCTION STONEMASON Not Available [facility] ([facility]) [address] [place], [address], 11/19/2018 20:09:11 11/19/1911/19/2018 CBC w/ auto diff neutrophils (absolute) CONSTRUCTION STONEMASON Not Available [facility] ([facility]) [address] [place], [address], 11/19/2018 20:09:11 11/19/1911/19/2018 CBC w/ auto diff lymphs (absolute) TNP Test not perfo rmed Not Available [facility] ([facility]) [address] [place], [address], 11/19/2018 20:09:11 11/19/1911/19/2018 CBC w/ auto diff monocytes(ab solute) CONSTRUCTION STONEMASON Not Available [facility] ([facility]) [address] [place], [address], 11/19/2018 20:09:11 11/19/19 19 11/19/2018 CBC w/ auto diff eos (absolute) TNP Test not perfo rmed Not Available [facility] ([facility]) [address] [place], [address], 11/19/2018 20:09:11 11/19/19 19 11/19/2018 CBC w/ auto diff baso (absolute) TNP Test not perfo rmed Not Available [facility] ([facility]) [address] [place], [address], 11/19/2018 20:09:11 11/19/1911/19/2018 CBC w/ auto diff immature granulocytes CONSTRUCTION STONEMASON Not Available [facility] ([facility]) [address] [place], [address], 11/19/2018 20:09:11 11/19/19 19 11/19/2018 CBC w/ auto diff immature grans (abs) CONSTRUCTION STONEMASON Not Available [facility] ([facility]) [address] [place], [address], 11/19/2018 20:09:11 11/19/1911/19/2018 CBC w/ auto diff NRBC CONSTRUCTION STONEMASON Not Available [facility] ([facility]) [address] [place], [address], 11/19/2018 20:09:11 11/19/1911/19/2018 CBC w/ auto diff hematology comments: CONSTRUCTION STONEMASON Not Available [facility] ([facility]) [address] [place], [address], 11/19/2018 20:09:11 11/19/1911/19/2018 iron + total iron- taylor ng capac ity (TIBC ), serum iron bind.cap.(TI BC) 319 ug/dL 250-45 0 Not Available [facility] ([facility]) [address] [place], [address], 11/19/2018 20:09:12 11/19/19 19 11/19/2018 iron + total iron- taylor ng capac ity (TIBC ), serum UIBC 277 ug/dL 131-42 5 Not Available [facility] ([facility]) [address] [place], [address], 11/19/2018 20:09:12 11/19/19 19 11/19/2018 iron + total iron- taylor ng capac ity (TIBC ), serum iron 42 ug/dL 27-159 Not Available [facility] ([facility]) [address] [place], [address], 11/19/2018 20:09:12 11/19/19 19 11/19/2018 iron + total iron- taylor ng capac ity (TIBC ), serum iron saturation 13 % 15-55 below low normal Not Available [facility] ([facility]) [address] [place], [address], 11/19/2018 20:09:12 11/19/19 19 11/19/2018 speci men statu s repor t specimen status report TNP No laven aicha top tube submi tted. TEST: [id number] CBC With Diffe renti al/Pl atele t Not Available [facility] ([facility]) [address] [place], [address], 11/19/2018 20:09:12 11/26/1911/26/2018 CBC w/ auto diff WBC 6.9 x10e3 /uL 3.4-10 .8 Not Available [facility] ([facility]) [address] [place], [address], 11/26/2018 09:22:29 11/26/1911/26/2018 CBC w/ auto diff RBC 4.64 x10e6 /uL 3.77-5 .28 Not Available [facility] ([facility]) [address] [place], [address], 11/26/2018 09:22:29 11/26/19 19 11/26/2018 CBC w/ auto diff hemoglobin 13.1 g/dL 11.1-1 5.9 Not Available [facility] ([facility]) [address] [place], [address], 11/26/2018 09:22:29 11/26/19 19 11/26/2018 CBC w/ auto diff hematocrit 39.0 % 34.0-4 6.6 Not Available [facility] ([facility]) [address] [facility], [place], [address], 11/26/2018 09:22:29 11/26/19 19 11/26/2018 CBC w/ auto diff MCV 84 fL 79-97 Not Available [facility] ([facility]) [address] [place], [address], 11/26/2018 09:22:29 11/26/19 19 11/26/2018 CBC w/ auto diff MCH 28.2 pg 26.6-3 3.0 Not Available [facility] ([facility]) [address] [place], [address], 11/26/2018 09:22:29 11/26/19 19 11/26/2018 CBC w/ auto diff MCHC 33.6 g/dL 31.5-3 5.7 Not Available [facility] ([facility]) [address] [place], [address], 11/26/2018 09:22:29 11/26/19 19 11/26/2018 CBC w/ auto diff RDW 14.5 % 12.3-1 5.4 Not Available [facility] ([facility]) [address] [place], [address], 11/26/2018 09:22:29 11/26/19 19 11/26/2018 CBC w/ auto diff platelets 241 x10e3 /uL 150-37 9 Not Available [facility] ([facility]) [address] [place], [address], 11/26/2018 09:22:29 11/26/19 19 11/26/2018 CBC w/ auto diff neutrophils 70 % not estab. Not Available [facility] ([facility]) [address] [facility], [place], [address], 11/26/2018 09:22:29 11/26/19 19 11/26/2018 CBC w/ auto diff lymphs 19 % not estab. Not Available [facility] ([facility]) [address] [facility], [place], [address], 11/26/2018 09:22:29 11/26/19 19 11/26/2018 CBC w/ auto diff monocytes 6 % not estab. Not Available [facility] ([facility]) [address] [facility], [place], [address], 11/26/2018 09:22:29 11/26/19 19 11/26/2018 CBC w/ auto diff eos 5 % not estab. Not Available [facility] ([facility]) [address] [facility], [place], [address], 11/26/2018 09:22:29 11/26/19 19 11/26/2018 CBC w/ auto diff basos 0 % not estab. Not Available [facility] ([facility]) [address] [facility], [place], [address], 11/26/2018 09:22:29 11/26/1911/26/2018 CBC w/ auto diff immature cells CONSTRUCTION STONEMASON Not Available [facility] ([facility]) [address] [facility], [place], [address], 11/26/2018 09:22:29 11/26/1911/26/2018 CBC w/ auto diff neutrophils (absolute) 4.8 x10e3 /uL 1.4-7. 0 Not Available [facility] ([facility]) [address] [facility], [place], [address], 11/26/2018 09:22:29 11/26/19 19 11/26/2018 CBC w/ auto diff lymphs (absolute) 1.3 x10e3 /uL 0.7-3. 1 Not Available [facility] ([facility]) [address] [facility], [place], [address], 11/26/2018 09:22:29 11/26/19 19 11/26/2018 CBC w/ auto diff monocytes(ab solute) 0.4 x10e3 /uL 0.1-0. 9 Not Available [facility] ([facility]) [address] [place], [address], 11/26/2018 09:22:29 11/26/19 19 11/26/2018 CBC w/ auto diff eos (absolute) 0.3 x10e3 /uL 0.0-0. 4 Not Available [facility] ([facility]) [address] [facility], [place], [address], 11/26/2018 09:22:29 11/26/19 19 11/26/2018 CBC w/ auto diff baso (absolute) 0.0 x10e3 /uL 0.0-0. 2 Not Available [facility] ([facility]) [address] [place], [address], 11/26/2018 09:22:29 11/26/19 19 11/26/2018 CBC w/ auto diff immature granulocytes 0 % not estab. Not Available [facility] ([facility]) [address] [place], [address], 11/26/2018 09:22:29 11/26/1911/26/2018 CBC w/ auto diff immature grans (abs) 0.0 x10e3 /uL 0.0-0. 1 Not Available [facility] ([facility]) [address] [place], [address], 11/26/2018 09:22:29 11/26/19 19 11/26/2018 CBC w/ auto diff NRBC CONSTRUCTION STONEMASON Not Available [facility] ([facility]) [address] [facility], [place], [address], 11/26/2018 09:22:29 11/26/19 19 11/26/2018 CBC w/ auto diff hematology comments: CONSTRUCTION STONEMASON Not Available [facility] ([facility]) [address] [facility], [place], [address], 11/26/2018 09:22:29 09/25/19 17 XR, knee No observ ation record ed. [email or web address] Not Available 09/15 17:43:46 11/15/19 22 11/14/2021 US, abdom en No observ ation record ed. [address] [facility], [place], [address], 11/15/2021 08:45:40 11/20/19 22 11/19/2021 US, obste tric No observ ation record ed. [address], [place], [address], 11/19/2021 11:01:58 Result Notes None recorded. Problems Name Problem SNOMED Code Status Onset Date Resolution Date Notes Provider Name and Address Organization Details Recorded Time Superficial injury of wrist [id number] Active Elmer Terrell PA-C Attn: Accounting ,[address] [facility], [place], [address] , [facility] 5 17:39:20 Eruption [id number] Active Little Hernandez PA-C Attn: Accounting ,[address] [facility], [place], [address] , [facility] - [facility] 6 11:08:56 Fatigue [id number] Active Little Hernandez PA-C Attn: Accounting ,[address] [facility], [place], [address] , [facility] - [facility] 6 11:08:56 Vitamin D deficiency 09213363 Active Little Hernandez PA-C Attn: Accounting ,[address] [facility], [place], [address] , [facility] - SI 6 13:29:43 Pain in pelvis 53665173 Active Angeles Leger MA null, [place] - [facility] 5 10:27:55 Bacterial vaginosis 055285898 Active Milton momin, [place] - [place] 5 14:40:42 Candidiasis 76122167 Active Milton momin, [place] - [facility] 5 21:55:19 Herpes simplex 76472475 Active Milton momin, [place] - [facility] 5 21:55:19 Problem Notes None recorded. Procedures Surgical History Date Name Laterality Status Provider Name and Address Organization Details Recorded Time 5 Depo Injection completed Milton Carrero [place] - [facility] 10/04/2014 10:57:26 Imaging Results None recorded. 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 Developer a 150 mg/mL intramuscul ar suspension Inject [...] Updated DateTime 9 162.56 cm 25.1 kg/m2 27855.5 9 g 99 % 99 % 59 /min 102 mm[Hg] 62 mm[Hg] Betty Pollock MA [facility] 9 14:47:22 Date Recorded Body temperature Heart rate Respiratory rate Body mass index (BMI) Body height Body weight Systolic blood pressure Diastolic blood pressure Provider Name and Address Organization Details Last Updated DateTime 6 98 [degF] 76 /min 18 /min 21.9 kg/m2 163.83 cm 64757.6 39406 g 84 mm[Hg] 44 mm[Hg] Elke Medel MA [facility] 6 10:41:06 Date Recorded Body height Oxygen saturation Oxygen saturation in Arterial blood by Pulse oximetry Heart rate Body temperature Systolic blood pressure Diastolic blood pressure Provider Name and Address Organization Details Last Updated DateTime 9 162.56 cm 98 % 98 % 85 /min 98.6 [degF] 106 mm[Hg] 58 mm[Hg] Betty Pollock MA [facility] 9 16:21:58 Date Recorded Body height Oxygen saturation Oxygen saturation in Arterial blood by Pulse oximetry Heart rate Respiratory rate Body temperature Systolic blood pressure Diastolic blood pressure Provider Name and Address Organization Details Last Updated DateTime 9 162.56 cm 96 % 96 % 104 /min 18 /min 98.4 [degF] 110 mm[Hg] 62 mm[Hg] Virginia Zamudio RN [facility] 9 16:28:56 Social History Question Answer Notes LastModified by Organizat ion Details LastModified Time Tobacco Smoking Status Never Smoker Angeles Leger MA [facility], [place] - [facility] 10/04/2014 10:32:59 Do You Have An Advance Directive? No [email or web address] Information not available 10/04/2014 Is Blood Transfusion Acceptable In An Emergency? Yes [email or web address] Information not available 10/04/2014 What Is Your Level Of Caffeine Consumption? Moderate [email or web address] Information not available 10/04/2014 What Type Of Diet Are You Following? REGULAR [email or web address] Information not available 10/04/2014 Education 12 [email or web address] Information no t available 10/04/2014 Live Alone Or With Others? With Others [email or web address] Information not available 10/04/2014 Marital Status Single Informatio n not available 01/12/2016 What Was The Date Of Your Most Recent Tobacco Screening? 01/29/2019 Information not available 04/08/2019 How Many Children Do You Have? 0 [email or web address] Information not available 10/04/2014 Performs Monthly Self-breast Exam? Yes [email or web address] Information no t available 10/04/2014 Do You Use Protection During Sex? No [email or web address] Information not available 10/04/2014 What Is Your Relationship Status? Single [email or web address] Information not available 10/04/2014 Seat Belts Used Routinely Yes Information not available 10/04/2014 Are You Sexually Active? Yes [email or web address] Information not available 10/04/2014 Smoke Alarm In Home Yes Information not available 01/12/2016 General Stress Level High [email or web address] Information not available 10/04/2014 Do You Use Sunscreen Routinely? Yes [email or web address] Information not available 10/04/2014 Sex: Unknown Functional Status Question Answer Note LastModified by Organizat ion Details LastModified Time What is your level of alcohol consumption? Occasional [email or web address] Information not available 10/04/2014 Are you currently employed? 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 Occasional [email or web address] Information not available 10/04/2014 Mental Status None [...] Disorder N Colon Polyps N Heart Attack (NM) N Diabetes N Cardiomyopathy N Blood Transfusions [...] Influenza, split virus, quadrivalent, PF 06/15/2014 completed Milton Carrero [place], [place] - [facility] 10/04/2014 10:46:43 Past Encounters Encounter ID Performer Location Encounter Start Date Encounter Closed Date Diagnosis/Indication Diagnosis SNOMED-CT Code Diagnosis ICD10 Code Diagnosis Note [id number] MD Minh Rod (CUSTOM FURRIER) [address] [place] [address] 10/04/2014 10:00:57 10/04/2014 12:51:38 Bacterial vaginosis 822847587 -Flagyl 500mg BID x 7d -Advise against douching, limit number of sexual partners, encourage safe sex practices, ie condom use -Education regarding BV signs and symptoms Family sulema nning surveillance 960881660 Contracept ion education 368124066 Contraception care [id number] [id number] MD Minh Guzman (Adult Med) [address] [place] [phone] 01/12/2016 10:26:45 01/12/2016 11:09:44 Eruption 291361368 R21 Advised to mix creams together and apply BID x 7 days and then stop for 4 days and can reapply for another 7 days RTC if no improvemen t Fatigue 75634482 R53.83 Adult heal th examination 525749538 Z00.01 21YO female here to establish care. [id number] Brenda Sousa MD [facility] [address] [place] [address] 11/18/2018 14:24:47 11/23/2018 08:08:38 Hemorrhoids 17554019 K64.9 Iron defic iency anemia 75071620 D50.9 Moderate r ecurrent major depression 61070836 F33.1 [id number] Brenda Sousa MD [facility] [address] [place] [address] 11/25/2018 10:33:13 12/08/2018 03:46:20 [id number] Brenda Sousa MD [facility] [address] [place] [address] 01/29/2019 15:51:25 02/09/2019 10:03:42 Depressive disorder 00597474 F32.89 will stop fluoxetine and start sertraline [id number] Brenda Sousa MD [facility] [address] [place] [address] 06/04/2019 16:03:28 06/07/2019 10:59:13 Adult health examination 872183027 Z00.00 Standard ed adult depression screening tool completed [id number] 74932 Z13.89 Health Concerns Section Related Observation LastModified by Organization Detai ls LastModified Time None Recorded Concern Status LastModified by Organization Details LastModified Time None Recorded Advance Directives Directive N: Payers Encounter Date Sequence Insurance Name Policy Number Policy Moralez Covered Member ID Moarlez Member ID Guarantor Name 01/12/2016 1 [facility] PRIOR TO 03/15/2021 (MEDICAID REPLACEMENT - HMO) Mili Mcmahon [id number] Mili Mcmahon 11/18/2018 1 [facility] PRIOR TO 03/15/2021 (MEDICAID REPLACEMENT - HMO) Mili Mcmahon [id number] Mili Mcmahon 11/25/2018 1 [facility] PRIOR TO 03/15/2021 (MEDICAID REPLACEMENT - HMO) Mili Mcmahon [id number] Mili Mcmahon 01/29/2019 1 [facility] PRIOR TO 03/15/2021 (MEDICAID REPLACEMENT - HMO) Mili Mcmahon [id number] Mili Mcmahon 06/04/2019 1 [facility] PRIOR TO 03/15/2021 (MEDICAID REPLACEMENT - HMO) Mili Mcmahon [id number] Mili Mcmahon Notes Date Note Type Note [...] establish care Little Hernandez PA-C Attn: Accounting,[address] [place], [address], [facility] 01/12/2016 11:09:35 11/18/2018 text/html Discussed causes and treatment for hemorrhoids, and will refer patient for surgical excision. Brenda Sousa MD Attn: Accounting,[address] [place], [address], [facility] 11/22/2018 23:39:16 11/18/2018 text/html AnemiaReported bypatient.Severity:M [...] of breath Brenda Sousa MD Attn: Accounting,[address] [place], [address], [facility] 11/22/2018 23:39:16 01/29/2019 text/html Anxiety/Depressi onRe ported bypatient.Quality:mo od worse Severity:denies suicidal ideations; able to maintain relationships;interf erence with household activities;interfere nce with sleep Duration:symptoms lasting over 2 weeks Onset/Timing:gradual Context:major life stressors;family problems;trouble at work Modifying Factors:counselling; medications as directed Associated Symptoms:denies homicidal ideations; no crying spells;anxiety;depre ssion;restlessness/a gitation;sleep disturbances;anhedon ia;anxiety with muscle tension Brenda Sousa MD Attn: Accounting,[address] [place], [address], [facility] 02/09/2019 01:30:30 OBGyn Episode No OBEpisode recorded.
--- OUTSIDE RECORDS SUMMARY | 2025-02-17 13:04 | XMS_ITS | Clinical Summary ---
Author Organization [facility] Address [address] [place] [address] Care Team Providers Care Deputy Sheriff Generalist Name Role Phone Brenda Fisher MD Primary Care Provider [phone] Source Comments [facility],non-owned Affiliates and Associated Physician Practices is amultiple site organization consisting of ambulatory clinics and hospital sitesin [place], [place], [place] and [place]. This disclosure is being madepursuant to the Care Everywhere program and may not contain all information available regarding this patient. 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 Gender Identity Not on file Sexual Orientation Not on file Last Filed Vital Signs Vital Sign Reading Time Taken Comments Blood Pressure 106/58 08/21/2010 10:46 AM ASBESTOS SIDING MECHANIC Pulse 88 08/21/2010 10:46 AM ASBESTOS SIDING MECHANIC Temperature - - Respiratory Rate 28 08/21/2010 10:46 AM ASBESTOS SIDING MECHANIC Oxygen Saturation - - Inhaled Oxygen Concentration - - Weight 54.7 kg (120 lb 9.5 oz) 08/21/2010 10:46 AM ASBESTOS SIDING MECHANIC Height 164.3 cm (5' 4.69) 08/21/2010 10:46 AM C Body Mass Index 20.26 08/21/2010 10:46 AM ASBESTOS SIDING MECHANIC Plan of Treatment Health Maintenance Due Date [...] patient's age to complete this topic Insurance [employer] [facility] [place] [address] [employer] [place] Care Teams Deputy Sheriff Generalist Relationship Specialty Start Date End Date Brenda Fisher MD [address] [place] [phone] PCP - General 04/02/21
--- OUTSIDE RECORDS SUMMARY | 2025-02-17 13:04 | XMS_ITS | Clinical Summary ---
Author Organization [facility] Address [address] [place] [phone] Phone Care Team Providers Care Putty Worker Name Role Phone Unavailable Primary Care Provider [...] patient's age to complete this topic Insurance [facility] MEDICAID
[2025-02-17 13:44] VITALS: RESP 16; O2SAT 99
--- NOTE | 2025-02-17 14:21 | ED_ITS ---
HPI - Recheck/Abnormal Lab/Rx General Chief Complaint: Recheck/Abnormal Lab/Rx <Maliha Negron APRN - Last Filed: 02/17/25 17:02> Stated Complaint: bleeding from c section site <Maliha Negron APRN - Last Filed: 02/17/25 17:02> Time Seen by Provider: 02/17/25 13:54 <Maliha Negron APRN - Last Filed: 02/17/25 17:02> History of Present Illness HPI narrative: Patient is a 30-year-old female who presents to the ER with concerns of vaginal bleeding. She reports she had a approximately 2 weeks ago and her vaginal bleeding stopped approximately 1 week ago. Patient reports this morning she woke up and had bright red blood in her underwear. She reports she has gone through 7 pads since 5:00 a.m. this morning. Patient denies any urinary symptoms, recent fevers, or back pain. She endorses intermittent cramping. Pt denies any clots in her vaginal discharge. <Maliha Negron APRN - Last Filed: 02/17/25 17:02> Related Data Home Medications: Home Medications ?Medication ?Instructions ?Recorded ?Confirmed ?Last Taken ?Type acetaminophen 500 mg tablet 1,000 mg PO Q6H PRN fever or pain 12/16/24 02/17/25 12/16/24 15:00 History vit no.95-ferrous 1 tablet PO DAILY 12/16/24 02/17/25 12/16/24 09:00 History fumarate 28 mg-folic acid 800 mcg tablet () ibuprofen 200 mg tablet 600 mg PO Q6H 02/17/25 02/17/25 Unknown History <Maliha Negron APRN - Last Filed: 02/17/25 17:02> Allergies/Adverse Reactions: Allergies Allergy/AdvReac Type Severity Reaction Status Date / Time animal dander Allergy Intermediate Itching Verified 02/17/25 17:34 <Maliha Negron APRN - Last Filed: 02/17/25 17:02> Review of Systems 2 Review of Systems: All systems reviewed & are unremarkable except as noted in HPI and below <Maliha Negron APRN - Last Filed: 02/17/25 17:02> [facility] Past Medical History Medical History: Medical History False labor before 37 completed weeks of gestation Vaginal discharge IUGR (intrauterine growth restriction) 2nd Anemia Generalized headaches History of miscarriage, currently x 1 History of vaginal delivery x3 <Maliha Negron APRN - Last Filed: 02/17/25 17:02> Surgical History Surgical History: Surgical History History of dilation and curettage x 13 Jan 2019 for Miscarriage <Maliha Negron APRN - Last Filed: 02/17/25 17:02> Family History Family History: Family History Mother Diabetes mellitus Family history of blood dyscrasia Hypertension Asthma Father Hypertension Alcoholism Diabetes mellitus Depression Daughter Asthma Grandparent Liver cancer Alcoholism Hypertension Heart disease <Maliha Negron APRN - Last Filed: 02/17/25 17:02> Social History Social History: Social History Smoking status: Never smoker Second hand tobacco smoke exposure: No Alcohol intake: never Substance use: never Do You Feel Safe in your Home?: Yes Lack of Transportation: No Lack of Food: Never True Current Housing: I Have Housing Concerned About Future Housing: No Difficulty Paying Gas/Electric Bills: No Difficulty Paying for Meds: No Currently Unemployed: No Education: High School Diploma/GED Difficulty w/ Childcare or Family Care: No Gender identity (if verbalized by the patient): Female Spiritual care concerns: No <Maliha Negron APRN - Last Filed: 02/17/25 17:02> Exam 2 Narrative: GENERAL: Well appearing, well-nourished, non-toxic, in no acute distress. HEAD: Normocephalic, atraumatic. NECK: Supple. No adenopathy, no masses. RESPIRATORY: Airway patent, respirations nonlabored. Clear to auscultation bilaterally, no rales, rhonchi, wheezing. CARDIOVASCULAR: Regular rate and rhythm without murmurs, rubs, or gallops. Peripheral pulses 2+ and equal bilaterally. ABDOMINAL: Soft, nontender, nondistended, no hepatosplenomegaly. Normoactive BS. MUSCULOSKELETAL: Moves all extremities. Strength/ROM intact without gross deformities. SKIN: Warm, dry, normal color. No rashes. NEURO: A&O X3. Speech clear. Cranial nerves II-XII intact. No ataxic movements. PSYCHIATRIC: Appropriate mood and affect. Normal interaction. : pelvic exam indicates a moderate to large amount of dark red blood coming from the os of her cervix. <Maliha Negron APRN - Last Filed: 02/17/25 17:02> Course EXPENDITURE REQUISITION CLERK/PA Physician Supervision This visit was performed by both a physician and an APC. I performed all aspects of the MDM as documented. <Roberto Ott MD - Last Filed: 02/17/25 18:53> Vital Signs Vital signs: Vital Signs Temperature 98 F 02/17/25 12:38 Pulse Rate 80 02/17/25 12:38 Respiratory Rate 16 02/17/25 12:38 Blood Pressure 136/71 02/17/25 12:38 Pulse Oximetry 99 02/17/25 12:38 Oxygen Delivery Room Air 02/17/25 12:38 Temperature 97.5 F L 02/17/25 16:38 Pulse Rate 88 02/17/25 16:38 Respiratory Rate 16 02/17/25 16:38 Blood Pressure 116/66 02/17/25 16:38 Pulse Oximetry 98 02/17/25 16:38 Oxygen Delivery Room Air 02/17/25 18:30 <Maliha Negron APRN - Last Filed: 02/17/25 17:02> Vital Signs Temperature 98 F 02/17/25 12:38 Pulse Rate 80 02/17/25 12:38 Respiratory Rate 16 02/17/25 12:38 Blood Pressure 136/71 02/17/25 12:38 Pulse Oximetry 99 02/17/25 12:38 Oxygen Delivery Room Air 02/17/25 12:38 Temperature 97.5 F L 02/17/25 16:38 Pulse Rate 88 02/17/25 16:38 Respiratory Rate 16 02/17/25 16:38 Blood Pressure 116/66 02/17/25 16:38 Pulse Oximetry 98 02/17/25 16:38 Oxygen Delivery Room Air 02/17/25 18:30 <Roberto Ott MD - Last Filed: 02/17/25 18:53> MDM - Recheck/Abnormal Lab/Rx MDM Narrative Medical decision making narrative: Patient is a 30-year-old female who presents to the ER with concerns of vaginal bleeding. She reports she had a approximately 2 weeks ago and her vaginal bleeding stopped approximately 1 week ago. Patient reports this morning she woke up and had bright red blood in her underwear. She reports she has gone through 7 pads since 5:00 a.m. this morning. Patient denies any urinary symptoms, recent fevers, or back pain. She endorses intermittent cramping. Pt denies any clots in her vaginal discharge. Labs Ordered: CBC, CMP, UA Imaging Ordered: Pelvic ultrasound Medications Ordered: 1 L normal saline IV bolus, Keflex p.o. Results: Patient's urinalysis indicates she has a UTI, patient's pelvic exam indicates a moderate to large amount of dark red blood coming from the os of her cervix. Diagnosis: vaginal bleeding, urinary tract infection Consults: OBGYN (Dr. Pantoja) Patient Education/Shared MDM: Results of lab work, imaging, and pelvic exam shared with patient. She will be started on Keflex to treat her urinary tract infection. It is advised pt be admitted to the hospital for further evaluation and work-up. She and her partner verbalize understanding and are in agreement with plan. Pt will be admitted under Dr. Pantoja's service to the med/surg floor. She will be NPO after midnight. <Maliha Negron APRN - Last Filed: 02/17/25 17:02> Differential Diagnosis Differential diagnosis: Likely other (vaginal bleeding, urinary tract infection, retained products of conception) <Maliha Negron APRN - Last Filed: 02/17/25 17:02> Lab Data Attestation: I reviewed the patient's lab results. <Maliha Negron APRN - Last Filed: 02/17/25 17:02> Result diagrams: 02/17/25 14:26 02/17/25 14:26 <Maliha Negron APRN - Last Filed: 02/17/25 17:02> Labs: Lab Results 02/17/25 Range/Units 14:26 WBC 10.3 H (4.5-10.0) K/mm3 RBC 4.60 (4.2-5.4) M/mm3 Hgb 11.2 L (12.0-15.0) g/dL Hct 38.5 (37.0-47.0) % MCV 83.7 (80-100) fl MCH 24.3 L (26-34) pg MCHC 29.1 L (32-36) g/dl RDW 16.3 H (11.5-14.5) % Plt Count 376 H D (150-375) k/mm3 MPV 9.8 (7.4-10.4) fl Immature Gran % (Auto) 0.3 (0-0.5) % Neut % (Auto) 75.6 H (45.5-73.1) % Lymph % (Auto) 16.8 L (18.3-44.2) % [place] % (Auto) 3.9 (2.6-8.5) % Eos % (Auto) 2.8 (0-4.4) % Baso % (Auto) 0.6 (0.2-1.2) % Lymph # (Auto) 1.73 (0.9-3.2) K/mm3 [place] # (Auto) 0.4 (0.1-0.6) K/mm3 Eos # (Auto) 0.3 (0-0.3) K/mm3 Baso # (Auto) 0.1 (0.0-0.1) K/mm3 Abs Immat Gran (auto) 0.03 (0.00-0.031) K/mm3 Absolute Neuts (auto) 7.8 H (1.3-6.7) K/mm3 Absolute Nucleated RBC 0.000 (0.0-0.012) K/mm3 Band Neutrophils % Not Reportable Nucleated RBC % 0.0 (0.0-0.2) % Platelet Estimate Increased (Adequate) Hypochromasia 1+ Ovalocytes 1+ Schistocytes None seen Sodium 138 (137-145) mmol/L Potassium 4.3 (3.4-5.0) mmol/L Chloride 105 (98-107) mmol/L Carbon Dioxide 24 (22-30) mmol/L Anion Gap 9 (4-12) mmol/L BUN 16 (7-17) mg/dL Creatinine 0.60 L (0.7-1.0) mg/dL Estim Creat Clear Calc 120 ml/min Estimated GFR > 60 (59 - ) Glucose 91 (65-110) mg/dL Calcium 9.7 (8.4-10.2) mg/dL Total Bilirubin 0.2 (0.2-1.3) mg/dL AST 23 (14-36) U/L ALT 14 (6-35) U/L Alkaline Phosphatase 123 (38-126) U/L Total Protein 7.5 (6.3-8.2) g/dL Albumin 4.1 (3.5-5.1) g/dL Urine Color Yellow (Yellow) Urine Appearance Clear (Clear) Urine pH 5.5 (5.0-9.0) Ur Specific [place] 1.018 (1.001-1.035) Urine Protein Negative (Negative) mg/dL Urine Glucose (UA) Negative (Negative) mg/dL Urine Ketones Negative (Negative) mg/dL Ur Blood (Man) 3+ H (Negative) Urine Nitrate Negative (Negative) Urine Bilirubin Negative (Negative) Urine Urobilinogen 0.2 (<2.0) mg/dL Leukocyte Esterase Rfl 2+ H (Negative) HELIO/UL Urine RBC 51-100 H (0-2) /hpf Urine WBC 6-10 H (0-3) /hpf Ur Squamous Epith Cells None seen (Few) /hpf Urine Bacteria None seen /hpf Urine Casts 0-2 <Maliha Negron, [facility] [employer] - Last Filed: 02/17/25 17:02> Lab Results 02/17/25 Range/Units 14:26 WBC 10.3 H (4.5-10.0) K/mm3 RBC 4.60 (4.2-5.4) M/mm3 Hgb 11.2 L (12.0-15.0) g/dL Hct 38.5 (37.0-47.0) % MCV 83.7 (80-100) fl MCH 24.3 L (26-34) pg MCHC 29.1 L (32-36) g/dl RDW 16.3 H (11.5-14.5) % Plt Count 376 H D (150-375) k/mm3 MPV 9.8 (7.4-10.4) fl Immature Gran % (Auto) 0.3 (0-0.5) % Neut % (Auto) 75.6 H (45.5-73.1) % Lymph % (Auto) 16.8 L (18.3-44.2) % [place] % (Auto) 3.9 (2.6-8.5) % Eos % (Auto) 2.8 (0-4.4) % Baso % (Auto) 0.6 (0.2-1.2) % Lymph # (Auto) 1.73 (0.9-3.2) K/mm3 [place] # (Auto) 0.4 (0.1-0.6) K/mm3 Eos # (Auto) 0.3 (0-0.3) K/mm3 Baso # (Auto) 0.1 (0.0-0.1) K/mm3 Abs Immat Gran (auto) 0.03 (0.00-0.031) K/mm3 Absolute Neuts (auto) 7.8 H (1.3-6.7) K/mm3 Absolute Nucleated RBC 0.000 (0.0-0.012) K/mm3 Band Neutrophils % Not Reportable Nucleated RBC % 0.0 (0.0-0.2) % Platelet Estimate Increased (Adequate) Hypochromasia 1+ Ovalocytes 1+ Schistocytes None seen Sodium 138 (137-145) mmol/L Potassium 4.3 (3.4-5.0) mmol/L Chloride 105 (98-107) mmol/L Carbon Dioxide 24 (22-30) mmol/L Anion Gap 9 (4-12) mmol/L BUN 16 (7-17) mg/dL Creatinine 0.60 L (0.7-1.0) mg/dL Estim Creat Clear Calc 120 ml/min Estimated GFR > 60 (59 - ) Glucose 91 (65-110) mg/dL Calcium 9.7 (8.4-10.2) mg/dL Total Bilirubin 0.2 (0.2-1.3) mg/dL AST 23 (14-36) U/L ALT 14 (6-35) U/L Alkaline Phosphatase 123 (38-126) U/L Total Protein 7.5 (6.3-8.2) g/dL Albumin 4.1 (3.5-5.1) g/dL Urine Color Yellow (Yellow) Urine Appearance Clear (Clear) Urine pH 5.5 (5.0-9.0) Ur Specific [place] 1.018 (1.001-1.035) Urine Protein Negative (Negative) mg/dL Urine Glucose (UA) Negative (Negative) mg/dL Urine Ketones Negative (Negative) mg/dL Ur Blood (Man) 3+ H (Negative) Urine Nitrate Negative (Negative) Urine Bilirubin Negative (Negative) Urine Urobilinogen 0.2 (<2.0) mg/dL Leukocyte Esterase Rfl 2+ H (Negative) HELIO/UL Urine RBC 51-100 H (0-2) /hpf Urine WBC 6-10 H (0-3) /hpf Ur Squamous Epith Cells None seen (Few) /hpf Urine Bacteria None seen /hpf Urine Casts 0-2 <Roberto Ott MD - Last Filed: 02/17/25 18:53> Imaging Data Attestation: I personally reviewed and interpreted this imaging study as follows: < Maliha Negron APRN - Last Filed: 02/17/25 17:02> Radiologist's impression: Impressions Pelvis Ultrasound 02/17/25 14:56 IMPRESSION: 1. Endometrial thickening with trace fluid in the endometrium. 2: Enlarged uterus. <Maliha Negron APRN - Last Filed: 02/17/25 17:02> Discharge Plan Discharge Clinical Impression: Abnormal vaginal bleeding, History of anemia <Maliha Negron APRN - Last Filed: 02/17/25 17:02> Patient Disposition: Still a Patient <Maliha Negron APRN - Last Filed: 02/17/25 17:02> Condition: Stable <Maliha Negron APRN - Last Filed: 02/17/25 17:02>
[2025-02-17 14:34] LABS: Basophils Absolute Auto 0.1 K/mm3 (0.0-0.1); Basophils Percent Auto 0.6 % (0.2-1.2); Eosinophils Absolute Auto 0.3 K/mm3 (0-0.3); Eosinophils Percent Auto 2.8 % (0-4.4); Hematocrit 38.5 % (37.0-47.0); Hemoglobin 11.2 g/dL (12.0-15.0); Immature Granulocyte Absolute 0.03 K/mm3 (0.00-0.031); Immature Granulocyte Percent A 0.3 % (0-0.5); Lymphocytes Absolute Auto 1.73 K/mm3 (0.9-3.2); Lymphocytes Percent Auto 16.8 % (18.3-44.2); Mean Corpuscular HGB Conc 29.1 g/dl (32-36); Mean Corpuscular Hemoglobin 24.3 pg (26-34); Mean Corpuscular Volume 83.7 fl (80-100); Mean Platelet Volume 9.8 fl (7.4-10.4); Monocytes Absolute Auto 0.4 K/mm3 (0.1-0.6); Monocytes Percent Auto 3.9 % (2.6-8.5); Neutrophils Absolute Auto 7.8 K/mm3 (1.3-6.7); Neutrophils Percent Auto 75.6 % (45.5-73.1); Platelet Count Result 376 k/mm3 (150-375); Red Cell Distribution Width 16.3 % (11.5-14.5); White Blood Count 10.3 K/mm3 (4.5-10.0)
[2025-02-17 14:39] LABS: Add Urine Microscopic? YES; Appearance Urine Clear (Clear); Bacteria Urine None Seen /hpf; Bilirubin Urine Negative (Negative); Blood Urine 3+ (Negative); Color Urine Yellow (Yellow); Glucose Urine UA Negative (Negative); Ketones Urine Negative (Negative); Leukocyte Esterase Ur 2+ LEU/UL (Negative); Nitrate Urine Negative (Negative); Non Pathogenic Casts 0-2; Protein Urine Negative (Negative); RBC Urine 51-100 /hpf (0-2); Specific Grav Ur 1.018 (1.001-1.035); Squamous Epithelial Cell Urine None Seen /hpf (Few); Urobilinogen Urine 0.2 mg/dL (<2.0); pH Urine 5.5 (5.0-9.0)
--- OUTSIDE RECORDS SUMMARY | 2025-02-17 14:43 | XMS_ITS | Data Portability ---
Author Organization [facility] Pe[place] Address [address] [place] [address] [place] [address] Care Team Providers Care Health Insurance Agent Name Role Phone SHABBIR SOUSA Primary Care Provider Assessment Encounter Date Assessment Date Assessment LastModified by Organization Details LastModified Time 02/03/2025 02/03/2025 Patient is ___weeks . Discussed plan. Not available 02/03/2025 12:18:22 Plan of Treatment Reminders Order Date Submit Date Provider Last Modified By Organization Details Last Modified Time Details Appointments SURG POST OP 2024 03:15P Karmen PANTOJA MD Not available Not available Not available Lab None recorded. Referral None recorded. Procedures None recorded. Surgeries None recorded. Imaging non-stres s test 2024 025 [email or web address] [address], [address], [place], [address], 02/04/2025 04:01:46 US, obstetric , biophysic al profile + non-stres s test 2024 025 [email or web address] [address], [address], [place], [address], 02/03/2025 18:29:56 non-stres s test 2024 025 [address], [address], [place], [address], 01/31/2025 17:09:48 Medication Orders None recorded. Patient TargetsNo targets recorded. Patient InstructionsNo instructions recorded. Reason for Referral None Reported. Results Created Date Observation Date Name Description Value Unit Range Abnormal Flag Note LastModifiedBy Organization Detail LastModifiedTime 01/13/20 25 01/12/2025 BILE ACIDS , TOTAL bile acids, total 7 umol/ L 0-10 Test Perfo rmed by: [facility] [address] [place] [address] Not Available [facility] (Lab) [address] [place], [address], 01/13/2025 11:40:29 01/25/2001/24/2025 BILE ACIDS , TOTAL bile acids, total 2 umol/ L 0-10 Test Perfo rmed by: [facility] [address] [place] [address] Not Available [facility] (Lab) [address] [place], [address], 01/25/2025 11:50:39 01/25/2001/24/2025 CULTU RE: URINE result report SEE RESULT S BELOW Test: Cultu re: Urine Speci men Sourc e: Urine - Clean Catch Speci men Type: Urine Speci men Date: 2024 1041 Resul t Date: 2024 0555 Resul t Statu s: Final resul t Abnor mal: No Resul ting Lab: [facility] [address] [facility] [address] Tel: CULTU RE ----- ----- ----- --- No growt h in 1 day (dete ction level of 10,00 0 colon ies / ml.) Not Available [facility] (Lab) [address] [place], [address], 01/26/2025 07:01:17 01/28/2001/27/2025 CULTU RE: GROUP B [...] t Abnor mal: Yes Resul ting Lab: [facility] [address] [facility] [address] [facility] [address] Tel: CULTU RE ----- ----- ----- --- Posit kelly for Strep tococ cus agala ctiae (Grou p B) (Abno rmal) Clind amyci n susce ptibl e, eryth romyc in resis tant. The clind amyci n induc tion test (D-t est) is negat kelly, there fore clind amyci n shoul d be clini ozzy effec tive again st this isola te. Not Available [facility] (Lab) [address], [place], [address], 02/01/2025 16:56:41 01/19/20 25 01/18/2025 non-s tress test No observ ation record ed. [facility] [address], [place], [address], 01/18/2025 09:26:19 01/21/20 25 01/20/2025 US, josse mcmillan, bioph ysica l profi le + non-s tress test No observ ation record ed. [email or web address] [address] [address], [place], [address], 01/20/2025 15:16:55 01/21/20 25 01/20/2025 US, josse tric, follo w-up No observ ation record ed. [email or web address] [facility] [address], [place], [address], 01/20/2025 15:17:06 01/21/20 25 01/20/2025 US, obste tric, follo w-up No observ ation record ed. [email or web address] [address], [place], [address], 01/25/2025 10:18:16 01/21/20 25 01/20/2025 non-s tress test No observ ation record ed. [facility] [address], [place], [address], 01/20/2025 14:39:13 01/25/20 25 01/24/2025 non-s tress test No observ ation record ed. [facility] [address], [place], [address], 01/24/2025 10:18:52 01/26/20 non-s tress test No observ ation record ed. [facility] [address], [place], [address], 01/25/2025 11:49:46 01/28/20 25 01/27/2025 US, josse mcmillan, bioph ysica l profi le + non-s tress test No observ ation record ed. [email or web address] [facility] [address], [place], [address], 01/27/2025 12:36:24 01/28/20 25 01/27/2025 US, obste tric, follo w-up No observ ation record ed. [email or web address] [address], [place], [address], 01/28/2025 09:16:33 01/28/20 25 01/27/2025 non-s tress test No observ ation record ed. [email or web address] [address] [address], [place], [address], 01/28/2025 14:16:56 01/28/20 non-s tress test No observ ation record ed. [facility] [address], [place], [address], 01/27/2025 16:03:33 02/01/20 25 01/31/2025 non-s tress test No observ ation record ed. [email or web address] [address] [address], [place], [address], 01/31/2025 17:04:57 02/04/20 25 02/03/2025 US, obste tric, bioph ysica l profi le + non-s tress test No observ ation record ed. [email or web address] [place] [address], [place], [address], 02/03/2025 11:33:28 02/04/20 25 02/03/2025 US, obste tric, bioph ysica l profi le + non-s tress test No observ ation record ed. [email or web address] [address] [facility], [place], [address], 02/07/2025 21:39:43 02/04/20 25 02/03/2025 non-s tress test No observ ation record ed. [place] [address], [place], [address], 02/03/2025 14:19:23 Result Notes None recorded. Problems Name Problem SNOMED Code Status Onset Date Resolution Date Notes Provider Name and Address Organization Details Recorded Time Complica tion of pregnanc y, childbir th and/or puerperi 483152598 Completed 201709/19/2020 Oth diseases and conditio ns compl preg/chl dbrth;Re corded Elsewher e: No Locat ion: [facility]angel[facility] y[facility] S ource: EHR Machine Tool Designer ramírez: N Practi ce ID: 0001 Bernard lable Time: 03:45:00 PM Annie Lehman MD [address], [place], [address], [facility] 1 11:19:26 Antenata l screenin g Completed 201709/19/2020 Encounte r for antenata l screenin g for nuchal transluc ency;Rec orded Elsewher e: No Locat ion: [facility] S ource: EHR Machine Tool Designer ramírez: N Practi ce ID: 0001 Bernard lable Time: 02:30:00 PM Annie Lehman MD [address], [place], [address], [facility] 1 11:19:56 Bartholi nitis 9821497 Completed 201809/19/2020 Other diseases of Bartholi n's gland;Re corded Elsewher e: No Locat ion: [facility]angelista [facility] S ource: EHR Machine Tool Designer ramírez: N Josieti ce ID: 0001 Bernard lable Time: 11:00:00 AM Annie Lehman MD [address], [place], [address], [facility] 1 11:17:48 Pregnanc y, childbir th and puerperi um finding Completed 201709/19/2020 Encntr for suprvsn of normal first preg, third trimeste r;Record ed Elsewher e: No [facility] S ource: EHR Machine Tool Designer ramírez: N Josieti ce ID: 0001 Bernard lable Time: 04:00:00 PM Annie Lehman MD [address], [place], [address], [facility] 1 11:19:01 Pregnanc y, childbir th and puerperi um finding Completed 201709/19/2020 Encounte r for supervis ion of normal 1st pregnanc y, 1st trimeste r;Record ed Elsewher e: No Locat ion: Delaneyevangelista greenberg [facility] S ource: EHR Machine Tool Designer ramírez: N Practi ce ID: 0001 Bernard lable Time: 03:00:00 PM Annie Lehman MD [address], [place], [address], [facility] 1 11:18:57 Missed miscarri age [id number] Completed 201809/19/2020 Missed ;Recorde d Elsewher e: No [facility]: EHR Machine Tool Designer ramírez: N Practi ce ID: 0001 Bernard lable Time: 02:00:00 PM Anine Lehman MD [address], [place], [address], [facility] [address] 11:18[address] Concept Completed 201809/19/2020 Encntr for taxation agent exam (general ) (routine ) w/o abn findings ;Recorde d Elsewher e: No Locat ion: [facility] S ource: EHR Machine Tool Designer ramírez: N Practi ce ID: 0001 Bernard lable Time: 02:00:00 PM Annie Lehman MD [address], [place], [address], [facility] 1 11:19:14 Spotting per vagina in pregnanc y [id number] Completed 201709/19/2020 Spotting complica ting pregnanc y, second trimeste r;Record ed Elsewher e: No [facility]at ion: [facility] S ource: EHR Machine Tool Designer ramírez: N Practi ce ID: 0001 Bernard lable Time: 02:15:00 PM Annie Lehman MD [address], [place], [address], [facility] 1 11:19:16 Placenta previa 08410113 Completed 201709/19/2020 Placenta previa specifie d as w/o hemor, second trimeste r;Record ed Elsewher e: No [facility]at [facility]: EHR Machine Tool Designer ramírez: N Josieti ce ID: 0001 Bernard lable Time: 01:00:00 PM Annie Lehman MD [address], [place], [address], [facility] 1 11:18:52 Increase d frequenc y of urinatio n 777077826 Completed 201909/19/2020 Frequenc y of micturit ion;Amandeep rded Elsewher e: No Locat ion: [facility] S ource: EHR Machine Tool Designer ramírez: N Practi ce ID: 0001 Bernard lable Time: 02:30:00 PM Annie Lehman MD [address], [place], [address], [facility] 11:18:33 Gestatio n period, 8 weeks 54464862 Completed 201809/19/2020 8 weeks gestatio n of pregnanc y;Record ed Elsewher e: No Locat ion: [facility] S ource: EHR Machine Tool Designer ramírez: N Josieti ce ID: 0001 Bernard lable Time: 02:00:00 PM Annie Lehman MD [address], [place], [address], [facility] 11:18:28 Normal pregnanc y in multigra andrzej [id number] 08494 Completed 201709/19/2020 Encounte r for supervis ion of other normal pregnanc y, 3rd trimeste r;Record ed Elsewher e: No Locat ion: [facility] S ource: EHR Machine Tool Designer ramírez: N Josieti ce ID: 0001 Bernard lable Time: 02:00:00 PM Annie Lehman MD [address], [place], [address], [facility] 11:18:49 Antenata l screenin g for malforma tion Completed 201709/19/2020 Encounte r for antenata l screenin g for malforma tions;Pr actice ID: 0001 Annie Lehman MD [address], [place], [address], [facility] 11:19:53 Gestatio n period, 18 weeks 17485682 Completed 201709/19/2020 18 weeks gestatio n of pregnanc y;Practi ce ID: 0001 Annie Lehman MD [address], [place], [address], [facility] 11:18:12 Gestatio n period, 17 weeks 72787190 Completed 201709/19/2020 17 weeks gestatio n of pregnanc y;Practi ce ID: 0001 Annie Lehman MD [address], [place], [address], [facility] 11:18:10 Pregnanc y, childbir th and puerperi um finding Completed 201709/19/2020 Encntr for suprvsn of normal first preg, second trimeste r;Practi ce ID: 0001 Annie Lehman MD [address], [place], [address], [facility] 11:18:59 Gestatio n period, 24 weeks 267072772 Completed 201709/19/2020 24 weeks gestatio n of pregnanc y;Record ed Elsewher e: No Locat ion: Annette greenberg [facility] S ource: EHR Machine Tool Designer ramírez: N Practi ce ID: 0001 Bernard lable Time: 01:00:00 PM Annie Lehman MD [address], [place], [address], [facility] 1 11:18:15 Gestatio n period, 27 weeks 85293144 Completed 201709/19/2020 27 weeks gestatio n of pregnanc y;Record ed Elsewher e: No Locat ion: [facility] S ource: EHR Machine Tool Designer ramírez: N Leticia ce ID: 0001 Bernard lable Time: 03:15:[address] PM MD [address], [place], [address], [facility] 11:18:19 Pregnanc y detectio n examinat ion Completed 201809/19/2020 Encounte r for pregnanc y test, result positive ;Recorde d Elsewher e: No Locat ion: [facility] S ource: EHR Machine Tool Designer ramírez: N Leticia ce ID: 0001 Bernard lable Time: 02:00:00 PM Annie Lehman MD [address], [place], [address], [facility] 11:18:54 Uses combined oral contrace ption 296368587 Completed 201809/19/2020 Encounte r for surveill ance of contrace ptive pills;Re corded Elsewher e: No Locat ion: [facility] S ource: EHR Machine Tool Designer ramírez: N Leticia ce ID: 0001 Bernard lable Time: 10:45:00 AM MD [address], [place], [address], [facility] 1 11:18:02 Lochia finding Completed 201709/19/2020 Encounte r for routine postpart um follow-u p;Record ed Elsewher e: No Locat ion: [facility] S ource: EHR Machine Tool Designer ramírez: N Leticia ce ID: 0001 Bernard lable Time: 01:15:00 PM MD [address], [place], [address], [facility] 1 11:18:43 Rubella screenin g status 602548409 Completed 201709/19/2020 Encounte r for antenata l screenin g, unspecif ied;Amandeep rded Elsewher e: No [facility]at [facility]: [facility] S ource: EHR Machine Tool Designer ramírez: N Practi ce ID: 0001 Bernard lable Time: 03:30:00 PM Annie Lehman MD [address], [place], [address], [facility] 11:19:07 Prematur e labor 9999506 Completed 201709/19/2020 labor without delivery , second trimeste r;Practi ce ID: 0001 Annie Lehman MD [address], [place], [address], [facility] 11:19:05 False labor before 37 complete d weeks of gestatio n [id number] 7185755 Completed 201709/19/2020 False labor before 37 complete d weeks of gest, second tri;Prac michel ID: 0001 Annie Lehman MD [address], [place], [address], [facility] 11:18:07 Gestatio n period, 26 weeks 47264061 Completed 201709/19/2020 26 weeks gestatio n of pregnanc y;Practi ce ID: 0001 Annie Lehman MD [address], [place], [address], [facility] 11:18:17 Syphilis test finding 678244591 Completed 201809/19/2020 Encntr screen for infectio ns w sexl mode of transmis s;Record ed Elsewher e: No Locat ion: [facility] S ource: EHR Machine Tool Designer ramírez: N Practi ce ID: 0001 Bernard lable Time: 02:00:00 PM Annie Lehman MD [address], [place], [address], [facility] 11:19:18 Disorder of perineum Completed 201709/19/2020 Anogenit al (venerea l) warts;Re corded Elsewher e: No Locat ion: [facility] S ource: EHR Machine Tool Designer ramírez: N Practi ce ID: 0001 Bernard lable Time: 08:45:00 AM Annie Lehman MD [address], [place], [address], [facility] 11:19:29 Cardiac arrhythm ia Completed 201709/19/2020 Prematur e contract ion;Amandeep rded Elsewher e: No Locat ion: [facility] S ource: EHR Machine Tool Designer ramírez: N Practi ce ID: 0001 Bernard lable Time: 08:45:00 AM Annie Lehman MD [address], [place], [address], [facility] 11:17:56 Pregnanc y, childbir th and puerperi um finding Completed 201709/19/2020 Oth pregnanc y related conditio ns, second trimeste r;Practi ce ID: 0001 Annie Lehman MD [address], [place], [address], [facility] 1 11:17:54 Infectio n screenin g Completed 201809/19/2020 Encounte r for screenin g for oth infec/pa rastc diseases ;Recorde d Elsewher e: No Locat ion: [facility] S ource: EHR Machine Tool Designer ramírez: N Practi ce ID: 0001 Bernard lable Time: 02:00:00 PM Annie Lehman MD [address], [place], [address], [facility] 11:18:36 Pregnanc y, childbir th and puerperi um finding Completed 201709/19/2020 Oth pregnanc y related conditio ns, third trimeste r;Practi ce ID: 0001 Annie Lehman MD [address], [place], [address], [facility] 11:17:59 Gestatio n period, 36 weeks 13479911 Completed 201709/19/2020 36 weeks gestatio n of pregnanc y;Practi ce ID: 0001 Annie Lehman MD [address], [place], [address], [facility] 11:18:22 False labor at or after 37 complete d weeks of gestatio n 892209792 Completed 201709/19/2020 False labor at or after 37 complete d weeks of gestatio n;Practi ce ID: 0001 Annie Lehman MD [address], [place], [address], [facility] 11:18:04 Gestatio n period, 37 weeks 26912223 Completed 201709/19/2020 37 weeks gestatio n of pregnanc y;Practi ce ID: 0001 Annie Lehman MD [address], [place], [address], [facility] 11:18:24 Lacerati on of female perineum Completed 201709/19/2020 Second degree perineal lacerati on during delivery ;Practic e ID: 0001 Annie Lehman MD [address], [place], [address], [facility] 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 13:56:59 Single live from singleto n pregnanc y 363722177 Completed 201709/19/2020 Single live ;Pr actice ID: 0001 Annie Lehman MD [address], [place], [address], [facility] 11:19:11 Gestatio n period, 39 weeks 78025420 Completed 201709/19/2020 39 weeks gestatio n of pregnanc y;Practi ce ID: 0001 Annie Lehman MD [address], [place], [address], [facility] 11:18:26 Secondar y amenorrh ea 922281773 Completed 201809/19/2020 Secondar y amenorrh ea;Recor ded Elsewher e: No Locat ion: Annette greenberg [facility] S ource: EHR Machine Tool Designer ramírez: N Practi ce ID: 0001 Bernard lable Time: 02:00:00 PM Annie Lehman MD [address], [place], [address], [facility] 11:19:09 Pregnanc y 06028550 Completed 201902/01/2021 Mary Moreland null, [facility] 4 10:07:10 growth restrict ion 17314191 Completed 2020 weekly doppler, antenata l testing at 32wks Eneida Howardnstieh l null, [facility] 1 10:52:12 False labor 119996714 Completed Procardi a 30mg Eneida Bohnenstieh l null, [facility] 1 10:52:12 Abdomina l pain 48739350 Completed Eneida Montañomikhailfranklin culp null, [facility] 1 10:52:12 growth restrict ion 14988110 Completed 202003/14/2021 weekly doppler, antenata l testing at 32wks Jayna Rob null, [facility] 1 13:57:01 Pregnanc y 41657374 Active 2023 Mary Moreland null, [facility] 4 10:07:10 Deliveri es by 256813417 Active to repeat Israel Pantoja MD [address], [place], [address], [facility] 4 10:34:35 Migraine 53198772 Active Israel Pantoja MD [address], [place], [address], [facility] 4 10:34:47 Pruritic disorder of skin Active 2024 Bile acids 7 Rpt labs, worsenin g pruritus 5 bile acid 2 Aubree Jones null, [facility] 5 13:32:27 Anemia 792491068 Active 2024 Aubree Jones null, [facility] 5 17:41:20 Anemia 200273294 Active 2024 Aubree Jones [facility], [facility] 5 17:41:20 Problem Notes None recorded. Procedures Surgical History Date Name Laterality Status Provider Name and Address Organization Details Recorded Time 3 Date of Last Pap Smear completed Mary Moreland [facility] 07/27/2024 14:36:52 2 Caesarean Section completed Mary Moreland [facility] 07/27/2024 14:40:18 9 Dilation and Curettage completed Sharri Hero [facility] 06/22/2020 11:59:28 Imaging Results None [...] Prescrib ed Elsewher e: No Locat ion: [facility] odify By: jones perera DateTime : 02/03/20 02:30:00 PM Not Available Not Available Not Available Fiorinal 50 mg-325 mg-40 mg capsule Take 1 capsule every 4 hours by oral route. 04/10 completed Stefany gave patient written script Not Available Not Available Not Available hydrocodo ne 5 mg-acetam inophen 325 mg tablet TAKE 1 TABLET BY MOUTH EVERY 3 HOURS NEEDED FOR BREAKTHR OUGH PAIN active Not Available Not Available No t Available nifedipin e ER 30 mg tablet,ex [...] Prescrib ed Elsewher e: No Locat ion: [facility] M odify By: yusuf Fajardo er DateTime [...] Prescrib ed Elsewher e: Yes [facility] odify By: yusuf Fajardo er DateTime [...] Not Available Not Avail able Not Available Slow Fe active Not Available Not Avail able Not Available active Not Available Not Avai lable Not Available Fioricet 50 mg-300 mg-40 mg capsule Take 1 capsule every 4 hours by oral route. 04/10 completed Not Available Not Available Not Available ID NOW COVID-19 Test Kit DIRECTED [id number] 07/27 completed Not Available Not Available Not Available Vitals Date Recorded Body height Body mass index (BMI) Body weight Systolic blood pressure Diastolic blood pressure Provider Name and Address Organization Details Last Updated DateTime 01/31/2025 162.56 cm 34.8 kg/m2 93681.25 g 128 mm[Hg] 80 mm[Hg] [facility] 17:04:16 Date Recorded Body weight Systolic blood pressure Diastolic blood pressure Provider Name and Address Organization Details Last Updated DateTime 02/03/2025 26392.0663 7 g 110 mm[Hg] 74 mm[Hg] Mary Moreland [facility] 02/03/2025 12:19:04 Date Recorded Body height Body mass index (BMI) Body weight Systolic blood pressure Diastolic blood pressure Provider Name and Address Organization Details Last Updated DateTime 02/03/2025 162.56 cm 34.5 kg/m2 62817.07 g 110 mm[Hg] 74 mm[Hg] PRIYANK [facility] 12:27:53 Social History Question Answer Notes LastModified by Organizat ion Details LastModified Time Tobacco Smoking Status Never Smoker Bertha Merchant [facility] 11/23/2020 18:10:39 Do You Have An [...] Or The Highest Degree You Have Received? [id number] Information not available 11/23/2020 Are There Any Guns Present In Your Home? Yes Information not available 11/23/2020 What Was The Date Of Your Most Recent Tobacco Screening? 04/10/2021 [email or web address] Information not available 04/10/2021 Do You Use Protection During Sex? No Information not available 07/27/2024 Do You Use Your Seat Belt Or Car Seat Routinely? Yes Information not available 11/23/2020 Do You Have Smoke And Carbon Monoxide Detectors In Your Home? Yes Information not available 11/23/2020 How Much Tobacco Do You Smoke? No [email or web address] Information not available 08/18/2020 Do You Use Sunscreen Routinely? Yes Information not available 11/23/2020 Have You Used IV Drugs? No Information not available 11/23/2020 Sex: Unknown Functional Status Question Answer Note LastModified by Organizat ion Details LastModified Time Do you use any illicit or recreational drugs? Yes Information not available 12/21/2024 What is your level of alcohol consumption? None [id number] Information not available 07/18/2020 Do you or [...] anxious, or unable to sleep at night)? [id number] [email or web address] Information not available 11/23/2020 Family History Relationship [...] ) N Other Y Drug/Latex Allergies/Reactions N Breast Cancer N Blood Transfusion N Lung Disease N Dermatologic Disorders N Defects or Inherited Disease N Breast Problem N Gestational Diabetes N Hematologic disorders N Anesthesia Complications N History of STI N Deep Vein Thrombosis N Polycystic ovary syndrome N Anxiety Disorder N Autoimmune disease N Arthritis N Polyps N Infertility N History of abnormal pap N Acid Reflux (GERD) N Cancer N Varicosities N Stroke N [...] SNOMED-CT Code Diagnosis ICD10 Code Diagnosis Note [id number] Israel Pantoja MD [facility] [address],[facility] [place] [place] [address] 06/15/2020 10:20:01 06/15/2020 14:43:05 [id number] Sofía Thurman CNM [facility] [address],[facility] [place] [address] 06/22/2020 16:23:42 06/23/2020 15:45:21 Gynecologic examination 28898992 Z01.419 test positive 199474718 Z32.01 Risk factors addressed: Tobacco Cessation, Safe [...] Sequential Screen handout given and discussed with patient. ildbirth classes recommende d.New OB sheet given. If previous , counseling .Pt verbalizes that she understand s the importance of above instructio ns.All questions were answered. Patient reminded to have annual well woman examinatio n and address [facility] . [id number] Israel Pantoja MD [facility] [address] [address] 07/18/2020 16:32:57 07/18/2020 17:24:28 screening 309045343 Z36.82 Z36.0 Z36.89 [id number] Israel Pantoja MD [facility] [address],[place] [address] 07/18/2020 16:34:01 07/20/2020 15:12:33 Routine care 936355300 Z34.90 [id number] Stefany Dunn, [facility] [address],[place] [address] 08/18/2020 15:50:48 08/18/2020 17:07:09 Routine care 043679677 Z34.92 [id number] Israel Pantoja MD [facility] [address],[place] [address] 08/18/2020 15:51:57 08/21/2020 09:09:37 [id number] Annie Lehman MD [facility] [address],[place] [address] 09/19/2020 09:30:24 09/19/2020 12:49:24 screening for malformation 231654637 Z36.3 33148 Annie Lehman MD [facility] [address],[place] [address] 09/19/2020 09:30:56 09/19/2020 11:51:19 Routine care 255420528 Z34.92 59666 MD Bonita Hollis [address],[place] [address] 10/26/2020 10:28:47 10/26/2020 11:27:30 Small for gestational age fetus 537730811 O36.5920 Z3A.26 38317 MD Bonita Hollis [address],[place] [address] 10/26/2020 10:29:24 10/26/2020 12:33:48 Routine care 296762214 Z34.90 02903 MD Bonita Hollis [address],[place] [address] 11/02/2020 16:25:34 11/03/2020 12:03:37 Small for gestational age fetus 854568223 O36.5920 Z3A.27 71791 MD Bonita Hollis [address],[place] [address] 11/09/2020 16:47:44 11/09/2020 17:49:54 Small for gestational age fetus 070438527 O36.5920 44068 MD Bonita Hollis [address],[place] [address] 11/16/2020 16:34:04 11/16/2020 17:26:44 Poor growth affecting management 038442029 O36.5930 Z3A.29 89872 MD Bonita Hollis [address],[place] [address] 11/16/2020 16:34:20 11/17/2020 19:03:36 Routine care 180776244 Z34.90 40608 MD Bonita Hollis [address],[place] [address] 1 11/23/2020 16:23:32 11/24/2020 14:38:24 Poor growth affecting management 171042275 O36.5930 Z3A.30 96083 MD Bonita Hollis [address],[place] [address] 1 11/23/2020 16:24:03 11/24/2020 14:38:55 Routine care 676264272 Z34.90 07154 MD Bonita Hollis [address],[place] [address] 11/30/2020 16:49:04 11/30/2020 17:25:15 Poor growth affecting management 488811311 O36.5930 Z3A.31 91726 MD Bonita Hollis [address],[place] [address] 11/30/2020 16:49:26 12/01/2020 15:25:48 Routine care 393767698 Z34.90 76444 MD Bonita Hollis [address],[place] [address] 12/07/2020 16:08:59 12/07/2020 17:00:30 Poor growth affecting management 796112479 O36.5930 Z3A.32 97714 MD Bonita Hollis [address],[place] [address] 12/07/2020 16:09:19 12/07/2020 17:29:59 growth restriction 83319750 O35.8XX9 17756 MD Bonita Hollis [address],[place] [address] 12/07/2020 16:09:36 12/09/2020 15:24:29 Routine care 997675515 Z34.90 63783 MD Bonita Hollis [address],[place] [address] 12/11/2020 16:59:41 12/13/2020 09:34:50 growth restriction 94213569 O35.8XX9 05897 MD Bonita Hollis [address],[place] [address] 12/14/2020 15:44:09 12/14/2020 16:36:54 Poor growth affecting management 280372733 O36.5930 Z3A.33 72744 MD Bonita Hollis [address],[place] [address] 12/14/2020 15:44:31 12/14/2020 17:19:55 growth restriction 90380436 O35.8XX9 03090 MD Bonita Hollis [address],[place] [address] 12/14/2020 15:44:47 12/18/2020 13:50:18 Routine care 770334795 Z34.90 41662 MD Bonita Hollis [address],[place] [address] 12/21/2020 16:22:14 12/21/2020 17:10:49 growth restriction 83921020 O35.8XX9 72551 MD Bonita Hollis [address],[place] [address] 12/21/2020 16:22:28 12/24/2020 21:37:00 Small for gestational age fetus 004004612 O36.5930 Z3A.34 64029 MD Bonita Hollis [address],[place] [address] 1 12/21/2020 16:22:59 12/24/2020 21:37:30 Routine care 833183349 Z34.90 96479 MD Bonita Hollis [address],[place] [address] 12/25/2020 16:51:50 12/25/2020 17:59:43 growth restriction 13746292 O35.8XX9 80454 MD Bonita Hollis [address],[place] [address] 1 12/28/2020 16:15:35 12/28/2020 17:19:26 growth restriction 42934030 O35.8XX9 01681 MD Bonita Hollis [address],[place] [address] 12/28/2020 16:16:08 12/28/2020 17:25:29 Small for gestational age fetus 929772693 O36.5930 Z3A.35 03681 MD Bonita Hollis [address],[place] [address] 12/28/2020 16:16:32 12/29/2020 14:52:26 Routine care 368119594 Z34.90 44307 MD Bonita Hollis [address],[place] [address] 01/01/2021 16:58:49 01/01/2021 18:11:56 growth restriction 55988991 O35.8XX9 20039 MD Bonita Hollis [address],[place] [address] 01/04/2021 16:07:28 01/04/2021 17:20:24 growth restriction 36597896 O35.8XX9 05123 MD Bonita Hollis [address],[place] [address] 01/04/2021 16:07:46 01/04/2021 17:13:46 Small for gestational age fetus 947649512 O36.5930 Z3A.36 43285 MD Bonita Hollis [address],[place] [address] 01/04/2021 16:07:58 01/05/2021 09:53:26 Routine care 295638463 Z34.90 36719 MD Bonita Hollis [address],[place] [address] 01/11/2021 16:17:56 01/11/2021 17:07:33 Small for gestational age fetus 359918355 O36.5930 Z3A.37 09116 MD Bonita Hollis [address],[place] [address] 01/15/2021 17:03:59 01/15/2021 22:05:32 growth restriction 81751782 O35.8XX9 02347 MD Bonita Hollis [address],[place] [address] 01/18/2021 16:33:29 01/18/2021 17:05:26 growth restriction 60738275 O35.8XX9 25982 MD Bonita Hollis [address],[place] [address] 01/18/2021 16:34:27 01/19/2021 14:56:37 Small for gestational age fetus 698831233 O36.5930 Z3A.38 11543 MD Bonita Hollis [address],[place] [address] 01/18/2021 16:34:52 01/19/2021 14:57:18 Routine care 198652089 Z34.90 18475 Israel Pantoja MD [facility] [address],[place] [address] 01/19/2021 14:23:41 01/19/2021 15:15:00 Small for gestational age fetus 381835473 O36.5930 Z3A.38 87581 Israel Pantoja MD [facility] [address],[place] [address] 01/22/2021 13:57:45 01/22/2021 14:46:08 growth restriction 81137969 O35.8XX9 44340 [facility] [address],[place] [address] 03/01/2021 16:08:40 03/02/2021 15:27:21 state 64129388 Z39.2 Continue to watch for signs/symp toms [...] desired Mixed anxi ety and depressive disorder 699266649 F41.8 Discussed options and pt would like to start zoloft. No thoughts of harming herself or others. If any worsening of symptoms she will notify us right away. RTC in 2 weeks for med check. 45875 Sofía Thurman CNM [facility] [address],[place] [address] 03/15/2021 11:58:16 03/15/2021 12:22:02 Mixed anxiety and depressive disorder 006600690 F41.8 Pt unsure if there is any improvemen t but definitely not worse. No thoughts of harming herself or others. Pt would like to continue at current dose and see how she is doing at 1 month. Will plan return visit in 2 weeks. [id number] Sofía Thurman CNM [facility] [address] [address] 04/10/2021 12:47:01 04/12/2021 14:14:59 Mixed anxiety and depressive disorder 119042890 F41.8 Pt very happy with improvemen t and would like to continue with current dose of zoloft. She will let us know if any worsening of symptoms. [id number] Israel Pantoja MD [facility] [address],[place] [address] 07/27/2024 13:44:10 07/27/2024 14:10:06 screening 224365132 Z36.87 Z3A.08 [id number] Israel Pantoja MD [facility] [address],[place] [address] 07/27/2024 13:45:40 07/27/2024 15:05:53 Amenorrhea 22922490 N91.2 this patient is a 29-year-ol d [...] begin routine care at her next visit. [id number] Israel Pantoja MD [facility] [address],[place] [address] 08/26/2024 09:19:11 08/26/2024 09:52:33 screening 915437183 Z36.82 Z3A.13 [id number] Israel Pantoja MD [facility] [address],[place] [address] 08/26/2024 09:19:23 08/26/2024 10:53:29 Migraine 40697208 G43.909 Routine an tenatal care 004154595 Z34.90 [id number] Israel Pantoja MD [facility] [address],[place] [address] 09/23/2024 09:34:38 09/23/2024 10:25:36 Routine care 890535597 Z34.90 [id number] MD Bonita Hollis [address],[place] [address] 10/14/2024 09:27:39 10/14/2024 10:46:12 screening for malformation 626123284 Z36.3 Z3A.20 [id number] MD Bonita Hollis [address],[place] [address] 10/15/2024 12:02:23 10/15/2024 12:39:49 Routine care 921421635 Z34.90 [id number] MD Bonita Hollis [address],[place] [address] 11/09/2024 09:31:35 11/09/2024 10:13:11 Routine care 507694439 Z34.90 [id number] MD Bonita Hollis [address],[place] [address] 12/06/2024 09:25:31 12/06/2024 10:05:53 Routine care 556040152 Z34.90 [id number] MD Bonita Hollis [address],[place] [address] 12/17/2024 15:40:56 12/20/2024 15:31:57 [id number] [facility] [address],[place] [address] 12/17/2024 16:40:24 12/20/2024 06:37:18 -induced hypertension 04902393 O13.9 118230 MD Bonita Hollis [address],[place] [address] 12/21/2024 09:37:11 12/21/2024 10:33:41 Uterine size for dates discrepancy 028944705 O26.843 Z3A.29 [id number] MD Bonita Hollis [address],[place] [address] 12/21/2024 09:37:30 12/21/2024 11:39:05 labor without delivery 5854942735 6308704 O60.03 [id number] MD Bonita Hollis [address],[place] [address] 12/28/2024 11:53:58 12/28/2024 13:07:59 Routine care 415877061 Z34.90 [id number] MD Bonita Hollis [address],[place] [address] 01/12/2025 16:21:54 01/12/2025 17:19:02 Cholestasis of 595231899 O26.643 038891 MD Bonita Hollis [address],[place] [address] 01/17/2025 15:04:47 01/17/2025 16:07:11 Cholestasis of 906995589 O26.643 389443 MD Bonita Hollis [address],[place] [address] 01/18/2025 09:23:01 01/18/2025 10:11:04 Cholestasis of 943743712 O26.643 [id number] MD Bonita Hollis [address],[place] [address] 01/20/2025 13:30:45 01/20/2025 14:05:31 Cholestasis of 861469753 O26.643 Z3A.34 996691 MD Bonita Hollis [address],[place] [address] 01/20/2025 13:31:11 01/20/2025 14:43:30 Cholestasis 49410704 K83.1 658157 MD Bonita Hollis [address],[place] [address] 01/24/2025 09:27:20 01/24/2025 10:26:23 Cholestasis 93129738 K83.1 Urinary symptoms 8737044 08 R39.9 637379 MD Bonita Hollis [address],[place] [address] 01/27/2025 10:34:31 01/27/2025 11:10:54 Cholestasis of 489449779 O26.643 Z3A.35 757269 MD Bonita Hollis [address],[place] [address] 01/27/2025 10:34:44 01/27/2025 16:18:18 Cholestasis of 715973850 O26.643 [id number] MD Bonita Hollis [address],[place] [address] 01/27/2025 10:34:58 01/27/2025 12:24:15 Cholestasis of 916054270 O26.643 Past pregn theo history of section 559671400 Z98.891 834668 MD Bonita Hollis [address],[place] [address] 01/31/2025 09:25:24 01/31/2025 17:09:48 Cholestasis 02645560 K83.1 [id number] MD Bonita Hollis [address],[place] [address] 02/03/2025 10:57:28 02/03/2025 11:54:57 Cholestasis of 208377786 O26.643 Z3A.36 084342 MD Bonita Hollis [address],[place] [address] 02/03/2025 10:58:17 02/03/2025 12:42:43 Cholestasis 56151493 K83.1 [id number] MD Bonita Hollis [address],[place] [address] 02/03/2025 10:58:39 02/03/2025 12:45:23 [id number] MD Bonita Hollis [address],[place] [address] 02/04/2025 08:39:23 02/08/2025 16:55:49 Health Concerns Section Related Observation LastModified by Organization Detai ls LastModified Time None Recorded Concern Status LastModified by Organization Details LastModified Time None Recorded Advance Directives Directive N: Payers Encounter Date Sequence Insurance Name Policy Number Policy Moralez Covered Member ID Moralez Member ID Guarantor Name 01/31/2025 1 [facility] ON OR AFTER 03/15/21 (MEDICAID REPLACEMENT - HMO) Mili Mcmahon [id number] Mili Mcmahon 02/03/2025 1 [facility] ON OR AFTER 03/15/21 (MEDICAID REPLACEMENT - HMO) Mili Mcmahon [id number] Mili Mcmahon 02/03/2025 1 [facility] ON OR AFTER 03/15/21 (MEDICAID REPLACEMENT - HMO) Mili Mcmahon [id number] Mili Mcmahon 02/03/2025 1 [facility] ON OR AFTER 03/15/21 (MEDICAID REPLACEMENT - HMO) Mili Mcmahon [id number] Mili Mcmahon 02/04/2025 1 [facility] ON OR AFTER 03/15/21 (MEDICAID REPLACEMENT - HMO) Mili Mcmahon [id number] Mili Mcmahon OBGyn Episode Ob Episode Information Episode Created Date Number of Fetuses Patient Bloodtype Patient rh Status Prepregnancy Weight lbs Domestic Partner Domestic Partner Phone Father Name Hat Copyist Status 06/22/20 20 1 CLOSED Fetus Data [...] Domestic Partner Domestic Partner Phone Father Name Hat Copyist Status 06/22/20 20 1 CLOSED Fetus Data [...] Domestic Partner Domestic Partner Phone Father Name Hat Copyist Status 07/18/20 20 1 O Positive 165 CLOSED Fetus Data First Name Last Name Admitted to NICU Weight (g) Sex Living Outcome Pediatric Complications Fetus ID Race Codes Race Delivery Type 2608.15 4 F true Full Term 5868 Vaginal Delivery Problems Problem Notes possible hemorrha ge Problem Name Start Date End Date Resolution Snomed Code Not e growth restriction 10/26/2020 50097942 weekly doppler, testing at 32wks False labor 100348315 Procardi a 30mg Abdominal pain 31811196 Nico Calculation Initial Nico Date Initial Exam [...] Date Ultra Sound Latest Days Gestation 0 [email or web address] 09/19/2020 02/02/20 21 0 Pre-danii Flowsheet Flowsheet [...] Weight in lbs Pre/Post Dialysis Refused Weight 162.638031867712 BP Diastolic BP Location Tested BP Systolic [...] Weight in lbs Pre/Post Dialysis Refused Weight 161.798717525683 BP Diastolic BP Location Tested BP Systolic [...] Weight in lbs Pre/Post Dialysis Refused Weight 163.369895102658 BP Diastolic BP Location Tested BP Systolic [...] Weight in lbs Pre/Post Dialysis Refused Weight 173.311037112620 BP Diastolic BP Location Tested BP Systolic [...] Weight in lbs Pre/Post Dialysis Refused Weight 178.462545674132 BP Diastolic BP Location Tested BP Systolic [...] Weight in lbs Pre/Post Dialysis Refused Weight 178.689746972294 BP Diastolic BP Location Tested BP Systolic [...] Weight in lbs Pre/Post Dialysis Refused Weight 179.468582660233 BP Diastolic BP Location Tested BP Systolic [...] Weight in lbs Pre/Post Dialysis Refused Weight 180.177547356162 BP Diastolic BP Location Tested BP Systolic [...] Weight in lbs Pre/Post Dialysis Refused Weight 183.139332747235 BP Diastolic BP Location Tested BP Systolic [...] Weight in lbs Pre/Post Dialysis Refused Weight 184.030572686196 BP Diastolic BP Location Tested BP Systolic [...] Weight in lbs Pre/Post Dialysis Refused Weight 185.265616320136 BP Diastolic BP Location Tested BP Systolic [...] Weight in lbs Pre/Post Dialysis Refused Weight 190.074508101909 BP Diastolic BP Location Tested BP Systolic [...] Weight in lbs Pre/Post Dialysis Refused Weight 190.763871618690 BP Diastolic BP Location Tested BP Systolic [...] Estim ated Date of Delivery false Thalassemia (Taiwanese, Lithuanian, Mediterranean, Or Background): MCV < 80 false Neural Tube Defect (Meningomyelocele, Spina Bifi da, Or Anencephaly) false Congenital Heart Defect false Down Syndrome false Kevin-Sachs (eg, Yarsanism, Cajun, Divehi-Rio [place]anco) f alse Sj Disease false Sickle Cell Disease Or Trait () false Hemophilia Or Other Blood Disorders false Muscular Dystrophy false Cystic Fibrosis false Tippah's Chorea false Intellectual Disability/Autism false If Yes, [...] Domestic Partner Domestic Partner Phone Father Name Hat Copyist Status 07/27/20 24 1 CLOSED Fetus Data First Name Last Name Admitted to NICU Weight (g) Sex Living Outcome Pediatric Complications Fetus ID Race Codes Race Delivery Type M Full Term 43230 Primary Nico Calculation Initial Nico Date Initial [...] Domestic Partner Domestic Partner Phone Father Name Hat Copyist Status 08/26/20 24 1 O Positive 171 Moise OPEN Fetus Data First Name Last Name Admitted to NICU Weight (g) Sex Living Outcome Pediatric Complications Fetus ID Race Codes Race Delivery Type [id number] Problems Problem Notes + GBS amp in labor Problem Name Start Date End Date Resolution Snomed Code Not e Anemia 02/15/2025 401988736 Deliveries by 04 to repeat Migraine 38558586 Pruritic disorder of skin 01/17/2025 7882004996 Bile acids 7 Rp t labs, worsening [...] Weight in lbs Pre/Post Dialysis Refused Weight 169.820296952721 BP Diastolic BP Location Tested BP Systolic [...] Type Weight in lbs Pre/Post Dialysis Refused 167.330321629631 BP Diastolic BP Location Tested BP Systolic [...] Type Weight in lbs Pre/Post Dialysis Refused 176.673802284893 BP Diastolic BP Location Tested BP Systolic [...] Type Weight in lbs Pre/Post Dialysis Refused 182.609944791327 BP Diastolic BP Location Tested BP Systolic [...] Weight in lbs Pre/Post Dialysis Refused Weight 192.688133531380 BP Diastolic BP Location Tested BP Systolic [...] Type Weight in lbs Pre/Post Dialysis Refused 193.56248363529 BP Diastolic BP Location Tested BP Systolic [...] Weight in lbs Pre/Post Dialysis Refused Weight 193.785308176231 BP Diastolic BP Location Tested BP Systolic [...] Weight in lbs Pre/Post Dialysis Refused Weight 194.065481495075 BP Diastolic BP Location Tested BP Systolic [...] Type Weight in lbs Pre/Post Dialysis Refused 193.84472334625 BP Diastolic BP Location Tested BP Systolic [...] Type Weight in lbs Pre/Post Dialysis Refused 200.358838311329 BP Diastolic BP Location Tested BP Systolic [...] Type Weight in lbs Pre/Post Dialysis Refused 201.294523043213 BP Diastolic BP Location Tested BP Systolic [...] Weight in lbs Pre/Post Dialysis Refused Weight 201.137040841031 BP Diastolic BP Location Tested BP Systolic [...] Weight in lbs Pre/Post Dialysis Refused Weight 202.061216204871 BP Diastolic BP Location Tested BP Systolic BP Type 79 L arm 114 sitting Fetus Heart Rate Present Fetus Movement Comments Flowsheet Date 01/24/2025 Donahue Score Blood Edema Fundus Height Fundus Units Glucose Ketones Leukocytes Nitrite Labor Signs Protein Cervic Dilation Cervic Effacement Cervic Station Type Weight in lbs Pre/Post Dialysis Refused Weight 201.111564432053 BP Diastolic BP Location Tested BP Systolic [...] Weight in lbs Pre/Post Dialysis Refused Weight 201.600660040354 BP Diastolic BP Location Tested BP Systolic [...] Weight in lbs Pre/Post Dialysis Refused Weight 203.593972111926 BP Diastolic BP Location Tested BP Systolic [...] Weight in lbs Pre/Post Dialysis Refused Weight 201.769490804230 BP Diastolic BP Location Tested BP Systolic BP Type 74 110 Fetus Heart Rate Present Fetus Movement Comments Flowsheet Date 02/03/2025 Donahue Score Blood Edema Fundus Height Fundus Units Glucose Ketones Leukocytes Nitrite Labor Signs Protein Cervic Dilation Cervic Effacement Cervic Station Type Weight in lbs Pre/Post Dialysis Refused 201.042756210140 BP Diastolic BP Location Tested BP Systolic BP Type 74 110 Fetus Heart Rate Present A 145 Fetus Movement A Yes Comments no complaints, no problems, routine care, no contractions, no vaginal bleeding, no loss of fluid, no cramping Flowsheet Date 02/04/2025 Donahue Score Blood Edema Fundus Height Fundus [...] Domestic Partner Domestic Partner Phone Father Name Hat Copyist Status 07/27/20 24 1 CLOSED Fetus Data First Name Last Name Admitted to NICU Weight (g) Sex Living Outcome Pediatric Complications Fetus ID Race Codes Race Delivery Type , Spontane ous [id number] Nico Calculation Initial Nico Date Initial Exam [...]
--- OUTSIDE RECORDS SUMMARY | 2025-02-17 14:43 | XMS_ITS | Clinical Summary ---
Author Organization [facility] Address [address] [place] [address] Care Team Providers Care Bakery Machine Mechanic Name Role Phone Brenda Fisher MD Primary Care Provider [phone] Source Comments [facility],non-owned Affiliates and Associated Physician Practices is amultiple site organization consisting of ambulatory clinics and hospital sitesin [place], [place], [place] and [place]. This disclosure is being madepursuant to the Care Everywhere program and may not contain all information available regarding this patient. Last updated 18.[facility] Allergies No known active allergies Medications * [...] on file Legal Sex Female 8:42 AM TATTOO AND BODY ARTIST Gender Identity Not on file Sexual Orientation Not on file Last Filed Vital Signs Vital Sign Reading Time Taken Comments Blood Pressure 106/58 08/21/2010 10:46 AM TATTOO AND BODY ARTIST Pulse 88 08/21/2010 10:46 AM TATTOO AND BODY ARTIST Temperature - - Respiratory Rate 28 08/21/2010 10:46 AM TATTOO AND BODY ARTIST Oxygen Saturation - - Inhaled Oxygen Concentration - - Weight 54.7 kg (120 lb 9.5 oz) 08/21/2010 10:46 AM TATTOO AND BODY ARTIST Height 164.3 cm (5' 4.69) 08/21/2010 10:46 AM C Body Mass Index 20.26 08/21/2010 10:46 AM TATTOO AND BODY ARTIST Plan of Treatment Health Maintenance Due Date [...] patient's age to complete this topic Insurance [employer] [facility] [address] [employer] [place] Care Teams Bakery Machine Mechanic Relationship Specialty Start Date End Date Brenda Fisher MD [address] [place] [phone] PCP - General 04/02/21
--- OUTSIDE RECORDS SUMMARY | 2025-02-17 14:43 | XMS_ITS | Clinical Summary ---
Author Organization [facility] Address [address] [place] [phone] Phone Care Team Providers Care Asset Protection Assistant Name Role Phone Unavailable Primary Care Provider [...] to complete this topic Insurance [facility] MEDICAID
[2025-02-17 14:47] LABS: Ovalocytes 1+; Platelet Estimate Increased (Adequate); Schistocytes None Seen
[2025-02-17 14:48] LABS: Hypochromasia 1+
[2025-02-17 14:53] LABS: Alanine Aminotransferase 14 U/L (6-35); Albumin Level 4.1 g/dL (3.5-5.1); Alkaline Phosphatase 123 U/L (38-126); Anion Gap 9 mmol/L (4-12); Aspartate Amino Transferase 23 U/L (14-36); Bilirubin,Total 0.2 mg/dL (0.2-1.3); Blood Urea Nitrogen 16 mg/dL (7-17); Calcium 9.7 mg/dL (8.4-10.2); Carbon Dioxide 24 mmol/L (22-30); Chloride 105 mmol/L (98-107); Estimated CRCL calculation 120 ml/min; Estimated Glomerular Filt Rate > 60; Glucose 91 mg/dL (65-110); Potassium 4.3 mmol/L (3.4-5.0); Sodium 138 mmol/L (137-145); Total Protein 7.5 g/dL (6.3-8.2)
[2025-02-17] MEDS: SODIUM CHLORIDE 0.9% IV 1,000 ML 125 ML IV CONT (16:30)
[2025-02-17 16:38] VITALS: BP 116/66; PULSE 88; RESP 16; TEMP 36.4; O2SAT 98
--- NOTE | 2025-02-17 17:22 | ADMGEN ---
This patient, Mili Palm, was admitted to Medical Room 244-. Patient/family oriented to hospital policies and general routines including ID bracelet, bed and alarms, visiting hours, pain management, procedures, bathroom and other care routines, personal items, smoking policy, room service/diet, and visiting hours. Information on how to activate the Rapid Response Team has been discussed. Patient/Family are encouraged to report perceived risks to care and to ask questions if they do not understand what they are told or what they should do.
[2025-02-17 17:23] VITALS: BMI 31.2
[2025-02-17 20:18] VITALS: BP 114/61; PULSE 62; RESP 20; TEMP 36.4; O2SAT 100
[2025-02-17] MEDS: CEPHALEXIN 500 MG CAPSULE PO (22:05)
[2025-02-18] MEDS: SODIUM CHLORIDE 0.9% IV 1,000 ML 125 ML IV CONT (00:23)
[2025-02-18 05:24] VITALS: BP 124/67; PULSE 76; RESP 20; TEMP 36.4; O2SAT 98
[2025-02-18] MEDS: CEPHALEXIN 500 MG CAPSULE PO (05:31)
--- NOTE | 2025-02-18 05:32 | PC.NURSE ---
PT STATES BLEEDING HAS STOPPED
--- NOTE | 2025-02-18 08:05 | W.PM.OBCSD ---
OB - Delivery Note Procedure Delivery date: 02/18/25 Pre-op diagnosis: Previous Delivery Post-op Diagnosis: Same Surgeon: Israel Pantoja MD Urine Output: 600
--- NOTE | 2025-02-18 08:07 | W.PM.OBCSD ---
OB - Delivery Note Procedure Delivery date: 02/04/25 Pre-op diagnosis: Previous Delivery Post-op Diagnosis: Same Procedure Performed: Repeat Surgeon: Israel Pantoja MD Anesthesia type: Spinal Description of Procedure/Findings: The patient was taken the operating room.? She was prepped and draped in dorsal supine position with a leftward tilt.? This was done after spinal anesthetic was applied.? A low-transverse skin incision was made and carried down till of the fascia with the knife.? The fascial incision was made with the knife.? The fascial incision was extended laterally with Durant scissors.? The fascia was tented upward superiorly and inferiorly the rectus muscles were dissected off bluntly.? The rectus muscles were the midline.? The preperitoneal fat and peritoneum were dissected open bluntly at the superior aspect of the rectus muscles.? The peritoneal incision was extended superior and inferior with good position of bladder.? The uterine incision was made with a scalpel down to the level of the amniotic cavity.? The amniotic cavity was entered bluntly.? The infant was delivered.? The cord was clamped and cut and the infant was handed off to waiting pediatric staff.? Cord bloods were obtained.? The placenta was removed manually.? The uterus was exteriorized.? The uterus was cleared of all clots, debris and membranes.? The uterus was closed in 0 Vicryl running lock fashion.? An imbricating over a was placed along the incision line as well.? The uterus was returned to the abdomen.? The gutters were cleared of all clots and debris.? The fascia was closed with 0 Vicryl running fashion.? The subcutaneous tissue was irrigated pinpoint bleeders were cauterized.? The skin was closed with subcuticular absorbable ray.? The skin incision line was covered with glue.? The patient tolerated the procedure well.? She has taken recovery room in stable condition.? Sponge lap and needle counts were correct x2.? Urine Output: 600
--- NOTE | 2025-02-18 08:08 | PM.IMHP ---
H&P: [facility] History of Present Illness Date/Time: 02/18/25 08:08 Chief Complaint: Vaginal bleeding Narrative: This patient is a 30-year-old multiparous female who presents for vaginal bleeding. She was 2 weeks when she started having bright red heavy bleeding. Episode lasted most of the day yesterday. She is admitted for observation. She was evaluated in the emergency department. There was some thickening of the endometrium on ultrasound, no retained products. Her bleeding resolved overnight. She will be discharged and will have short-term follow-up. She denies any nausea, vomiting, fever, chills. She denies any chest pain or shortness of breath Review of Systems Review of Systems: All systems reviewed & are unremarkable except as noted in HPI and below Constitutional: Constitutional: Denies chills, Denies fatigue, Denies fever(s) and Denies weakness Eyes: Eyes: Denies blurry vision, Denies change in vision, Denies loss of peripheral vision, Denies loss of vision, Denies other visual disturbances and Denies eye pain ENT: Denies vertigo, Denies dizziness, Denies hearing loss, Denies mouth pain, Denies nasal obstruction, Denies neck mass and Denies neck pain Cardiovascular: Cardiovascular: Denies chest pain, Denies diaphoresis, Denies syncope, Denies leg edema and Denies dyspnea Respiratory: Respiratory: Denies chest congestion, Denies cough, Denies hemoptysis, Denies dyspnea and Denies wheezing Gastrointestinal: Gastrointestinal: Denies abdominal pain, Denies constipation, Denies diarrhea, Denies nausea and Denies vomiting Genitourinary: Genitourinary: Denies hematuria, Denies change in libido, Denies nocturia, Denies genital lesions, Denies flank pain and Denies urinary urgency Musculoskeletal: Musculoskeletal: Denies abnormal gait, Denies back pain, Denies myalgias, Denies arthralgias, Denies joint swelling, Denies muscle weakness and Denies neck pain Integumentary/Breasts: Skin/Breast: Denies swelling, Denies breast pain, Denies breast mass, Denies dry skin, Denies nipple discharge, Denies unusual bruising and Denies jaundice Neurologic: Denies Neuro-related abnormal movements, Denies Abnormal speech present, Denies abnormal gait, Denies behavioral changes, Denies confusion, Denies vertigo, Denies dizziness, Denies syncope, Denies loss of vision, Denies memory loss, Denies convulsions and Denies weakness Psychiatric: Psychiatric: Denies abnormal sleep pattern, Denies behavioral changes, Denies change in libido, Denies confusion, Denies depression, Denies anhedonia and Denies memory loss Endocrine: Endocrine: Reports no additional endocrine complaints, Denies change in libido and Denies fatigue Hematologic/Lymphatic: Hematologic/Lymphatic: Reports no additional hematologic/lymphatic complaints Allergic/Immunologic: Allergic/Immunologic: Reports no additional allergic/immunologic complaints and Denies wheezing PMFSH Past Medical History Medical History False labor before 37 completed weeks of gestation Vaginal discharge IUGR (intrauterine growth restriction) 2nd Anemia Generalized headaches History of miscarriage, currently x 1 History of vaginal delivery x3 Surgical History Surgical History History of dilation and curettage x 13 Jan 2019 for Miscarriage Family History Family History Mother Diabetes mellitus Family history of blood dyscrasia Hypertension Asthma Father Hypertension Alcoholism Diabetes mellitus Depression Daughter Asthma Grandparent Liver cancer Alcoholism Hypertension Heart disease Social History Social History Smoking status: Never smoker Second hand tobacco smoke exposure: No Alcohol intake: never Substance use: never Do You Feel Safe in your Home?: Yes Lack of Transportation: No Lack of Food: Never True Current Housing: I Have Housing Concerned About Future Housing: No Difficulty Paying Gas/Electric Bills: No Difficulty Paying for Meds: No Currently Unemployed: No Education: High School Diploma/GED Difficulty w/ Childcare or Family Care: No Gender identity (if verbalized by the patient): Female Spiritual care concerns: No Meds Home Medications and Allergies Home Medications ?Medication ?Instructions ?Recorded ?Confirmed ?Type acetaminophen 500 mg tablet 1,000 mg PO Q6H PRN fever or pain 12/16/24 02/17/25 History vit no.95-ferrous 1 tablet PO DAILY 12/16/24 02/17/25 History fumarate 28 mg-folic acid 800 mcg tablet () ibuprofen 200 mg tablet 600 mg PO Q6H 02/17/25 02/17/25 History Allergies Allergy/AdvReac Type Severity Reaction Status Date / Time animal dander Allergy Intermediate Itching Verified 02/17/25 17:34 Vital Signs Vital Signs - 24 hr 02/17/25 12:38 02/17/25 13:44 02/17/25 16:38 Temperature 98 F 97.5 F L Pulse Rate 80 88 Respiratory Rate 16 16 16 Blood Pressure 136/71 116/66 Pulse Oximetry 99 99 98 Oxygen Delivery Room Air 02/17/25 18:30 02/17/25 20:18 02/18/25 05:24 Temperature 97.6 F 97.5 F L Pulse Rate 62 76 Respiratory Rate 20 20 Blood Pressure 114/61 124/67 Pulse Oximetry 100 98 Oxygen Delivery Room Air 02/18/25 08:00 Temperature Pulse Rate Respiratory Rate Blood Pressure Pulse Oximetry Oxygen Delivery Room Air Exam Const: General: cooperative, healthy appearing, comfortable and no acute distress Orientation/consciousness: oriented to person, oriented to place and oriented to time HENMT: Head: normal to inspection Ears: external ears normal Face/Nose/Sinus: Normal external nose present and normal facial exam Face and sinus: normal facial exam Eyes: General: appearance normal, both eyes and all related structures Neck: Neck: normal visual inspection, trachea midline and supple Resp: Auscultation: clear to auscultation bilaterally, no crackles, no rales, no rhonchi and no wheezes Cardio: Rate: regular rate Rhythm: regular rhythm Heart sounds: no click, no murmurs and no rubs GI: GI Palp: No abdominal tenderness, No Soft to palpation, No Tenderness to palpation present (GI) and No Palpable mass present Auscultation: normal bowel sounds Skin: General skin exam: normal color and no rashes or lesions noted Neuro: General: oriented to person, oriented to place and oriented to time Extrem: General: normal to inspection, no joint enlargement, no clubbing, cyanosis or edema, no pedal edema and no calf tenderness Psych: Appearance: grossly normal Mental Status: mental status grossly normal Speech and movement: Normal speech and movement present H&P: Results Labs Labs: Short CBC 02/17/25 Range/Units 14:26 WBC 10.3 H (4.5-10.0) K/mm3 Hgb 11.2 L (12.0-15.0) g/dL Hct 38.5 (37.0-47.0) % Plt Count 376 H D (150-375) k/mm3 BMP 02/17/25 14:26 Sodium 138 Potassium 4.3 Chloride 105 Carbon Dioxide 24 BUN 16 Creatinine 0.60 L Glucose 91 Calcium 9.7 Liver Function 02/17/25 Range/Units 14:26 Total Bilirubin 0.2 (0.2-1.3) mg/dL AST 23 (14-36) U/L ALT 14 (6-35) U/L Alkaline Phosphatase 123 (38-126) U/L Albumin 4.1 (3.5-5.1) g/dL Urine 02/17/25 Range/Units 14:26 Urine Color Yellow (Yellow) Urine Appearance Clear (Clear) Urine pH 5.5 (5.0-9.0) Ur Specific [place] 1.018 (1.001-1.035) Urine Protein Negative (Negative) mg/dL Urine Glucose (UA) Negative (Negative) mg/dL Assessment and Plan Assessment and plan (1) hemorrhage: Code(s): O72.1 - Other immediate hemorrhage Status: Acute Plan This patient is a 30-year-old multiparous female who presents for vaginal bleeding. She was 2 weeks when she started having bright red heavy bleeding. Episode lasted most of the day yesterday. She is admitted for observation. She was evaluated in the emergency department. There was some thickening of the endometrium on ultrasound, no retained products. Her bleeding resolved overnight. She will be discharged and will have short-term follow-up. She denies any nausea, vomiting, fever, chills. She denies any chest pain or shortness of breath
--- NOTE | 2025-03-13 21:10 | P.PNOB_ITS ---
OB - Triage/Final Diagnosis Visit Information Comments/Additional reasons for admission: I have assessed the risk for this patient, Mili Palm, and determined that she would benefit from observation care. Evaluation Laboratory results: Laboratory Tests 02/17/25 14:26 WBC 10.3 H RBC 4.60 Hgb 11.2 L Hct 38.5 MCV 83.7 MCH 24.3 L MCHC 29.1 L RDW 16.3 H Plt Count 376 H D MPV 9.8 Immature Gran % (Auto) 0.3 Neut % (Auto) 75.6 H Lymph % (Auto) 16.8 L [place] % (Auto) 3.9 Eos % (Auto) 2.8 Baso % (Auto) 0.6 Lymph # (Auto) 1.73 [place] # (Auto) 0.4 Eos # (Auto) 0.3 Baso # (Auto) 0.1 Abs Immat Gran (auto) 0.03 Absolute Neuts (auto) 7.8 H Absolute Nucleated RBC 0.000 Band Neutrophils % Not Reportable Nucleated RBC % 0.0 Platelet Estimate Increased Hypochromasia 1+ Ovalocytes 1+ Schistocytes None seen Sodium 138 Potassium 4.3 Chloride 105 Carbon Dioxide 24 Anion Gap 9 BUN 16 Creatinine 0.60 L Estim Creat Clear Calc 120 Estimated GFR > 60 Glucose 91 Calcium 9.7 Total Bilirubin 0.2 AST 23 ALT 14 Alkaline Phosphatase 123 Total Protein 7.5 Albumin 4.1 Urine Color Yellow Urine Appearance Clear Urine pH 5.5 Ur Specific [place] 1.018 Urine Protein Negative Urine Glucose (UA) Negative Urine Ketones Negative Ur Blood (Man) 3+ H Urine Nitrate Negative Urine Bilirubin Negative Urine Urobilinogen 0.2 Leukocyte Esterase Rfl 2+ H Urine RBC 51-100 H Urine WBC 6-10 H Ur Squamous Epith Cells None seen Urine Bacteria None seen Urine Casts 0-2
--- NOTE | 2025-03-14 10:42 | PM.OBTRLD ---
OB - Triage/Final Diagnosis Visit Information Comments/Additional reasons for admission: I have assessed the risk for this patient, Mili Palm, and determined that she would benefit from observation care. Evaluation Laboratory results: Laboratory Tests 02/17/25 14:26 WBC 10.3 H RBC 4.60 Hgb 11.2 L Hct 38.5 MCV 83.7 MCH 24.3 L MCHC 29.1 L RDW 16.3 H Plt Count 376 H D MPV 9.8 Immature Gran % (Auto) 0.3 Neut % (Auto) 75.6 H Lymph % (Auto) 16.8 L [place] % (Auto) 3.9 Eos % (Auto) 2.8 Baso % (Auto) 0.6 Lymph # (Auto) 1.73 [place] # (Auto) 0.4 Eos # (Auto) 0.3 Baso # (Auto) 0.1 Abs Immat Gran (auto) 0.03 Absolute Neuts (auto) 7.8 H Absolute Nucleated RBC 0.000 Band Neutrophils % Not Reportable Nucleated RBC % 0.0 Platelet Estimate Increased Hypochromasia 1+ Ovalocytes 1+ Schistocytes None seen Sodium 138 Potassium 4.3 Chloride 105 Carbon Dioxide 24 Anion Gap 9 BUN 16 Creatinine 0.60 L Estim Creat Clear Calc 120 Estimated GFR > 60 Glucose 91 Calcium 9.7 Total Bilirubin 0.2 AST 23 ALT 14 Alkaline Phosphatase 123 Total Protein 7.5 Albumin 4.1 Urine Color Yellow Urine Appearance Clear Urine pH 5.5 Ur Specific [place] 1.018 Urine Protein Negative Urine Glucose (UA) Negative Urine Ketones Negative Ur Blood (Man) 3+ H Urine Nitrate Negative Urine Bilirubin Negative Urine Urobilinogen 0.2 Leukocyte Esterase Rfl 2+ H Urine RBC 51-100 H Urine WBC 6-10 H Ur Squamous Epith Cells None seen Urine Bacteria None seen Urine Casts 0-2 Final Diagnosis (1) hemorrhage: Code(s): O72.1 - Other immediate hemorrhage Status: Acute
== END 2025-02-18 09:08 | disposition home or self-care (01) ==
LOC: ANHED 14:01 → ANH2MED 16:41
PROVIDERS: Admitting Provider Obstetrics & Gynecology; Emergency Provider Registered Nurse; PCP Obstetrics & Gynecology; Visit Provider Obstetrics & Gynecology
DX: O72.1 Other immediate postpartum hemorrhage (principal)
CPT/HCPCS: 36415; 76856; 80053; 81001; 85025; 87086; 96360; 96361; 99285; A9270; G0378; G0379; J7030

== ENCOUNTER 2025-03-10 15:00 | Outpatient (RCR) | payer OTHER, SELFPAY ==
--- NOTE | 2025-03-10 16:00 | PC.NURSE ---
In- 1500 Out- 1600 Reason for visit: Poor weight gain at 1 month visit - weighted feed requested from systems management consultant History: Mother is a here for a weighted feed per systems management consultant request. Mother states that she did attempt to breast feed her older children but was unsuccessful. She had a healthy with no complications and delivered baby dashawn William by a scheduled section. Mothers current feeding schedule for is : setting a timer for every 3 hours to feed and/or pump. When mother explained this feeding plan she stated that sometimes she would not wake to feed at 3 hours and she would go stretches of 5 hours or more in which she would still pump at the 3 hour danilo. Nataliia is taking approximately 3 ounces per feeding which mother states is approximately 8 times per day. Mother states that sometimes the volume of formula is less depending on if she breast fed prior to offering the bottle. She has recently started to mix her breast milk with formula. Mother states that she does not consistently breastfeed because she does not know how much was getting at the breast. History: was transferred to [facility] NICU for respiratory issues shortly after delivery. Infants weight at delivery was 6lb 1oz and 5lb 7oz at discharge. Her most recent weight was 6lb 3oz at her one month appointment at the pediatricians office. Observations: Mother states that nurses well on the left breast but sometimes has difficulty with the right breast. Encouraged mother to place on the right side to assess the latch on the more difficult side. Mother was able to put infant to breast independently and is confident in doing so. She was able to place baby in cross cradle position and establish an appropriate latch with infants chin to breast and nose close to it with flanged lips and maintain latch keeping infant close. Education was provided to mother on how to listen for swallows to assure her that baby is getting milk. Mother states that this makes her feel better about knowing that she can hear the swallows. Infants suck to swallow ratio is 2-3:1. weight: 6-1 Lowest weight: 5-7 Last weight: 6-3 Pre-feed weight: 6-10.9 Post-feed weight: 6-12.7 Volume Transferred: 1.8oz Plan of Care: Mother states that she does feel anxious and has made an appointment with her OBGYN to discuss this. Mother agrees to wake for feedings every 3 hours to feed if is not waking up willingly before the 3 hour timeframe. Discussed on demand feeding with and responding to infants feeding cues instead of timers to incorporate more frequent feedings at the breast which will likely boost her supply. Mother instructed to continue supplementation after feedings until cleared to discontinue by her systems management consultant (breast milk or formula). Follow up plans: Follow up with OBGYN for anxiety, follow up with systems management consultant at scheduled visit for weight check, follow up with RN by telephone in 48 hours.
--- NOTE | 2025-03-12 13:45 | PC.NURSE ---
Follow up call to Mili after her appointment this week. She states things are 'touch and go' and that she feels like her milk supply may be declining. Baby will nurse for an hour and then take 4 or more ounces after . Mom feels like baby empties her breast during the feeding. Encouraged continued pumping after feedings to help boost supply. She is pumping every 2 hours. Mom is advised to continue with supplementation until follow up with rack room worker. Patient knows that she may call us with any further questions or concerns or if she has a need to be seen as an outpatient again.
== END 2025-06-08 23:59 | disposition home or self-care (01) ==
LOC: ANHOBOP 15:00
PROVIDERS: PCP Obstetrics & Gynecology; Visit Provider Pediatrics
DX: Z39.1 Encounter for care and examination of lactating mother (principal)
CPT/HCPCS: 99212; G0463